=== PATIENT | male | born 1950 | race Caucasian/White ===

== ENCOUNTER → 2018-04-30 09:11 | Outpatient (CLI) | payer BC, SELFPAY ==
[2018-04-30 09:27] LABS: Bilirubin Negative (Negative); Blood Negative (Negative); Clarity Clear; Glucose Negative (Negative); Ketones Negative (Negative); Leukocyte Esterase Negative (Negative); Nitrite Negative (Negative); Specific Gravity 1.015 (1.005-1.025); Urobilinogen 0.2 EU/dL (Up TO 0.2)
== END ==
PROVIDERS: PCP Physician Assistant; Visit Provider Nurse Practitioner
DX: R31.0 Gross hematuria (principal)
CPT/HCPCS: 81003

== ENCOUNTER 2018-07-12 18:12 | Emergency (ER) | payer BC, SELFPAY ==
[2018-07-12 18:16] VITALS: BP 157/73; PULSE 90; RESP 16; TEMP 37.4; O2SAT 98
[2018-07-12 18:29] VITALS: RESP 16
--- NOTE | 2018-07-12 18:30 | ED.GENADUL_ITS ---
Discharge Plan Disposition Patient Disposition: HOME Condition: Good Discharge Details Chief Complaint: Vascular Clinical Impression: Leg wound, right, Bleeding from wound Reason For Visit: ALLEN Primary Care Provider: Bel Quintana ED Provider: Manolo No Home Meds and New Rx's Prescriptions: No Action atorvastatin 80 MG tablet 80 mg PO DAILY Qty: 90 RF: 4 atenolol 50 MG tablet 50 mg PO DAILY Qty: 90 RF: 4 aspirin [Aspir-81] 81 MG tablet,delayed release (DR/EC) 81 mg PO DAILY RF: 0 pramipexole [Mirapex] 0.125 MG tablet 0.125 mg PO PRN RF: 0 duloxetine [Cymbalta] 60 MG capsule,delayed release(DR/EC) 60 mg PO DAILY 90 Days Qty: 90 RF: 3 apixaban [Eliquis] 2.5 MG tablet 2.5 mg PO BID Qty: 180 RF: 4 amlodipine 10 MG tablet 10 mg PO DAILY Qty: 90 RF: 4 cholecalciferol (vitamin D3) 1,000 UNIT tablet 5,000 unit PO DAILY 90 Days Qty: 450 RF: 3 methadone 10 MG tablet 2 tab PO BID Qty: 120 RF: 0 Discharge Instructions Additional Instructions: hold your eliquis tonight have the sutures removed in 10 days, return to the emergency department for this if you have recurrent bleeding that dosen't stop with pressure return to the emergency department Medical Decision Making pt who is on eliquis for prior endarterectomy per pt, who 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 Denies other injuries. Had significant squiriting bleeidng and so came here by ems. On exam he initially had oozing but after trying to cauterize the bleeding he had a small area that was spraying so I placed a figure of 8 over this and another over an oozing area and this stopped the bleeding. He has no significant tachycardia, weakness/ lightheadedness, chest pain or sob so do not feel lab work indicated. I will advise him to hold his eliquis tonight to try and let the area clot and return precautions given Differential Diagnosis wound bleeding, arterial bleeding HPI General Mode of arrival: ambulatory . Date/Time Provider Initiated Documentation: 07/12/18 18:26 . Limitations to Documentation: no limitations . Information obtained by: patient . History of Present Illness 68 year old M presents to the emergency department with the chief complaint of right leg wound bleeding, and is localized to the right and lower extremity. Patient started experiencing this hour(s) (1) and it has been constant. No relieving factors improve symptom(s), No exacerbating factors reported . Patient did receive the following treatments prior to arrival, none Related Data Home Medications Medication Instructions Recorded Confirmed atorvastatin 80 mg PO DAILY #90 tab-cap 09/12/16 atenolol 50 mg PO DAILY #90 tab 02/19/17 aspirin [Aspir 81] 81 mg PO DAILY 07/04/17 duloxetine [Cymbalta] 60 mg PO DAILY 90 Days #90 tab-cap 09/16/17 pramipexole [Mirapex] 0.125 mg PO PRN 09/16/17 apixaban [Eliquis] 2.5 mg PO BID #180 tab-cap 10/27/17 amlodipine 10 mg PO DAILY #90 tab-cap 11/06/17 cholecalciferol (vitamin D3) 5,000 unit PO DAILY 90 Days #450 11/11/17 tab-cap methadone 2 tab PO BID #120 tab-cap 01/28/18 Previous Rx's Medication Instructions Recorded duloxetine [Cymbalta] 60 mg PO DAILY 90 Days #90 tab-cap 09/16/17 apixaban [Eliquis] 2.5 mg PO BID #180 tab-cap 10/27/17 amlodipine 10 mg PO DAILY #90 tab-cap 11/06/17 cholecalciferol (vitamin D3) 5,000 unit PO DAILY 90 Days #450 11/11/17 tab-cap methadone 2 tab PO BID #120 tab-cap 01/28/18 Allergies Allergy/AdvReac Type Severity Reaction Status Date / Time gabapentin AdvReac Mild cough Unverified 07/12/18 18:21 General Stated Complaint: Vascular KATIA: 3 Review of Systems Review of Systems All systems reviewed & are unremarkable except as noted in HPI and below Constitutional Denies chills, Denies fever(s) and Denies weakness Eyes Denies loss of vision ENT Denies change in voice Cardiovascular Denies chest pain and Denies dyspnea Respiratory Denies dyspnea Gastrointestinal Denies abdominal pain, Denies nausea and Denies vomiting Genitourinary Denies dysuria Musculoskeletal Denies joint swelling Neurologic Denies loss of vision and Denies weakness Psychiatric Denies depression Endocrine Denies cold intolerance and Denies heat intolerance Allergic/Immunologic Denies urticaria PFSH Family History Mother Diabetes Essential hypertension Depression Heart disease Neoplasm Father Neoplasm Sister No problems noted. Sister Neoplasm Cerebrovascular accident Sister Neoplasm Brother Neoplasm Grandfather Diabetes Essential hypertension Heart disease Hyperlipidemia Cerebrovascular accident Grandfather No problems noted. Grandmother No problems noted. Grandmother No problems noted. Medical History AAA (abdominal aortic aneurysm) BPH (benign prostatic hyperplasia) Chronic pain syndrome Esophagitis Femur fracture Gastritis, Helicobacter pylori Hypercholesterolemia Hypertension Male sexual dysfunction Peripheral vascular disease Pneumothorax on right (09/23/16) Rotator cuff tear arthropathy of both shoulders Sleep apnea Tibia fracture Varicose veins of bilateral lower extremities with pain Viral hepatitis C Social History Smoking/Tobacco Use Status: Former Tobacco Use Surgical History EGD - MAC ORIF femur Spinal Fusion femoral stent lumbar discectomy open reduction tib/fib right chest tube placement under local (09/23/16) Exam Const General: no acute distress Orientation: alert HENMT Head: normal to inspection Ears: external ears normal General nose exam: external nose normal Mouth: moist mucous membranes Eyes General: appearance normal, both eyes and all related structures Neck Neck: normal visual inspection Resp Effort & Inspection: normal respiratory effort and able to speak in complete sentences Cardio Rate: regular rate Neuro General: alert and oriented x3 Psych Mental Status: mental status grossly normal Course Vital Signs Temperature 37.4 C 07/12/18 18:16 Pulse 90 07/12/18 18:16 Respiratory Rate 16 07/12/18 18:16 Blood Pressure 157/73 H 07/12/18 18:16 Pulse Oximetry 98 07/12/18 18:16 Temperature 37.4 C 07/12/18 18:16 Temperature Source Temporal Artery Scan 07/12/18 18:16 Pulse 90 07/12/18 18:16 Respiratory Rate 16 07/12/18 18:16 Respiratory Effort Non-Labored 07/12/18 18:19 Blood Pressure 157/73 H 07/12/18 18:16 Blood Pressure Position Sitting 07/12/18 18:16 Pulse Oximetry 98 07/12/18 18:16 Oxygen Delivery Method Room Air 07/12/18 18:16 Oxygen Flow Rate 0 07/12/18 18:16 Pain Level 0 07/12/18 18:16
[2018-07-12 18:45] VITALS: BP 62/35; PULSE 70
--- NOTE | 2018-07-12 18:53 | NUR.NOTE ---
patient assisted up to w/c. became dizzy, diaphoretic, noticeable pallor. BP 62/35. Patient assisted back to bed, MD in for evaluation. Patient to be observed further for any signs of worsening status.
[2018-07-12 19:45] VITALS: BP 104/59; PULSE 63; RESP 16; O2SAT 98
== END 2018-07-12 19:48 | disposition home or self-care (01) ==
PROVIDERS: Emergency Provider Emergency Medicine; PCP Physician Assistant
DX: S81.811A Laceration without foreign body, right lower leg, initial encounter (principal); W22.8XXA Striking against or struck by other objects, initial encounter; R58 Hemorrhage, not elsewhere classified; Z79.01 Long term (current) use of anticoagulants; I10 Essential (primary) hypertension
CPT/HCPCS: 12001

== ENCOUNTER 2018-08-14 12:44 | Emergency (ER) | payer BC, SELFPAY ==
[2018-08-14] VITALS (102 sets, daily range): BP systolic 165–193; BP diastolic 77–89; PULSE 63–75; RESP 13–39; TEMP 37.1; O2SAT 96–100
--- NOTE | 2018-08-14 14:02 | ED.GENADUL_ITS ---
Discharge Plan Disposition Patient Disposition: HOME Condition: Improving Discharge Details Chief Complaint: DrugWithdr Clinical Impression: Methadone withdrawal Primary Care Provider: Bel Quintana ED Provider: Laura Hernandez Home Meds and New Rx's Prescriptions: Continued atorvastatin 80 MG tablet 80 mg PO DAILY Qty: 90 RF: 4 atenolol 50 MG tablet 50 mg PO DAILY Qty: 90 RF: 4 aspirin [Aspir-81] 81 MG tablet,delayed release (DR/EC) 81 mg PO DAILY RF: 0 pramipexole [Mirapex] 0.125 MG tablet 0.125 mg PO PRN RF: 0 duloxetine [Cymbalta] 60 MG capsule,delayed release(DR/EC) 60 mg PO DAILY 90 Days Qty: 90 RF: 3 Eliquis 2.5 MG tablet 2.5 mg PO BID Qty: 180 RF: 4 amlodipine 10 MG tablet 10 mg PO DAILY Qty: 90 RF: 4 cholecalciferol (vitamin D3) 1,000 UNIT tablet 5,000 unit PO DAILY 90 Days Qty: 450 RF: 3 methadone 10 MG tablet 1 tab PO BID RF: 0 Discharge Instructions Instructions: Opioid Withdrawal (ED) Additional Instructions: Take the Ativan to help with any with withdrawal symptoms or with sleep. Follow-up with your scheduled appointment with your primary care doctor and the pain clinic on Friday. Drink plenty of fluids and get plenty of rest. Return immediately to the emergency department any worsening or new concerning symptoms. Discharge Data Discharge Physician: Laura Hernandez Medical Decision Making 68-year-old male with a history of chronic back and shoulder pain who has been on a methadone taper for the past 5 months who presents for concern for methadone withdrawal. He complains of hot and cold sweats and chills, shaking, restless legs, decreased appetite and sleep for the past week. Denies cough, chest pain or shortness of breath. Blood pressure 165/78, remainder vitals within normal limits. No acute findings on exam. No focal deficits. Lungs clear to auscultation. Abdomen soft and nontender. No tremors or diaphoresis. Discussed with patient that his symptoms can certainly be due to withdrawal, but in the emergency department we will rule out any other acute electrolyte abnormality or another acute process. We will place an IV, bolus IV fluids, Ativan, labs and EKG. patient has normal respiratory rate, no fever, normal oxygen saturation with clear lungs, do not see indication for chest x-ray or other imaging at this time and pt is agreeable. 1430 -- d/w his pcp [employer] Bel Quintana -agrees with plan for Ativan short term term on discharge. No further opioids. Will follow up with patient on his appointment this friday 1500 -- delay in lab results, blood hemolyzed. Lab to redraw. 1630 --labs and ekg reviewed and unremarkable. Normal white blood cell count, electrolytes and urinalysis. EKG notes a rate of 65, sinus and no acute ST elevation or depression. Patient states he feels better and feels good to go home. Will send home with a few tabs of Ativan to help over the next couple days. Patient has an appointment with his primary care doctor and the pain clinic this August 19. Patient states he is also planning to find a new primary care doctor. He is instructed to make an appointment as soon as possible for evaluation. Patient instructed to return here immediately with any worsening or new concerning symptoms. Medical Records Medical records reviewed: Yes I reviewed the patient's medical records. Lab Data Lab results reviewed: Yes I reviewed the patient's lab results. Laboratory Tests Range/Units 08/14/18 08/14/18 08/14/18 14:08 14:20 14:20 WBC Cancelled RBC Cancelled Hgb Cancelled Hct Cancelled MCV Cancelled MCH Cancelled MCHC Cancelled RDW Cancelled Plt Count Cancelled MPV Cancelled Abs Immat Gran (auto) Cancelled Immature Gran % Cancelled Neutrophils % Cancelled Lymphocytes % Cancelled Monocytes % Cancelled Eosinophils % Cancelled Basophils % Cancelled Absolute Neutrophils Cancelled Band Neutrophils Cancelled Absolute Lymphocytes Cancelled Absolute Monocytes Cancelled Absolute Eosinophils Cancelled Absolute Basophils Cancelled Metamyelocytes Cancelled Myelocytes Cancelled Promyelocytes Cancelled Nucleated RBCs Cancelled Differential Comment Cancelled Atypical Lymphocytes Cancelled Other Cell Type Cancelled RBC Morphology Cancelled Polychromasia Cancelled Hypochromasia Cancelled Poikilocytosis Cancelled Basophilic Stippling Cancelled Anisocytosis Cancelled Microcytosis Cancelled Macrocytosis Cancelled Spherocytes Cancelled Target Cells Cancelled Tear Drop Cells Cancelled Ovalocytes Cancelled Stomatocytes Cancelled Shaikh-[place] Bodies Cancelled Merary Cells Cancelled Acanthocytes (Spur) Cancelled Schistocytes Cancelled Sodium Cancelled Potassium Cancelled Chloride Cancelled Carbon Dioxide Cancelled Anion Gap Cancelled BUN Cancelled Creatinine Cancelled Estimated GFR/1.73 m2 Cancelled Glucose Cancelled Calcium Cancelled Total Bilirubin Cancelled AST Cancelled ALT Cancelled Alkaline Phosphatase Cancelled Total Protein Cancelled Albumin Cancelled Urine Color (Yellow) Yellow Urine Clarity Clear Urine pH (5-8) 6.5 Ur Specific [place] (1.005-1.025) 1.010 Urine Protein (Negative) mg/dL Negative Urine Ketones (Negative) mg/dL Negative Urine Blood (Negative) Negative Urine Nitrite (Negative) Negative Urine Bilirubin (Negative) Negative Urine Urobilinogen (Up TO 0.2) EU/dL 0.2 Ur Leukocyte Esterase (Negative) Negative Urine Glucose (Negative) mg/dL Negative Range/Units 08/14/18 08/14/18 15:07 15:07 WBC 6.02 RBC 3.83 L Hgb 11.3 L Hct 34.7 L MCV 90.6 MCH 29.5 MCHC 32.6 RDW 14.3 H Plt Count 325 MPV 8.8 Abs Immat Gran (auto) Immature Gran % 0.3 Neutrophils % 64.8 Lymphocytes % 24.3 Monocytes % 6.3 Eosinophils % 3.8 Basophils % 0.5 Absolute Neutrophils 3.90 Band Neutrophils Absolute Lymphocytes 1.46 Absolute Monocytes 0.38 Absolute Eosinophils 0.23 Absolute Basophils 0.03 Metamyelocytes Myelocytes Promyelocytes Nucleated RBCs Differential Comment Atypical Lymphocytes Other Cell Type RBC Morphology Polychromasia Hypochromasia Poikilocytosis Basophilic Stippling Anisocytosis Microcytosis Macrocytosis Spherocytes Target Cells Tear Drop Cells Ovalocytes Stomatocytes Shaikh-Over[place] Bodies [place] Cells Acanthocytes (Spur) Schistocytes Sodium 144 Potassium 3.7 Chloride 107 Carbon Dioxide 28.1 Anion Gap 8.9 BUN 26 H Creatinine 1.14 Estimated GFR/1.73 m2 >= 60.00 Glucose 88 Calcium 8.9 Total Bilirubin 0.4 AST 28 ALT 27 Alkaline Phosphatase 134 H Total Protein 7.4 Albumin 3.6 Urine Color (Yellow) Urine Clarity Urine pH (5-8) Ur Specific [place] (1.005-1.025) Urine Protein (Negative) mg/dL Urine Ketones (Negative) mg/dL Urine Blood (Negative) Urine Nitrite (Negative) Urine Bilirubin (Negative) Urine Urobilinogen (Up TO 0.2) EU/dL Ur Leukocyte Esterase (Negative) Urine Glucose (Negative) mg/dL ECG Data Attestation: I personally reviewed and interpreted this ECG (s) as follows: Interpretation: 1618: 65, sinus, no acute ST elevation or depression, QTc 430, QRS 132 . HPI General Mode of arrival: ambulatory . Date/Time Provider Initiated Documentation: 08/14/18 12:54 . Limitations to Documentation: no limitations . Information obtained by: patient . HPI Narrative: Patient is a 68-year-old male who has been on methadone 40 mg daily for 10 years for chronic back and shoulder pain who presents for concern for possible withdrawal from methadone. Patient states he has been on a taper and plans to wean him off his methadone by his choice since April 2018. Patient states 1 month ago he weaned down to 5 mg twice daily and the plan was to switch him to 5 mg daily last week. Patient states his primary care doctor would not fill the prescription for the 5 mg daily as he was taking additional methadone in the past month due to his difficulty with weaning down on the methadone. Patient states he has hot and cold chills, feels shaky, restless legs, decreased appetite, and decreased energy for the past week. Patient states he saw his PCP Bel Quintana at [facility] who has been managing his methadone for years who saw patient this week for this and started clonidine patch which patient was unable to get the pharmacy and then started on clonidine p.o. Patient states he now is on the clonidine patch but it is not helping. Patient states his last dose of methadone was 9 days ago. Patient also states his blood pressure is normally 130s over 70s and was greater than 200s this morning. Patient states he also got some recommendations from the pain clinic during his methadone taper and they had been the ones to recommend the oral clonidine this week. Related Data Home Medications Medication Instructions Recorded Confirmed atorvastatin 80 mg PO DAILY #90 tab-cap 09/12/16 08/14/18 atenolol 50 mg PO DAILY #90 tab 02/19/17 08/14/18 aspirin [Aspir-81] 81 mg PO DAILY 07/04/17 08/14/18 duloxetine [Cymbalta] 60 mg PO DAILY 90 Days #90 tab-cap 09/16/17 08/14/18 pramipexole [Mirapex] 0.125 mg PO PRN 09/16/17 Eliquis 2.5 mg PO BID #180 tab-cap 10/27/17 08/14/18 amlodipine 10 mg PO DAILY #90 tab-cap 11/06/17 08/14/18 cholecalciferol (vitamin D3) 5,000 unit PO DAILY 90 Days #450 11/11/17 08/14/18 tab-cap methadone 1 tab PO BID 08/14/18 08/14/18 Previous Rx's Medication Instructions Recorded duloxetine [Cymbalta] 60 mg PO DAILY 90 Days #90 tab-cap 09/16/17 Eliquis 2.5 mg PO BID #180 tab-cap 10/27/17 amlodipine 10 mg PO DAILY #90 tab-cap 11/06/17 cholecalciferol (vitamin D3) 5,000 unit PO DAILY 90 Days #450 11/11/17 tab-cap Allergies Allergy/AdvReac Type Severity Reaction Status Date / Time gabapentin AdvReac Mild cough Unverified 08/14/18 12:58 General Stated Complaint: DrugWithdr KATIA: 3 Review of Systems Review of Systems All systems reviewed & are unremarkable except as noted in HPI and below Constitutional Reports as per HPI, Reports body ache(s), Reports chills, Denies fever(s), Reports malaise and Reports weakness Eyes Denies blurry vision ENT Denies dizziness, Denies sore throat and Denies throat swelling Cardiovascular Denies chest pain and Denies dyspnea Respiratory Denies dyspnea Gastrointestinal Denies abdominal pain, Denies diarrhea and Denies vomiting Genitourinary Denies hematuria and Denies dysuria Musculoskeletal Denies back pain and Denies numbness Integumentary/Breasts Denies lesions and Denies rash Neurologic Denies dizziness, Denies numbness and Reports weakness Allergic/Immunologic Denies throat swelling [facility] Medical History AAA (abdominal aortic aneurysm) BPH (benign prostatic hyperplasia) Chronic pain syndrome Esophagitis Femur fracture Gastritis, Helicobacter pylori Hypercholesterolemia Hypertension Male sexual dysfunction Peripheral vascular disease Pneumothorax on right (09/23/16) Rotator cuff tear arthropathy of both shoulders Sleep apnea Tibia fracture Varicose veins of bilateral lower extremities with pain Viral hepatitis C EGD - MAC ORIF femur Spinal Fusion femoral stent lumbar discectomy open reduction tib/fib right chest tube placement under local (09/23/16) Family History Mother Diabetes Essential hypertension Depression Heart disease Neoplasm Father Neoplasm Sister No problems noted. Sister Neoplasm Stroke Sister Neoplasm Brother Neoplasm Grandfather Diabetes Essential hypertension Heart disease Hyperlipidemia Stroke Grandfather No problems noted. Grandmother No problems noted. Grandmother No problems noted. Social History Smoking/Tobacco Use Status: Former Tobacco Use alcohol intake: current alcohol intake frequency: a few times a week substance use type: does not use Exam Const General: cooperative, healthy appearing and no acute distress HENMT Head: normal to inspection Face and sinus: normal facial exam Eyes General: appearance normal, both eyes and all related structures Pupils: PERRL EOM: EOM intact bilaterally Neck Neck: normal visual inspection and No submandibular swelling Lymphatic: no lymphadenopathy noted Chest Chest: normal inspection of the chest and no tenderness Resp Effort & Inspection: normal respiratory effort and able to speak in complete sentences Auscultation: clear to auscultation bilaterally Cardio Rate: regular rate Rhythm: regular rhythm GI Inspection: normal to inspection Palpation: soft, not firm, not rigid and nontender Auscultation: normal bowel sounds Male General Exam: Yes normal external exam Skin General skin exam: no rashes or lesions noted Neuro General: alert, awake and oriented x3 Cognition: normal cognition Speech: speech normal Motor: muscle tone normal throughout Sensory Exam: no sensory deficits noted Extrem General: edema Left lower extremity: lower leg Details: other (Chronic mid anterior 4 x 2 cm open wound with clean edges and pink granulation tissue, no erythema, induration, edema, drainage or bleeding per) Psych Appearance: grossly normal Mental Status: mental status grossly normal Speech and Movement: speech and movement normal Affect: normal affect Course Vital Signs Temperature 98.8 F 08/14/18 12:53 Pulse 74 08/14/18 12:53 Respiratory Rate 16 08/14/18 12:53 Blood Pressure 165/78 H 08/14/18 12:53 Pulse Oximetry 100 08/14/18 12:53 Temperature 98.8 F 08/14/18 12:53 Temperature Source Skin 08/14/18 12:53 Pulse 74 08/14/18 12:53 Respiratory Rate 16 08/14/18 12:53 Blood Pressure 165/78 H 08/14/18 12:53 Pulse Oximetry 100 08/14/18 12:53 Oxygen Delivery Method Room Air 08/14/18 12:53 Oxygen Flow Rate 0 08/14/18 12:53 Pain Level 10 08/14/18 12:53
[2018-08-14 14:17] LABS: Bilirubin Negative (Negative); Blood Negative (Negative); Clarity Clear; Glucose Negative (Negative); Ketones Negative (Negative); Leukocyte Esterase Negative (Negative); Nitrite Negative (Negative); Urobilinogen 0.2 EU/dL (Up TO 0.2); pH 6.5 (5-8)
[2018-08-14] MEDS: LORazepam 2 MG/ML VIAL 0.5 MG IVP (15:10)
[2018-08-14] MEDS: Normal Saline 1,000 ML 1000 ML IV (15:10)
[2018-08-14 15:22] LABS: Abs Immature Grans 0.02 k/cumm (0.0-0.09); Absolute Basophil Count 0.03 k/cumm (0.0-0.2); Absolute Eosinophil Count 0.23 k/cumm (0.0-0.7); Absolute Lymphocyte Count 1.46 k/cumm (1.2-3.4); Absolute Monocyte Count 0.38 k/cumm (0.11-0.7); Basophils % 0.5; Eosinophils % 3.8; HCT 34.7 % (40.0-50.0); HGB 11.3 g/dL (13.5-17.5); Immature Grans % 0.3; Lymphocytes % 24.3; Mean Corp. HGB Concentration 32.6 g/dL (32.0-36.0); Mean Corpuscular Hemoglobin 29.5 pg (27.0-33.0); Mean Corpuscular Volume 90.6 fL (80-95); Mean Platelet Volume 8.8 fL (8.0-11.0); Monocytes % 6.3; Neutrophils % 64.8; Platelet Count 325 x1000/uL (130-400); RBC 3.83 m/cumm (4.50-6.00); RBC Distribution Width 14.3 % (11.8-14.1); White Blood Cell Count 6.02 k/cumm (4.4-10.8)
[2018-08-14 15:47] LABS: ALT 27 U/L (12-78); AST 28 U/L (15-37); Albumin 3.6 g/dL (3.4-5.0); Alkaline Phosphatase 134 U/L (46-116); Anion Gap 8.9 mmol/L (3-11); BUN 26 mg/dL (7-18); Bilirubin, Total 0.4 mg/dL (0.2-1.0); CO2 28.1 mmol/L (21.0-32.0); CREATININE 1.14 mg/dL (0.70-1.30); Calcium 8.9 mg/dL (8.5-10.1); Chloride 107 mmol/L (98-107); Glucose 88 mg/dL (70-100); Potassium 3.7 mmol/L (3.5-5.1); Sodium 144 mmol/L (136-145); Total Protein 7.4 g/dL (6.4-8.2)
== END 2018-08-14 17:25 | disposition home or self-care (01) ==
PROVIDERS: Emergency Provider Physician Assistant; PCP Physician Assistant
DX: F11.23 Opioid dependence with withdrawal (principal)
CPT/HCPCS: 36415; 80053; 93005; 96374; 99285; 81003; 85025; 93010; J2060

== ENCOUNTER 2018-09-08 10:54 | Outpatient (CLI) | payer BC, SELFPAY ==
[2018-09-08 11:54] LABS: Bilirubin Negative (Negative); Blood Negative (Negative); Clarity Clear; Glucose Negative (Negative); Ketones Negative (Negative); Leukocyte Esterase Negative (Negative); Nitrite Negative (Negative); Urobilinogen 0.2 EU/dL (Up TO 0.2)
[2018-09-08 13:24] LABS: Anion Gap 9.8 mmol/L (3-11); BUN 29 mg/dL (7-18); CO2 28.2 mmol/L (21.0-32.0); CREATININE 1.15 mg/dL (0.70-1.30); Calcium 9.4 mg/dL (8.5-10.1); Chloride 103 mmol/L (98-107); Glucose 94 mg/dL (70-100); Potassium 4.6 mmol/L (3.5-5.1); Sodium 141 mmol/L (136-145)
== END 2018-09-08 11:14 ==
PROVIDERS: PCP Physician Assistant; Visit Provider Physician Assistant
DX: I10 Essential (primary) hypertension (principal)
CPT/HCPCS: 36415; 80048; 81003; 84443

== ENCOUNTER 2018-09-15 12:58 | Outpatient (CLI) | payer BC, SELFPAY ==
--- NOTE | 2018-09-18 10:01 | W.PREOPHP ---
Date of service: 09/15/18 Assessment and Plan (1) Tear of left rotator cuff: Current visit: Yes Status: Chronic Left arthroscopic rotator cuff repair Details of surgery were discussed with patient as well as risks and pertinent anatomy. All questions were answered. Anesthesia was consulted especially about the pain medication, and he was instructed to discontinue his naltrexone bupropion 2 days prior to surgery. Dr. Webb was consulted with his chronic pain medication issue, and we will make a plan in order to treat his postsurgical pain. Qualifiers: Rotator cuff tear extent: unspecified tear extent Qualified Code(s): M75.102 - Unspecified rotator cuff tear or rupture of left shoulder, not specified as traumatic History of Present Illness Chief Complaint: Left shoulder pain Narrative: Ernesto is a 68-year-old male who is been complaining of left shoulder pain really for a few years now. He describes difficulty lifting objects away from his body, and also has difficulty sleeping at night because of his shoulder pain. He has been treated with injections, which did give him quite a bit of pain relief for more than a month's time, but the pain did always return. He takes anti-inflammatories and they only provide minimal relief. An MRI revealed a full-thickness tear with retraction of the supraspinatus on the left shoulder. Because he has failed conservative treatment, continues to have symptoms, and demonstrates a rotator cuff tear on the MRI, Dr. Webb offers a left rotator cuff repair. Ernesto agrees with this plan and is anxious to proceed. Ernesto has been going through a program to come off of chronic narcotic use, and is a little bit nervous about pain control after surgery. He is no longer on methadone but does take naltrexone bupropion he says as a stepdown for chronic opioid treatment. Anesthesia does suggest stopping this medication prior to surgery so that more options for pain control are available. Pertinent Surgical Information Ernesto has significant peripheral vascular disease with multiple endarterectomy treatments throughout his body. He also has a AAA that has been followed and treated conservatively. Last measurement by CT was done in December 2017 which was 4.7 x 5 cm. Patient denies history of CVA, MO, angina, asthma, COPD, renal or liver disorders, hepatitis, bleeding disorders, diabetes, immune or thyroid disorders. No complications from anesthesia. Review of Systems Constitutional Denies fever(s) ENT Denies dizziness and Denies sore throat Cardiovascular Denies chest pain, Denies palpitations and Denies dyspnea Respiratory Denies dyspnea Gastrointestinal Denies abdominal pain, Denies melena, Denies hematochezia, Denies diarrhea, Denies nausea and Denies vomiting Genitourinary Denies hematuria and Denies dysuria Neurologic Denies dizziness Endocrine Denies palpitations [facility] Medical History AAA (abdominal aortic aneurysm) BPH (benign prostatic hyperplasia) Chronic pain syndrome Esophagitis Femur fracture Gastritis, Helicobacter pylori Hypercholesterolemia Hypertension Male sexual dysfunction Peripheral vascular disease Pneumothorax on right (09/23/16) Rotator cuff tear arthropathy of both shoulders Sleep apnea Tibia fracture Varicose veins of bilateral lower extremities with pain Viral hepatitis C Surgical History History of endarterectomy (Acute) EGD - MAC ORIF femur Spinal Fusion femoral stent lumbar discectomy open reduction tib/fib right chest tube placement under local (09/23/16) Social History Smoking/Tobacco Use Status: Former Tobacco Use how long ago did patient quit smoking: Quit in 1987 alcohol intake: current alcohol intake frequency: a few times a week substance use type: marijuana Meds Home Medications Medication Instructions Recorded Confirmed Type atorvastatin 80 mg PO DAILY #90 tab-cap 09/12/16 09/15/18 History atenolol 100 mg PO DAILY #90 tab 02/19/17 09/15/18 History aspirin [Aspir-81] 81 mg PO DAILY 07/04/17 09/15/18 History pramipexole [Mirapex] 0.125 mg PO PRN 09/16/17 09/15/18 History Eliquis 2.5 mg PO BID #180 tab-cap 10/27/17 09/15/18 Rx amlodipine 10 mg PO DAILY #90 tab-cap 11/06/17 09/15/18 Rx cholecalciferol (vitamin D3) 5,000 unit PO DAILY 90 Days #450 11/11/17 09/15/18 Rx tab-cap methadone 1 tab PO BID 08/14/18 08/21/18 History duloxetine [Cymbalta] 60 mg PO DAILY 90 Days #90 tab-cap 09/14/18 09/15/18 Rx enoxaparin 80 mg SC Q12H #6 syringe 09/15/18 Rx ibuprofen 800 mg PO TID PRN 09/15/18 09/15/18 History lisinopril 10 mg PO DAILY 09/15/18 09/15/18 History naltrexone-bupropion 4.5 mg PO QAM 09/15/18 09/15/18 History omega 0-ztn-czj-fish oil [Kathleen-3] 1 tab PO DAILY 09/15/18 09/15/18 History Allergies Allergy/AdvReac Type Severity Reaction Status Date / Time gabapentin AdvReac Mild cough Unverified 09/15/18 13:10 Exam [facility] Head: normocephalic and atraumatic General nose exam: no nasal discharge Throat: uvula midline and no uvular edema Other: soft palate rises symmetrically, no erythema Eyes Conjunctivae: conjunctivae normal Sclera: sclerae normal Pupils: PERRL Resp Effort & Inspection: normal respiratory effort Auscultation: clear to auscultation bilaterally and no wheezes Cardio Rate: regular rate Rhythm: regular rhythm Heart Sounds: S1 normal, S2 normal and no murmurs Other: BP: 160/80
== END 2018-09-15 13:18 ==
PROVIDERS: PCP Physician Assistant; Visit Provider Student in an Organized Health Care Education/Training Program
DX: M25.512 Pain in left shoulder (principal); S46.012A Strain of muscle(s) and tendon(s) of the rotator cuff of left shoulder, initial encounter; Z01.818 Encounter for other preprocedural examination
CPT/HCPCS: NC

== ENCOUNTER 2018-09-22 07:23 | Day surgery (SDC) | payer BC, SELFPAY ==
[2018-09-22] VITALS (7 sets, daily range): BP systolic 108–144; BP diastolic 54–85; PULSE 54–67; RESP 15–19; TEMP 35.5–36.7; O2SAT 96–100
[2018-09-22] MEDS: Lactated Ringers 1,000 ML 80 ML IV (07:37)
--- NOTE | 2018-09-22 08:31 | W.PM.DSUDISC ---
Discharge Plan Disposition Patient Disposition: HOME Condition: Good Discharge Details Reason For Visit: (L) RTC TEAR Attending Provider: Ariel Webb Primary Care Provider: Bel Quintana Home Meds and New Rx's Prescriptions: New acetaminophen 500 mg capsule 1,000 mg PO Q8H PRN (Reason: pain) Qty: 90 RF: 0 oxycodone 5 mg tablet 2.5 - 5 mg PO Q4H Qty: 18 RF: 0 Narcan 4 mg/actuation spray,non-aerosol 1 spray DONNIE ONCE PRN (Reason: opioid overdose) Qty: 2 RF: 0 Continued atorvastatin 80 MG tablet 80 mg PO DAILY Qty: 90 RF: 4 atenolol 50 MG tablet 100 mg PO DAILY Qty: 90 RF: 4 aspirin [Aspir-81] 81 MG tablet,delayed release (DR/EC) 81 mg PO DAILY RF: 0 pramipexole [Mirapex] 0.125 MG tablet 0.125 mg PO PRN RF: 0 Eliquis 2.5 MG tablet 2.5 mg PO BID Qty: 180 RF: 4 amlodipine 10 MG tablet 10 mg PO DAILY Qty: 90 RF: 4 cholecalciferol (vitamin D3) 1,000 UNIT tablet 5,000 unit PO DAILY 90 Days Qty: 450 RF: 3 duloxetine [Cymbalta] 60 mg capsule,delayed release(DR/EC) 60 mg PO DAILY 90 Days Qty: 90 RF: 3 lisinopril 10 mg Tablet 10 mg PO DAILY RF: 0 Marceline-3 350 mg-235 mg- 90 mg-597 mg Capsule,Delayed Release(Dr/Ec) 1 tab PO DAILY RF: 0 ibuprofen 800 mg Tablet 800 mg PO TID PRN (Reason: pain) Qty: 60 RF: 1 Discontinued methadone 10 MG tablet 1 tab PO BID RF: 0 naltrexone-bupropion 8-90 mg Tablet Extended Release 4.5 mg PO QAM RF: 0 enoxaparin 80 mg/0.8 mL syringe 80 mg SC Q12H Qty: 6 RF: 0 Discharge Instructions Additional Instructions: PAIN MEDICATIONS: - You should take Tylenol 1000mg every 8 hours for baseline pain. - You may take Ibuprofen but this will increase your bleeding risks and should be used sparingly and stopped immediately if any sign of bleeding and call Dr. Webb. - You have been prescribed oxycodone for breakthrough pain. While you are taking Oxycodone you will NOT BE TAKING Contrave (naltrexone-bupropion). This medication will be resumed once the Oxycodone is not being taken (approx 1-2 weeks) - You should use ice over the shoulder for pain relief. Stand Alone Forms: Jon Hamilton w/RCR Referrals: Ariel Webb MD [ [facility] STAFF PHYSICIAN] - Equipment/Supplies: Sling Activity:: Stay in Sling Remove Dressings/Wound Care:: 72 hours Shower/Bathe:: 72 hours Diet:: As Tolerated Discharge Orders Discharge Orders: Discharge Order (Routine); Ordered 09/22/18 Ordered By: Ariel Webb DS: Diagnosis Discharge Diagnosis (1) Tear of left rotator cuff: Status: Acute
[2018-09-22] MEDS: Bupivacaine LIPOSOME/PF 133 MG/10 ML VIAL IJ (08:33)
[2018-09-22] MEDS: Bupivacaine 0.5% Pres-Free 30 ML VIAL (08:33)
--- NOTE | 2018-09-23 06:55 | ROE_ITS ---
REPORT OF OPERATIVE PROCEDURE DATE OF SURGERY September 22, 2018 PREOPERATIVE DIAGNOSIS Left rotator cuff tear. POSTOPERATIVE DIAGNOSIS Left rotator cuff tear. SURGERY Left arthroscopic rotator cuff repair with extensive debridement. SURGEON Ariel Webb M.D. [employer] WHE[employer]LE [employer] Catherine Hargrove. ANESTHESIA General with interscalene nerve block. FINDINGS There was a tear of the upper portion of the subscapularis tendon. This tendon edge was easily identi fiable and was easily reduced onto the lesser tuberosity. A standard rotator cuff repair of the subsc apularis was performed. The infraspinatus and supraspinatus were torn and retracted medial to the gle noid. They were released fully from over on the top of the glenoid, as well as all the scapular spine . However, they were unable to be mobilized over to the footprint and the tissue quality was quite po or with significant fatty atrophy. This area of the rotator cuff was then debrided. No marginal conve rsion was possible. The teres minor and a probable portion of the posterior infraspinatus was still a ttached to the greater tuberosity. ESTIMATED BLOOD LOSS Minimal. COMPLICATIONS None. DISPOSITION The patient was awakened from anesthesia and taken to the PACU in stable condition. INDICATIONS FOR PROCEDURE Domo is a 58-year-old, who has had known bilateral shoulder dysfunction. He has known bilateral rot ator cuff tears. The left was the most recent one to be more problematic. He has rotator cuff tear ar thropathy on the right side, and he is only a candidate for a reverse total shoulder arthroplasty. Gi bhavna the dysfunction of both shoulders, he would like to have something done to help decrease his pain and increase his function. He is limited by pain, by strength and by motion of the left shoulder. MR I showed that the rotator cuff was probably reparable on the left-hand side. It has been chronically torn for some time. However, given his dysfunction, I did offer rotator cuff repair. I reviewed the r isks of the procedure to include bleeding, infection, pain, stiffness, re-tear, incomplete repair, ne ed for repeat procedures, blood clot. Despite these risks, he elects to proceed. PROCEDURE DESCRIPTION Domo was greeted in the preoperative holding area. His identity was confirmed and the correct side was identified and marked. The consent was reviewed with the patient and signed. The history and phy sical was updated. He was taken back to the PACU, where an interscalene nerve block was placed in the left shoulder. After successful administration of the regional anesthesia, he was taken to the Opera ting Room. A General anesthetic was given. He was placed in the beach-chair position with all bony pr ominences were well padded. The head was placed in a neutral position with a foam hogshead stripper. The left arm was then prepped with ChloraPrep and draped in a standard fashion. A timeout was performed for safe surgery. Prophylactic antibiotics in the form of Cefazolin were given. The left arm was placed into a pneumatic arm khan, Spider2. The surface anatomy of the shoulder was drawn on the skin. A standard posterior portal was made. The joint was first insufflated with 20 cc of normal saline. The arthroscope was then inserted atraumatically into the shoulder joint. Immediate ly upon entering into the shoulder, there was a notable lack of resistance due to the loss of some of the posterior rotator cuff. There was fraying seen of the labrum from 9 o'clock anteriorly to about 2 o'clock posteriorly. There was also tearing of the biceps tendon. The subscapularis tendon was also torn and it was easily identifiable in this area. Using a spinal needle an anterior, rotator interva l, portal was then established. A 6.5-mm cannula was inserted in this space. Using electrocautery, I then performed a biceps tenotomy given the biceps tearing. The probe was then used to complete diagno stic arthroscopy. There was some noted wear of the anterior aspect of the glenoid, grade 3/4 chondrom alacia. The central portion was grade 2 chondromalacia. The humeral head had no significant arthritic change seen. The undersurface of the acromion was visible from this position with retracted rotator cuff. There was a band of coracoacromial ligament anteriorly, but there was no rotator cuff attached to the tuberosity. A torn distal stump was seen over the tuberosity. There was a portion of the teres minor, maybe the inferior portion of the infraspinatus seen still attached. The labrum was debrided from anterior to posteriorly. The subscapularis tendon edge was also debrided showing the tendon and showing its displacement from the tuberosity. The lesser tuberosity was then debrided with the shaver . An anterior lateral portal was then made using spinal needle localization. A 7.5-mm cannula was ins erted in its place. A Mitek Healix anchor was then inserted into the lesser tuberosity. The subscapu ava tendon was then reapproximated onto the lesser tuberosity using two sutures from the suture anc hor, one in a horizontal mattress fashion, and the more superior one being in a simple fashion. The h orizontal mattress suture was tied first and nicely reapproximated the tendon onto the tuberosity. Th e simple suture was then tied second, which helped bring the tendon edge down onto the lesser tuberos ity surface. This was tested at 40 degrees of external rotation and in maximum internal rotation, the re was no gapping or lifting off of the lesser tuberosity. We then turned our attention to the remainder of the rotator cuff. The distal stump of the rotator cu ff was debrided. The lateral bursa was then also removed. A second posterolateral viewing portal was then created. From this position, we had an excellent view of the humeral head and the greater tubero sity. There was no cuff attached over the greater tuberosity, except for the very posterior elements. The posterior attachment was followed back well medial of the glenoid, at least 1.5 centimeters. The re was significant scarring seen around this area. Superior rotator cuff seemed to be scarred in on top of the labrum medial to the glenoid. Using electrocautery, as well as a Liberator, developing tis margarito planes. I also used a shaver to debride any scar tissue. The undersurface of the acromion was als o skeletonized all the way to the scapular spine. This continued as much as I felt comfortable down t owards the base of the scapular spine. The Liberator was advanced underneath the tissue planes. I was able to gain some mobilization. However, the tendon quality was quite poor. The tendon was identifie d again, about a centimeter medial to the glenoid. After releasing both inferiorly and superiorly, I still was only able to bring it just past, lateral, to the glenoid. I then performed an interval slid e between the supraspinatus and the infraspinatus. However, I still was unable to gain any more later al mobilization. At this point, I decided I was unable and not feasible to reattach the superior rota tor cuff. I performed an adequate debridement in this area, detaching any bursal attachments. An exte nsive debridement was performed in the area. Remainder of bursa was debrided. An acromioplasty was then performed using the leo from a posterior portal. The cutting block techniq ue was used to raise the anterolateral spur of the plane to the posterior slip of the acromion. The s houlder was then irrigated with the irrigant and excess fluid was evacuated. The skin portal sites we re then closed with a #3-0 Monocryl. The wounds were dressed with Steri-Strips, 4x4s, ABDs and Medipo re tape. He was placed into a sling. At the end of the case, all counts were correct.
== END 2018-09-22 13:25 | disposition home or self-care (01) ==
PROVIDERS: PCP Physician Assistant; Visit Provider Student in an Organized Health Care Education/Training Program
PROC: (CPT 29827; principal; 2018-09-22 10:15)
DX: M75.112 Incomplete rotator cuff tear or rupture of left shoulder, not specified as traumatic (principal); M75.22 Bicipital tendinitis, left shoulder; I10 Essential (primary) hypertension; G47.33 Obstructive sleep apnea (adult) (pediatric)
CPT/HCPCS: 29827; 29826; 29823; 76942; J0690; J1100; J1885; J2250; J2370; J2405; L3670

== ENCOUNTER 2018-11-21 23:14 | Observation (INO) | payer BC, MEDICARE, SELFPAY ==
[2018-11-21] VITALS (8 sets, daily range): BP systolic 102–142; BP diastolic 50–65; PULSE 63–69; RESP 12–19; TEMP 36.7; O2SAT 98–100
--- NOTE | 2018-11-21 23:17 | W.ED.GENAD ---
Discharge Plan Disposition Patient Disposition: [facility] INPATIENT Condition: Stable Discharge Details Chief Complaint: Laceration Clinical Impression: Syncope, Face lacerations, Fracture of nasal bones Reason For Visit: ALLEN Primary Care Provider: Mando Rodriguez ED Provider: Gopi Ahmadi [place] Meds and New Rx's Prescriptions: No Action ibuprofen 800 mg tablet 800 mg PO TID PRN (Reason: pain) Qty: 90 RF: 2 atorvastatin 80 MG tablet 80 mg PO DAILY Qty: 90 RF: 4 atenolol 50 MG tablet 100 mg PO DAILY Qty: 90 RF: 4 aspirin [Aspir-81] 81 MG tablet,delayed release (DR/EC) 81 mg PO DAILY RF: 0 pramipexole [Mirapex] 0.125 MG tablet 0.125 mg PO PRN RF: 0 Eliquis 2.5 MG tablet 2.5 mg PO BID Qty: 180 RF: 4 amlodipine 10 MG tablet 10 mg PO DAILY Qty: 90 RF: 4 duloxetine [Cymbalta] 60 mg capsule,delayed release(DR/EC) 60 mg PO DAILY 90 Days Qty: 90 RF: 3 cholecalciferol (vitamin D3) 1,000 unit tablet 5,000 unit PO DAILY 90 Days Qty: 450 RF: 3 lisinopril 10 mg Tablet 10 mg PO DAILY RF: 0 [place]-3 350 mg-235 mg- 90 mg-597 mg Capsule,Delayed Release(Dr/Ec) 1 tab PO DAILY RF: 0 acetaminophen 500 mg capsule 1,000 mg PO Q8H PRN (Reason: pain) Qty: 90 RF: 0 oxycodone 5 mg tablet 2.5 - 5 mg PO Q4H Qty: 18 RF: 0 Narcan 4 mg/actuation spray,non-aerosol 1 spray DONNIE ONCE PRN (Reason: opioid overdose) Qty: 2 RF: 0 Medical Decision Making Patient presenting with syncopal event at home resulting in facial trauma. He is on Eliquis. He denies having significant headache or neurologic changes. He denies having chest pain or shortness of breath. He denies any abdominal pain or back pain. He is neurologically intact. His EKG is unremarkable. IV is established. Laboratory studies including an alcohol level are sent. CT scan of the head/face and neck ordered although his spine is nontender. He will need sutures to the nasal laceration as well as the facial laceration. Facial laceration is going to be complicated simply because of its position. It is just under the left lower eyelid extending laterally. It does not involve the eyelid but involves the skin just below the lid. Skin tear on hand requires xeroform dressing only. CT of the head, face, C-spine is all negative except for nasal bony fracture. Laboratory studies are unremarkable. Hemoglobin is stable. Creatinine has bumped a little but is no higher than previous though he seems to jump between 0.9 and 1.4. Troponin is negative. Electrolytes are fine. He remains awake and alert and neurologically intact. He continues to have normal vital signs. Facial lacerations were anesthetized and irrigated extensively. 6-0 nylon sutures used to close both the nasal laceration and the facial laceration. Patient tolerated the procedure well. Because of the nasal lacerations and nasal bony fractures I will go ahead and cover with Keflex for 5 days. Started on 500 mg p.o. 3 times daily. States that his tetanus is up-to-date. He will need sutures out in 5-7 days. Because of the syncopal event with no prior history of syncope, though it may be related to orthostasis, given the extent of his facial injuries he clearly went down abruptly. Will discuss with hospitalist for observation admit overnight on telemetry. Repeat hemoglobin and troponin in the morning. Discussed with hospitalist. Patient accepted for observation admission to telemetry overnight. Medical Records Medical records reviewed: Yes I reviewed the patient's medical records. Lab Data Lab results reviewed: Yes I reviewed the patient's lab results. ECG Data Attestation: I personally reviewed and interpreted this ECG (s) as follows: Prior ECG tracings: available for review Interpretation: Normal sinus rhythm at 69 bpm. Normal axis and intervals. Normal ST segments. No change from previous. HPI General Mode of arrival: EMS. Date/Time Provider Initiated Documentation: 11/21/18 23:17. Limitations to Documentation: no limitations. Information obtained by: patient and old records reviewed. HPI Narrative: Patient presents to ED by ambulance status post fall at home. Initially reported as trip and fall. Patient now stating that he stood up felt lightheaded and nauseated took a step and passed out. Woke up on the floor. He has sustained lacerations to the nose and under the left eye. He denies having head or neck pain. He does have some facial pain. He denies having chest pain or shortness of breath. He is on Eliquis but has not noticed any black stool or bloody stool. He has had a couple of beers tonight. He reports never passing out previously. He has a known vasculopath with stents from peripheral vascular disease. He has a known AAA that has not been repaired but is being followed. He has no complaint of abdominal or back pain. Related Data Home Medications Medication Instructions Recorded Confirmed atorvastatin 80 mg PO DAILY #90 tab-cap 09/12/16 11/21/18 atenolol 100 mg PO DAILY #90 tab 02/19/17 11/21/18 aspirin [Aspir-81] 81 mg PO DAILY 07/04/17 11/21/18 pramipexole [Mirapex] 0.125 mg PO PRN 09/16/17 11/21/18 Eliquis 2.5 mg PO BID #180 tab-cap 10/27/17 11/21/18 amlodipine 10 mg PO DAILY #90 tab-cap 11/06/17 11/21/18 duloxetine [Cymbalta] 60 mg PO DAILY 90 Days #90 tab-cap 09/14/18 11/21/18 [place]-3 1 tab PO DAILY 09/15/18 11/21/18 lisinopril 10 mg PO DAILY 09/15/18 11/21/18 acetaminophen 1,000 mg PO Q8H PRN #90 cap 09/22/18 11/21/18 naloxone [Narcan] 1 spray DONNIE ONCE PRN #2 each 09/22/18 11/21/18 oxycodone 2.5 - 5 mg PO Q4H #18 tab 09/22/18 11/21/18 ibuprofen 800 mg tablet 800 mg PO TID PRN #90 tab 10/06/18 11/21/18 cholecalciferol (vitamin D3) 5,000 unit PO DAILY 90 Days #450 11/09/18 11/21/18 tab-cap Previous Rx's Medication Instructions Recorded Eliquis 2.5 mg PO BID #180 tab-cap 10/27/17 amlodipine 10 mg PO DAILY #90 tab-cap 11/06/17 duloxetine [Cymbalta] 60 mg PO DAILY 90 Days #90 tab-cap 09/14/18 acetaminophen 1,000 mg PO Q8H PRN #90 cap 09/22/18 naloxone [Narcan] 1 spray DONNIE ONCE PRN #2 each 09/22/18 oxycodone 2.5 - 5 mg PO Q4H #18 tab 09/22/18 ibuprofen 800 mg tablet 800 mg PO TID PRN #90 tab 10/06/18 cholecalciferol (vitamin D3) 5,000 unit PO DAILY 90 Days #450 11/09/18 tab-cap Allergies Allergy/AdvReac Type Severity Reaction Status Date / Time gabapentin AdvReac Mild cough Unverified 11/21/18 23:33 General KATIA: 3 Review of Systems Constitutional Denies chills, Denies fever(s), Denies headache(s) and Denies weakness Eyes Denies change in vision, Denies loss of vision and Denies eye pain ENT Denies otalgia, Reports facial pain, Denies headache(s), Reports epistaxis, Reports nasal trauma and Denies neck pain Cardiovascular Denies chest pain, Denies diaphoresis, Reports syncope, Reports lightheadedness and Denies dyspnea Respiratory Denies cough and Denies dyspnea Gastrointestinal Denies abdominal pain, Denies melena, Denies hematochezia, Denies diarrhea, Denies nausea and Denies vomiting Genitourinary Denies hematuria and Denies flank pain Musculoskeletal Denies back pain and Denies neck pain Integumentary/Breasts Reports wounds Neurologic Denies confusion, Reports syncope, Denies headache(s), Denies focal weakness, Denies loss of vision, Denies sensory deficit and Denies weakness Psychiatric Denies confusion [facility] Medical History AAA (abdominal aortic aneurysm) BPH (benign prostatic hyperplasia) Chronic pain syndrome Esophagitis Femur fracture Gastritis, Helicobacter pylori Hypercholesterolemia Hypertension Male sexual dysfunction Peripheral vascular disease Pneumothorax on right (09/23/16) Rotator cuff tear arthropathy of both shoulders Sleep apnea Tibia fracture Varicose veins of bilateral lower extremities with pain Viral hepatitis C Surgical History History of endarterectomy (Acute) EGD - MAC ORIF femur Spinal Fusion femoral stent lumbar discectomy open reduction tib/fib right chest tube placement under local (09/23/16) Social History Smoking/Tobacco Use Status: Never Alcohol Intake: current Alcohol Intake frequency: a few times a week Alcohol type: beer Drug use: Occasionally Substance use type: does not use Do you feel safe at home: Yes Do you feel safe in your relationship?: Yes Exam Const General: cooperative, comfortable and no acute distress Orientation: alert and oriented x3 HENMT Head: no palpable skull fracture, normocephalic and atraumatic Ears: external ears normal and unable to visualize TM (cerumen) bilaterally General nose exam: septum normal, epistaxis bilaterally no active bleeding and external nose abnormal nasal laceration Face and sinus: sinuses tender, laceration (under left eye extending laterally) and no tenderness Mouth: lip normal and oropharynx normal Eyes Eyelids: eyelids normal Pupils: PERRL EOM: EOM intact bilaterally Neck Neck: trachea midline and supple Chest Chest: no tenderness Resp Effort & Inspection: normal respiratory effort Auscultation: clear to auscultation bilaterally Cardio Rate: regular rate Rhythm: regular rhythm Heart Sounds: S1 normal and S2 normal Pulses: radial pulses present GI Inspection: non-distended Palpation: soft, not firm, no guarding and nontender Back/Spine/Pelvis Cervical Spine: cervical ROM normal and No cervical spinal tenderness Thoracic/Lumbar Spine: No thoracic spinal tenderness and No lumbar spinal tenderness Pelvis: no pain with anterior-posterior compression and no pain with lateral compression Skin Trauma: laceration (1 nasal lac; 1 face lac; left hand skin tear) Neuro General: alert, oriented x3, no focal motor deficits and CN's II-XI intact bilaterally Cognition: normal cognition Speech: speech normal Extrem General: normal to inspection, full ROM and other (No deformity or tenderness on extremity exam) Procedures Laceration Laceration 1: Site: face (nose) Size (cm): 1 Description: stellate Depth: simple, single layer Local Anesthetic: Lidocaine 1% Amount of anesthesia used (mL): 1.5 Pre-repair: irrigated extensively Skin layer closed with: nylon Size (cm): 6-0 Number of sutures: 5 Technique: simple, interrupted Laceration 2: Site: face (under left eyelid) Side (If applicable): left Size (cm): 2 Description: linear Depth: simple, single layer Local Anesthetic: Lidocaine 1% Amount of anesthesia used (mL): 1 Pre-repair: irrigated extensively Skin layer closed with: nylon Size (cm): 6-0 Technique: simple, interrupted
--- NOTE | 2018-11-21 23:30 | DI.CT_ITS ---
SYMPTOMS/DIAGNOSIS: TRAUMA S/P FALL NONCONTRAST HEAD CT: No intracranial hemorrhage, mass or infarct is seen. There is no evidence of skull fracture. There is mild atrophy. There is mild sinus mucosal thickening. The mastoid air cells appear clear. IMPRESSION: No acute abnormality. CT OF THE CERVICAL SPINE: There is no evidence of fracture or subluxation. There are degenerative disc changes and facet degenerative changes. No pneumothorax is seen at the lung apices. IMPRESSION: Degenerative changes. No acute abnormality. FACIAL CT: There is a left-sided nasal fracture. There is mild sinus mucosal thickening. No additional acute facial fractures are seen. There is a defect in the floor of the right orbit, which appears chronic. The globes appear intact. IMPRESSION: Left nasal fracture.
[2018-11-21 23:41] LABS: Abs Immature Grans 0.04 k/cumm (0.0-0.09); Absolute Basophil Count 0.04 k/cumm (0.0-0.2); Absolute Eosinophil Count 0.35 k/cumm (0.0-0.7); Absolute Lymphocyte Count 1.96 k/cumm (1.2-3.4); Absolute Monocyte Count 0.84 k/cumm (0.11-0.7); Absolute Neutrophil Count 6.72 k/cumm (1.2-6.7); Basophils % 0.4; Eosinophils % 3.5; HCT 33.9 % (40.0-50.0); HGB 11.7 g/dL (13.5-17.5); Immature Grans % 0.4; Lymphocytes % 19.7; Mean Corp. HGB Concentration 34.5 g/dL (32.0-36.0); Mean Corpuscular Hemoglobin 30.3 pg (27.0-33.0); Mean Corpuscular Volume 87.8 fL (80-95); Mean Platelet Volume 9.3 fL (8.0-11.0); Monocytes % 8.4; Neutrophils % 67.6; Platelet Count 249 x1000/uL (130-400); RBC 3.86 m/cumm (4.50-6.00); RBC Distribution Width 14.9 % (11.8-14.1); White Blood Cell Count 9.95 k/cumm (4.4-10.8)
[2018-11-21 23:50] LABS: ETHANOL BLOOD 7.3 mg/dL (<3); Magnesium 1.9 mg/dL (1.8-2.4)
[2018-11-21 23:58] LABS: ALT 74 U/L (12-78); AST 87 U/L (15-37); Albumin 3.6 g/dL (3.4-5.0); Alkaline Phosphatase 120 U/L (46-116); Anion Gap 10.1 mmol/L (3-11); BUN 27 mg/dL (7-18); Bilirubin, Total 0.3 mg/dL (0.2-1.0); CO2 25.9 mmol/L (21.0-32.0); CREATININE 1.44 mg/dL (0.70-1.30); Calcium 9.7 mg/dL (8.5-10.1); Chloride 101 mmol/L (98-107); Estimated GFR 48.79 (mL/min/1.73m2); Glucose 89 mg/dL (70-100); Potassium 3.9 mmol/L (3.5-5.1); Sodium 137 mmol/L (136-145); Total Protein 6.6 g/dL (6.4-8.2)
[2018-11-22] VITALS (31 sets, daily range): BP systolic 99–169; BP diastolic 48–76; PULSE 52–68; RESP 13–21; TEMP 36.2–37; O2SAT 87–100
[2018-11-22] LABS: Troponin I < 0.02 ng/mL (0.00-0.06)
[2018-11-22 00:01] LABS: PTT Activated 22.1 sec (21.0-31.4); Prothrombin Time 9.8 sec (9.3-11.0)
--- NOTE | 2018-11-22 00:15 | DI.VRAD_ITS ---
EXAM: CT Head Without Contrast EXAM DATE/TIME: 11/21/2018 11:34 PM CLINICAL HISTORY: 68 years old, male; Injury or trauma; Fall; Initial encounter; Blunt trauma (contusions or hematomas); Patient HX: Trauma/fall, per PT: Passed out and fell TECHNIQUE: Imaging protocol: Axial computed tomography images of the head/brain without contrast. COMPARISON: No relevant prior studies available. FINDINGS: Brain: Typical for age. No hemorrhage. No evidence of acute infarct. No mass. Ventricles: No ventriculomegaly. Bones/joints: Unremarkable. Sinuses: No sinus fluid. Mastoid air cells: Unremarkable. Soft tissues: Unremarkable. IMPRESSION: No acute intracranial abnormality. EXAM: CT Maxillofacial Without Contrast EXAM DATE/TIME: 11/21/2018 11:34 PM CLINICAL HISTORY: 68 years old, male; Injury or trauma; Fall; Initial encounter; Blunt trauma (contusions or hematomas); Patient HX: Trauma/fall, per PT: Passed out and fell TECHNIQUE: Imaging protocol: Axial computed tomography images of the face without intravenous contrast. COMPARISON: No relevant prior studies available. FINDINGS: Orbits: No acute intraorbital abnormality. Globes are unremarkable. Sinuses: Unremarkable. No air-fluid levels. Bones/joints: Left-sided nasal bone fracture is displaced about 3 mm and impacted 4 mm.. Soft tissues: Unremarkable. IMPRESSION: Nasal bone fracture. EXAM: CT Cervical Spine Without Contrast EXAM DATE/TIME: 11/21/2018 11:34 PM CLINICAL HISTORY: 68 years old, male; Injury or trauma; Fall; Initial encounter; Blunt trauma (contusions or hematomas); Patient HX: Trauma/fall, per PT: Passed out and fell TECHNIQUE: Imaging protocol: Axial computed tomography images of the cervical spine without intravenous contrast. COMPARISON: No relevant prior studies available. FINDINGS: Vertebrae: No acute fracture. Normal alignment. Vertebral body heights preserved. Discs/Spinal canal/Neural foramina: Typical for age. Soft tissues: Unremarkable. Lungs: Lung apices are unremarkable as visualized. IMPRESSION: No acute findings. Dictated and Authenticated by: Romaine Ya MD. Ordering:DENILSON Nguyễn MD
[2018-11-22] MEDS: Cephalexin 500 MG CAP PO ×4 (00:53→20:00)
[2018-11-22] MEDS: Normal Saline Flush 10 ML SYR IVP (00:53)
--- NOTE | 2018-11-22 01:39 | HPE_ITS ---
Date of service: 11/22/18 Time of Service: 01:28 Assessment and Plan (1) Syncope: Start date: 11/21/18 Current visit: Yes Status: Acute This is a 68-year-old gentleman with known atherosclerotic vessel disease who had a syncopal episode at home after watching TV and having alcohol intake which is not usual for him. He is not on narcotics by history though he has had chronic narcotic therapy in the past. We will observe him overnight on telemetry with gentle IV hydration and follow-up lab in the morning assuring that he does not have occult blood loss being on Eliquis and that he has no obvious arrhythmias or cardiac compromise with troponins negative initially and repeat to be done during the night. If he is stable to be discharged home with further cardiac workup and neurological workup as an outpatient. He was advised not to drink alcohol. (2) Nasal bone fracture: Start date: 11/21/18 Current visit: Yes Status: Acute Patient is nose is slightly deviated to the right but this may be an old injury according to the patient. Long-term he can follow-up with ENT for surgical repair if he does have septal deviation or occlusion after his left nasal bone fracture. His laceration is sutured and he will will be on Keflex for 5 days since the laceration is over a fracture. (3) Facial laceration: Start date: 11/21/18 Current visit: Yes Status: Acute This is under his left eye and not involving the eyelid though it is very close to the lateral canthus. This has no associated fractures and should heal well with sutures to be taken out of the nasal laceration and this laceration in 5-7 days. (4) Peripheral artery insufficiency: Current visit: No Status: Chronic This is a chronic problem and overall stable the patient on Eliquis status post stenting and endarterectomy. Watch for occult bleeding since he did have a syncopal episode with trauma. Initial x-ray showed no intracranial hemorrhaging. History of Present Illness Chief Complaint: Syncopal episode at home with laceration to face with nasal bone fracture Narrative: This is 68-year-old gentleman who has considerable peripheral vascular disease status post stenting in his lower extremities on Eliquis chronically who stood up to go to bed after having a couple beers and felt lightheaded with nausea and then took 1 step and fell forward with a syncopal episode. He woke up on the floor. He denies any previous syncopal episodes and he does not typically drink alcohol. He was on chronic narcotics in the past. There was one ED visit with methadone overdose which the patient does not remember during my interview. Patient was chronically on methadone for back pain in the past prior to that ED visit and eventually came off after repeated back surgeries. He recently was on oxycodone status post left shoulder surgery but this is not a present medication that he takes. Patient should have a urine drug screen if not performed in the ED. He has had no bleeding sequelae on Eliquis denying GI or bleeding he does have a AAA which is less than 5 cm being observed with no symptoms of ripping back pain or abdominal pain before his syncopal episode. His lacerations over his face were repaired in the ED and he was noted to have a nasal bone fracture over the left side which would make this an open fracture with his laceration. He was started on Keflex by the ED physician. All the other imaging was negative for fractures. He also had a skin tear on his hand which did not require sutures. Review of Systems Review of Systems 13 point review of systems otherwise unrevealing or stable. [facility] Medical History AAA (abdominal aortic aneurysm) BPH (benign prostatic hyperplasia) Chronic pain syndrome Esophagitis Femur fracture Gastritis, Helicobacter pylori Hypercholesterolemia Hypertension Male sexual dysfunction Peripheral vascular disease Pneumothorax on right (09/23/16) Rotator cuff tear arthropathy of both shoulders Sleep apnea Tibia fracture Varicose veins of bilateral lower extremities with pain Viral hepatitis C Surgical History History of endarterectomy (Acute) EGD - MAC ORIF femur Spinal Fusion femoral stent lumbar discectomy open reduction tib/fib right chest tube placement under local (09/23/16) Social History Smoking/Tobacco Use Status: Never Alcohol Intake: current Alcohol Intake frequency: a few times a week Alcohol type: beer Drug use: Occasionally Substance use type: does not use Do you feel safe at home: Yes Do you feel safe in your relationship?: Yes Meds Home Medications Medication Instructions Recorded Confirmed Type atorvastatin 80 mg PO DAILY #90 tab-cap 09/12/16 11/21/18 History atenolol 100 mg PO DAILY #90 tab 02/19/17 11/21/18 History aspirin [Aspir-81] 81 mg PO DAILY 07/04/17 11/21/18 History pramipexole [Mirapex] 0.125 mg PO PRN 09/16/17 11/21/18 History Eliquis 2.5 mg PO BID #180 tab-cap 10/27/17 11/21/18 Rx amlodipine 10 mg PO DAILY #90 tab-cap 11/06/17 11/21/18 Rx duloxetine [Cymbalta] 60 mg PO DAILY 90 Days #90 tab-cap 09/14/18 11/21/18 Rx [place]-3 1 tab PO DAILY 09/15/18 11/21/18 History lisinopril 10 mg PO DAILY 09/15/18 11/21/18 History acetaminophen 1,000 mg PO Q8H PRN #90 cap 09/22/18 11/21/18 Rx naloxone [Narcan] 1 spray DONNIE ONCE PRN #2 each 09/22/18 11/21/18 Rx oxycodone 2.5 - 5 mg PO Q4H #18 tab 09/22/18 11/21/18 Rx ibuprofen 800 mg tablet 800 mg PO TID PRN #90 tab 10/06/18 11/21/18 Rx cholecalciferol (vitamin D3) 5,000 unit PO DAILY 90 Days #450 11/09/18 11/21/18 Rx tab-cap Allergies Allergy/AdvReac Type Severity Reaction Status Date / Time gabapentin AdvReac Mild cough Unverified 11/21/18 23:33 Exam Narrative Exam Narrative: Const General: cooperative, comfortable and no acute distress Orientation: alert and oriented x3 [facility] Head: no palpable skull fracture, normocephalic and atraumatic Ears: external ears normal and unable to visualize TM (cerumen) bilaterally General nose exam: septum normal but tip of nose appears to deviate toward the right, epistaxis bilaterally no active bleeding and external nose abnormal with nasal laceration Face and sinus: sinuses tender, laceration (under left eye extending laterally) and no tenderness Mouth: lip normal and oropharynx normal, full plate dentures top and partial bottom with missing teeth and discolored teeth Eyes Eyelids: eyelids normal Pupils: PERRL EOM: EOM intact bilaterally Neck Neck: trachea midline and supple Chest Chest: no tenderness Resp Effort & Inspection: normal respiratory effort Auscultation: clear to auscultation bilaterally Cardio Rate: regular rate Rhythm: regular rhythm Heart Sounds: S1 normal and S2 normal Pulses: radial pulses present GI Inspection: non-distended Palpation: soft, not firm, no guarding and nontender Back/Spine/Pelvis Cervical Spine: cervical ROM normal and No cervical spinal tenderness Thoracic/Lumbar Spine: No thoracic spinal tenderness and No lumbar spinal tenderness Pelvis: no pain with anterior-posterior compression and no pain with lateral compression Skin Color/moisture/turgor: pale with multiple tattoos, dry with normal turgor Trauma: laceration (1 nasal lac; 1 face lac; left hand skin tear) Neuro General: alert, oriented x3, no focal motor deficits and CN's II-XI intact bilaterally Cognition: normal cognition Speech: speech normal Extrem General: normal to inspection, full ROM and other (No deformity or tenderness on extremity exam) , fair range of motion of cervical and thoracic spine with decreased range of motion lumbar spine, no clubbing cyanosis or edema Results Imaging Imaging Studies: EXAM: CT Head Without Contrast EXAM DATE/TIME: 11/21/2018 11:34 PM CLINICAL HISTORY: 68 years old, male; Injury or trauma; Fall; Initial encounter; Blunt trauma (contusions or hematomas); Patient HX: Trauma/fall, per PT: Passed out and fell TECHNIQUE: Imaging protocol: Axial computed tomography images of the head/brain without contrast. COMPARISON: No relevant prior studies available. FINDINGS: Brain: Typical for age. No hemorrhage. No evidence of acute infarct. No mass. Ventricles: No ventriculomegaly. Bones/joints: Unremarkable. Sinuses: No sinus fluid. Mastoid air cells: Unremarkable. Soft tissues: Unremarkable. IMPRESSION: No acute intracranial abnormality. EXAM: CT Maxillofacial Without Contrast EXAM DATE/TIME: 11/21/2018 11:34 PM CLINICAL HISTORY: 68 years old, male; Injury or trauma; Fall; Initial encounter; Blunt trauma (contusions or hematomas); Patient HX: Trauma/fall, per PT: Passed out and fell TECHNIQUE: Imaging protocol: Axial computed tomography images of the face without intravenous contrast. COMPARISON: No relevant prior studies available. FINDINGS: Orbits: No acute intraorbital abnormality. Globes are unremarkable. Sinuses: Unremarkable. No air-fluid levels. Bones/joints: Left-sided nasal bone fracture is displaced about 3 mm and impacted 4 mm.. Soft tissues: Unremarkable. IMPRESSION: Nasal bone fracture. EXAM: CT Cervical Spine Without Contrast EXAM DATE/TIME: 11/21/2018 11:34 PM CLINICAL HISTORY: 68 years old, male; Injury or trauma; Fall; Initial encounter; Blunt trauma (contusions or hematomas); Patient HX: Trauma/fall, per PT: Passed out and fell TECHNIQUE: Imaging protocol: Axial computed tomography images of the cervical spine without intravenous contrast. COMPARISON: No relevant prior studies available. FINDINGS: Vertebrae: No acute fracture. Normal alignment. Vertebral body heights preserved. Discs/Spinal canal/Neural foramina: Typical for age. Soft tissues: Unremarkable. Lungs: Lung apices are unremarkable as visualized. IMPRESSION: No acute findings. Dictated and Authenticated by: Romaine Ya MD. Labs : 11/21/18 23:22 11/22/18 06:30 Laboratory Results - last 24 hr 11/21/18 11/21/18 11/21/18 23:22 23:22 23:22 WBC RBC Hgb Hct MCV MCH MCHC RDW Plt Count MPV Immature Gran % Neutrophils % Lymphocytes % Monocytes % Eosinophils % Basophils % Absolute Neutrophils Absolute Lymphocytes Absolute Monocytes Absolute Eosinophils Absolute Basophils PT 9.8 INR 1.0 APTT 22.1 Sodium 137 Potassium 3.9 Chloride 101 Carbon Dioxide 25.9 Anion Gap 10.1 BUN 27 H Creatinine 1.44 H Estimated GFR/1.73 m2 48.79 Glucose 89 Calcium 9.7 Magnesium 1.9 Total Bilirubin 0.3 AST 87 H ALT 74 Alkaline Phosphatase 120 H Troponin I < 0.02 Total Protein 6.6 Albumin 3.6 Ethyl Alcohol 7.3 11/21/18 23:22 WBC 9.95 RBC 3.86 L Hgb 11.7 L Hct 33.9 L MCV 87.8 MCH 30.3 MCHC 34.5 RDW 14.9 H Plt Count 249 MPV 9.3 Immature Gran % 0.4 Neutrophils % 67.6 Lymphocytes % 19.7 Monocytes % 8.4 Eosinophils % 3.5 Basophils % 0.4 Absolute Neutrophils 6.72 H Absolute Lymphocytes 1.96 Absolute Monocytes 0.84 H Absolute Eosinophils 0.35 Absolute Basophils 0.04 PT INR APTT Sodium Potassium Chloride Carbon Dioxide Anion Gap BUN Creatinine Estimated GFR/1.73 m2 Glucose Calcium Magnesium Total Bilirubin AST ALT Alkaline Phosphatase Troponin I Total Protein Albumin Ethyl Alcohol Last Vital Signs Temp 36.7 C 11/21/18 23:14 Pulse 69 11/21/18 23:14 Resp 14 11/21/18 23:14 BP 123/50 L 11/21/18 23:14 Pulse Ox 99 11/21/18 23:14
--- NOTE | 2018-11-22 02:46 | NUR.NOTE ---
Ernesto came to the Med/Surg floor from the emergency department. He was accompanied to the floor by BRIE Lala on a stretcher. Pt gave history of while at home preparing for bed he got up from his chair, started feeling nauseous after, but then started walking off after the nauseated episode then he what he recalls after is finding himself on the floor with his over him. On assessment patient is conscious, alert, oriented x 3. Verbalized pain to the face but otherwise feeling fine. Weeping laceration noted to the nose bridge, and under the left eye. Lung sounds clear throughout, no abnormalities detected to the abdomen. Chronic leg ulcer to the right leg where he has good pulse, states he is getting treatment in [facility]. Standing Blood pressure 156/63. Sitting Blood Pressure: 153/76, laying Blood Pressure: 167/72.
[2018-11-22] MEDS: Normal Saline 1,000 ML 125 ML IV ×3 (02:58→18:32)
[2018-11-22] MEDS: Acetaminophen 500 MG TAB 1000 MG PO (03:07)
[2018-11-22 03:35] LABS: *AMPHETAMINES SCREEN URINE Negative (Negative); *BARBITURATES SCREEN URINE Negative (Negative); *BENZODIAZEPINES SCREEN URINE Negative (Negative); Cannabinoids THC POSITIVE (Negative); Cocaine Screen,Urine Negative (Negative); METHADONE URINE SCREEN Negative (Negative); OPIATES URINE SCREEN Negative (Negative)
[2018-11-22 03:38] LABS: Tricyclic Antidepressants Negative (Negative)
[2018-11-22 04:19] LABS: Troponin I < 0.02 ng/mL (0.00-0.06)
[2018-11-22 07:13] LABS: ALT 63 U/L (12-78); AST 70 U/L (15-37); Albumin 3.1 g/dL (3.4-5.0); Alkaline Phosphatase 112 U/L (46-116); Anion Gap 10.1 mmol/L (3-11); BUN 27 mg/dL (7-18); Bilirubin, Total 0.3 mg/dL (0.2-1.0); CO2 24.9 mmol/L (21.0-32.0); CREATININE 1.08 mg/dL (0.70-1.30); Calcium 9.2 mg/dL (8.5-10.1); Chloride 102 mmol/L (98-107); Glucose 110 mg/dL (70-100); Potassium 3.9 mmol/L (3.5-5.1); Sodium 137 mmol/L (136-145); Total Protein 6.4 g/dL (6.4-8.2)
[2018-11-22 07:21] LABS: TSH (W/Ref FT4) 1.88 uIU/mL (0.358-3.74)
--- NOTE | 2018-11-22 08:10 | INITIAL_ITS ---
- If Service Date Differs Date of service: 11/22/18 Time of Service: 08:10 Care Management Initial Assess REASON FOR HOSPITALIZATION:: Syncope, facial laceration PAST MEDICAL HISTORY/PAST SURGICAL HISTORY:: Medical: HTN, hyperlipidemia, varicose veins, KULDIP, history of spontaneous pneumothorax, history of h.pylori infection, gastritis, depression, chronic low back pain, rotator cuff tears, BPH, hepatitis. Surgical: low back surgery, left femoral stent placement PREVIOUS FUNCTIONAL STATUS/SOCIAL/FAMILY SUPPORTS:: Patient is a 68 yo male who lives with his , Mela in a 2 story home in [place]. 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 Independent with all ADLs and does not have any services in place. CURRENT FUNCTIONAL STATUS:: Ernesto is sitting up on the side of the bed his spouse is present in the room at the time of assessment. He states when he first got out of the chair he felt dizzy and hung onto the chair. However as he took a few steps his reports he fell to the floor, role and does not remember the event. He does state that his blood pressure medications have been adjusted recently, also that he drank 2 beers during the race which is not his usual. ADVANCE DIRECTIVES:: [facility] on file--, Mela is identified as agent. Has patient been provided with information about the portal?: Yes Did the patient sign up for the portal?: No (already enrolled) CODE STATUS:: Full Code INSURANCE COVERAGE / FINANCIAL ISSUES:: Medicare. BC/BS CURRENT HOME/COMMUNITY SERVICES/EQUIPMENT:: Patient is independent with ADLs, does not use any assistive equipment for ambulation and does not have any services in place. Does use a CPAP device from [employer]. PRIMARY CARE PHYSICIAN:: POTENTIAL DISCHARGE NEEDS:: Follow up appointment with PCP scheduled prior to discharge. PATIENT/FAMILY EDUCATION NEEDS:: Review discharge instructions regarding medications, activity restrictions and follow up appointments. Discuss ask me 3 questions to assure patient understanding of reason for hospitalization and knowledge of self care needs upon discharge. ANTICIPATED BARRIERS TO DISCHARGE:: None identified at this time. TRANSPORTATION:: Discharge home via private car with spouse at time of discharge. PLAN:: Ernesto is receiving IV fluids, he will have a cardiac workup including being discharge home with ZIO patch when medically ready for discharge. He will remain observation today and have an echo and carotid ultrasound on Friday. CM to continue to provide support to patient, family care team ongoing discharge planning. Patient would like to go home as soon as possible.
[2018-11-22] MEDS: Lisinopril 10 MG TAB PO (08:32)
[2018-11-22] MEDS: amLODIPine 10 MG TAB PO (08:32)
[2018-11-22] MEDS: Apixaban 2.5 MG TAB PO ×2 (08:33→20:00)
[2018-11-22] MEDS: DULoxetine 30 MG CAP 60 MG PO (08:33)
[2018-11-22] MEDS: Aspirin E.C. 81 MG TABEC PO (08:33)
[2018-11-22] MEDS: Atenolol 50 MG TAB 100 MG PO (08:33)
--- NOTE | 2018-11-22 14:22 | PT.INIE ---
Date of service: 11/22/18 Time of Service: 14:00 PT Notes Inpatient Physical Therapy Evaluation Date: 11/22/18 Referring Doctor: Dr. Clifford PT Orders: PT CONSULT: eval/treat Precautions: fall, standard Patient Profile/Admitting Diagnosis: Patient admitted from ER after suffering a witnessed fall at home. He had a brief LOC and struck his face, suffering facial laceration and nasal bone fracture. He was admitted on Observation status for work up regarding syncopal episode. PMHX: AAA (abdominal aortic aneurysm) BPH (benign prostatic hyperplasia) Chronic pain syndrome Esophagitis Femur fracture Gastritis, Helicobacter pylori Hypercholesterolemia Hypertension Male sexual dysfunction Peripheral vascular disease Pneumothorax on right (09/23/16) Rotator cuff tear arthropathy of both shoulders; s/p RCR left shoulder 8 weeks ago Sleep apnea Tibia fracture Varicose veins of bilateral lower extremities with pain Viral hepatitis C Social History/Home Situation: Patient lives in [place] with his , Mela. They have a multi-level home, which he gets around independently. 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 He states that he had just returned to that job last week after a six-week hiatus due to his shoulder sugery. Equipment Owned/DME: none Subjective: Ernesto states that he is feeling good this afternoon. He denies any pain or episodes of dizziness or light headedness. He states that his fall occurred out of nowhere as he was heading to bed last night. He has not experienced any further symptoms since admission. Objective: General Observation: Resting in bed with IV in RUE. His is present at time of consultation and supportive throughout. Mental Status: A&Ox3 Pain: denies Vital Signs: Per nursing, orthostatics were evaluated 11/21/18 and were found to be within normal ranges. These were subsequently deferred today. ROM: Right Upper Extremity: Shoulder flexion 160 degrees. Elbow and wrist motion WFL. Left Upper Extremity: Shoulder flexion 170 degrees actively. Elbow and wrist motion WFL. Right Lower Extremity: WFL Left Lower Extremity: WFL Strength: Right Upper Extremity: Grossly WFL Left Upper Extremity: Grossly WFL Right Lower Extremity: Hip flexion 5/5. Quads 5/5. HS 5/5. Ankle DF 5/5. Left Lower Extremity: Hip flexion 5/5. Quads 5/5. HS 5/5. Ankle DF 5/5. Bed Mobility/Transfers: supine->sit: independent sit->supine: independent sit->stand: independent bed->chair: independent without AD Gait: Patient ambulates 120' without assistive device. He's fully independent, with assistance only for management of IV pole. During ambulation, he maintains animated conversation, and stops frequently to make hand gestures. He is able to demonstrate good dynamic balance, with trunk rotation and head turns performed with small KELY. Balance: Static Sitting: Normal Dynamic Sitting: Normal Static Standing: Normal Dynamic Standing: Normal Special Tests: Coordination is intact with rapid alternating movements of upper and lower extremities. Fine motor is intact. Mobility Limitations Standardized Measure [facility] 6 clicks Basic Mobility Inpatient Short Form: Raw Score: 24 CMS Score: 0% deficit Informed Consent/Education: Patient instructed in purpose of PT consult and plan of care. Assessment: Patient is a 68 year old male referred to physical therapy services with the diagnosis of syncopal episode with facial lacerations and nasal fracture.. Patient presents with well maintained mobility after acute medical episode, without any signs of imbalance, incoordination or weakness. Patient is fully independent and quite active at baseline, and does not demonstrate any mobility deficits today that would impact discharge planning. Once medically stable, he is appropriate for discharge home without anticipated equipment needs. He currently demonstrates the following impairment level findings: N/A Impairments are contributing to the following functional limitations: N/A Patient is assessed as a Low 05754 complexity based on the following: History: Active and independent 68 year old male with extensive medical history, admitted on observation status after syncopal episode at home. Examination: Patient is at baseline level of function Presentation: evolving, due to ongoing medical workup Decision Making: low complexity Plan of Care/Treatment Plan: No further PT intervention is required in acute care setting, as patient is at baseline level of function. DISCHARGE RECOMMENDATIONS: Home without anticipated equipment needs TREATMENT CODE/TIME: 2:00 - 2:20 ([id number]) Cherise Mckeon, PT, DPT [facility]
--- NOTE | 2018-11-22 14:40 | IN_ITS ---
Date of service: 11/22/18 Time of Service: 14:00 PT Notes Inpatient Physical Therapy Evaluation Date: 11/22/18 Referring Doctor: Dr. Clifford PT Orders: PT CONSULT: eval/treat Precautions: fall, standard Patient Profile/Admitting Diagnosis: Patient admitted from ER after suffering a witnessed fall at home. He had a brief LOC and struck his face, suffering facial laceration and nasal bone fracture. He was admitted on Observation status for work up regarding syncopal episode. PMHX: AAA (abdominal aortic aneurysm) BPH (benign prostatic hyperplasia) Chronic pain syndrome Esophagitis Femur fracture Gastritis, Helicobacter pylori Hypercholesterolemia Hypertension Male sexual dysfunction Peripheral vascular disease Pneumothorax on right (09/23/16) Rotator cuff tear arthropathy of both shoulders; s/p RCR left shoulder 8 weeks ago Sleep apnea Tibia fracture Varicose veins of bilateral lower extremities with pain Viral hepatitis C Social History/Home Situation: Patient lives in [place] with his , Mela. They have a multi-level home, which he gets around independently. 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 He states that he had just returned to that job last week after a six- week hiatus due to his shoulder sugery. Equipment Owned/DME: none Subjective: Ernesto states that he is feeling good this afternoon. He denies any pain or episodes of dizziness or light headedness. He states that his fall occurred out of nowhere as he was heading to bed last night. He has not experienced any further symptoms since admission. Objective: General Observation: Resting in bed with IV in RUE. His is present at time of consultation and supportive throughout. Mental Status: A&Ox3 Pain: denies Vital Signs: Per nursing, orthostatics were evaluated 11/21/18 and were found to be within normal ranges. These were subsequently deferred today. ROM: Right Upper Extremity: Shoulder flexion 160 degrees. Elbow and wrist motion WFL. Left Upper Extremity: Shoulder flexion 170 degrees actively. Elbow and wrist motion WFL. Right Lower Extremity: WFL Left Lower Extremity: WFL Strength: Right Upper Extremity: Grossly WFL Left Upper Extremity: Grossly WFL Right Lower Extremity: Hip flexion 5/5. Quads 5/5. HS 5/5. Ankle DF 5/5. Left Lower Extremity: Hip flexion 5/5. Quads 5/5. HS 5/5. Ankle DF 5/5. Bed Mobility/Transfers: supine->sit: independent sit->supine: independent sit->stand: independent bed->chair: independent without AD Gait: Patient ambulates 120' without assistive device. He's fully independent, with assistance only for management of IV pole. During ambulation, he maintains animated conversation, and stops frequently to make hand gestures. He is able to demonstrate good dynamic balance, with trunk rotation and head turns performed with small KELY. Balance: Static Sitting: Normal Dynamic Sitting: Normal Static Standing: Normal Dynamic Standing: Normal Special Tests: Coordination is intact with rapid alternating movements of upper and lower extremities. Fine motor is intact. Mobility Limitations Standardized Measure [facility] 6 clicks Basic Mobility Inpatient Short Form: Raw Score: 24 CMS Score: 0% deficit Informed Consent/Education: Patient instructed in purpose of PT consult and plan of care. Assessment: Patient is a 68 year old male referred to physical therapy services with the diagnosis of syncopal episode with facial lacerations and nasal fracture.. Patient presents with well maintained mobility after acute medical episode, without any signs of imbalance, incoordination or weakness. Patient is fully independent and quite active at baseline, and does not demonstrate any mobility deficits today that would impact discharge planning. Once medically stable, he is appropriate for discharge home without anticipated equipment needs. He currently demonstrates the following impairment level findings: N/A Impairments are contributing to the following functional limitations: N/A Patient is assessed as a Low [id number] complexity based on the following: History: Active and independent 68 year old male with extensive medical history, admitted on observation status after syncopal episode at home. Examination: Patient is at baseline level of function Presentation: evolving, due to ongoing medical workup Decision Making: low complexity Plan of Care/Treatment Plan: No further PT intervention is required in acute care setting, as patient is at baseline level of function. DISCHARGE RECOMMENDATIONS: Home without anticipated equipment needs TREATMENT CODE/TIME: 2:00 - 2:20 ([id number]) Cherise Mckeon, PT, DPT [facility]
--- NOTE | 2018-11-22 14:42 | W.PM.PROGNOT ---
Date of Service Date of service: 11/22/18 Time of Service: 14:43 Subjective Interval history since last seen: Mr Katz states he feels a lot better today than he did yesterday. He specifically states that he is not dizzy today and has not had any nausea. He does endorse feeling nauseated last night when he got up from the chair, followed by feeling dizzy, followed by the syncopal episode. While he didn't have any chest pain or palpitations yesterday, he describes having LUQ/L subcostal/epigastric pain for 2 days this week, somewhat accompanied by nausea. He admits to taking high dose ibuprofen at home, though not in several days. He denies any nausea or abdominal/chest pain now. He states he would wake up with the pain and have it overnight as well and that, sometimes, it would gets worse after eating. Activity didn't seem to worsen it. While he initially really wanted to go home today, he agrees to stay through tomorrow to complete a stress test, echo, and carotid ultrasound prior to discharge home. Objective Objective Clinical Data: Abnormal lab results 11/21/18 11/21/18 11/22/18 Range/Units 23:22 23:22 06:30 RBC 3.86 L (4.50-6.00) m/cumm Hgb 11.7 L (13.5-17.5) g/dL Hct 33.9 L (40.0-50.0) % RDW 14.9 H (11.8-14.1) % Absolute Neutrophils 6.72 H (1.2-6.7) k/cumm Absolute Monocytes 0.84 H (0.11-0.7) k/cumm BUN 27 H 27 H (7-18) mg/dL Creatinine 1.44 H (0.70-1.30) mg/dL Glucose 110 H (70-100) mg/dL AST 87 H 70 H (15-37) U/L Alkaline Phosphatase 120 H (46-116) U/L Albumin 3.1 L (3.4-5.0) g/dL Vital Signs Temperature 36.2 C L 11/22/18 11:17 Temperature Source Tympanic 11/22/18 11:17 Pulse 52 L 11/22/18 11:17 Pulse Rhythm Regular 03/24/19 08:55 Pulse 62 11/22/18 01:50 Respiratory Rate 18 11/22/18 11:17 Respiratory Effort Non-Labored 11/22/18 08:55 Respiratory Depth Normal 11/22/18 08:55 Respiratory Pattern Normal 11/22/18 08:55 Blood Pressure 129/68 11/22/18 11:17 Blood Pressure Mean 78 11/22/18 01:46 Blood Pressure Position Supine 11/21/18 23:14 Pulse Oximetry 97 11/22/18 11:17 Oxygen Delivery Method Room Air 11/22/18 11:17 Oxygen Flow Rate 0 11/22/18 11:17 Pain Level 0 11/22/18 11:17 Intake & Output 11/21/18 11/22/18 11/22/18 23:59 11:59 23:59 Intake Total 1485.417 / 1725.417 240 / 1725.417 Output Total 2100 / 2100 Balance -614.583 / -374.583 240 / -374.583 Weight 83.915 kg 83 kg Intake: IV 985.417 / 985.417 Oral 500 / 740 240 / 740 Output: Urine 2100 / 2100 Other: Urine Color Yellow Urine Appearance Clear Urine Odor None Voiding Methods Urinal Laboratory Results WBC 9.95 k/cumm (4.4-10.8) 11/21/18 23:22 RBC 3.86 m/cumm (4.50-6.00) L 11/21/18 23:22 Hgb 11.7 g/dL (13.5-17.5) L 11/21/18 23:22 Hct 33.9 % (40.0-50.0) L 11/21/18 23:22 MCV 87.8 fL (80-95) 11/21/18 23:22 MCH 30.3 pg (27.0-33.0) 11/21/18 23:22 MCHC 34.5 g/dL (32.0-36.0) 11/21/18 23:22 RDW 14.9 % (11.8-14.1) H 11/21/18 23:22 Plt Count 249 x1000/uL (130-400) 11/21/18 23:22 MPV 9.3 fL (8.0-11.0) 11/21/18 23:22 Immature Gran % 0.4 11/21/18 23:22 Neutrophils % 67.6 11/21/18 23:22 Lymphocytes % 19.7 11/21/18 23:22 Monocytes % 8.4 11/21/18 23:22 Eosinophils % 3.5 11/21/18 23:22 Basophils % 0.4 11/21/18 23:22 Absolute Neutrophils 6.72 k/cumm (1.2-6.7) H 11/21/18 23:22 Absolute Lymphocytes 1.96 k/cumm (1.2-3.4) 11/21/18 23:22 Absolute Monocytes 0.84 k/cumm (0.11-0.7) H 11/21/18 23:22 Absolute Eosinophils 0.35 k/cumm (0.0-0.7) 11/21/18 23: Absolute Basophils 0.04 k/cumm (0.0-0.2) 11/21/18 23:22 PT 9.8 sec (9.3-11.0) 11/21/18 23:22 INR 1.0 (0.9-1.1) 11/21/18 23:22 APTT 22.1 sec (21.0-31.4) 11/21/18 23:22 Sodium 137 mmol/L (136-145) 11/22/18 06:30 Potassium 3.9 mmol/L (3.5-5.1) 11/22/18 06:30 Chloride 102 mmol/L (98-107) 11/22/18 06:30 Carbon Dioxide 24.9 mmol/L (21.0-32.0) 11/22/18 06:30 Anion Gap 10.1 mmol/L (3-11) 11/22/18 06:30 BUN 27 mg/dL (7-18) H 11/22/18 06:30 Creatinine 1.08 mg/dL (0.70-1.30) 11/22/18 06:30 Estimated GFR/1.73 m2 >= 60.00 (mL/min/1.73m2) 11/22/18 06:30 Glucose 110 mg/dL (70-100) H 11/22/18 06:30 Calcium 9.2 mg/dL (8.5-10.1) 11/22/18 06:30 Magnesium 1.9 mg/dL (1.8-2.4) 11/21/18 23:22 Total Bilirubin 0.3 mg/dL (0.2-1.0) 11/22/18 06:30 AST 70 U/L (15-37) H 11/22/18 06:30 ALT 63 U/L (12-78) 11/22/18 06:30 Alkaline Phosphatase 112 U/L (46-116) 11/22/18 06:30 Troponin I < 0.02 ng/mL (0.00-0.06) 11/22/18 03:50 Total Protein 6.4 g/dL (6.4-8.2) 11/22/18 06:30 Albumin 3.1 g/dL (3.4-5.0) L 11/22/18 06:30 TSH 1.88 uIU/mL (0.358-3.74) 11/22/18 06:30 Urine Opiates Screen Negative (Negative) 11/22/18 02:35 Urine Methadone Screen Negative (Negative) 11/22/18 02:35 Ur Barbiturates Screen Negative (Negative) 11/22/18 02:35 Ur Tricyclics Screen Negative (Negative) 11/22/18 02:35 Ur Amphetamines Screen Negative (Negative) 11/22/18 02:35 U Benzodiazepines Scrn Negative (Negative) 11/22/18 02:35 Urine Cocaine Screen Negative (Negative) 11/22/18 02:35 Ur THC Screen Positive (Negative) 11/22/18 02:35 Ethyl Alcohol 7.3 mg/dL (<3) 11/21/18 23:22
[2018-11-22] MEDS: Pantoprazole 40 MG TABCR PO (15:28)
[2018-11-22] MEDS: Atorvastatin 40 MG TAB 80 MG PO (20:00)
[2018-11-22] MEDS: Pramipexole 0.25 MG TAB 0.75 MG PO (21:13)
[2018-11-23] VITALS (10 sets, daily range): BP systolic 111–167; BP diastolic 62–84; PULSE 58–68; RESP 16–18; TEMP 35.7–36.4; O2SAT 95–100
[2018-11-23] MEDS: Normal Saline 1,000 ML 125 ML IV ×2 (02:10→15:32)
--- NOTE | 2018-11-23 03:42 | NUR.NOTE ---
Nursing Note: Patient is resting quietly on bed. Instructed for NPO and well observed. Voiding good and bladder scanned performed and recorded. Denied of pain.
[2018-11-23 07:14] LABS: HCT 36.1 % (40.0-50.0); HGB 12.3 g/dL (13.5-17.5); Mean Corp. HGB Concentration 34.1 g/dL (32.0-36.0); Mean Corpuscular Hemoglobin 30.5 pg (27.0-33.0); Mean Corpuscular Volume 89.6 fL (80-95); Mean Platelet Volume 9.4 fL (8.0-11.0); Platelet Count 237 x1000/uL (130-400); RBC 4.03 m/cumm (4.50-6.00); RBC Distribution Width 15.5 % (11.8-14.1); White Blood Cell Count 7.02 k/cumm (4.4-10.8)
[2018-11-23 07:41] LABS: Anion Gap 9.3 mmol/L (3-11); BUN 15 mg/dL (7-18); CO2 25.7 mmol/L (21.0-32.0); CREATININE 1.01 mg/dL (0.70-1.30); Calcium 8.6 mg/dL (8.5-10.1); Chloride 106 mmol/L (98-107); Cholesterol 130 mg/dL (50-200); Glucose 132 mg/dL (70-100); HDL Cholesterol 54 mg/dL (40-60); LDL CHOLESTEROL 64 mg/dL (<100); Magnesium 1.8 mg/dL (1.8-2.4); Sodium 141 mmol/L (136-145); Triglyceride 81 mg/dL (30-150)
--- NOTE | 2018-11-23 08:00 | DI.US_ITS ---
SYMPTOMS/DIAGNOSIS: SYNCOPE, H/O CAROTID STENOSIS CAROTID ULTRASOUND: No prior comparison exams are available. There is calcific plaque in the right common carotid bulb and proximal internal carotid artery. There are mild velocity elevations, consistent with a 50-60% stenosis. There is a visible area of narrowing in the mid left internal carotid artery with velocity elevations consistent with a greater than 70% stenosis. The vertebral arteries show antegrade flow. IMPRESSION: Calcific plaque causing 50-60% stenosis in the right internal carotid artery. A focal area of narrowing in the proximal left internal carotid artery status post carotid endarterectomy with velocity elevations consistent with a greater than 70% stenosis.
--- NOTE | 2018-11-23 08:00 | MERGEMPI_ITS ---
*[facility]* *[facility]* [address] [place] [address] Myocardial Perfusion Imaging - SPECT Rodney protocol Date of study: 11/23/2018 *PATIENT PRESENTATION* Height: 171.5cm (67.5in) Blood Pressure: Weight: 84.1kg (185lb) BSA: 2.02m^2 Referring physician: Manolo Randall MD Ordering physician: Shanae Clifford Impressions: Normal perfusion by Tc99m Sestamibi Imaging. Summary: 1. Myocardial perfusion imaging: No myocardial perfusion defects noted. 2. The calculated left ventricular ejection fraction after stress: 62%. Indication: R07.9. History: REASON FOR VISIT: THIS IS AN INPATIENT HERE DUE TO A SYNCOPAL EPISODE AT HOME. PATIENT REPORTS LATERAL CHEST WALL PAIN, BELIEVES IT TO BE RIB PAIN FROM FALL. PAST MEDICAL HISTORY: ABDOMINAL AORTIC ANEURYSM, BENIGN PROSTATIC HYPERPLASIA, CHRONIC PAIN SYNDROME, ESOPHAGITIS, GASTRITIS, HYPERCHOLESTEROLEMIA, HYPERTENSION, MALE SEXUAL DYSFUNCTION, PERIPHERAL VASCULAR DISEASE, SLEEP APNEA, LEFT LEG ULCER. PMH: COPD. Risk factors: FORMER SMOKER. QUIET 30 YEARS AGO. Hypertension. Dyslipidemia. Cholesterol: 130mg/dl. HDL: 54mg/dl. LDL: 64mg/dl. Triglycerides: 81mg/dl. Peripheral vascular disease. ALLERGIES: NO KNOWN DRUG ALLERGIES. MEDICATIONS: AMLODIPINE 10 MG DAILY. ASPIRIN 81 MG DAILY. ATENOLOL 50 MG TWICE A DAY. ATORVASTATIN 80 MG DAILY. CHOLECALCIFEROL 5,000 UNITS DAILY. DULOXETINE 60 MG DAILY. ELIQUIS 2.5 MG TWICE A DAY. FLUTICASONE PROPIONATE 2 SPRAYS DAILY. HYDROCHLOROTHIAZIDE 12.5 MG DAILY. LISINOPRIL 10 MG DAILY. OMEGA-3 1 TAB DAILY. MIRAPEX 0.75 MG AT BEDTIME. Imaging Technique: Protocol: Rodney protocol. Acquisition: Gated SPECT; 1 day - rest/stress. The patient was imaged in the supine position. Attenuation correction used. Isotope administration: - Rest. Tc[99m]-sestamibi. Dose: 10.1mCi. Injection time: 11:00 AM. Injection to stress time: 00:45. - Stress. Tc[99m]-sestamibi. Dose: 30mCi. Injection time: 01:05 PM. 1-2 min before end of exercise Baseline ECG: SINUS BRADYCARDIA, HEART RATE 59 BPM. Stress protocol: + +---+ + !Stage !HR !BP (mmHg) ! + +---+ + !Baseline supine !59 !190/80 (117)! + +---+ + !Baseline standing !63 !210/86 (127)! + +---+ + !Stage I; 1.7mph, 10degrees; 3 min !99 !200/80 (120)! + +---+ + !Stage II; 2.5mph, 12degrees; 3 min!132!240/90 (140)! + +---+ + !Recovery; 1 min !119!260/90 (147)! + +---+ + !Recovery; 3 min !82 !194/74 (114)! + +---+ + * Stress results: The rate-pressure product for the peak heart rate and blood pressure was 00163em Hg/min. Stress ECG: TREADMILL PORTION OF EXERCISE STRESS TEST ENDED IN 6MIN 6 SEC DUE TO PATIENT FATIGUE. HYPERTENSIVE AT BASELINE. APPROPRIATE HEART RATE AND BLOOD PRESSURE RESPONSE TO EXERCISE, THOUGH SYSTOLIC BLOOD PRESSURE REACHED 260 MMHG DURING RECOVERY. MAXIMAL HEART RATE ACHIEVED 136 BPM, 89% OF TARGET. APPROXIMATE METS ACHIEVED 7.19. NO AGINA REPORTED. PVCS NOTED WITH EXERCISE. NO SIGNIFICANT ST SEGMENT CHANGES. MILDLY DIMINISHED FUNCTIONAL CAPACITY. Myocardial perfusion: Imaging information: gated. No myocardial perfusion defects noted. Ventricular Function (Wall Motion): The calculated left ventricular ejection fraction after stress: 62%. Study data: Manolo Randall MD supervised and was readily available during the procedure. This study was interpreted by [facility]. Study status: Routine. Consent: The risks, benefits, and alternatives to the procedure were explained to the patient and informed consent was obtained. Procedure: Initial setup. A baseline ECG was recorded. Surface ECG leads and manual cuff blood pressure measurements were monitored. Heart sounds: Normal. Lung sounds: Normal. Treadmill exercise testing was performed using the Rodney protocol. Study completion: All catheters inserted during the procedure were removed. The patient tolerated the procedure well and was discharged from the lab. Discharge: The patient left the laboratory in stable condition. Birthdate: Patient birthdate: 1950. Sex: Gender: male. Study date: Study date: 11/23/2018. Study time: 00:01 AM. Electronically signed by Manolo Randall MD 11/23/2018 16:48
--- NOTE | 2018-11-23 09:00 | MERGE_ITS ---
*[facility]* *[facility]* [address] [place] [address] Date of study: 11/23/2018 Transthoracic Echocardiography M-mode, complete 2D, complete spectral Doppler, and color Doppler *STUDY CONCLUSIONS* Summary: 1. Left ventricle: The cavity size was normal. Systolic function was normal. The estimated ejection fraction was 60-65%. Some parameters suggest diastolic dysfunction. There was no evidence of elevated ventricular filling pressure by Doppler parameters. 2. Mitral valve: There was mild regurgitation. 3. Left atrium: The atrium was mildly dilated. 4. Right ventricle: The cavity size was normal. Wall thickness was normal. Systolic function was normal. 5. Atrial septum: No defect or patent foramen ovale was identified. 6. Pulmonary arteries: Pulmonary systolic pressure was in the range of 25mm Hg to 35mm Hg. 7. Inferior vena cava: The vessel was patent and normal in size. The respirophasic diameter changes were in the normal range (greater than or equal to 50%), consistent with normal central venous pressure. *PATIENT PRESENTATION* Height: 170.2cm ((67in) ) S/D Pressure: 163 / 163 Weight: 82.6kg ((181.6lb) ) BSA: 2m^2 Test start time: 07:50 AM. Test stop time: 08:40 AM. PERFORMING Unknown PERFORMING [facility] LAN MANAGER RT Melodie (Richard)(CT), RDCS CONSULTING Mando Rodriguez Yelena A REFERRING Kogan, Yelena A *PROCEDURE DATA* Procedure information: The patient was identified by two identifiers. This study was interpreted by [facility]. Pertinent images and digital data are archived for permanent storage and are available for subsequent review. Comparison was made to the study of 11/01/2014. Study status: Routine. Transthoracic echocardiography. M-mode, complete 2D, complete spectral Doppler, and color Doppler. A Transthoracic Echocardiogram was performed. Scanning was performed from the parasternal, apical, subcostal, and suprasternal notch acoustic windows. Images were obtained using an [id number] cardiac ultrasound machine. Image quality was adequate. Study completion: The patient tolerated the procedure well. History: PMH: Syncope. *CARDIAC ANATOMY* Left ventricle: The cavity size was normal. Systolic function was normal. The estimated ejection fraction was 60-65%. The tissue Doppler parameters were abnormal. Some parameters suggest diastolic dysfunction. There was no evidence of elevated ventricular filling pressure by Doppler parameters. Aortic valve: Focal sclerosis non coronary leaflet. Trileaflet; mildly thickened, mildly calcified leaflets. Doppler: There was no stenosis. There was no regurgitation. Premature closure of the mitral valve. VTI ratio of LVOT to aortic valve: 0.72. Valve area (VTI): 2.7cm^2. Indexed valve area (VTI): 1.3cm^2/m^2. Peak velocity ratio of LVOT to aortic valve: 0.66. Valve area (Vmax): 2.4cm^2. Indexed valve area (Vmax): 1.2cm^2/m^2. Mean velocity ratio of LVOT to aortic valve: 0.52. Valve area (Vmean): 1.9cm^2. Indexed valve area (Vmean): 1cm^2/m^2. Mean gradient (S): 4.9mm Hg. Peak gradient (S): 8mm Hg. Aorta: Aortic root: The aortic root was normal in size. Ascending aorta: The ascending aorta was mildly dilated. Mitral valve: Doppler: There was no evidence for stenosis. There was mild regurgitation. Valve area by pressure half-time: 3.6cm^2. Indexed valve area by pressure half-time: 1.8cm^2/m^2. Left atrium: The atrium was mildly dilated. Atrial septum: No defect or patent foramen ovale was identified. Right ventricle: The cavity size was normal. Wall thickness was normal. Systolic function was normal. Pulmonic valve: Doppler: There was no evidence for stenosis. There was no significant regurgitation. Peak gradient (S): 3.5mm Hg. Tricuspid valve: Doppler: There was mild regurgitation. Pulmonary artery: Poorly visualized. Pulmonary systolic pressure was in the range of 25mm Hg to 35mm Hg. Right atrium: The atrium was normal in size. Pericardium: There was no pericardial effusion. Systemic veins: Inferior vena cava: Well visualized. The vessel was patent and normal in size. The respirophasic diameter changes were in the normal range (greater than or equal to 50%), consistent with normal central venous pressure. Baseline ECG: Bradycardia. Measurements Left ventricle Value Reference LV ID, ED, PLAX 5.2 cm 3.5 - 6.0 LV ID, ES, PLAX 3.2 cm 2.1 - 4.0 LV PW thickness, ED, PLAX 1.0 cm LV end-diastolic volume, 1-p A2C 128 ml LV ejection fraction, 1-p A2C 63 % LV end-diastolic volume, 1-p A4C 107 ml LV ejection fraction, 1-p A4C 59 % LV e', lateral 0.075 m/sec LV E/e', lateral 8 LV e', medial 0.056 m/sec LV E/e', medial 11 LV e', average 0.066 m/sec LV E/e', average 9 Ventricular septum Value Reference IVS thickness, ED, PLAX 1.1 cm LVOT Value Reference LVOT ID, A-P 2.2 cm LVOT area 3.7 cm^2 LVOT peak velocity, S 0.94 m/sec LVOT mean velocity, S 0.55 m/sec LVOT VTI, S 26.0 cm LVOT peak gradient, S 3.5 mm Hg LVOT mean gradient, S 1.5 mm Hg Stroke volume (SV), LVOT DP 96 ml Stroke index (SV/bsa), LVOT DP 48 ml/m^2 Aortic valve Value Reference Aortic valve peak velocity, S 1.4 m/sec Aortic valve mean velocity, S 1.06 m/sec Aortic valve VTI, S 36.0 cm Aortic mean gradient, S 4.9 mm Hg Aortic peak gradient, S 8 mm Hg VTI ratio, LVOT/AV 0.72 Aortic valve area, VTI 2.7 cm^2 Velocity ratio, peak, LVOT/AV 0.66 Aortic valve area, peak velocity 2.4 cm^2 Velocity ratio, mean, LVOT/AV 0.52 Aortic valve area, mean velocity 1.9 cm^2 Aortic valve area/bsa, mean velocity 1 cm^2/m^2 Aorta Value Reference Aortic root ID, ED 3.3 cm Ascending aorta ID, A-P, S 3.5 cm Left atrium Value Reference LA ID, A-P, ES 4.8 cm LA ID/bsa, A-P (H) 2.4 cm/m^2 <=2.2 LA area, ES, A4C (H) 24.9 cm^2 8.8 - 23.4 LA area, ES, A2C 22 cm^2 LA volume/bsa, ES, 1-p A4C 46 ml/m^2 LA volume, ES, 2-p 74 ml LA volume/bsa, ES, 2-p 37 ml/m^2 LA/aortic root ratio 1.46 Mitral valve Value Reference Mitral E-wave peak velocity 0.6 m/sec Mitral A-wave peak velocity 0.69 m/sec Mitral deceleration time 209 ms 150 - 230 Mitral pressure half-time 61 ms Mitral E/A ratio, peak 0.87 Mitral valve area, PHT, DP 3.6 cm^2 Pulmonary veins Value Reference Pulmonary vein peak velocity, S 0.59 m/sec Pulmonary vein peak velocity, D 0.45 m/sec Pulmonary vein velocity ratio, peak, 1.3 S/D Pulmonary vein A-wave reversal peak 0.44 m/sec velocity Tricuspid valve Value Reference Tricuspid regurg peak velocity 2.3 m/sec Tricuspid peak RV-RA gradient 21.9 mm Hg Right atrium Value Reference RA area, ES, A4C 13.1 cm^2 8.3 - 19.5 Pulmonic valve Value Reference Pulmonic peak gradient, S 3.5 mm Hg Legend: (L) and (H) arron values outside specified reference range. I have personally reviewed the images and have reviewed and edited the reported findings. Electronically signed by Manolo Randall MD 11/23/2018 10:31
[2018-11-23] MEDS: Pantoprazole 40 MG TABCR PO (09:38)
[2018-11-23] MEDS: DULoxetine 30 MG CAP 60 MG PO (09:38)
[2018-11-23] MEDS: Normal Saline Flush 10 ML SYR IVP (09:38)
[2018-11-23] MEDS: Cephalexin 500 MG CAP PO ×2 (09:38→14:06)
[2018-11-23] MEDS: Apixaban 2.5 MG TAB PO (09:38)
[2018-11-23] MEDS: Lisinopril 10 MG TAB PO (09:38)
[2018-11-23] MEDS: Aspirin E.C. 81 MG TABEC PO (09:38)
[2018-11-23] MEDS: amLODIPine 10 MG TAB PO (09:38)
[2018-11-23] MEDS: Fluticasone NASAL SPRAY 16 GM BTL NS (09:45)
--- NOTE | 2018-11-23 10:54 | PDOC.CMDIS ---
LACE Index Scoring Tool - Questions: Length of Stay (in days): 3 Acuity (Admit via E.D.?): Yes Comorbidities: PVD E.D. Visits: 3 - Answers: Total Score: 10 Risk of Readmission: High Risk Care Management Discharge Reason for Hospitalization: Syncope, facial laceration Discharge Plan: Ernesto will return home once completing work up of his symptoms including stress test, echo, and carotid ultrasound. He will have ZIO patch placed when medically ready for discharge, follow up with his PCP and his plan of care as prescribed. He will transport via private vehicle with his , Mela. Patient/Family Education Needs: Review discharge instructions, discuss Ask Me Three.
--- NOTE | 2018-11-23 12:47 | OTIE_ITS ---
Occupational Therapy Notes Inpatient Occupational Therapy Evaluation Date: 11/23/18 Referring Doctor:Shanae Clifford MD OT Orders: Eval and Treat Precautions: Standard PATIENT PROFILE/ADMITTING DIAGNOSIS: Pt was admitted through the ER s/p a fall at home which he had LOC with laceration to (L) eye and arch of nose. Past Medical History: AAA (abdominal aortic aneurysm) BPH (benign prostatic hyperplasia) Chronic pain syndrome Esophagitis Femur fracture Gastritis, Helicobacter pylori Hypercholesterolemia Hypertension Male sexual dysfunction Peripheral vascular disease Pneumothorax on right (09/23/16) Rotator cuff tear arthropathy of both shoulders; s/p RCR left shoulder 8 weeks ago Sleep apnea Tibia fracture Varicose veins of bilateral lower extremities with pain Viral hepatitis C Social History/Home Situation: Pt lives in a private home with his . He is (I) with all ADLs/IADLs at baseline and reports that he recently moved all of his stuff down to the first floor of his home. Equipment owned/DME: Grab bars, shower chair, removable shower head SUBJECTIVE: Pt was standing at sink when OT arrived. He reports that when he fell it was randomly. He states that they were going to run tests but he was feeling great and looking forward to going home. OBJECTIVE: General Observation: Facial lacerations with sutures in place, bruising under (B) eyes from falls. Mental Status: A&Ox3 Pain: no c/o pain ROM: RUE WFL - pt is 8 weeks s/p rotator cuff surgery L UE WFL STRENGTH: RUE Grossly 5/5 throughout LUE Grossly 5/5 throughout SENSATION: Intact to (B) UE throughout. FUNCTIONAL MOBILITY/ADLS: Transfers Sit-Stand (I) Stand-sit (I) Bed-Chair (I) Chair-bed (I) BATHING Performed prior to OT session (I) DRESSING Performed prior to OT session (I) GROOMING Performed prior to OT session (I) TOILETING On toilet (I) EATING (I) BALANCE: Static sitting Normal Dynamic Sitting Normal Static Standing Normal Dynamic Standing Normal SPECIAL TESTS: Daily Activity Limitations Standardized Measure [facility] AM -PAC ?6 clicks? Daily Activity Inpatient Short Form: Raw score: 24 Standardized score: 57.54 CMS score: 0.00% INFORMED CONSENT/EDUCATION: Pt instructed in purpose of OT Consult and plan of care. ASSESSMENT: Patient is a 68-year-old male referred to occupational therapy services with diagnosis of syncopal episode with facial lacerations and nasal fracture. Patient presents with clinical signs and symptoms consistent with dx. Now that pt has been seen he is able to perform his ADLs/IADLs at baseline. He is functionally able to perform routines without (A) and is able to perform this without any increased dizziness or symptoms. OT recommends that pt return home when medically cleared per MD. No DME needed. AMPAC score 24, CMS score 0.00% Patient is assessed as a Low 16949 complexity based on the following: History: See Above Examination: See Above Presentation: Evolving Decision Making: AMPAC 24, CMS score 0.00% GOALS N/A PLAN OF CARE/TREATMENT PLAN: OT consult only DISCHARGE RECOMMENDATIONS Home when medically cleared per MD. TREATMENT TIME/MINUTES/CODES 48877, 10 minutes (09:55) Keena Ho OTR/L [facility]
[2018-11-23] MEDS: Atenolol 50 MG TAB PO (14:05)
--- NOTE | 2018-11-23 14:52 | CHAPLAIN ---
Ernesto said he will likely go home today. He was sitting up in his bed and was very pleasant and easily began a conversation. 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 Cuong Gordon well. Cuong is aware that Ernesto is here.
--- NOTE | 2018-11-23 15:40 | W.PM.DS.N ---
Date of service: 11/23/18 Time of Service: 15:41 DS: Diagnosis Discharge Diagnosis (1) Syncope: Status: Acute (2) Nasal bone fracture: Status: Acute (3) Facial laceration: Status: Acute (4) Peripheral artery insufficiency: Status: Chronic (5) GERD (gastroesophageal reflux disease): Status: Chronic (6) Carotid stenosis: Status: Chronic Discharge Plan Disposition Patient Disposition: HOME Condition: Stable Discharge Details Reason For Visit: SYNCOPE W/ FACIAL LACERATIONS, OPEN NASAL FRACTURE Admit Date/Time: 11/22/18 01:16 Admit Provider: Trev Heart Attending Provider: Trev Heart [facility]: Mr Katz is a 68 year old male who was observed at [facility] 11/22-11/23 for a syncopal episode resulting in a fall with facial injury and L-sided nasal fracture. He is on anticoagulation with eliquis for his PAD as well as has a history of being a vasculopath, which made him a high risk for discharge for outpatient workup, so he completed it here while under observation status. His workup consisted of a CT of the head (revealing L nasal bone fractures), telemetry monitoring (with HR going down to 48 while asleep, asypmtomatic, mostly in the 50s-60's in NSR), nonischemic EKG's and negative troponins, an echocardiogram (revealing a preserved LVEF, but diastolic dysfunction, mild mitral regurgitation), and a negative nuclear stress test. His carotid ultrasound, however, revealed R carotid artery stenosis (50-60% on the R; a focal area on the L where he had had endarterectomy with stenosis of >70%). These results are being forwarded to [facility] vascular surgery, with whom he already follows as outpatient. We are arranging his follow up with them as well. Additionally, he would be discharged with a Zio patch. He was mildly orthostatic on this admission, having received IV hydration. He is asked to permit himself time when changing position and to stay hydrated. Finally, Mr Katz does describe feeling nauseated and having reflux at home, which can sometimes trigger his dizziness. His NSAID therapy was discontinued (he is on anticoagulation and it could be contributing to his GERD/possible gastritis), and he was treated with PPI's, on which he should return home. It is possible that this nausea triggered a vaso-vagal type of syncope. With that, we feel the patient is currently medically stable for discharge home with follow up with his PCP and vascular surgery. He is to complete 5 days of keflex for his nasal fracture and follow up with ENT as outpatient as well. He needs to have sutures out in 4-6 days. Home Meds and New Rx's Prescriptions: New cephalexin 500 mg Capsule 500 mg PO TID Qty: 10 RF: 0 pantoprazole 40 mg Tablet,Delayed Release (Dr/Ec) 40 mg PO DAILY@0730 Qty: 30 RF: 0 Continued atorvastatin 80 MG tablet 80 mg PO DAILY Qty: 90 RF: 4 atenolol 50 MG tablet 50 mg PO BID Qty: 90 RF: 4 aspirin [Aspir-81] 81 MG tablet,delayed release (DR/EC) 81 mg PO DAILY RF: 0 Eliquis 2.5 MG tablet 2.5 mg PO BID Qty: 180 RF: 4 amlodipine 10 MG tablet 10 mg PO DAILY Qty: 90 RF: 4 duloxetine [Cymbalta] 60 mg capsule,delayed release(DR/EC) 60 mg PO DAILY 90 Days Qty: 90 RF: 3 lisinopril 10 mg Tablet 10 mg PO DAILY RF: 0 [place]-3 350 mg-235 mg- 90 mg-597 mg Capsule,Delayed Release(Dr/Ec) 1 tab PO DAILY RF: 0 acetaminophen 500 mg capsule 1,000 mg PO Q8H PRN (Reason: pain) Qty: 90 RF: 0 fluticasone propionate [Flonase Allergy Relief] 50 mcg/actuation [place],Suspension 2 spray Intranasal DAILY RF: 0 pramipexole [Mirapex] 0.75 mg Tablet 0.75 mg PO HS RF: 0 cholecalciferol (vitamin D3) [Vitamin D3] 5,000 unit Tablet 5,000 unit PO DAILY RF: 0 Discontinued ibuprofen 800 mg tablet 800 mg PO TID PRN (Reason: pain) Qty: 90 RF: 2 hydrochlorothiazide 12.5 mg Tablet 12.5 mg PO DAILY RF: 0 Discharge Instructions Instructions: Cephalexin (By mouth), Pantoprazole (By mouth), Nasal Fracture (DC), Syncope (DC), Carotid Artery Disease (DC), Gastroesophageal Reflux Disease (GEN) Additional Instructions: Finish your antibiotics as prescribed. Return to the hospital with any fever, falls/loss of consciousness, bleeding, chest pain, or shortness of breath. Do not take NSAIDs for pain and avoid highly acidic foods (citrus, coffee, chocolate), as they can make your reflux worse. Take your time when changing positions from laying to sitting and sitting to standing (giving yourself 2-3 minutes to adjust). Make sure you follow up with your PCP in 3-5 days, as well as with your vascular surgeon (we are making that appointment for you) and with ENT (ear/nose/throat) for your nasal fracture. Review your medication changes carefully. Suture removal on 11/27/18. Stand Alone Forms: Nursing Discharge Form Referrals: Jaime Lobo MD [ [facility] STAFF PHYSICIAN] - 11/26/18 8:00 am Mando Rodriguez [Primary Care Provider] - 12/07/18 9:30 am Activity:: Activity as Tolerated Equipment/Supplies:: No Equipment Needed Diet:: Low Sodium Discharge Orders Discharge Orders: Discharge Order (Routine); Ordered 11/23/18 Ordered By: Shanae Clifford Exam Narrative Exam Narrative: General: A&Ox3, NAD HEENT: EOMI, MMM, nasal sutures, brusing L eye Heart: RRR, no m/r/g Lungs: CTAB GI: abdomen is soft, nontender, nondistended Extremities: no e/c/c, very trace pedal pulses DS: Data Vitals/I&O Vitals and I&O: Vital Signs Temperature 36 C L 11/23/18 14:04 Temperature Source Tympanic 11/23/18 14:04 Pulse 59 L 11/23/18 15:17 Pulse Rhythm Regular 11/23/18 08:00 Pulse 62 11/22/18 01:50 Respiratory Rate 18 11/23/18 14:04 Respiratory Effort Non-Labored 11/23/18 08:00 Respiratory Depth Normal 11/23/18 08:00 Respiratory Pattern Normal 11/23/18 08:00 Blood Pressure 135/62 11/23/18 15:17 Blood Pressure Mean 78 11/22/18 01:46 Blood Pressure Position Supine 11/21/18 23:14 Pulse Oximetry 96 11/23/18 14:04 Oxygen Delivery Method Room Air 11/23/18 14:04 Oxygen Flow Rate 0 11/23/18 14:04 Pain Level 0 11/23/18 14:04 Intake & Output 11/22/18 11/23/18 11/23/18 23:59 11:59 23:59 Intake Total 1440.417 / 2925.834 1953.167 / 1953. Output Total 1600 / 3700 1000 / 1000 Balance -159.583 / -774.166 954.167 / 95.167 Weight 85 kg Intake: IV 960.417 / 6857.090 6425. / 1953. Oral 480 / 980 Output: Urine 1600 / 3700 1000 / 1000 Other: Urine Color Yellow Yellow Urine Appearance Clear Clear Comment patient voied directly into the tiolet. Amount unknown. Voiding Methods Urinal Toilet Completed studies during hospitalization [Text1]: CT head without contrast: No acute abnormality. CT of c-spine: Degenerative changes. No acute abnormality. Facial CT: L nasal fracture MPI: preliminary read - negative US carotid: Calcific plaque causing 50-60% stenosis in the right internal carotid artery. A focal area of narrowing in the proximal left internal carotid artery status post carotid endarterectomy with velocity elevations consistent with a greater than 70% stenosis. Echo: 1. Left ventricle: The cavity size was normal. Systolic function was normal. The estimated ejection fraction was 60-65%. Some parameters suggest diastolic dysfunction. There was no evidence of elevated ventricular filling pressure by Doppler parameters. 2. Mitral valve: There was mild regurgitation. 3. Left atrium: The atrium was mildly dilated. 4. Right ventricle: The cavity size was normal. Wall thickness was normal. Systolic function was normal. 5. Atrial septum: No defect or patent foramen ovale was identified. 6. Pulmonary arteries: Pulmonary systolic pressure was in the range of 25mm Hg to 35mm Hg. 7. Inferior vena cava: The vessel was patent and normal in size. The respirophasic diameter changes were in the normal range (greater than or equal to 50%), consistent with normal central venous pressure. Labs on day of discharge: Labs from last 24 hours 11/23/18 11/23/18 06:55 06:55 WBC 7.02 RBC 4.03 L Hgb 12.3 L Hct 36.1 L MCV 89.6 MCH 30.5 MCHC 34.1 RDW 15.5 H Plt Count 237 MPV 9.4 Sodium 141 Potassium 4.0 Chloride 106 Carbon Dioxide 25.7 Anion Gap 9.3 BUN 15 D Creatinine 1.01 Estimated GFR/1.73 m2 >= 60.00 Glucose 132 H Calcium 8.6 Magnesium 1.8 Triglycerides 81 Total Cholesterol 130 LDL Cholesterol Direct 64 HDL Cholesterol 54 PFSH Medical History AAA (abdominal aortic aneurysm) BPH (benign prostatic hyperplasia) Chronic pain syndrome Esophagitis Femur fracture Gastritis, Helicobacter pylori Hypercholesterolemia Hypertension Male sexual dysfunction Peripheral vascular disease Pneumothorax on right (09/23/16) Rotator cuff tear arthropathy of both shoulders Sleep apnea Tibia fracture Varicose veins of bilateral lower extremities with pain Viral hepatitis C Surgical History History of endarterectomy (Acute) EGD - MAC ORIF femur Spinal Fusion femoral stent lumbar discectomy open reduction tib/fib right chest tube placement under local (09/23/16) Social History Smoking/Tobacco Use Status: Never Alcohol Intake: current Alcohol Intake frequency: a few times a week Alcohol type: beer Drug use: Occasionally Substance use type: does not use Do you feel safe at home: Yes Do you feel safe in your relationship?: Yes
--- NOTE | 2018-11-23 15:55 | DSE_ITS ---
Date of service: 11/23/18 Time of Service: 15:41 DS: Diagnosis Discharge Diagnosis (1) Syncope: Status: Acute (2) Nasal bone fracture: Status: Acute (3) Facial laceration: Status: Acute (4) Peripheral artery insufficiency: Status: Chronic (5) GERD (gastroesophageal reflux disease): Status: Chronic (6) Carotid stenosis: Status: Chronic Discharge Plan Disposition Patient Disposition: HOME Condition: Stable Discharge Details Reason For Visit: SYNCOPE W/ FACIAL LACERATIONS, OPEN NASAL FRACTURE Admit Date/Time: 11/22/18 01:16 Admit Provider: Trev Heart Attending Provider: Trev Heart [facility]: Mr Katz is a 68 year old male who was observed at [facility] 11/22-11/23 for a syncopal episode resulting in a fall with facial injury and L-sided nasal fracture. He is on anticoagulation with eliquis for his PAD as well as has a history of being a vasculopath, which made him a high risk for discharge for outpatient workup, so he completed it here while under observation status. His workup consisted of a CT of the head (revealing L nasal bone fractures), tele metry monitoring (with HR going down to 48 while asleep, asypmtomatic, mostly in the 50s-60's in NSR), nonischemic EKG's and negative troponins, an echocardiogram (revealing a preserved LVEF, but diastolic dysfunction, mild mitral regurgitation), and a negative nuclear stress test. His carotid ultrasound, however, revealed R carotid artery stenosis (50-60% on the R; a focal area on the L where he had had endarterectomy with stenosis of >70%). These results are being forwarded to [facility] vascular surgery, with whom he already follows as outpatient. We are arranging his follow up with them as well. Additionally, he would be discharged with a Zio patch. He was mildly orthostatic on this admission, having received IV hydration. He is asked to permit himself time when changing position and to stay hydrated. Finally, Mr Katz does describe feeling nauseated and having reflux at home, which can sometimes trigger his dizziness. His NSAID therapy was discontinued (he is on anticoagulation and it could be contributing to his GERD/possible gastritis), and he was treated with PPI's, on which he should return home. It is possible that this nausea triggered a vaso-vagal type of syncope. With that, we feel the patient is currently medically stable for discharge home with follow up with his PCP and vascular surgery. He is to complete 5 days of keflex for his nasal fracture and follow up with ENT as outpatient as well. He needs to have sutures out in 4-6 days. Home Meds and New Rx's Prescriptions: New cephalexin 500 mg Capsule 500 mg PO TID Qty: 10 RF: 0 pantoprazole 40 mg Tablet,Delayed Release (Dr/Ec) 40 mg PO DAILY@0730 Qty: 30 RF: 0 Continued atorvastatin 80 MG tablet 80 mg PO DAILY Qty: 90 RF: 4 atenolol 50 MG tablet 50 mg PO BID Qty: 90 RF: 4 aspirin [Aspir-81] 81 MG tablet,delayed release (DR/EC) 81 mg PO DAILY RF: 0 Eliquis 2.5 MG tablet 2.5 mg PO BID Qty: 180 RF: 4 amlodipine 10 MG tablet 10 mg PO DAILY Qty: 90 RF: 4 duloxetine [Cymbalta] 60 mg capsule,delayed release(DR/EC) 60 mg PO DAILY 90 Days Qty: 90 RF: 3 lisinopril 10 mg Tablet 10 mg PO DAILY RF: 0 [place]-3 350 mg-235 mg- 90 mg-597 mg Capsule,Delayed Release(Dr/Ec) 1 tab PO DAILY RF: 0 acetaminophen 500 mg capsule 1,000 mg PO Q8H PRN (Reason: pain) Qty: 90 RF: 0 fluticasone propionate [Flonase Allergy Relief] 50 mcg/actuation [place],Suspension 2 spray Intranasal DAILY RF: 0 pramipexole [Mirapex] 0.75 mg Tablet 0.75 mg PO HS RF: 0 cholecalciferol (vitamin D3) [Vitamin D3] 5,000 unit Tablet 5,000 unit PO DAILY RF: 0 Discontinued ibuprofen 800 mg tablet 800 mg PO TID PRN (Reason: pain) Qty: 90 RF: 2 hydrochlorothiazide 12.5 mg Tablet 12.5 mg PO DAILY RF: 0 Discharge Instructions Instructions: Cephalexin (By mouth), Pantoprazole (By mouth), Nasal Fracture (DC), Syncope (DC), Carotid Artery Disease (DC), Gastroesophageal Reflux Disease (GEN) Additional Instructions: Finish your antibiotics as prescribed. Return to the hospital with any fever, falls/loss of consciousness, bleeding, chest pain, or shortness of breath. Do not take NSAIDs for pain and avoid highly acidic foods (citrus, coffee, chocolate), as they can make your reflux worse. Take your time when changing positions from laying to sitting and sitting to standing (giving yourself 2-3 minutes to adjust). Make sure you follow up with your PCP in 3-5 days, as well as with your vascular surgeon (we are making that appointment for you) and with ENT (ear/nose/throat) for your nasal fracture. Review your medication changes carefully. Suture removal on 11/27/18. Stand Alone Forms: Nursing Discharge Form Referrals: Jaime Lobo MD [ [facility] STAFF PHYSICIAN] - 11/26/18 8:00 am Mando Rodriguez [Primary Care Provider] - 12/07/18 9:30 am Activity:: Activity as Tolerated Equipment/Supplies:: No Equipment Needed Diet:: Low Sodium Discharge Orders Discharge Orders: Discharge Order (Routine); Ordered 11/23/18 Ordered By: Shanae Clifford Exam Narrative Exam Narrative: General: A&Ox3, NAD HEENT: EOMI, MMM, nasal sutures, brusing L eye Heart: RRR, no m/r/g Lungs: CTAB GI: abdomen is soft, nontender, nondistended Extremities: no e/c/c, very trace pedal pulses DS: Data Vitals/I&O Vitals and I&O: Vital Signs Temperature 36 C L 11/23/18 14:04 Temperature Source Tympanic 11/23/18 14:04 Pulse 59 L 11/23/18 15:17 Pulse Rhythm Regular 11/23/18 08:00 Pulse 62 11/22/18 01:50 Respiratory Rate 18 11/23/18 14:04 Respiratory Effort Non-Labored 11/23/18 08:00 Respiratory Depth Normal 11/23/18 08:00 Respiratory Pattern Normal 11/23/18 08:00 Blood Pressure 135/62 11/23/18 15:17 Blood Pressure Mean 78 11/22/18 01:46 Blood Pressure Position Supine 11/21/18 23:14 Pulse Oximetry 96 11/23/18 14:04 Oxygen Delivery Method Room Air 11/23/18 14:04 Oxygen Flow Rate 0 11/23/18 14:04 Pain Level 0 11/23/18 14:04 Intake & Output 11/22/18 11/23/18 11/23/18 23:59 11:59 23:59 Intake Total 1440.417 / 2925.834 1953.167 / 1953.167 Output Total 1600 / 3700 1000 / 1000 Balance -159.583 / -774.166 954.167 / 954.167 Weight 85 kg Intake: IV 960.417 / 2402.547 5009.167 / 1953.167 Oral 480 / 980 Output: Urine 1600 / 3700 1000 / 1000 Other: Urine Color Yellow Yellow Urine Appearance Clear Clear Comment patient voied directly into the tiolet. Amount unknown. Voiding Methods Urinal Toilet Completed studies during hospitalization [Text1]: CT head without contrast: No acute abnormality. CT of c-spine: Degenerative changes. No acute abnormality. Facial CT: L nasal fracture MPI: preliminary read - negative US carotid: Calcific plaque causing 50-60% stenosis in the right internal carotid artery. A focal area of narrowing in the proximal left internal carotid artery status post carotid endarterectomy with velocity elevations consistent with a greater than 70% stenosis. Echo: 1. Left ventricle: The cavity size was normal. Systolic function was normal. The estimated ejection fraction was 60-65%. Some parameters suggest diastolic dysfunction. There was no evidence of elevated ventricular filling pressure by Doppler parameters. 2. Mitral valve: There was mild regurgitation. 3. Left atrium: The atrium was mildly dilated. 4. Right ventricle: The cavity size was normal. Wall thickness was normal. Systolic function was normal. 5. Atrial septum: No defect or patent foramen ovale was identified. 6. Pulmonary arteries: Pulmonary systolic pressure was in the range of 25mm Hg to 35mm Hg. 7. Inferior vena cava: The vessel was patent and normal in size. The respirophasic diameter changes were in the normal range (greater than or equal to 50%), consistent with normal central venous pressure. Labs on day of discharge: Labs from last 24 hours 11/23/18 11/23/18 06:55 06:55 WBC 7.02 RBC 4.03 L Hgb 12.3 L Hct 36.1 L MCV 89.6 MCH 30.5 MCHC 34.1 RDW 15.5 H Plt Count 237 MPV 9.4 Sodium 141 Potassium 4.0 Chloride 106 Carbon Dioxide 25.7 Anion Gap 9.3 BUN 15 D Creatinine 1.01 Estimated GFR/1.73 m2 >= 60.00 Glucose 132 H Calcium 8.6 Magnesium 1.8 Triglycerides 81 Total Cholesterol 130 LDL Cholesterol Direct 64 HDL Cholesterol 54 PFSH Medical History AAA (abdominal aortic aneurysm) BPH (benign prostatic hyperplasia) Chronic pain syndrome Esophagitis Femur fracture Gastritis, Helicobacter pylori Hypercholesterolemia Hypertension Male sexual dysfunction Peripheral vascular disease Pneumothorax on right (09/23/16) Rotator cuff tear arthropathy of both shoulders Sleep apnea Tibia fracture Varicose veins of bilateral lower extremities with pain Viral hepatitis C Surgical History History of endarterectomy (Acute) EGD - MAC ORIF femur Spinal Fusion femoral stent lumbar discectomy open reduction tib/fib right chest tube placement under local (09/23/16) Social History Smoking/Tobacco Use Status: Never Alcohol Intake: current Alcohol Intake frequency: a few times a week Alcohol type: beer Drug use: Occasionally Substance use type: does not use Do you feel safe at home: Yes Do you feel safe in your relationship?: Yes
--- NOTE | 2018-12-07 11:58 | ZIOP_ITS ---
DATE OF DICTATION: December 07, [address]: 5 days, 10 hours, November 23-2018 Baseline rhythm sinus. Rare single PAC. Four bursts of SVT, longest 6-beat duration, fastest 143 bpm. No atrial fibrillati on. Rare single PVC. No VT. No bradycardia or block. No triggered events. No symptoms. Average heart rate sinus 66 bpm, range 48-105 bpm.
== END 2018-11-23 16:50 | disposition home or self-care (01) ==
LOC: ER 11-22 01:37 → MS 11-22 02:14
PROVIDERS: Internal Medicine; Admitting Provider Family Medicine; Emergency Provider Emergency Medicine; PCP Family Medicine; Visit Provider Family Medicine
DX: R55 Syncope and collapse (principal); S02.2XXB Fracture of nasal bones, initial encounter for open fracture; S01.112A Laceration without foreign body of left eyelid and periocular area, initial encounter; S01.21XA Laceration without foreign body of nose, initial encounter; W18.39XA Other fall on same level, initial encounter; R11.0 Nausea; K21.9 Gastro-esophageal reflux disease without esophagitis; I65.23 Occlusion and stenosis of bilateral carotid arteries; I73.9 Peripheral vascular disease, unspecified; I05.1 Rheumatic mitral insufficiency; I51.7 Cardiomegaly; I10 Essential (primary) hypertension; Z79.01 Long term (current) use of anticoagulants
CPT/HCPCS: 0296T; 12013; 36415; 78452; 80048; 80053; 80061; 80307; 83721; 85027; 93005; 97161; 99220; 99239; 99285; NC; 70450; 70486; 72125; 80320; 83735; 84443; 84484; 85025; 85610; 85730; 93010; 93017; 93306; 93880; 99217; G0378; J3490

== ENCOUNTER 2020-02-01 18:54 | Outpatient (REF) | payer BC, MEDICARE, SELFPAY ==
[2020-02-01 20:24] LABS: HCT 40.5 % (40.0-50.0); HGB 13.4 g/dL (13.5-17.5); Mean Corp. HGB Concentration 33.1 g/dL (32.0-36.0); Mean Corpuscular Hemoglobin 29.3 pg (27.0-33.0); Mean Corpuscular Volume 88.6 fL (80-95); Mean Platelet Volume 10.4 fL (8.0-11.0); Platelet Count 238 x1000/uL (130-400); RBC 4.57 m/cumm (4.50-6.00); RBC Distribution Width 15.2 % (11.8-14.1); White Blood Cell Count 7.59 k/cumm (4.4-10.8)
[2020-02-01 21:02] LABS: ALT 57 U/L (16-63); AST 59 U/L (15-37); Alkaline Phosphatase 180 U/L (46-116); Anion Gap 9.8 mmol/L (3-11); BUN 30 mg/dL (7-18); Bilirubin, Total 0.4 mg/dL (0.2-1.0); CO2 22.2 mmol/L (21.0-32.0); CREATININE 1.22 mg/dL (0.70-1.30); Calcium 8.5 mg/dL (8.5-10.1); Chloride 103 mmol/L (98-107); Glucose 120 mg/dL (74-106); Iron 72 ug/dL (65-175); Magnesium 2.2 mg/dL (1.8-2.4); Sodium 135 mmol/L (136-145); Total Protein 7.8 g/dL (6.4-8.2); Vitamin B12 501 pg/mL (193-986)
[2020-02-01 21:03] LABS: Total Iron Binding Capacity 383 ug/dL (250-450); Transferrin Sat 19 % (20-55)
== END 2020-02-01 19:14 ==
LOC: NCHCN 18:54
PROVIDERS: PCP Family Medicine; Visit Provider Family Medicine
DX: D64.9 Anemia, unspecified (principal); I10 Essential (primary) hypertension
CPT/HCPCS: 80053; 85027; 82607; 83540; 83550; 83735

== ENCOUNTER 2020-02-15 00:16 | Outpatient (CLI) | payer BC, SELFPAY ==
--- NOTE | 2020-02-15 08:43 | DI.RAD_ITS ---
EXAM: XR KNEE RT 3V AP,LAT,REAL CLINICAL HISTORY: RT KNEE PAIN,[id number]. TECHNIQUE: 2D digital imaging was performed. COMPARISON: No exams were available for comparison FINDINGS: There is severe narrowing of the medial femoral tibial joint and prominent periarticular spurring kalen us sclerosis. Spurring is also seen from the lateral patellofemoral joint and patellofemoral joint. There is spurring at the quadriceps insertion on the patella. No joint effusion is visible. Degene rative changes are also noted proximal tibial fibular joint. Vascular stents and surgical clips are seen. IMPRESSION: Severe degenerative changes of the medial femoral tibial joint. DATA REPOSITORY: RADIATION DOSE DELIVERED:
== END 2020-02-15 00:36 ==
PROVIDERS: PCP Family Medicine; Visit Provider Family Medicine
DX: M25.561 Pain in right knee (principal); M17.11 Unilateral primary osteoarthritis, right knee
CPT/HCPCS: 73562

== ENCOUNTER 2020-03-23 10:59 | Outpatient (CLI) | payer BC, SELFPAY ==
--- NOTE | 2020-03-23 10:45 | DI.RAD_ITS ---
EXAM: XR SHOULDER LT COMPLETE 2+V CLINICAL HISTORY: f/u L shoulder. TECHNIQUE: 2D digital imaging was performed. COMPARISON: CR LEFT SHOULDER COMPLETE from 07/12/2015 FINDINGS: Degenerative changes are seen in the left shoulder. There are hypertrophic changes seen at the acrom ioclavicular joint. Degenerative changes are also seen at the glenohumeral joint with spurring seen at the inferior humeral head. There is superior subluxation of the humeral head relative to the peter oid which may reflect chronic rotator cuff tear. No acute fracture or dislocation is present. IMPRESSION: Degenerative changes of the left shoulder. DATA REPOSITORY: RADIATION DOSE DELIVERED:
--- NOTE | 2020-03-23 10:45 | DI.RAD_ITS ---
EXAM: XR SHOULDER RT COMPLETE 2+V CLINICAL HISTORY: eval R shoulder pain. TECHNIQUE: 2D digital imaging was performed. COMPARISON: CR RIGHT SHOULDER COMPLETE from 07/12/2015 FINDINGS: Moderately severe degenerative changes are seen in the right shoulder with hypertrophic changes at th e acromioclavicular joint and spurring of the humeral head. There is superior subluxation of the hum eral head suspicious for chronic rotator cuff tear. Degenerative changes are seen at the acromion. No acute fracture or dislocation is present. The soft tissues are unremarkable. IMPRESSION: Moderately severe degenerative changes of the right shoulder. DATA REPOSITORY: RADIATION DOSE DELIVERED:
== END 2020-03-23 11:19 ==
PROVIDERS: PCP Family Medicine; Referring Provider Family Medicine; Visit Provider Student in an Organized Health Care Education/Training Program
DX: M25.511 Pain in right shoulder; M19.012 Primary osteoarthritis, left shoulder; M19.011 Primary osteoarthritis, right shoulder
CPT/HCPCS: 73030

== ENCOUNTER 2020-06-27 10:05 | Outpatient (CLI) | payer BC, SELFPAY ==
--- NOTE | 2020-06-27 10:20 | DI.RAD_ITS ---
EXAM: XR CHEST 2V PA LATERAL CLINICAL HISTORY: SOB, R06.02, H/O RT PNEUMONIA TECHNIQUE: COMPARISON: CR RIGHT RIBS TO INCLUDE CXR from 11/27/2017 FINDINGS: Heart is not enlarged. There is large right pneumothorax. There is slight mediastinal shift to the left. There is a large retrocardiac hiatus hernia. Question patchy or nodular opacities in left upper lobe, possible pneumonia, mass not excluded.. Fol low-up chest radiograph requested and if findings do not resolve additional evaluation with CT would be recommended. IMPRESSION: Large right pneumothorax, question slight associated mediastinal shift to the left raising the possib ility of a mild tension pneumothorax. Left upper lung field opacities, nonspecific, follow-up chest radiograph requested following treatmen t for suspected pneumonia. RADIATION DOSE DELIVERED: Total DLP
== END 2020-06-27 10:25 ==
PROVIDERS: PCP Family Medicine; Visit Provider Family Medicine
DX: J93.9 Pneumothorax, unspecified (principal); R91.8 Other nonspecific abnormal finding of lung field
CPT/HCPCS: 71046

== ENCOUNTER 2020-06-27 11:06 | Inpatient (IN) | payer BC, SELFPAY ==
[2020-06-27] VITALS (24 sets, daily range): BP systolic 128–192; BP diastolic 60–83; PULSE 51–70; RESP 12–27; TEMP 36.4–36.6; O2SAT 91–100
--- NOTE | 2020-06-27 | DI.CT_ITS ---
EXAM: CT CHEST W CLINICAL HISTORY: r/o lt upper lung pneumonia vs mass, ? bleb RT,PNEUMOTHORAX COMPARISON: CT CHEST WITH CONTRAST from 10/16/2016 CR,XR XR PORTABLE CHEST AP from 06/27/2020 CR XR PORTABLE CHEST AP from 06/27/2020 FINDINGS: CT examination of the chest was performed with intravenous infusion of 70 cc of Omnipaque 350. Image s obtained through the upper abdomen show an approximately 5 cm in diameter, incompletely visualized infrarenal abdominal aortic aneurysm. There are small splenic calcified granulomas. Otherwise liver and spleen grossly unremarkable with an incidental apparent left hepatic lobe cyst. Visualized port ions of kidneys are unremarkable except for an apparent left renal cyst. Adrenals are unremarkable. Pancreas appears intact. Gallbladder poorly visualized. No biliary dilatation. Hiatal hernia noted. There is a large right pneumothorax with significant interval worsening in comparison with chest radi ograph obtained earlier today with right thoracotomy tube in position. Left lung remains well expand ed. No significant pleural effusion or hemothorax. There is a multicentric spiculated masslike radiodensity of the left upper lobe which is pleural base d, the largest component measuring about 13 millimeters in diameter. Findings are suspicious for mal ignancy although they could be on the basis of an infectious process. Appropriate follow-up studies requested. No gross mediastinal or hilar adenopathy. No gross central pulmonary embolus although motion artifac t limits evaluation of the pulmonary arterial circulation. No thoracic aortic aneurysm or dissection . IMPRESSION: Large right pneumothorax with right thoracotomy tube in place. Multicentric spiculated left pleural based apical pulmonary masslike radiodensity, suspect neoplasm. Incompletely visualized infrarenal abdominal aortic aneurysm, probably roughly 5 cm in diameter as se en. Additional evaluation of this aneurysm recommended for full visualization and accurate measureme nt. RADIATION DOSE DELIVERED: 545.94mGy.cm Total DLP
--- NOTE | 2020-06-27 11:37 | DI.RAD_ITS ---
EXAM: XR PORTABLE CHEST AP POST LINE CLINICAL HISTORY: SOB, chest tube placement TECHNIQUE: COMPARISON: CR XR CHEST 2V PA LATERAL from 06/27/2020 FINDINGS: Portable AP chest at 1155 hours. Previously described right pneumothorax is markedly decreased in si ze with the right thoracotomy tube in place. Mild elevation of the diaphragm noted on the right. Le ft lung remains clear except for the previously noted questionable consolidative or masslike opacity of the left upper lung field. IMPRESSION: Right thoracotomy tube in position with partial re-expansion of right lung. RADIATION DOSE DELIVERED: Total DLP
--- NOTE | 2020-06-27 11:43 | RESPIRATORY ---
RT called to ER for pneumo in patient, initial vitals: HR 67 SpO2 100% on NRB RR 24 and Bp 184/73. Patient tolerated procedure very well as has previous pneumo before and maintains vitals of : HR 72-76 bpm, SpO2 96%-100% on NRB, RR 20-25. Post procedure, patient was very comfortable and sitting comfortable. Vitals were: HR 64, SpO2 99% NBR and RR 19 when RT was told no longer needed.
--- NOTE | 2020-06-27 11:51 | HPE_ITS ---
Date of service: 06/27/20 Time of Service: 11:30 Assessment and Plan Assessment and plan (1) Spontaneous pneumothorax: Status: Acute Assessment and plan: Mr. Katz is a pleasant 70 year old male with a history of spontaneous pneumothorax on the right side in 2017. He comes in today with another spontaneous pneumothorax after coughing yesterday. Pigtail catheter placed in the ER without difficulty. Chest tube was placed to suction. There is a significant air leak. CXR with ? of mass vs consolidation in the left apex. Patient has no cough, no fevers. Will order CT scan of the chest to look for blebs and to rule out a mass on the left Diet as tolerated Saline lock IV Covid testing done in the ER- patient is an AOC Out of bed into chair. Walking in the room. If stable tomorrow then will allow nursing to clamp his chest tube for 15 to 20 minutes so he can ambulate (2) Chronic anticoagulation: Status: Acute Assessment and plan: Patient has a AAA, peripheral vascular disease and history of carotic stenosis. Patient is usuially on apixiban and aspirin. Will hold apixiban for today as there is some blood in his chest tube. Continue aspirin. Will restart apixiban as soon as possible (3) GERD (gastroesophageal reflux disease): Status: Acute Assessment and plan: Hx of GERD. Not currently on any antacid. Will start on Protonic po daily while in the hospital Qualifiers: Esophagitis presence: without esophagitis Qualified Code(s): K21.9 - G jassi-esophageal reflux disease without esophagitis (4) Essential hypertension: Status: Acute Assessment and plan: Continue his home medications History of Present Illness History of Present Illness Chief Complaint: Right Pneumothorax Consults Consult date: 06/27/20 Requesting physician: Shaina Thrasher Narrative: Mr. Katz is a pleasant 70 year old male who went to see his PCP today for SOB. he tells me that he had a coughing fit yesterday at home and had some pain and sob. He has a history of spontaneous pneumothorax on the right side. The last time he had one was in 2017. CXR ordered as an outpatient showed a right pneumothorax. He was sent to the ER for chest tube placement. I was called to the ER to assist Dr. Thrasher in placing a small chest tube and for admission. Mr. Katz was in no distress. He is breathing easily. He has no chest pain. No N/V. He has had no fevers. besides the one coughing fit yesterday he has had no cough. He has not travelled outside of [place]. He has not been in contact with anyone that has COVID-19 EXAM: XR CHEST 2V PA LATERAL (initial CXR) CLINICAL HISTORY: SOB, R06.02, H/O RT PNEUMONIA TECHNIQUE: COMPARISON: CR RIGHT RIBS TO INCLUDE CXR from 11/27/2017 FINDINGS: Heart is not enlarged. There is large right pneumothorax. There is slight mediastinal shift to the left. There is a large retrocardiac hiatus hernia. Question patchy or nodular opacities in left upper lobe, possible pneumonia, mass not excluded.. Follow-up chest radiograph requested and if findings do not resolve additional evaluation with CT would be recommended. IMPRESSION: Large right pneumothorax, question slight associated mediastinal shift to the left raising the possibility of a mild tension pneumothorax. Left upper lung field opacities, nonspecific, follow-up chest radiograph requested following treatment for suspected pneumonia. Review of Systems Constitutional Constitutional: Denies fatigue, Denies fever(s), Denies headache(s), Denies malaise, Denies poor appetite and Denies weight loss Eyes Eyes: Denies change in vision ENT Ears, Nose, Mouth, and Throat: Denies headache(s) and Denies hoarseness Cardiovascular Cardiovascular: Denies chest pain, Denies chest pain at rest, Denies chest pain with activity, Denies irregular heart rhythm, Denies palpitations and Reports dyspnea Respiratory Respiratory: Reports as per HPI and Reports dyspnea Gastrointestinal Gastrointestinal: Denies constipation, Denies dyspepsia, Denies heartburn, Denies diarrhea, Denies nausea and Denies vomiting Genitourinary Genitourinary: Denies oliguria and Denies difficulty urinating Musculoskeletal Musculoskeletal: Reports system reviewed and no additional complaints, except as documented Integumentary/Breasts Skin/Breast: Reports system reviewed and no additional complaints, except as documented Neurologic Neurologic: Reports system reviewed and no additional complaints, except as documented and Denies headache(s) Psychiatric Psychiatric: Reports system reviewed and no additional complaints, except as documented Endocrine Endocrine: Reports system reviewed and no additional complaints, except as documented, Denies fatigue and Denies palpitations Hematologic/Lymphatic Hematologic/Lymphatic: Reports easy bleeding (on apixiban and aspirin) [facility] Medical History (Updated 06/27/20 @ 15:46 by Brittani Mayer MD) AAA (abdominal aortic aneurysm) [place]dominal aortic [place] [facility] 4.3 x 4.2 cm infra-renal AAA AAA max. diam: 4.0cm [place] 10[place]: infra-renal AAA max.4.3cm: stable [place] mri : 3.5 cm BPH without urinary obstruction Carotid stenosis Chronic pain disorder (04/15/12) CONTRACT / (urine:03/17) Chronic pain syndrome Depressive disorder Esophagitis Essential hypertension (06/01/13) echocardiogram normal Facial laceration Femur fracture GERD (gastroesophageal reflux disease) Helicobacter pylori gastritis (chronic gastritis) (11/23/14) positive gastroscopy : treated Hypercholesterolemia Left rotator cuff tear arthropathy Male sexual dysfunction 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 etiology:consider Neuro.referral Osteoarthritis of right knee Peripheral artery insufficiency [facility]:left superficial femoral artery stent [facility] : left SFA in stent stenosis: angioplasty Fup q 6 months on going [facility] progression of disease;right popliteal stent graft occluded; pain right calf post 50ft walk Pneumothorax on right (09/23/16) 1999 first time Right rotator cuff tear arthropathy Right shoulder pain Rotator cuff tear arthropathy of both shoulders Sleep apnea uses c-pap Tear of left rotator cuff (09/06/15) DOS: 09/22/18 Injection: 03/01/2019 Tear of right rotator cuff (09/06/15) Injection: 03/01/2019 Tibia fracture Varicose veins of bilateral lower extremities with pain Varicose veins of lower extremity Venous stasis ulcers recurrent/ 2008 - 2011 Viral hepatitis C chronic/ Treatment Interferon:successful/ [facility] Surgical History (Updated 06/27/20 @ 15:29 by Brittani Mayer MD) EGD - MAC femoral stent X2 most recent 2015 History of endarterectomy Apr 2018 History of left-sided carotid endarterectomy (04/02/18) [facility] in surgery bleeding from parotid gland: electrocautery/ open reduction tib/fib ORIF femur right chest tube placement under local (09/23/16) 1999 Spinal Fusion 11/13/17 ANA LILIA Status post arthroscopy of left shoulder DOS: 09/22/18 Injection: 03/01/2019 Repair of subscapularis with extensive debridement of superior cuff Biceps tenotomy; acromioplasty Dr. Webb Status post lumbar discectomy 2000 : right discectomy L5-S1 + L4-L5 decompression (right) 2013 : right L4-L5 decompression -2017 L5-S1 facetectomy; Family History Mother Diabetes Essential hypertension Depression Heart disease Neoplasm BREAST Father Neoplasm HODGKINS DISEASE Sister No problems noted. Sister Neoplasm BREAST Stroke Sister Neoplasm LUNG Brother Neoplasm LUNG Grandfather Diabetes Essential hypertension Heart disease Hyperlipidemia Stroke Grandfather No problems noted. Grandmother No problems noted. Grandmother No problems noted. Social History Smoking/Tobacco Use Status: Never Smoking risk assessment performed?: Yes Alcohol Intake: current Alcohol Intake frequency: a few times a week Alcohol type: beer Drug use: Occasionally Substance use type: does not use Do you feel safe at home: Yes Do you feel safe in your relationship?: Yes Meds Home Medications and Allergies Home Medications Medication Instructions Recorded Confirmed Type atorvastatin 80 mg PO DAILY #90 tab-cap 09/12/16 06/27/20 History atenolol 50 mg PO BID #90 tab 02/19/17 06/27/20 History aspirin [Aspir-81] 81 mg PO DAILY 07/04/17 06/27/20 History amlodipine 10 mg PO DAILY #90 tab-cap 11/06/17 06/27/20 Rx duloxetine [Cymbalta] 60 mg PO DAILY 90 Days #90 tab-cap 09/14/18 06/27/20 Rx Starford-3 1 tab PO DAILY 09/15/18 06/27/20 History acetaminophen 1,000 mg PO Q8H PRN #90 cap 09/22/18 06/27/20 Rx cholecalciferol (vitamin D3) 5,000 unit PO DAILY 11/22/18 06/27/20 History [Vitamin D3] fluticasone propionate [Flonase 2 spray INTRANASAL DAILY 11/22/18 06/27/20 History Allergy Relief] pramipexole [Mirapex] 0.75 mg PO HS 11/22/18 06/27/20 History apixaban [Eliquis] 5 mg PO BID 06/27/20 06/27/20 History capsaicin 1 applic TOPICAL BID PRN 06/27/20 06/27/20 History diclofenac sodium 2 g TOPICAL BID 06/27/20 06/27/20 History hydrocortisone [Proctozone-HC] 1 applic TOPICAL BID PRN PRN 06/27/20 06/27/20 History ipratropium bromide 2 spray INTRANASAL Q6H PRN PRN 06/27/20 06/27/20 History tamsulosin 0.4 mg PO QHS 06/27/20 06/27/20 History Allergies Allergy/AdvReac Type Severity Reaction Status Date / Time gabapentin AdvReac Mild cough Unverified 06/27/20 11:42 Exam Const General: cooperative, comfortable and no acute distress Orientation: alert and oriented x3 HENMT Head: normocephalic and atraumatic Eyes Pupils: PERRL Resp Effort & Inspection: normal respiratory effort Auscultation: breath sounds absent on the right Cardio Rate: regular rate Rhythm: regular rhythm Heart Sounds: no gallops, no murmurs and no rubs GI Inspection: normal to inspection Palpation: soft and nontender Auscultation: normal bowel sounds Results Last Vital Signs Temp 97.7 F 06/27/20 11:11 Pulse 70 06/27/20 11:11 Resp 19 06/27/20 11:11 BP 192/78 H 06/27/20 11:11 Pulse Ox 91 L 06/27/20 11:16 COVID-19 Screening Have you,or household,traveled outside [place] in last 14 days?: No Had IN PERSON contact w/suspected or confirmed C-19 person: No
--- NOTE | 2020-06-27 12:15 | DI.RAD_ITS ---
EXAM: XR PORTABLE CHEST AP CLINICAL HISTORY: post chest tube TECHNIQUE: COMPARISON: CR XR PORTABLE CHEST AP POST LINE from 06/27/2020 FINDINGS: Portable upright chest film 1315 hours. 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 There is a small residual pneumothorax on the right. No change in appearance of the left lung. IMPRESSION: RADIATION DOSE DELIVERED: Total DLP
--- NOTE | 2020-06-27 12:46 | NUR.NOTE ---
intermitent bubbling noted, MD Walt Thrasher made aware and MD Mayer made aware, patient is resting comfortably denies SOB. all chest tube connections are tight, chest tube drainage system is secured to the floor. POC: repeat porrtable chest. Nursing Note:
--- NOTE | 2020-06-27 12:47 | NUR.NOTE ---
pt remains awake and alert. denies respiratory distress with chest tube in place to rt chest. pt sat 100% on NRB.
[2020-06-27] MEDS: traMADol 50 MG TAB PO (14:33)
[2020-06-27] MEDS: Docusate Sodium 100 MG CAP PO ×2 (14:33→19:46)
[2020-06-27] MEDS: Normal Saline Flush 10 ML SYR IVP ×2 (14:33→19:47)
--- NOTE | 2020-06-27 16:41 | RESPIRATORY ---
RT spoke with patient concerning the KULDIP with CPAP use in his medical history. Patient stated he has not used a CPAP or any device in a long time. RT was told, he doesn't use anything for this KULDIP and feels he's doing just fine without anything.
[2020-06-27] MEDS: Tamsulosin 0.4 MG CAPCR PO (17:09)
[2020-06-27 17:17] LABS: CREATININE 0.92 mg/dL (0.70-1.30)
[2020-06-27] MEDS: Omnipaque 350 MG/ML 100 ML BTL 70 ML IJ (17:46)
--- NOTE | 2020-06-27 18:12 | DI.VRAD_ITS ---
Addendum created by Malena Morales MD on 06/27/2020 6:52:28 PM EDT: I discussed case findings with YUE Mayer 06/27/2020 6:51 PM EDT. Initial report created on 06/27/2020 6:12:04 PM EDT: PROCEDURE INFORMATION: Exam: CT Chest With Contrast Exam date and time: 06/27/2020 5:51 PM Age: 70 years old Clinical indication: Other: Sonptaneous ptx, mass vs pneumonia TECHNIQUE: Imaging protocol: Computed tomography of the chest with intravenous contrast. Contrast material: OMNIPAQUE 350; Contrast volume: 70 ml; Contrast route: IV; COMPARISON: CT CHEST WITH CONTRAST 10/16/2016 2:35 PM FINDINGS: Tubes, catheters and devices: There is a right-sided chest tube in place antral laterally. There is subcutaneous emphysema seen in the right chest wall. Lungs: See Pleural space finding. Pleural space: There is a large right-sided pneumothorax, approximately 80%. There is underlying COPD. There is a slightly spiculated left upper lobe mass partially pleural based measuring nearly 12 mm in diameter series 2, images 18-19. This is new since previous exam. Calcified granulomata are again seen. Trace right pleural effusion with atelectasis. Heart: Unremarkable. No cardiomegaly. No pericardial effusion. Mediastinal space: Large hiatal hernia, not significantly changed from previous study. Mediastinal and hilar calcifications are consistent with old granulomatous change. Aorta: There is an infrarenal abdominal aortic aneurysm, 4.6 cm. Lymph nodes: Unremarkable. No enlarged lymph nodes. Kidneys and ureters: Respiratory motion slightly limits evaluation. There is the appearance of left perinephric fluid collection, probable motion artifact. Bones/joints: Significant thoracic spondylosis with anterior syndesmophyte formation at the retrocrural level. Soft tissues: See Pleural space finding. Other findings: Incidental note is made of atrophy of the right subscapularis and levator scapulae muscles. IMPRESSION: 1. Large right pneumothorax persists after chest tube placement. There is associated right-sided subcutaneous emphysema. 2. New spiculated left upper lobe mass of concern for primary lung carcinoma. 3. 4.6 cm abdominal aortic aneurysm, incompletely imaged. Dictated and Authenticated by: Malena Morales MD. Ordering:NICK Peter MD
--- NOTE | 2020-06-27 19:30 | DI.RAD_ITS ---
EXAM: XR PORTABLE CHEST AP CLINICAL HISTORY: chest tube placement TECHNIQUE: COMPARISON: CR XR PORTABLE CHEST AP from 06/27/2020 FINDINGS: Portable upright chest, 1955 hours. Three views were obtained. There is a right thoracotomy tube in position. The position of the tube was adjusted between the three views. There is a persistent lar ge right pneumothorax. Spiculated left apical lung lesion again noted. IMPRESSION: Persistent large right pneumothorax. RADIATION DOSE DELIVERED: Total DLP
[2020-06-27] MEDS: Atenolol 50 MG TAB PO (19:46)
--- NOTE | 2020-06-27 20:32 | DI.VRAD_ITS ---
Addendum created by Malena Morales MD on 06/27/2020 9:14:01 PM EDT: I discussed case findings with YUE Mayer 06/27/2020 9:13 PM EDT. Initial report created on 06/27/2020 8:31:54 PM EDT: PROCEDURE INFORMATION: Exam: XR Chest, 1 View Exam date and time: 06/27/2020 8:02 PM Age: 70 years old Clinical indication: Other: Chest tube placement TECHNIQUE: Imaging protocol: XR of the chest Views: 1 view. Other technique: Portable exam. COMPARISON: CT CHEST W 06/27/2020 5:53 PM FINDINGS: Tubes, catheters and devices: A previously seen right-sided chest tube appears to have been repositioned. Lungs: Soft tissue mass left upper lobe noted. See separate chest CT report. Pleural space: There is a persistent large underlying right pneumothorax. Heart/Mediastinum: Unremarkable. No cardiomegaly. Bones/joints: Unremarkable. Soft tissues: There is increased right subcutaneous emphysema. IMPRESSION: 1. Persistent large right pneumothorax. Increased right subcutaneous emphysema. 2. Follow-up left upper lobe soft tissue mass. Dictated and Authenticated by: Malena Morales MD. Ordering:NICK Peter MD
[2020-06-27] MEDS: Pramipexole 0.5 MG TAB PO (21:46)
[2020-06-27 21:58] LABS: COVID-19 RT-PCR UVMMC Result Negative (Negative)
[2020-06-28] VITALS (7 sets, daily range): BP systolic 128–150; BP diastolic 64–79; PULSE 60–62; RESP 18; TEMP 36.6; O2SAT 96–100
[2020-06-28] MEDS: Pantoprazole 40 MG TABCR PO (06:40)
[2020-06-28 07:10] LABS: Abs Immature Grans 0.01 10^3/uL (0.0-0.06); Absolute Basophil Count 0.01 10^3/uL (0.0-0.2); Absolute Eosinophil Count 0.13 10^3/uL (0.0-0.7); Absolute Lymphocyte Count 0.75 10^3/uL (1.2-3.4); Absolute Monocyte Count 0.44 10^3/uL (0.1-0.8); Absolute Neutrophil Count 4.54 10^3/uL (1.2-6.7); Basophils % 0.2; Eosinophils % 2.2; HCT 29.7 % (40.0-50.0); HGB 9.4 g/dL (13.5-17.5); Immature Grans % 0.2; Lymphocytes % 12.8; MCH 26.8 pg (27.0-33.0); MCHC 31.6 % (32.0-36.0); MCV 84.6 fL (80-95); MPV 8.9 fL (8.0-11.0); Monocytes % 7.5; Neutrophils % 77.1; Nucleated RBC 0 %; Platelet Count 263 10^3/uL (130-400); RBC 3.51 10^6/uL (4.36-5.78); RDW 15.1 % (11.8-14.1); RDW-SD 46.1 fL; WBC 5.88 10^3/uL (4.4-10.8)
--- NOTE | 2020-06-28 07:32 | W.PM.PROGNOT ---
Date of Service Date of service: 06/27/20 Time of Service: 19:30 Assessment and Plan Assessment and plan (1) GERD (gastroesophageal reflux disease): Status: Acute Qualifiers: Esophagitis presence: without esophagitis Qualified Code(s): K21.9 - Gastro-esophageal reflux disease without esophagitis (2) Essential hypertension: Status: Acute (3) Spontaneous pneumothorax: Status: Acute Assessment and plan: Chest tube was re-positioned and Chest XRAY showed good position of the chest tube but lung was still collapsed. The chest tube was flushed with some sterile saline. Again the lung did not expand. The tubing was inspected and a clot was noted. The tubing was exchanged and then there was air noted and the lung re-inflated. Repeat CXR in am (4) Factor 5 Leiden mutation, heterozygous: Status: Acute Subjective Subjective Interval history since last seen: I received a call from [employer] stating that the patients chest tube is pulled out and his lung is collapsed. There is also new subcutaneous air. Other findings are a spiculated 19 mm mass in the left apex. This is suspicious for lung cancer. I came in to see the patient and check the chest tube. Patient is having increased shortness of breath compared to a few hours ago after the chest tube was placed. Exam Const General: cooperative, comfortable and no acute distress Orientation: alert and oriented x3 [facility] Head: normocephalic and atraumatic Chest Chest: abnormal inspection of the chest and crepitus (right upper chest) Resp Effort & Inspection: normal respiratory effort Auscultation: breath sounds absent on the right Other: Chest tube was re-positioned and Chest XRAY showed good position of the chest tube but lung was still collapsed. The chest tube was flushed with some sterile saline. Again the lung did not expand. The tubing was inspected and a clot was noted. The tubing was exchanged and then there was air noted and the lung re-inflated. Cardio Rate: regular rate Rhythm: regular rhythm GI Palpation: soft and no hepatosplenomegaly Objective Last Vital Signs Temp 97.9 F 06/27/20 23:30 Pulse 60 06/27/20 23:30 Resp 17 06/27/20 23:30 BP 128/71 06/27/20 23:30 Pulse Ox 98 06/27/20 23:30 Laboratory Results - last 24 hr 10/06/27/20 06/28/20 12:17 16:50 06:41 WBC 5.88 RBC 3.51 L Hgb 9.4 L Hct 29.7 L MCV 84.6 MCH 26.8 L MCHC 31.6 L RDW 15.1 H Plt Count 263 MPV 8.9 Immature Gran % 0.2 Neutrophils % 77.1 Lymphocytes % 12.8 Monocytes % 7.5 Eosinophils % 2.2 Basophils % 0.2 Nucleated RBC % 0 Absolute Neutrophils 4.54 Absolute Lymphocytes 0.75 L Absolute Monocytes 0.44 Absolute Eosinophils 0.13 Absolute Basophils 0.01 Creatinine 0.92 Estimated GFR/1.73 m2 >= 60.00 COVID-19 PCR Negative Nasopharyn COVID-19 PCR Not Applicable Ref Test Perform Site [facility] lab
[2020-06-28 07:36] LABS: Anion Gap 8.6 mmol/L (3-11); BUN 20 mg/dL (7-18); CO2 24.4 mmol/L (21.0-32.0); CREATININE 0.95 mg/dL (0.70-1.30); Calcium 8.5 mg/dL (8.5-10.1); Chloride 104 mmol/L (98-107); Glucose 102 mg/dL (74-106); Magnesium 2.2 mg/dL (1.8-2.4); Sodium 137 mmol/L (136-145)
[2020-06-28] MEDS: Aspirin E.C. 81 MG TABEC PO (07:45)
[2020-06-28] MEDS: Atorvastatin 40 MG TAB 80 MG PO (07:45)
[2020-06-28] MEDS: DULoxetine 30 MG CAP 60 MG PO (07:45)
[2020-06-28] MEDS: Docusate Sodium 100 MG CAP PO ×3 (07:45→19:54)
[2020-06-28] MEDS: amLODIPine 10 MG TAB PO (07:46)
[2020-06-28] MEDS: Fluticasone NASAL SPRAY 16 GM BTL NS (07:46)
[2020-06-28] MEDS: Atenolol 50 MG TAB PO ×2 (07:46→19:53)
--- NOTE | 2020-06-28 08:30 | DI.RAD_ITS ---
EXAM: XR PORTABLE CHEST AP CLINICAL HISTORY: chest tube placement TECHNIQUE: COMPARISON: CR,XR XR PORTABLE CHEST AP from 06/27/2020 FINDINGS: Portable AP chest upright at 08:10 hours. Right thoracotomy tube again noted and has been reposition. There is predominant re-expansion previo usly noted right pneumothorax, only minimal pneumothorax persists. Left lung remains clear except fo r the aforementioned left upper lobe masslike radiodensity. IMPRESSION: Re-expansion right lung following repositioning of thoracotomy tube. RADIATION DOSE DELIVERED: Total DLP
--- NOTE | 2020-06-28 10:03 | W.PM.PROGNOT ---
Date of Service Date of service: 06/28/20 Time of Service: 10:03 Assessment and Plan Assessment and plan (1) Spontaneous pneumothorax: Status: Acute Assessment and plan: Chest tube in place on suction. Regular diet ordered. Encouraged getting OOB and sitting in the chair as tolerated. Subjective Subjective Interval history since last seen: Feeling well this morning. Denies having any pain, discomfort or difficulty breathing. Exam Const General: cooperative, healthy appearing and comfortable Orientation: alert and oriented x3 Resp Effort & Inspection: normal respiratory effort, no audible wheezes and no cough Objective Last Vital Signs Temp 36.6 C 06/28/20 07:44 Pulse 62 06/28/20 07:44 Resp 18 06/28/20 07:44 BP 130/65 06/28/20 07:44 Pulse Ox 100 06/28/20 07:44 Laboratory Results - last 24 hr 06/27/20 06/27/20 06/28/20 12:17 16:50 06:41 WBC RBC Hgb Hct MCV MCH MCHC RDW Plt Count MPV Immature Gran % Neutrophils % Lymphocytes % Monocytes % Eosinophils % Basophils % Nucleated RBC % Absolute Neutrophils Absolute Lymphocytes Absolute Monocytes Absolute Eosinophils Absolute Basophils Sodium 137 Potassium 4.0 Chloride 104 Carbon Dioxide 24.4 Anion Gap 8.6 BUN 20 H Creatinine 0.92 0.95 Estimated GFR/1.73 m2 >= 60.00 >= 60.00 Glucose 102 Calcium 8.5 Magnesium 2.2 COVID-19 PCR Negative Nasopharyn COVID-19 PCR Not Applicable Ref Test Perform Site [place] [facility] 06/28/20 06:41 WBC 5.88 RBC 3.51 L Hgb 9.4 L Hct 29.7 L MCV 84.6 MCH 26.8 L MCHC 31.6 L RDW 15.1 H Plt Count 263 MPV 8.9 Immature Gran % 0.2 Neutrophils % 77.1 Lymphocytes % 12.8 Monocytes % 7.5 Eosinophils % 2.2 Basophils % 0.2 Nucleated RBC % 0 Absolute Neutrophils 4.54 Absolute Lymphocytes 0.75 L Absolute Monocytes 0.44 Absolute Eosinophils 0.13 Absolute Basophils 0.01 Sodium Potassium Chloride Carbon Dioxide Anion Gap BUN Creatinine Estimated GFR/1.73 m2 Glucose Calcium Magnesium COVID-19 PCR Nasopharyn COVID-19 PCR Ref Test Perform Site
--- NOTE | 2020-06-28 15:16 | CHAPLAIN ---
Ernesto was very pleasant and easily engaged in a conversation. He told me about his lung collapsing and chest tube he has in now. This has happened a few other times to times to him. His has been in to visit, and will be returning. 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 He seems to be comfortable being here.
--- NOTE | 2020-06-28 15:40 | INITIAL_ITS ---
- If Service Date Differs Date of service: 06/28/20 Time of Service: 15:40 Care Management Initial Assess REASON FOR HOSPITALIZATION:: Right pneumothorax PAST MEDICAL HISTORY/PAST SURGICAL HISTORY:: Medical: HTN, hyperlipidemia, varicose veins, KULDIP, history of spontaneous pneumothorax, history of h.pylori infection, gastritis, depression, chronic low back pain, rotator cuff tears, BPH, hepatitis. Surgical: low back surgery, left femoral stent placement PREVIOUS FUNCTIONAL STATUS/SOCIAL/FAMILY SUPPORTS:: Patient is a 70 yo male who lives with his , Mela in a 2 story home in [place]. 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 Independent with all ADLs and does not have any services in place. CURRENT FUNCTIONAL STATUS:: Ernesto is resting when CM into visit. Will follow up and continue to review clinicals to determined discharge needs. ADVANCE DIRECTIVES:: [facility] on file--, Mela is identified as agent. Has patient been provided with info about the portal/API?: Yes Did the patient sign up for the portal?: No (enrolled) CODE STATUS:: Full Code INSURANCE COVERAGE / FINANCIAL ISSUES:: Medicare, BCBS CURRENT HOME/COMMUNITY SERVICES/EQUIPMENT:: Patient is independent with ADLs, does not use any assistive equipment for ambulation and does not have any services in place. Does use a CPAP device from [employer]. PRIMARY CARE PHYSICIAN:: POTENTIAL DISCHARGE NEEDS:: Follow up with primary care, and outpatient services as determined at time of discharge. PATIENT/FAMILY EDUCATION NEEDS:: Review discharge instructions regarding medi cations, activity restrictions and follow up appointments. Discuss ask me 3 questions to assure patient understanding of reason for hospitalization and knowledge of self care needs upon discharge. ANTICIPATED BARRIERS TO DISCHARGE:: None identified at this time TRANSPORTATION:: Discharge home via private car with spouse at time of discharge. PLAN:: Ernesto will be discharged home when medically ready per provider. He does have a mass reported by provider he will beed a biopsy and follow up as outpatient. CM to continue to assess for discharge needs and disposition.
[2020-06-28] MEDS: Heparin 5,000 UNITS/ML VIAL 5000 UNITS SC (16:09)
[2020-06-28] MEDS: Albuterol HFA 18 GM 200 PUFF INH IH (17:03)
[2020-06-28] MEDS: Inhaler, Assist Device 1 EACH MC (17:03)
[2020-06-28] MEDS: Tamsulosin 0.4 MG CAPCR PO (17:53)
[2020-06-28] MEDS: traMADol 50 MG TAB PO (17:59)
[2020-06-28] MEDS: Apixaban 5 MG TAB PO (19:53)
[2020-06-28] MEDS: Pramipexole 0.5 MG TAB PO (22:21)
--- NOTE | 2020-06-29 | DI.RAD_ITS ---
EXAM: XR PORTABLE CHEST AP CLINICAL HISTORY: PTX TECHNIQUE: COMPARISON: CR XR PORTABLE CHEST AP from 06/28/2020 FINDINGS: Portable upright chest at 0922 hours. Right thoracotomy tube again noted in position. There appears to be virtually complete re-expansion right pneumothorax. Question small right pleural fluid collec tion. Left lung remains predominantly clear and well expanded with left apical spiculated nodule aga in seen. IMPRESSION: RADIATION DOSE DELIVERED: Total DLP
[2020-06-29 00:12] VITALS: RESP 18; O2SAT 96
[2020-06-29 04:28] VITALS: RESP 18; O2SAT 96
[2020-06-29 08:15] VITALS: BP 147/76; PULSE 65; RESP 19; TEMP 36.7; O2SAT 97
--- NOTE | 2020-06-29 08:24 | PGE_ITS ---
Date of Service Date of service: 06/29/20 Time of Service: 08:25 Assessment and Plan Assessment and plan (1) Factor 5 Leiden mutation, heterozygous: Status: Acute (2) GERD (gastroesophageal reflux disease): Status: Acute Qualifiers: Esophagitis presence: without esophagitis Qualified Code(s): K21.9 - Gastro-esophageal reflux disease without esophagitis (3) Spontaneous pneumothorax: Status: Acute Assessment and plan: He still has a air leak. quickly he is asymptomatic. At this time we will continue with supportive care. Last time he was in the hospital for for 5 days for closed over it. If he does have to get transferred he wants to go to [facility] in [place] Continue pulmonary toilet and supportive care. (4) Mass of upper lobe of left lung: Status: Acute Assessment and plan: He is aware with this and this will need to be resected. PFTs were done at the bedside yesterday Subjective Subjective Interval history since last seen: cxr show that lung is up . Patient still has significant air leak. Is chest x-ray shows the pigtail is in good position. I did retaped line today. He has not had any pain. He is not short of breath. He has had no difficulty urinating. He is tolerating regular diet. He is not on antibiotics. No signs of DVT. Exam Narrative Exam Narrative: SKIN: No hyperpigmentation, vitiligo, or suspicious lesions No rashes. HYDRATION: Well hydrated HEAD, EYES, EARS, NECK, AND THROAT: Head is normocephalic, pupils equal, round, reactive to light and accommodation, ocular movement intact, sclera clear and no jaundice. Dentition intact. NECK: Supple, no lymphadenopathy. Trachea midline. LUNGS: normal respiration, clear to auscultation. Mild increase in chest wall crepitus. Tube site is clean dry and intact in the same position from yesterday. HEART: Regular rate and rhythm, EXTREMITY: No edema or cyanosis ABDOMEN: non tender to palpation, no masses or distention, no hernias. Normal bowel sounds NEURO: no focal neuro deficits. Objective Last Vital Signs Temp 36.6 C 06/28/20 23:35 Pulse 61 06/28/20 23:35 Resp 18 06/29/20 04:28 BP 150/79 H 06/28/20 23:35 Pulse Ox 96 06/29/20 04:28
[2020-06-29] MEDS: Normal Saline Flush 10 ML SYR IVP (08:36)
[2020-06-29] MEDS: Atorvastatin 40 MG TAB 80 MG PO (08:37)
[2020-06-29] MEDS: Aspirin E.C. 81 MG TABEC PO (08:37)
[2020-06-29] MEDS: Atenolol 50 MG TAB PO ×2 (08:37→20:52)
[2020-06-29] MEDS: DULoxetine 30 MG CAP 60 MG PO (08:37)
[2020-06-29] MEDS: Apixaban 5 MG TAB PO ×2 (08:38→20:52)
[2020-06-29] MEDS: Docusate Sodium 100 MG CAP PO ×3 (08:38→20:52)
[2020-06-29] MEDS: Pantoprazole 40 MG TABCR PO (08:38)
[2020-06-29] MEDS: amLODIPine 10 MG TAB PO (08:38)
--- NOTE | 2020-06-29 13:00 | W.PM.PROGNOT ---
Date of Service Date of service: 06/29/20 Time of Service: 13:00 Assessment and Plan Assessment and plan (1) Spontaneous pneumothorax: Status: Acute Assessment and plan: Chest X ray shows inflation of right lung, good position of catheter There is still a significant air leak so catheter will need to stay until that resolves. Will check X ray in am. Subjective Subjective Interval history since last seen: No complaints Does not feel SOB Chest tube insertion site sore, is well controlled with Tramadol Exam Narrative Exam Narrative: Appears well Lungs with bilateral breath sounds Chest tube has significant air leak. All connections and chest tube insertion site inspected with no issues noted. Objective Last Vital Signs Temp 97.9 F 06/28/20 23:35 Pulse 61 06/28/20 23:35 Resp 18 06/29/20 04:28 BP 150/79 H 06/28/20 23:35 Pulse Ox 96 06/29/20 04:28
--- NOTE | 2020-06-29 13:18 | PDOC.CMPRO ---
- If Service Date Differs Date of service: 06/29/20 Time of Service: 13:18 Care Management Progress Note S/O: Ernesto was sitting up in his chair when CM met with him. He was pleasant and engaged in conversation. He reported that he was feeling much better today, and per MD his lung is improving, but he will remain at [facility] overnight for continued progress before being medically cleared to return home. He stated that he is independent at home and does not anticipate needing any services upon discharge. CM will continue to follow. A: Ernesto is a 70 year old male admitted to [facility] on 06/27/20 with R pneumothorax. P: Anticipate Ernesto will return home when medically cleared. His will drive him home via private vehicle. He will follow up with his PCP and discharge plan of care. CM will continue to follow.
[2020-06-29] MEDS: Fluticasone NASAL SPRAY 16 GM BTL NS (13:40)
--- NOTE | 2020-06-29 15:46 | W.PFT ---
Date of service: 06/28/20 Time of Service: 15:10 Pulmonary Function Test Result Interpretation Spirometry: no evidence of obstructive airways disease, no bronchodilator response Impression no evidence of obstructive airways disease, no bronchodilator response. The constellation of findings may signal underlying restriction, however restriction on from underlying obesity is also a possibility. If restrictive lung disease is suspected, proceeding with plethysmography and diffusion capacity maneuver is recommended Clinical Correlation therefore is recommended.
[2020-06-29] MEDS: Tamsulosin 0.4 MG CAPCR PO (16:37)
--- NOTE | 2020-06-29 18:15 | NUR.NOTE ---
Nursing Note: Notified Zaki De La Cruz RN around 14:30 about crepitus expanding on patient's chest and that it is more present/prominent now than it was this morning. Notified Zaki Ga RN at 17:30 about the crepitus has expanded more since this early afternoon. Now present on posterior right side and expands up to the collerbone area on the anterior side. Reinforced dressing w/ BRIE Ga. Continuing to monitor.
[2020-06-29 19:14] VITALS: BP 131/74; PULSE 63; RESP 16; TEMP 36.4; O2SAT 100
[2020-06-29] MEDS: Pramipexole 0.5 MG TAB PO (21:14)
[2020-06-29] MEDS: traMADol 50 MG TAB PO (21:15)
[2020-06-30] VITALS (8 sets, daily range): BP systolic 131–190; BP diastolic 64–80; PULSE 56–67; RESP 14–18; TEMP 36.1–36.6; O2SAT 95–100
--- NOTE | 2020-06-30 06:04 | DI.RAD_ITS ---
EXAM: XR PORTABLE CHEST AP CLINICAL HISTORY: PTX TECHNIQUE: COMPARISON: CR XR PORTABLE CHEST AP from 06/29/2020 FINDINGS: Portable semi upright chest at 0600 hours. Right thoracotomy tube again noted in position. No change in appearance since yesterday's examinatio n with nearly complete re-expansion of previously described pneumothorax on right. Small right apica l pneumothorax does persist. No change in appearance of left lung. IMPRESSION: RADIATION DOSE DELIVERED: Total DLP
--- NOTE | 2020-06-30 06:37 | DI.VRAD_ITS ---
PROCEDURE INFORMATION: Exam: XR Chest, 1 View Exam date and time: 06/30/2020 6:05 AM Age: 70 years old Clinical indication: Device placement; Chest tube; Prior surgery TECHNIQUE: Imaging protocol: XR of the chest Views: 1 view. COMPARISON: CR XR PORTABLE CHEST AP 06/29/2020 9:10 AM FINDINGS: Lungs: Emphysematous change, interstitial prominence, and mild left basilar airspace disease. Poorly defined spiculated density again demonstrated in the left upper lung field. Pleural space: Stable positioning of right pleural catheter with a trace residual pneumothorax. Heart/Mediastinum: Hiatal hernia. Bones/joints: Degenerative change and old rib fractures. Soft tissues: Prominent residual right-sided subcutaneous emphysema. When correlating with the previous study, no significant interval changes are present. IMPRESSION: Stable appearance of the chest, not significantly changed from 06/29/2020 . Dictated and Authenticated by: Rodney Celis MD. Ordering:LIZETTE Araiza MD
[2020-06-30] MEDS: Fluticasone NASAL SPRAY 16 GM BTL NS (08:48)
[2020-06-30] MEDS: Normal Saline Flush 10 ML SYR IVP ×2 (08:48→11:12)
[2020-06-30] MEDS: Docusate Sodium 100 MG CAP PO ×3 (08:49→20:29)
[2020-06-30] MEDS: Atorvastatin 40 MG TAB 80 MG PO (08:49)
[2020-06-30] MEDS: Aspirin E.C. 81 MG TABEC PO (08:49)
[2020-06-30] MEDS: DULoxetine 30 MG CAP 60 MG PO (08:49)
[2020-06-30] MEDS: Pantoprazole 40 MG TABCR PO (08:49)
[2020-06-30] MEDS: Atenolol 50 MG TAB PO ×2 (08:49→20:29)
[2020-06-30] MEDS: amLODIPine 10 MG TAB PO (08:50)
[2020-06-30] MEDS: Apixaban 5 MG TAB PO ×2 (08:50→20:29)
--- NOTE | 2020-06-30 10:41 | W.PM.PROGNOT ---
Documented by User: ELAINE Livingston 06/30/20 10:43 Date of Service Date of service: 06/30/20 Time of Service: 10:41 Assessment and Plan Assessment and plan (1) Spontaneous pneumothorax: Status: Acute Assessment and plan: Patient is doing well today. Denies having any pain or SOB. There is still a significant air leak so catheter will need to stay until this resolves. Encouraged activity as tolerated. Subjective Subjective Interval history since last seen: Feeling pretty good. Denies any pain or SOB. Exam Const General: cooperative, healthy appearing and comfortable Orientation: alert and oriented x3 Resp Effort & Inspection: normal respiratory effort, no audible wheezes and no cough Objective Last Vital Signs Temp 36.1 C L 06/30/20 07:54 Pulse 56 L 06/30/20 07:54 Resp 14 06/30/20 07:54 BP 131/73 06/30/20 07:54 Pulse Ox 100 06/30/20 07:54 Documented by User: Teodora Dacosta DO 06/30/20 22:03 Assessment and Plan Assessment and plan (1) Persistent air leak: Status: Acute Assessment and plan: Continue most supportive care at this time. We will see how he progresses over the weekend. If there is no improvement by Friday then he will need to be transferred for surgical intervention. Continue pulmonary toilet
--- NOTE | 2020-06-30 12:38 | W.NUTRFU ---
Date of service: 06/30/20 Time of Service: 12:38 Nutritional Follow up NOTE: 70 year old male admitted with pneumothorax. BMI wnl for age. Follow regular diet with adequate intake. Not at nutritional risk at this time. Will continue to follow. Time Spent in Nutritional Counseling and Treatment: 0
--- NOTE | 2020-06-30 15:33 | PDOC.CMPRO ---
- If Service Date Differs Date of service: 06/30/20 Time of Service: 15:33 Care Management Progress Note S/O: Ernesto was sitting up in his chair when CM met with him. His was in the room visiting. They were pleasant and engaged in conversation. Ernesto stated that he had not heard yet if he is being medically cleared. Per report, there is still significant air leak, therefore he will not be ready to discharge today. Ernesto stated that he is happy to stay until his medical problem has been resolved. CM will continue to follow. A: Ernesto is a 70 year old male admitted to [facility] on 06/27/20 with R pneumothorax. P: Anticipate Ernesto will return home when medically cleared. His will drive him home via private vehicle. He will follow up with his PCP and discharge plan of care. CM will continue to follow.
--- NOTE | 2020-06-30 16:55 | PHA.REVIEW ---
Pharmacy Admission Review - Admission Clinical Review (Last Updated 06/29/20 @ 15:59 by Teodora Dacosta, DO) Mass of upper lobe of left lung (Acute) Factor 5 Leiden mutation, heterozygous (Acute) GERD (gastroesophageal reflux disease) (Acute) Essential hypertension (Acute 06/01/13) Chronic anticoagulation (Acute) Spontaneous pneumothorax (Acute) gabapentin Adverse Reaction (Mild, Unverified 06/27/20 11:42) cough Height 5 ft 10.5 in Weight 87.09 kg - Renal Dosing Renal Dosing: BUN 20 mg/dL (7-18) H 06/28/20 06:41 Creatinine 0.95 mg/dL (0.70-1.30) 06/28/20 06:41 Medications needing adjustments: Reviewed - Anticoagulation Anticoagulation: Hgb 9.4 g/dL (13.5-17.5) L 06/28/20 06:41 Hct 29.7 % (40.0-50.0) L 06/28/20 06:41 Plt Count 263 10^3/uL (130-400) 06/28/20 06:41 Creatinine 0.95 mg/dL (0.70-1.30) 06/28/20 06:41 Therapeutic Anticoagulation: Reviewed Medications: Apixaban - Opiate Usage Evaluate Pain Scale/Pains Meds: N/A - Relevant Labs Sodium 137 mmol/L (136-145) 06/28/20 06:41 Potassium 4.0 mmol/L (3.5-5.1) 06/28/20 06:41 Chloride 104 mmol/L (98-107) 06/28/20 06:41 Magnesium 2.2 mg/dL (1.8-2.4) 06/28/20 06:41 Electrolytes, C-Reactive P, ESR: Reviewed - DM Control DM Control: Glucose 102 mg/dL (74-106) 06/28/20 06:41 - Heart Failure/MN EF%, JENELLE's, B-Blockers, Diuretics: Reviewed - BP Control BP Control: Blood Pressure 131/73 Blood Pressure 135/74 If elevated: Reviewed - Qtc Review If Elevated: Reviewed - IV to PO Switch IV Medications: Reviewed - Home Meds Home Med List reviewed: Reviewed Relevent Home Meds Not ordered & why?: all ordered - Current meds Current Medication Order Review: Reviewed
[2020-06-30] MEDS: Tamsulosin 0.4 MG CAPCR PO (18:06)
[2020-06-30] MEDS: Pramipexole 0.5 MG TAB PO (21:33)
[2020-06-30] MEDS: traMADol 50 MG TAB PO (22:34)
--- NOTE | 2020-07-01 | DI.RAD_ITS ---
EXAM: XR PORTABLE CHEST AP POST LINE CLINICAL HISTORY: spntonaeous PTX/ruptured bleb/continuous air leak TECHNIQUE: 2D digital imaging was performed. COMPARISON: CR,XR XR PORTABLE CHEST AP from 06/30/2020 FINDINGS: MEDIASTINUM: Normal. HEART: Normal. PULMONARY VASCULATURE: Normal. LUNGS: No new pulmonary infiltrates. PLEURAL SPACE: There does appear to be a small effusion along the right lateral chest wall. No pneum othorax is identified. BONE:Within normal limits for the patient's age. OTHER FINDINGS:There is a pigtail catheter again seen in the right chest along the lateral wall. Sub cutaneous edema is seen in the right chest and neck. IMPRESSION: 1. No significant pneumothorax. 2. Stable pigtail catheter in the lateral aspect of the right hemithorax. 3. Probable small right pleural effusion. DATA REPOSITORY: RADIATION DOSE DELIVERED:
[2020-07-01] MEDS: Acetaminophen 325 MG TAB 650 MG PO (02:22)
[2020-07-01] MEDS: MORPHine 2 MG/ML SYR IVP ×4 (02:49→21:58)
[2020-07-01] MEDS: Zolpidem 5 MG TAB PO ×2 (02:49→21:58)
[2020-07-01 03:45] VITALS: BP 139/70; PULSE 62; RESP 17; TEMP 36.7; O2SAT 97
[2020-07-01] MEDS: Fluticasone NASAL SPRAY 16 GM BTL NS (07:49)
[2020-07-01] MEDS: Atorvastatin 40 MG TAB 80 MG PO (07:49)
[2020-07-01] MEDS: DULoxetine 30 MG CAP 60 MG PO (07:49)
[2020-07-01] MEDS: Aspirin E.C. 81 MG TABEC PO (07:50)
[2020-07-01] MEDS: Atenolol 50 MG TAB PO ×2 (07:50→19:51)
[2020-07-01] MEDS: Pantoprazole 40 MG TABCR PO (07:50)
[2020-07-01] MEDS: amLODIPine 10 MG TAB PO (07:50)
[2020-07-01] MEDS: Docusate Sodium 100 MG CAP PO ×3 (07:50→19:51)
[2020-07-01] MEDS: Apixaban 5 MG TAB PO ×2 (07:50→19:51)
[2020-07-01 07:52] VITALS: BP 116/60; PULSE 69; RESP 17; TEMP 36.7; O2SAT 99
--- NOTE | 2020-07-01 09:41 | DI.VRAD_ITS ---
PROCEDURE INFORMATION: Exam: XR Chest, 1 View Exam date and time: 07/01/2020 9:33 AM Age: 70 years old Clinical indication: Other: Continuous air leak, spontaneous ptx; Prior surgery TECHNIQUE: Imaging protocol: XR of the chest Views: 1 view. COMPARISON: CR XR PORTABLE CHEST AP 06/30/2020 5:54 AM FINDINGS: Lungs: Pigtail catheter in the lateral aspect of the right hemithorax. . There may be small right pleural effusion along the lateral aspect of the right base. Stable opacities in the left lung may represent atelectasis or pneumonia. Pleural space: No significant pneumothorax.. Heart/Mediastinum: Unremarkable. No cardiomegaly. Bones/joints: Unremarkable. Soft tissues: Subcutaneous emphysema in the soft tissues of the right chest. IMPRESSION: 1. Pigtail catheter in the lateral aspect of the right hemithorax. . 2. No significant pneumothorax.. 3. There may be small right pleural effusion along the lateral aspect of the right base. 4. Stable opacities in the left lung may represent atelectasis or pneumonia. Dictated and Authenticated by: Sushil Tam MD. Ordering:LIZETTE Araiza MD
--- NOTE | 2020-07-01 12:25 | W.PM.PROGNOT ---
Date of Service Date of service: 07/01/20 Time of Service: 12:25 Assessment and Plan Assessment and plan (1) Persistent air leak: Status: Acute (2) Mass of upper lobe of left lung: Status: Acute (3) Spontaneous pneumothorax: Status: Acute (4) Syncope: Status: Acute (5) Lung blebs: Status: Acute Assessment and plan: continued air leak. most likely will require bleb excision and pleuraldecious. will work on transfer in am cont supportive care (6) COPD (chronic obstructive pulmonary disease): Status: Chronic Subjective Subjective Interval history since last seen: d/ pain over the pm. Unclear etiology of this.Tube is in good position. Lung is fully inflated on CXR. No significant increase in. Tube site is clean dry and intact. Lungs. Air leak still present. no fever/chills. no headaches. No CP or SOB. no productive cough. no dysuria. no leg pain or swelling. Exam Resp Effort & Inspection: normal respiratory effort and able to speak in complete sentences Auscultation: clear to auscultation bilaterally Other: tube site c/d/i. + air leak Objective Last Vital Signs Temp 36.7 C 07/01/20 07:52 Pulse 69 07/01/20 07:52 Resp 17 07/01/20 07:52 BP 116/60 07/01/20 07:52 Pulse Ox 99 07/01/20 07:52
[2020-07-01 13:02] VITALS: RESP 18
[2020-07-01] MEDS: Normal Saline Flush 10 ML SYR IVP (13:04)
--- NOTE | 2020-07-01 15:15 | CMPROGNOTE_ITS ---
- If Service Date Differs Date of service: 07/01/20 Time of Service: 15:15 Care Management Progress Note S/O: No change in plan. Per MD note, tube is in proper place and lungs are fully inflated, but air leak is still present. Ernesto remains afebrile and denies shortness of breath, productive cough, leg pain or swelling. He is able to speak in complete sentences without difficulty. CM will continue to follow. A: Ernesto is a 70 year old male admitted to [facility] on 06/27/20 with R pneumoth orax. P: Plan remains for Ernesto to return home when medically cleared by provider. His will drive him home via private vehicle. He will follow up with his PCP and discharge plan of care. CM will continue to follow.
[2020-07-01 16:23] VITALS: BP 130/78; PULSE 69; RESP 18; TEMP 36.8; O2SAT 93
[2020-07-01] MEDS: Tamsulosin 0.4 MG CAPCR PO (17:06)
[2020-07-01] MEDS: Pramipexole 0.5 MG TAB PO (21:58)
--- NOTE | 2020-07-02 | DI.RAD_ITS ---
EXAM: XR PORTABLE CHEST AP POST LINE CLINICAL HISTORY: line change /PTX TECHNIQUE: 2D digital imaging was performed. COMPARISON: No exams were available for comparison FINDINGS: MEDIASTINUM: Normal. HEART: Normal. PULMONARY VASCULATURE: Normal. LUNGS: Opacities are present in the right lung suggesting atelectasis or pneumonia. PLEURAL SPACE: There has been significant decrease in size of the right pneumothorax. A delete small right pneumothorax persists. BONE:Within normal limits for the patient's age. OTHER FINDINGS:There is a right sided chest tube. The tip is directed superior medially. Subcutaneo us emphysema is seen in the right chest wall and right neck. IMPRESSION: Significant decrease in size of the right pneumothorax since the prior examination from earlier in . The tip of the right chest tube is directed superior medially. DATA REPOSITORY: RADIATION DOSE DELIVERED:
[2020-07-02 00:12] VITALS: BP 145/63; PULSE 72; RESP 18; TEMP 37; O2SAT 93
[2020-07-02] MEDS: Apixaban 5 MG TAB PO ×2 (07:56→19:59)
[2020-07-02] MEDS: Atorvastatin 40 MG TAB 80 MG PO (07:56)
[2020-07-02] MEDS: Aspirin E.C. 81 MG TABEC PO (07:56)
[2020-07-02] MEDS: DULoxetine 30 MG CAP 60 MG PO (07:56)
[2020-07-02] MEDS: Pantoprazole 40 MG TABCR PO (07:56)
[2020-07-02] MEDS: amLODIPine 10 MG TAB PO (07:56)
[2020-07-02] MEDS: Atenolol 50 MG TAB PO ×2 (07:57→20:00)
[2020-07-02] MEDS: Docusate Sodium 100 MG CAP PO ×3 (07:57→20:00)
[2020-07-02] MEDS: Fluticasone NASAL SPRAY 16 GM BTL NS (07:58)
[2020-07-02 08:15] VITALS: RESP 18
--- NOTE | 2020-07-02 08:27 | DI.VRAD_ITS ---
Addendum created by Sushil Tam MD on 07/02/2020 8:47:02 AM EST: THIS REPORT CONTAINS FINDINGS THAT MAY BE CRITICAL TO PATIENT CARE. The findings were verbally communicated via telephone conference with Hunter Carter RN at 8:46 AM EST on 07/02/2020. The findings were acknowledged and understood. Initial report created on 07/02/2020 8:27:27 AM EST: PROCEDURE INFORMATION: Exam: XR Chest, 1 View Exam date and time: 07/02/2020 7:54 AM Age: 70 years old Clinical indication: Other: Ptx TECHNIQUE: Imaging protocol: XR of the chest Views: 1 view. COMPARISON: CR XR PORTABLE CHEST AP POST LINE 07/01/2020 9:22 AM FINDINGS: Lungs: Pigtail catheter in the right mid lung.. Opacities in the right base may represent atelectasis or pneumonia. . Pleural space: Right pneumothorax has recurred. It measures over 3 cm in width. Heart/Mediastinum: Stable cardiac silhouette Bones/joints: Stable Soft tissues: Subcutaneous emphysema on the right IMPRESSION: 1. Pigtail catheter in the right mid lung.. 2. Right pneumothorax has recurred. It measures over 3 cm in width. 3. Opacities in the right base may represent atelectasis or pneumonia. . Dictated and Authenticated by: Sushil Tam MD. Ordering:LIZETTE Araiza MD
--- NOTE | 2020-07-02 08:30 | DI.RAD_ITS ---
EXAM: XR PORTABLE CHEST AP CLINICAL HISTORY: ptx TECHNIQUE: 2D digital imaging was performed. COMPARISON: CR,XR XR PORTABLE CHEST AP POST LINE from 07/01/2020 FINDINGS: MEDIASTINUM: Normal. HEART: Normal. PULMONARY VASCULATURE: Normal. LUNGS: Opacities have developed in the right middle and lower lobes likely reflecting atelectasis. P neumonia cannot be excluded. PLEURAL SPACE: There is now a moderate-sized right pneumothorax present. BONE:Within normal limits for the patient's age. OTHER FINDINGS:The right pigtail catheter is in place. Subcutaneous emphysema is seen in the soft ti ssues of the right lateral chest wall and right neck. IMPRESSION: 1. Interval development of a moderate right pneumothorax. 2. Pigtail catheter in the right mid lung. 3. Opacities have developed in the right middle and lower lobes which may reflect atelectasis or pneu monia. DATA REPOSITORY: RADIATION DOSE DELIVERED:
[2020-07-02 08:48] VITALS: BP 123/70; PULSE 93; RESP 18; TEMP 36.6; O2SAT 98
--- NOTE | 2020-07-02 12:03 | DI.VRAD_ITS ---
PROCEDURE INFORMATION: Exam: XR Chest, 1 View Exam date and time: 07/02/2020 11:35 AM Age: 70 years old Clinical indication: Other: Chest tube placement TECHNIQUE: Imaging protocol: XR of the chest Views: 1 view. COMPARISON: CR XR PORTABLE CHEST AP 07/02/2020 7:39 AM FINDINGS: Tubes, catheters and devices: Small caliber catheter terminates in the left upper lobe. . Lungs: Opacities in the right mid lung and right base may represent atelectasis or pneumonia. . Pleural space: The pneumothorax has decreased significantly in size since the prior study. . Heart/Mediastinum: Unremarkable. No cardiomegaly. Bones/joints: Unremarkable. Soft tissues: Subcutaneous emphysema in the soft tissues of the right chest IMPRESSION: 1. Small caliber catheter terminates in the left upper lobe. . 2. The pneumothorax has decreased significantly in size since the prior study. . 3. Opacities in the right mid lung and right base may represent atelectasis or pneumonia. . Dictated and Authenticated by: Sushil Tam MD. Ordering:LIZETTE Araiza MD
[2020-07-02] MEDS: MORPHine 2 MG/ML SYR IVP ×2 (12:43→21:35)
[2020-07-02] MEDS: Normal Saline Flush 10 ML SYR IVP (12:43)
--- NOTE | 2020-07-02 12:57 | W.PM.OP ---
Date of service: 07/02/20 Time of Service: 10:00 Operative Note Operative Note DATE OF PROCEDURE: 07/02/20 PRE-OP DIAGNOSIS: peristant PTX PROCEDURE: r ptx catheter SURGEON: Teodora Dacosta ANESTHESIA: local PATHOLOGY: none sent COMPLICATIONS: None Patient was transported to: no change Patient's condition: stable Procedure Description: Patient continues to have persistent air leak. The existing catheter has become somewhat dislodged as he has a recurrent pneumothorax today. I am going to put a different catheter in and see if perhaps this will resolve in helping with his persistent air leak. Informed consent was obtained spleen was not benefits of seizure. The only real risk is bleeding because he is on blood thinners in a development of a tension pneumo during the removal and insertion of the new tube. The old tube site is prepped and draped in the usual sterile fashion using a ChloraPrep scrub solution. Infiltrated with 10 cc of 1% lidocaine with epinephrine. The sutures are cut and the tube is removed and the site in the chest wall is closed with a 2-0 Prolene. Sterile compression dressing is applied. Attention is then placed to the new to the right mid axillary line was prepped and draped in usual sterile fashion using ChloraPrep scrub solution. Simply treated with 20 cc in the second third intercostal space going over top of the rib. A pneumothorax catheter is inserted in the standard fashion and hooked to suction. It is sutured in place with a 2-0 silk. And sterile compression dressing. Chest x-ray shows that the pneumothorax has resolved. Pressure was held and there was no significant bleeding. Patient tolerated procedure well without any complications. Other than some mild increase in subcutaneous air. This document was created using [employer] activated software and may contain errors.
[2020-07-02 13:00] VITALS: BP 115/62; PULSE 72; RESP 18; TEMP 36.8; O2SAT 96
--- NOTE | 2020-07-02 13:01 | W.PM.PROGNOT ---
Date of Service Date of service: 07/02/20 Time of Service: 10:00 Assessment and Plan Assessment and plan (1) COPD (chronic obstructive pulmonary disease): Status: Chronic (2) Lung blebs: Status: Acute (3) Persistent air leak: Status: Acute Assessment and plan: Tube is exchanged today. We will see if this helps at all. If not then patient is going to need to be transferred for laparoscopic bleb resection. He is consenting to go to [facility] for this. He wants to have his cancer surgery done at [facility]. If there is no resolution (which I doubt will happen) we will transfer him tomorrow. (4) Mass of upper lobe of left lung: Status: Acute (5) Factor 5 Leiden mutation, heterozygous: Status: Acute (6) Chronic anticoagulation: Status: Acute (7) Spontaneous pneumothorax: Status: Acute Subjective Subjective Interval history since last seen: There has been interval increase in subcutaneous air and he does have pneumothorax today. I did replace/exchange his chest tube hoping that this will maybe resolve the airleak somewhat. Please see operative report. He has not had any fevers or chills. He has some slight serous drainage from the tube itself. There is slight increase in subcutaneous air today as well. The tube site is clean dry and intact and his lungs are clear to auscultation no headaches. No CP or SOB. no productive cough. no dysuria. no leg pain or swelling. He reports no signs of DVT or pneumonia. He has not had any bleeding from the tube site. Exam Narrative Exam Narrative: No thrush. Tube was changed without problems. However did result in an increase in subC air. . The old tube site is clean dry and intact. There is no signs of pneumonia or bleed. Objective Last Vital Signs Temp 36.6 C 07/02/20 08:48 Pulse 93 H 07/02/20 08:48 Resp 18 07/02/20 08:48 BP 123/70 07/02/20 08:48 Pulse Ox 98 07/02/20 08:48
[2020-07-02 15:54] VITALS: BP 137/76; PULSE 72; RESP 18; TEMP 36.6; O2SAT 93
--- NOTE | 2020-07-02 17:22 | PDOC.CMPRO ---
- If Service Date Differs Date of service: 07/02/20 Time of Service: 17:22 Care Management Progress Note S/O: Per chart review, Ernesto's chest tube was replaced today in the hopes it will resolve the air leak. If the air leak is not resolved, Ernesto will be [place] [facility] [place]. Ernesto remains afebrile and continues to deny shortness of breath or productive cough. CM will continue to follow. A: Ernesto is a 70 year old male admitted to [facility] on 06/27/20 with R pneumothorax. P: If the air leak is resolved, plan remains for Ernesto to return home when medically cleared by provider. His will drive him home via private vehicle. He will follow up with his PCP and discharge plan of care. If the air leak remains present, he will be transferred [place] [facility] [place]. CM will continue to follow.
[2020-07-02] MEDS: Tamsulosin 0.4 MG CAPCR PO (17:39)
[2020-07-02 19:10] VITALS: RESP 17; O2SAT 94
[2020-07-02] MEDS: Zolpidem 5 MG TAB PO (21:33)
[2020-07-02] MEDS: Pramipexole 0.5 MG TAB PO (21:34)
[2020-07-03] VITALS (12 sets, daily range): BP systolic 101–159; BP diastolic 62–84; PULSE 65–91; RESP 16–20; TEMP 35.6–36.8; O2SAT 93–97
[2020-07-03] MEDS: Albuterol 2.5 MG/3 ML INH SOLN VIAL UPD (03:00)
--- NOTE | 2020-07-03 04:30 | DI.RAD_ITS ---
EXAM: XR PORTABLE CHEST AP CLINICAL HISTORY: SOB, PT HAS PNEUMOTHORAX W/CHEST TUBE TECHNIQUE: 2D digital imaging was performed. COMPARISON: CR,XR XR PORTABLE CHEST AP POST LINE from 07/02/2020 FINDINGS: MEDIASTINUM: Normal. HEART: Normal. PULMONARY VASCULATURE: Normal. LUNGS: Atelectasis of the right upper, middle and lower lobes is noted. PLEURAL SPACE: There is a new large right pneumothorax occupying 2/3 of the right hemithorax. No lef t pneumothorax or pleural effusion is present. BONE:Within normal limits for the patient's age. OTHER FINDINGS:Cutaneous emphysema is again seen over the right chest. There is a pigtail catheter s een in the right hemithorax directed at the apex. IMPRESSION: 1. New large right pneumothorax occupying 2/3 of the right hemithorax. 2. Right pigtail catheter directed at the apex. DATA REPOSITORY: RADIATION DOSE DELIVERED:
[2020-07-03] MEDS: Normal Saline Flush 10 ML SYR IVP ×2 (05:26→13:02)
[2020-07-03] MEDS: MORPHine 2 MG/ML SYR IVP ×2 (05:26→13:02)
--- NOTE | 2020-07-03 05:27 | DI.VRAD_ITS ---
Addendum created by Raffaele Radford MD on 07/03/2020 5:59:55 AM EST: THIS REPORT CONTAINS FINDINGS THAT MAY BE CRITICAL TO PATIENT CARE. The findings were verbally communicated via telephone conference with Margaret Jane RN at 5:59 AM EST on 07/03/2020. The findings were acknowledged and understood. Initial report created on 07/03/2020 5:27:14 AM EST: PROCEDURE INFORMATION: Exam: XR Chest, 1 View Exam date and time: 07/03/2020 4:37 AM Age: 70 years old Clinical indication: Shortness of breath; Prior surgery; Surgery date: 3-7 days post-operative; Surgery type: Chest tube placed 06/27; Patient HX: SOB, R pneumothorax TECHNIQUE: Imaging protocol: XR of the chest Views: 1 view. COMPARISON: CR XR PORTABLE CHEST AP POST LINE 07/02/2020 11:33 AM FINDINGS: Moderate to large right pneumothorax predominantly in the mid to lower right lung zones. Right pigtail catheter in the mid right lung zone. Subcutaneous emphysema on the right. The heart, mediastinal and osseous structures are grossly stable. Chronic interstitial prominence is grossly stable No significant pleural effusion IMPRESSION: New moderate to large right pneumothorax in this patient with right-sided pigtail catheter directed at the apex Dictated and Authenticated by: Raffaele Radford MD. Ordering:LIZETTE Araiza MD
--- NOTE | 2020-07-03 08:41 | ED.GENADUL_ITS ---
Discharge Plan Disposition Condition: Stable Discharge Details Chief Complaint: SOB Admit Date/Time: 06/27/20 11:47 Admit Provider: Brittani Mayer Attending Provider: Brittani Mayer Primary Care Provider: Mando Rodriguez ED Provider: Shaina Thrasher Discharge Instructions Activity:: Activity as Tolerated Diet:: As Tolerated Discharge Orders Discharge Orders: Discharge Order (Routine); Ordered 07/03/20 Ordered By: Brittani Mayer Discharge Data Discharge Date/Time-TO BE ENTERED AT DEPARTURE: 06/27/20 13:50 Medical Decision Making Maxwell Katz is a 7-year-old man with history of COPD, hypertension, GERD, AAA, spontaneous pneumothoraces in the past who presented to the emergency department with shortness of breath consistent with past pneumothoraces, no pain, and outpatient chest x-ray this morning showing large pneumothorax. On exam patient is well and nontoxic-appearing. He is speaking in full sentences. Decreased breath sounds on the right. Outpatient chest x-ray from this morning shows large right-sided pneumothorax. Plan for thoracostomy tube. Exam/hx at this time not consistent with acute coronary syndrome, acute aortic pathology, pulmonary embolism, sepsis, acute infectious pathology. Douglas thoracostomy tube placed to a flutter valve. Patient reported immediate improvement in shortness of breath after placement. Chest x-ray shows persistent pneumothorax. Will place tube to waterseal/vacuum. Repeat chest x-ray shows persistent pneumothorax. Air leak present. Patient continues to report that his pain feels very well. Patient admitted to Dr. Guzman of surgery. Clinical impression: Pneumothorax, air leak Disposition: [facility] inpatient Medical Records Medical records reviewed: Yes I reviewed the patient's medical records. Imaging Data Radiologic Study: Attestation: I personally reviewed and interpreted this imaging study as follows: Radiologist's impression: EXAM: XR PORTABLE CHEST AP POST LINE CLINICAL HISTORY: SOB, chest tube placement TECHNIQUE: COMPARISON: CR XR CHEST 2V PA LATERAL from 06/27/2020 FINDINGS: Portable AP chest at 1155 hours. Previously described right pneumothorax is markedly decreased in size with the right thoracotomy tube in place. Mild elevation of the diaphragm noted on the right. Left lung remains clear except for the previously noted questionable consolidative or masslike opacity of the left upper lung field. IMPRESSION: Right thoracotomy tube in position with partial re-expansion of right lung. EXAM: XR PORTABLE CHEST AP CLINICAL HISTORY: post chest tube TECHNIQUE: COMPARISON: CR XR PORTABLE CHEST AP POST LINE from 06/27/2020 FINDINGS: Portable upright chest film 1315 hours. Patient's right thoracotomy tube has reportedly been attached to wall suction. There is a small residual pneumothorax on the right. No change in appearance of the left lung. HPI General Mode of arrival: ambulatory . Date/Time Provider Initiated Documentation: 06/27/20 11:07 . Limitations to Documentation: no limitations . Information obtained by: patient, RN notes reviewed and old records reviewed . HPI Narrative: Ernesto Katz is a 70 y/o man with h/o AAA, COPD, HTN, GERD, HLD factor V leiden presenting to the emergency department with PTX found on outpt CXR. Pt reports that he has had a spontaneous collapsed lung twice in the past. He reports that yesterday he began to feel SOB c/w his prior collapsed lungs after clearing his throat. Pt denies any trauma. He denies fever, cough, vomiting, diarrhea, rash numbness, weakness. No recent illness. Has been eating and drinking as usual. He denies any pain. Feels otherwise well and in his usual state of health, aside from shortness of breath. Related Data Home Medications Medication Instructions Recorded Confirmed atorvastatin 80 mg PO DAILY #90 tab-cap 09/12/16 06/27/20 atenolol 50 mg PO BID #90 tab 02/19/17 06/27/20 aspirin [Aspir-81] 81 mg PO DAILY 07/04/17 06/27/20 amlodipine 10 mg PO DAILY #90 tab-cap 11/06/17 06/27/20 duloxetine [Cymbalta] 60 mg PO DAILY 90 Days #90 tab-cap 09/14/18 06/27/20 [place]-3 1 tab PO DAILY 09/15/18 06/27/20 acetaminophen 1,000 mg PO Q8H PRN #90 cap 09/22/18 06/27/20 cholecalciferol (vitamin D3) 5,000 unit PO DAILY 11/22/18 06/27/20 [Vitamin D3] fluticasone propionate [Flonase 2 spray INTRANASAL DAILY 11/22/18 06/27/20 Allergy Relief] Eliquis 5 mg PO BID 06/27/20 06/27/20 capsaicin 1 applic TOPICAL BID PRN 06/27/20 06/27/20 diclofenac sodium 2 g TOPICAL BID 06/27/20 06/27/20 hydrocortisone [Proctozone-HC] 1 applic TOPICAL BID PRN PRN 06/27/20 06/27/20 ipratropium bromide 2 spray INTRANASAL Q6H PRN PRN 06/27/20 06/27/20 pramipexole 0.5 mg PO HS 06/27/20 06/27/20 tamsulosin 0.4 mg PO QHS 06/27/20 06/27/20 Previous Rx's Medication Instructions Recorded amlodipine 10 mg PO DAILY #90 tab-cap 11/06/17 duloxetine [Cymbalta] 60 mg PO DAILY 90 Days #90 tab-cap 09/14/18 acetaminophen 1,000 mg PO Q8H PRN #90 cap 09/22/18 Allergies Allergy/AdvReac Type Severity Reaction Status Date / Time gabapentin AdvReac Mild cough Unverified 06/27/20 11:42 General Stated Complaint: SOB KATIA: 2 Review of Systems Narrative: Constitutional: denies fevers Eyes: denies eye pain ENT: denies ear pain, dental pain, sore throat Cardiovascular: denies chest pain Respiratory: denies cough, reports shortness of breath GI: denies abdominal pain, vomiting, diarrhea : denies flank pain MSK: denies back pain, neck pain, arthralgias, myalgias Skin: denies rash Neuro: denies headaches, numbness, weakness PFSH Medical History AAA (abdominal aortic aneurysm) Abdominal aortic aneurysm [facility]: 4.3 x 4.2 cm infra-renal AAA AAA max. diam: 4.0cm ([facility]) 10/2015: infra-renal AAA max.4.3cm: stable ([facility]) mri : 3.5 cm BPH without urinary obstruction Carotid stenosis Chronic pain disorder (04/15/12) CONTRACT /-2016 (urine:03/17) Chronic pain syndrome COPD (chronic obstructive pulmonary disease) Depressive disorder Esophagitis Essential hypertension (06/01/13) echocardiogram normal Facial laceration Femur fracture GERD (gastroesophageal reflux disease) Helicobacter pylori gastritis (chronic gastritis) (03/25/15) positive gastroscopy : treated Hypercholesterolemia Left rotator cuff tear arthropathy Lung blebs Male sexual dysfunction 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 etiology:consider Neuro.referral Osteoarthritis of right knee Peripheral artery insufficiency [facility]; 2011:left superficial femoral artery stent [facility] : left SFA in stent stenosis: angioplasty Fup q [address] [facility] progression of disease;right popliteal stent graft occluded; pain right calf post 50ft walk Pneumothorax on right (09/23/16) 1999 first time Right rotator cuff tear arthropathy Right shoulder pain Rotator cuff tear arthropathy of both shoulders Sleep apnea uses c-pap Tear of left rotator cuff (09/06/15) DOS: 09/22/18 Injection: 03/01/2019 Tear of right rotator cuff (09/06/15) Injection: 03/01/2019 Tibia fracture Varicose veins of bilateral lower extremities with pain Varicose veins of lower extremity Venous stasis ulcers recurrent/ 2008 - 2011 Viral hepatitis C chronic/ Treatment Interferon:successfull/ [facility] Surgical History EGD - MAC femoral stent X2 most recent 2015 History of endarterectomy Apr 2018 History of left-sided carotid endarterectomy (04/02/18) [facility] / in surgery bleeding from parotid gland: electrocautery/ open reduction tib/fib ORIF femur right chest tube placement under local (09/23/16) 1999 Spinal Fusion 11/13/17 HIGHTOWER Status post arthroscopy of left shoulder DOS: 09/22/18 Injection: 03/01/2019 Repair of subscapularis with extensive debridement of superior cuff Biceps tenotomy; acromioplasty Dr. Webb Status post lumbar discectomy 2000 : right discectomy L5-S1 + L4-L5 decompression (right) 2013 : right L4-L5 decompression L5-S1 facetectomy; Family History Mother Diabetes Essential hypertension Depression Heart disease Neoplasm BREAST Father Neoplasm HODGKINS DISEASE Sister No problems noted. Sister Neoplasm BREAST Stroke Sister Neoplasm LUNG Brother Neoplasm LUNG Grandfather Diabetes Essential hypertension Heart disease Hyperlipidemia Stroke Grandfather No problems noted. Grandmother No problems noted. Grandmother No problems noted. Social History Smoking/Tobacco Use Status: Never Smoking risk assessment performed?: Yes Alcohol Intake: current Alcohol Intake frequency: a few times a week Alcohol type: beer Drug use: Occasionally Substance use type: does not use Do you feel safe at home: Yes Do you feel safe in your relationship?: Yes Exam Narrative Exam Narrative: Constitutional: well and [id number], pleasant, conversing normally HENT: head atraumatic/normocephalic/normal inspection, mucous membranes moist Eyes: conjunctiva normal, sclera normal, pupils 3mm b/l Neck: no stridor, normal ROM, trachea midline Chest: normal inspection Resp: normal work of breathing, speaking in full sentences, decreased lung sounds on the right Cardio: normal rate, normal rhythm, Back: normal inspection, no rash Skin: warm, dry, normal color, no rash Neuro: alert, not altered, grossly non-focal, normal tone Ext: no edema Psych: normal mood, normal affect, normal behavior Course Vital Signs Vital signs: Vital Signs Temperature 36.5 C 06/27/20 11:11 Pulse 70 06/27/20 11:11 Respiratory Rate 19 06/27/20 11:11 Blood Pressure 192/78 H 06/27/20 11:11 Pulse Oximetry 91 L 06/27/20 11:11 Temperature 36.8 C 07/03/20 07:55 Temperature Source Skin 07/03/20 07:55 Pulse 69 07/03/20 07:55 Pulse Rhythm Regular 07/03/20 03:21 Pulse 54 L 06/27/20 12:47 Respiratory Rate 20 07/03/20 07:55 Respiratory Effort 07/03/20 03:21 Respiratory Depth Normal 07/03/20 03:21 Respiratory Pattern Normal 07/03/20 03:21 Blood Pressure 101/66 07/03/20 07:55 Blood Pressure Mean 89 06/27/20 12:47 Blood Pressure Position Supine 06/27/20 11:11 Pulse Oximetry 97 07/03/20 08:04 Oxygen Delivery Method Nasal Cannula 07/03/20 08:04 Oxygen Flow Rate 2 07/03/20 08:04 Pain Level 0 07/03/20 07:55 Comment 06/30/20 17:00 Procedures Chest Tube Chest Tube 1: Chest Tube Location: anterior axillary line and forth interspace Chest Tube Prep: betadine prep and sterile drapes applied Local Anesthetic: Lidocaine 1% Amount of anesthesia used (mL): 10 Post Procedure: sutured to skin and sterile dressing applied Post Procedure CXR?: Yes Patient Tolerated Procedure: Yes Complications: other (no reinflation) Progress: cxr shows lung not reinflated after tube placement with flutter valve, tube placed to water seal vacuum with repeat CXR, air leak present, lung not reinflated on repeat cxr
[2020-07-03] MEDS: Lactated Ringers 1,000 ML 30 ML IV (10:19)
[2020-07-03] MEDS: ceFAZolin 2 GM/50 ML BAG IVPB (10:19)
--- NOTE | 2020-07-03 11:07 | ROE_ITS ---
Date of service: 07/03/20 Time of Service: 11:07 Operative Note Operative Note DATE OF PROCEDURE: 07/02/20 PROCEDURE: r ptx catheter SURGEON: Teodora Dacosta ANESTHESIA: local PATHOLOGY: none sent Patient was transported to: no change Patient's condition: stable Implants: r ptx catheter Procedure Description: Patient has he continuous air leak from rupture bled. He has re-current pneumothorax today and will be taken for a formal chest tube. Informed consent is obtained explaining risks and benefits of procedure including but not limited to: Complications of anesthesia, bleeding(he is fully anticoagulated because of his history of factor V Leiden deficiency) infection, pneumonia, blood clots, bleeding, bronchopleural fistula, continued air leak, and was along the anterior chest wall, and other unforetold abnormalities. Patient's chest is marked. He is brought to the operative room suite and placed in the left lateral decubitus position. Anesthesia is administered per the department of anesthesia. Timeout is performed. 1% lidocaine with epinephrine is used for local anesthetization. An aliquot of 30 cc. Incision is made with a #12 blade and the mid axillary line fourth fifth intercostal space. Electrocautery is used to provide hemostasis. The muscle is incised with cautery. A fingers placed to the chest and spine. There are no adhesions. A 20 Sur[place]e chest tube was inserted to be chest and sewn in with 2-0 Prolene sterile occlusive dressings are applied. The previously existing pneumothorax catheter is removed. It is clotted off blood is why his pneumothorax recurred today. Patient tolerated seizure well without complication transported to PACU in stable condition. Chest x-ray shows his lung fully inflated. He did not have any appreciable blood loss with procedure.
--- NOTE | 2020-07-03 11:18 | DI.RAD_ITS ---
EXAM: XR PORTABLE CHEST AP CLINICAL HISTORY: CHEST TUBE PLACEMENT TECHNIQUE: 2D digital imaging was performed. COMPARISON: CR,XR XR PORTABLE CHEST AP from 07/03/2020 FINDINGS: MEDIASTINUM: Normal. HEART: Normal. PULMONARY VASCULATURE: Normal. LUNGS: Infiltrates are seen in the right lung which may reflect atelectasis or pneumonia. The left l maria de jesus is clear. PLEURAL SPACE: No demonstrable pneumothorax is identified. There does appear to be a small right ple ural effusion. BONE:Within normal limits for the patient's age. OTHER FINDINGS:The pigtail catheter has been removed. There is a right chest tube now in place. The tip of the catheter is directed anterior medially. Subcutaneous emphysema is seen in the right ches t wall. IMPRESSION: 1. Interval removal of the right pigtail catheter and placement of a right chest tube. No demonstrab le pneumothorax is identified. 2. Right basilar infiltrate and small right pleural effusion. 3. Right subcutaneous emphysema. DATA REPOSITORY: RADIATION DOSE DELIVERED:
--- NOTE | 2020-07-03 13:08 | DSE_ITS ---
Date of service: 07/03/20 Time of Service: 13:08 DS: Diagnosis Discharge Diagnosis (1) COPD (chronic obstructive pulmonary disease): Status: Chronic (2) Lung blebs: Status: Acute (3) Persistent air leak: Status: Acute (4) Mass of upper lobe of left lung: Status: Acute (5) Factor 5 Leiden mutation, heterozygous: Status: Acute (6) Chronic anticoagulation: Status: Acute (7) Spontaneous pneumothorax: Status: Acute Discharge Plan Disposition Patient Disposition: [facility] Condition: Stable Discharge Details Reason For Visit: RIGHT PNEUMOTHORAX Admit Date/Time: 06/27/20 11:47 Admit Provider: Brittani Mayer Attending Provider: Brittani Mayer [facility] Hospital Course: Mr. Katz is a pleasant 70 year old male whom I admitted on 06/27/2020 with a right sided spontaneous pneumothorax. He had a spontaneous pneumothorax last year on the same side which took 4 days to heal. A small pneumovac catheter was placed in the ER with good air return. CXR showed the chest tube in good condition. The patient was on eliquis for a history of factor v leiden deficiency. The evening of his admission he complained of increased SOB. CT scan was done which showed the CT ghad been pulled out and there was air now in the subcutaneous tissue. The chest tube was repositioned and a clot was removed. Post of CXR showed resolution of the PTX. On Friday morning, the patient complained of again feeling more SOB. CXR was done which showed collapse of his lung. The chest tube was replaced with another pneumovac this time placed anterionrly at the 2nd intercostal space. Again CXR showed resolution of PTX. On Friday morning his lung was again collapsed and therefore a 20 croatian chest tube was placed. Throughout his stay he has continued to have a large air leak. Incidental finding on his CT scan was a 1.9 cm spiculated mass in the apex of the left lung. This is suspicious for lung cancer. He has a family history of lung cancer in multiple siblings. He has a history of smoking. He quit >20 years ago. Patients vitals have been stable. He has been afebrile. He did have his Eliquis this morning. Discussed case with Dr. Samuels who has accepted the patient. I appreciate Dr. Samuels accepting this patient for higher level of care. If you need any other information please do not hesitate to call me (Dr. Brittani Mayer) on my cell phone [phone] or pager [phone] Home Meds and New Rx's Prescriptions: Continued atorvastatin 80 MG tablet 80 mg PO DAILY Qty: 90 RF: 4 atenolol 50 MG tablet 50 mg PO BID Qty: 90 RF: 4 aspirin [Aspir-81] 81 MG tablet,delayed release (DR/EC) 81 mg PO DAILY RF: 0 amlodipine 10 MG tablet 10 mg PO DAILY Qty: 90 RF: 4 duloxetine [Cymbalta] 60 mg capsule,delayed release(DR/EC) 60 mg PO DAILY 90 Days Qty: 90 RF: 3 [place]-3 350 mg-235 mg- 90 mg-597 mg Capsule,Delayed Release(Dr/Ec) 1 tab PO DAILY RF: 0 acetaminophen 500 mg capsule 1,000 mg PO Q8H PRN (Reason: pain) Qty: 90 RF: 0 hydrocortisone [Proctozone-HC] 2.5 % cream with perineal applicator 1 applic topical BID PRN PRNRF: 0 tamsulosin 0.4 mg Capsule 0.4 mg PO QHS RF: 0 capsaicin 0.025 % Cream 1 applic TOPICAL BID PRNRF: 0 ipratropium bromide 0.03 % [employer],Non-Aerosol 2 spray INTRANASAL Q6H PRN PRNRF: 0 diclofenac sodium 1 % Gel 2 g TOPICAL BID RF: 0 Eliquis 5 mg tablet 5 mg PO BID RF: 0 pramipexole 0.5 mg tablet 0.5 mg PO HS RF: 0 fluticasone propionate [Flonase Allergy Relief] 50 mcg/actuation [employer],Suspension 2 spray Intranasal DAILY RF: 0 cholecalciferol (vitamin D3) [Vitamin D3] 5,000 unit Tablet 5,000 unit PO DAILY RF: 0 Discharge Instructions Activity:: Activity as Tolerated Diet:: As Tolerated Discharge Orders Discharge Orders: Discharge Order (Routine); Ordered 07/03/20 Ordered By: Brittani Mayer DS: Summary Status at Discharge Functional status at discharge: independent ambulation Overall status at discharge: patient is not back to baseline Mental Status: mental status grossly normal Speech and Movement: speech and movement normal Mood: congruent mood Affect: normal affect Time Spent with Patient providing and/or coordinating discharge services: Greater than 30 minutes Exam Const General: cooperative, comfortable and no acute distress Orientation: alert and oriented x3 HENMT Head: normocephalic and atraumatic Resp Effort & Inspection: normal respiratory effort Auscultation: clear to auscultation bilaterally Psych Mental Status: mental status grossly normal Speech and Movement: speech and movement normal Mood: congruent mood Affect: normal affect DS: Data Vitals/I&O Vitals and I&O: Vital Signs Temperature 98.2 F 07/03/20 12:00 Temperature Source Tympanic 07/03/20 12:00 Pulse 71 07/03/20 12:00 Pulse Rhythm Regular 07/03/20 03:21 Pulse 54 L 06/27/20 12:47 Respiratory Rate 16 07/03/20 12:00 Respiratory Effort 07/03/20 03:21 Respiratory Depth Normal 07/03/20 03:21 Respiratory Pattern Normal 07/03/20 03:21 Blood Pressure 154/70 H 07/03/20 12:00 Blood Pressure Mean 89 06/27/20 12:47 Blood Pressure Position Supine 06/27/20 11:11 Pulse Oximetry 95 07/03/20 12:00 Oxygen Delivery Method Room Air 07/03/20 12:00 Oxygen Flow Rate 0 07/03/20 12:00 Pain Level 8 07/03/20 13:02 Comment 06/30/20 17:00 Intake & Output 07/02/20 07/03/20 07/03/20 23:59 11:59 23:59 Intake Total 320 / 530 550 / 550 Output Total 275 / 1575 336 / 336 Balance 45 / -1045 214 / 214 Intake: IV 550 / 550 Oral 320 / 520 Output: Chest Tube Drainage 36 / 36 Urine 260 / 1560 300 / 300 Other: Urine Color Straw Yellow Urine Appearance Clear Clear Urine Odor Normal Normal Emesis Description None Voiding Methods Urinal Urinal [facility] Medical History AAA (abdominal aortic aneurysm) Abdominal aortic aneurysm [facility] [facility]: 4.3 x 4.2 cm infra-renal AAA AAA max. diam: 4.0cm ([facility]) 10/2015: infra-renal AAA max.4.3cm: stable ([facility] [place] [place]) mri : 3.5 cm BPH without urinary obstruction Carotid stenosis Chronic pain disorder (04/15/12) CONTRACT -2015/ (urine:03/17) Chronic pain syndrome COPD (chronic obstructive pulmonary disease) Depressive disorder Esophagitis Essential hypertension (06/01/13) echocardiogram normal Facial laceration Femur fracture GERD (gastroesophageal reflux disease) Helicobacter pylori gastritis (chronic gastritis) (11/23/14) positive gastroscopy : treated Hypercholesterolemia Left rotator cuff tear arthropathy Lung blebs Male sexual dysfunction 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 Sleep apnea uses c-pap Tear of left rotator cuff (09/06/15) DOS: 09/22/18 Injection: 03/01/2019 Tear of right rotator cuff (09/06/15) Injection: 03/01/2019 Tibia fracture Varicose veins of bilateral lower extremities with pain Varicose veins of lower extremity Venous stasis ulcers recurrent/ 2008 - 2011 Viral hepatitis C chronic/ Treatment Interferon:successfull/ [facility] [facility] Surgical History EGD - MAC femoral stent X2 most recent 2015 History of endarterectomy Apr 2018 History of left-sided carotid endarterectomy (04/02/18) [facility] / in surgery bleeding from parotid gland: electrocautery/ open reduction tib/fib ORIF femur right chest tube placement under local (09/23/16) 1999 Spinal Fusion 11/13/17 ANA LILIA DAVILA Status post arthroscopy of left shoulder DOS: 09/22/18 Injection: 03/01/2019 Repair of subscapularis with extensive debridement of superior cuff Biceps tenotomy; acromioplasty Dr. Webb Status post lumbar discectomy 2000 : right discectomy L5-S1 + L4-L5 decompression (right) 2013 : right L4-L5 decompression L5-S1 facetectomy; Family History Mother Diabetes Essential hypertension Depression Heart disease Neoplasm BREAST Father Neoplasm HODGKINS DISEASE Sister No problems noted. Sister Neoplasm BREAST Stroke Sister Neoplasm LUNG Brother Neoplasm LUNG Grandfather Diabetes Essential hypertension Heart disease Hyperlipidemia Stroke Grandfather No problems noted. Grandmother No problems noted. Grandmother No problems noted. Social History Smoking/Tobacco Use Status: Never Smoking risk assessment performed?: Yes Alcohol Intake: current Alcohol Intake frequency: a few times a week Alcohol type: beer Drug use: Occasionally Substance use type: does not use Do you feel safe at home: Yes Do you feel safe in your relationship?: Yes
[2020-07-03] MEDS: oxyCODONE 5 MG TAB PO (14:29)
--- NOTE | 2020-07-03 16:16 | PDOC.CMPRO ---
- If Service Date Differs Date of service: 07/03/20 Time of Service: 16:16 Care Management Progress Note S/O: Ernesto continues to be monitored for his pneumothorax, which is not responding to treatment as well as the MD would expect. MD requested transfer to [facility] for continued care at a tertiary facility with a thoracic surgeon. Ernesto was resting in bed when CM met with him. He reported that he had a new chest tube placed today, and he was anticipating transfer. He was very agreeable to this plan. CM will continue to follow. A: Ernesto is a 70 year old male admitted to [facility] on 06/27/20 with R pneumothorax. P: Per MD, the air leak remains present, therefore he will be transferred to [facility] today. He will transfer via [facility]. CM will continue to follow.
== END 2020-07-03 14:46 | disposition short-term general hospital (02) | DRG 200 ==
LOC: ER 11:18 → MS 06-28 09:26
PROVIDERS: Surgery; Admitting Provider Surgery; Emergency Provider Student in an Organized Health Care Education/Training Program; PCP Family Medicine; Visit Provider Surgery
PROC: 0W9900Z Drainage of Right Pleural Cavity with Drainage Device, Open Approach (ICD-10-PCS; CPT 32551; principal; 2020-07-03 09:15)
DX: J93.11 Primary spontaneous pneumothorax (principal); F11.20 Opioid dependence, uncomplicated; D68.51 Activated protein C resistance; C34.12 Malignant neoplasm of upper lobe, left bronchus or lung; N40.0 Benign prostatic hyperplasia without lower urinary tract symptoms; I65.29 Occlusion and stenosis of unspecified carotid artery; Z79.01 Long term (current) use of anticoagulants; G89.29 Other chronic pain; I10 Essential (primary) hypertension; F32.9 Major depressive disorder, single episode, unspecified; E78.00 Pure hypercholesterolemia, unspecified; G47.33 Obstructive sleep apnea (adult) (pediatric); I73.9 Peripheral vascular disease, unspecified; I83.813 Varicose veins of bilateral lower extremities with pain; J43.9 Emphysema, unspecified; Z87.891 Personal history of nicotine dependence; Z80.1 Family history of malignant neoplasm of trachea, bronchus and lung
CPT/HCPCS: 32551; 32556; 36415; 71045; 80048; 94060; 94640; 99223; 99231; 99232; 99239; 99285; U0003; 71260; 82565; 83735; 85025; J0690; J1644; J2250; J2270; J2405; J3490; J7613

== ENCOUNTER 2020-07-28 20:05 | Emergency (ER) | payer BC, SELFPAY ==
[2020-07-28 20:22] VITALS: BP 169/76; PULSE 68; RESP 16; TEMP 36.8; O2SAT 99
--- NOTE | 2020-07-28 20:27 | ED.GENADUL_ITS ---
Discharge Plan Disposition Patient Disposition: HOME Condition: Good Discharge Details Clinical Impression: Dislocation, shoulder, anterior Primary Care Provider: Mando Rodriguez ED Provider: Gopi Ahmadi Chester Meds and New Rx's Prescriptions: Continued atorvastatin 80 MG tablet 80 mg PO DAILY Qty: 90 RF: 4 atenolol 50 MG tablet 50 mg PO BID Qty: 90 RF: 4 aspirin [Aspir-81] 81 MG tablet,delayed release (DR/EC) 81 mg PO DAILY RF: 0 amlodipine 10 MG tablet 10 mg PO DAILY Qty: 90 RF: 4 duloxetine [Cymbalta] 60 mg capsule,delayed release(DR/EC) 60 mg PO DAILY 90 Days Qty: 90 RF: 3 [place]-3 350 mg-235 mg- 90 mg-597 mg Capsule,Delayed Release(Dr/Ec) 1 tab PO DAILY RF: 0 acetaminophen 500 mg capsule 1,000 mg PO Q8H PRN (Reason: pain) Qty: 90 RF: 0 hydrocortisone [Proctozone-HC] 2.5 % cream with perineal applicator 1 applic topical BID PRN PRNRF: 0 tamsulosin 0.4 mg Capsule 0.4 mg PO QHS RF: 0 capsaicin 0.025 % Cream 1 applic TOPICAL BID PRNRF: 0 ipratropium bromide 0.03 % [place],Non-Aerosol 2 spray INTRANASAL Q6H PRN PRNRF: 0 diclofenac sodium 1 % Gel 2 g TOPICAL BID RF: 0 Eliquis 5 mg tablet 5 mg PO BID RF: 0 pramipexole 0.5 mg tablet 0.5 mg PO HS RF: 0 fluticasone propionate [Flonase Allergy Relief] 50 mcg/actuation [place],Suspension 2 spray Intranasal DAILY RF: 0 cholecalciferol (vitamin D3) [Vitamin D3] 5,000 unit Tablet 5,000 unit PO DAILY RF: 0 Discharge Instructions Instructions: Shoulder Dislocation (ED) Additional Instructions: You have an unstable shoulder joint at this point. It will be important to leave a shoulder immobilizer on at all times. If you inadvertently move your arm improperly and the shoulder dislocates again, you may attempt reduction as I showed you with your elbow pinned against your chest and slowly turning the arm outward. If you are dislocated and uncomfortable with this procedure return to ED. You will need prompt follow-up with orthopedics. Referrals: [facility] [Provider Group] Medical Decision Making Patient status post fall off. He is on Eliquis. He denies striking his head or loss of consciousness. He has no neurologic symptoms. He has no spine pain or tenderness. No chest wall tenderness. No breathing difficulty. Isolates his pain to the right shoulder. Appears to have deformity right mid upper extremity but has decent range of motion. Will obtain x-ray of the right shoulder and chest. X-ray of the right shoulder suggest anterior dislocation. Questionable age- indeterminate right sixth rib fracture. On chest x-ray ribs all appear to be chronic in nature. There is no pneumothorax or effusion. Patient right shoulder reduced by pinning elbow against his chest and doing external rotation away from the body. Unfortunately, as soon as I moved his arm up he immediately dislocated again. He again was easily reduced with previous maneuver. He remains neurovascularly intact. Shoulder immobilizer was placed. Postreduction films obtained. Shoulder is reduced. No obvious fracture though appears to be osseous fragment anteriorly which may be related to fracture. In any event atul edwards has unstable right shoulder. He shall remain in shoulder immobilizer and referred to orthopedics next week. I did discuss with him the likelihood of dislocating his shoulder again. We went over how it is easily reduced, but that if he had any issues she should just return here. Discharged home in good condition. Medical Records Medical records reviewed: Yes I reviewed the patient's medical records. HPI General Mode of arrival: wheelchair . Date/Time Provider Initiated Documentation: 07/28/20 20:27 . Limitations to Documentation: no limitations . Information obtained by: patient, RN notes reviewed and old records reviewed . HPI Narrative: Patient presents to ED status post fall off his deck. He had taken 2 steps too many back and lost his footing landing on his right shoulder. He denies striking his head or any loss of consciousness. He is on Eliquis. He recently had a spontaneous pneumothorax with chest tube placement. He only complains of shoulder pain. He denies chest pain or shortness of breath. He denies back or neck pain. Denies injury to the left upper extremity or to the lower extremities. Injury occurred about 90 minutes prior to arrival. He denies any numbness or weakness in the right upper extremity. Related Data Home Medications Medication Instructions Recorded Confirmed atorvastatin 80 mg PO DAILY #90 tab-cap 09/12/16 06/27/20 atenolol 50 mg PO BID #90 tab 02/19/17 06/27/20 aspirin [Aspir-81] 81 mg PO DAILY 07/04/17 06/27/20 amlodipine 10 mg PO DAILY #90 tab-cap 11/06/17 06/27/20 duloxetine [Cymbalta] 60 mg PO DAILY 90 Days #90 tab-cap 09/14/18 06/27/20 [place]-3 1 tab PO DAILY 09/15/18 06/27/20 acetaminophen 1,000 mg PO Q8H PRN #90 cap 09/22/18 06/27/20 cholecalciferol (vitamin D3) 5,000 unit PO DAILY 11/22/18 06/27/20 [Vitamin D3] fluticasone propionate [Flonase 2 spray INTRANASAL DAILY 11/22/18 06/27/20 Allergy Relief] Eliquis 5 mg PO BID 06/27/20 06/27/20 capsaicin 1 applic TOPICAL BID PRN 06/27/20 06/27/20 diclofenac sodium 2 g TOPICAL BID 06/27/20 06/27/20 hydrocortisone [Proctozone-HC] 1 applic TOPICAL BID PRN PRN 06/27/20 06/27/20 ipratropium bromide 2 spray INTRANASAL Q6H PRN PRN 06/27/20 06/27/20 pramipexole 0.5 mg PO HS 06/27/20 06/27/20 tamsulosin 0.4 mg PO QHS 06/27/20 06/27/20 Previous Rx's Medication Instructions Recorded amlodipine 10 mg PO DAILY #90 tab-cap 11/06/17 duloxetine [Cymbalta] 60 mg PO DAILY 90 Days #90 tab-cap 09/14/18 acetaminophen 1,000 mg PO Q8H PRN #90 cap 09/22/18 Allergies Allergy/AdvReac Type Severity Reaction Status Date / Time gabapentin AdvReac Mild cough Unverified 07/28/20 20:29 General Stated Complaint: Orthopedic KATIA: 3 Review of Systems Narrative: As documented in HPI otherwise negative as below. Const: no fever, chills, weakness Resp: no cough, SOB, pleuritic pain CV: no CP, diaphoresis, edema, syncope GI: no abdominal pain, nausea, vomiting, diarrhea Neuro: no headache, numbness, focal weakness, confusion [facility] Medical History Abdominal aortic aneurysm [facility] 4.3 x 4.2 cm infra-renal AAA AAA max. diam: 4.0cm ([facility] 10/2015: infra-renal AAA max.4.3cm: stable ([facility] mri : 3.5 cm BPH without urinary obstruction Carotid stenosis Chronic pain disorder (04/15/12) CONTRACT / (urine:03/17) COPD (chronic obstructive pulmonary disease) Depressive disorder Essential hypertension (06/01/13) echocardiogram normal Femur fracture GERD (gastroesophageal reflux disease) Helicobacter pylori gastritis (chronic gastritis) (11/23/14) positive gastroscopy : treated Hypercholesterolemia Left rotator cuff tear arthropathy Lung blebs Male sexual dysfunction 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 etiology:consider Neuro.referral Osteoarthritis of right knee Peripheral artery insufficiency [facility] 2011:left superficial femoral artery stent [facility] : left SFA in stent stenosis: angioplasty Fup q 6 months on going [facility] progression of disease;right popliteal stent graft occluded; pain right calf post 50ft walk Pneumothorax on right (09/23/16) 2000 first time Right rotator cuff tear arthropathy Right shoulder pain Rotator cuff tear arthropathy of both shoulders Tear of left rotator cuff (09/06/15) DOS: 09/22/18 Injection: 03/01/2019 Tear of right rotator cuff (09/06/15) Injection: 03/01/2019 Tibia fracture Varicose veins of bilateral lower extremities with pain Venous stasis ulcers recurrent/ 2008 - 2011 Viral hepatitis C chronic/ Treatment Interferon:successfull/ [facility] Surgical History EGD - MAC femoral stent X2 most recent 2016 History of left-sided carotid endarterectomy (04/02/18) [facility] [place] in surgery bleeding from parotid gland: electrocautery/ open reduction tib/fib ORIF femur right chest tube placement under local (09/23/16) 1999 Spinal Fusion 11/13/17 Status post arthroscopy of left shoulder DOS: 09/22/18 Injection: 03/01/2019 Repair of subscapularis with extensive debridement of superior cuff Biceps tenotomy; acromioplasty Dr. Webb Status post lumbar discectomy 2000 : right discectomy L5-S1 + L4-L5 decompression (right) 2013 : right L4-L5 decompression -2017 L5-S1 facetectomy; Family History Mother Diabetes Essential hypertension Depression Heart disease Neoplasm BREAST Father Neoplasm HODGKINS DISEASE Sister No problems noted. Sister Neoplasm BREAST Stroke Sister Neoplasm LUNG Brother Neoplasm LUNG Grandfather Diabetes Essential hypertension Heart disease Hyperlipidemia Stroke Grandfather No problems noted. Grandmother No problems noted. Grandmother No problems noted. Social History Smoking/Tobacco Use Status: Never Smoking risk assessment performed?: Yes Alcohol Intake: current Alcohol Intake frequency: a few times a week Alcohol type: beer Drug use: Occasionally Substance use type: does not use Do you feel safe at home: Yes Do you feel safe in your relationship?: Yes Exam Narrative Exam Narrative: Const: WDWN elderly male in NAD. HEENT: NC/AT. Normal facial exam. Eyes: PERRL and EOMI Neck: Supple. Trachea midline. No c-spine tenderness. Lungs: Normal respiratory effort. Lungs are clear. No chest wall tenderness. Bandage over the prevous chest tube wound right chest. Cor: RRR without murmur/gallop. Good radial pulses. Back: No midline tenderness. Neuro: A+O x 3. Normal speech, mentation. Cranial nerves II - XII grossly intact. No gross motor or sensory deficit. Ext: Appears to have deformity right upper arm and limited ROM at shoulder. No clavicle tenderness. Normal from elbow down and NVI. Skin: Warm and dry without rash. Course Vital Signs Vital signs: Vital Signs Temperature 98.2 F 07/28/20 20:22 Pulse 68 11/27/20 20:22 Respiratory Rate 16 07/28/20 20:22 Blood Pressure 169/76 H 07/28/20 20:22 Pulse Oximetry 99 07/28/20 20:22 Temperature 98.2 F 07/28/20 20:22 Temperature Source Skin 07/28/20 20:22 Pulse 68 07/28/20 20:22 Respiratory Rate 16 07/28/20 20:22 Blood Pressure 169/76 H 07/28/20 20:22 Blood Pressure Position Supine 07/28/20 20:22 Pulse Oximetry 99 07/28/20 20:22 Oxygen Delivery Method Room Air 07/28/20 20:22 Oxygen Flow Rate 0 07/28/20 20:22 Pain Level 2 07/28/20 20:22 Procedures Orthopedic Joint Reduction Joint #1: Time Out Performed: Yes Side: right Joint Reduction Location: shoulder Analgesia: none Shoulder Technique Used (if applicable): external rotation Post-reduction neuro exam: intact Post Reduction X-Ray Obtained: Yes Post Reduction X-Ray Results: reduced Splint Applied: Yes Patient Tolerated Procedure: well
--- NOTE | 2020-07-28 20:58 | DI.RAD_ITS ---
EXAM: XR SHOULDER RT COMPLETE 2+V CLINICAL HISTORY: fall TECHNIQUE: COMPARISON: CR XR SHOULDER RT COMPLETE 2+V from 03/23/2020 FINDINGS: Five views were obtained. Previously noted presumed chronic right rib fractures again seen. There a re marked degenerative changes of the glenohumeral and acromioclavicular joints. There is suggestion of anterior subluxation or dislocation of the humeral head from the glenoid fossa on the axillary vi ew. Additionally there is an osseous fragment projected anteriorly, I am uncertain of the origin of this finding but it could arise from the glenoid. These findings do not appear to have been present on prior radiographs of March 23. IMPRESSION: Appearance is worrisome for acute subluxation or dislocation anteriorly of the right humeral head, ad ditionally a bony fragment is seen anteriorly of uncertain origin and acute fracture is not excluded. Additional evaluation with CT may be considered if clinically indicated. RADIATION DOSE DELIVERED: Total DLP Total DLP
--- NOTE | 2020-07-28 20:59 | DI.RAD_ITS ---
EXAM: XR CHEST 2V PA LATERAL CLINICAL HISTORY: fall TECHNIQUE: COMPARISON: CR XR PORTABLE CHEST AP from 07/03/2020 FINDINGS: The heart is mildly enlarged. There is a large retrocardiac hiatus hernia. Previously described rig ht rib fractures again noted, there is increased expansion of the right lung since prior examination of July 03. Right thoracotomy tube has been removed. Some pleural radiodensities are seen to p maureen at the lateral aspect of the right hemithorax. No recurrent pneumothorax or hemothorax. IMPRESSION: Marked interval improvement since prior examination of July 03. RADIATION DOSE DELIVERED: Total DLP Total DLP
--- NOTE | 2020-07-28 21:17 | DI.VRAD_ITS ---
PROCEDURE INFORMATION: Exam: XR Right Shoulder Exam date and time: 07/28/2020 8:37 PM Age: 70 years old Clinical indication: Injury or trauma; Fall; Blunt trauma (contusions or hematomas); Injury date: 07/28/20; Injury details: Slipped and fell while hunting, landed on right shoulder. Tmb TECHNIQUE: Imaging protocol: XR Right shoulder. Views: 2 or more views. COMPARISON: CR XR SHOULDER RT COMPLETE 2+V 03/23/2020 11:10 AM FINDINGS/IMPRESSION: There are moderate degenerative changes at the glenohumeral joint with associated superior displacement of the humerus in relation to the glenoid. There is near complete loss of the acromial humeral distance. Findings are most in favor with chronic rotator cuff injury. The humeral head appears anteriorly displaced in relation to the glenoid on both the scapular Y-views and axillary views, highly concerning for subluxation/dislocation. Additionally, there is an osseous fragment which is anterior to the coracoid/glenoid, best seen on the axillary view. This is concerning for a displaced fractured osseous fragment. There is irregularity to the lateral segment of the right 6 rib, which could represent a fracture of indeterminate time frame. No other acutely displaced fractures are grossly noted. No aggressive osseous lesions. Mild soft tissue swelling noted about the shoulder. Consider correlation with dedicated noncontrast right shoulder CT and dedicated rib films if clinically warranted. Dictated and Authenticated by: Selwyn Moss MD. Ordering:DENILSON Nguyễn MD
--- NOTE | 2020-07-28 21:21 | DI.VRAD_ITS ---
PROCEDURE INFORMATION: Exam: XR Chest, 2 Views Exam date and time: 07/28/2020 9:00 PM Age: 70 years old Clinical indication: Injury or trauma; Fall; Blunt trauma (contusions or hematomas); Injury date: 07/28/20; Injury details: Slipped and fell while hunting, landed on right shoulder. Unable to raise RT arm out of fov TECHNIQUE: Imaging protocol: XR of the chest Views: 2 views. COMPARISON: CR XR PORTABLE CHEST AP 07/03/2020 11:[address] dated 06/27/2020. FINDINGS/IMPRESSION: There is some haziness noted in the periphery of the right mid lung, just adjacent to the left 6th rib. This is favored to represent an area of chronic scarring. The lungs are otherwise clear. Please note that the patient has multilevel old/healed right rib fractures, not confidently evaluated in this examination. The lungs appear otherwise clear. No pleural effusions. No pneumothorax. Mild cardiomegaly is noted. No acutely displaced fractures are grossly seen in this examination. Please note that on the shoulder films performed on the same date, there was a suggestion for a right 6th rib fracture, now felt to be chronic when reviewing the prior examinations. Consider correlation with point tenderness at this level or correlation with dedicated rib films if clinically warranted. Dictated and Authenticated by: Selwyn Moss MD. Ordering:DENILSON Nguyễn MD
--- NOTE | 2020-07-28 22:01 | DI.RAD_ITS ---
EXAM: XR SHOULDER RT COMP POST REDUC CLINICAL HISTORY: post reduction TECHNIQUE: COMPARISON: CR,XR XR SHOULDER RT COMPLETE 2+V from 07/28/2020 FINDINGS: Five views were obtained. Note is again made of an osseous fragment projected anteriorly, this may o riginate from coracoid or glenoid. Relationship of the humeral head to the glenoid appears unremarka ble on AP views, indeterminate on axillary view. Additional evaluation with CT suggested to evaluate apparent fracture anatomy. IMPRESSION: RADIATION DOSE DELIVERED: Total DLP Total DLP
--- NOTE | 2020-07-28 22:25 | DI.VRAD_ITS ---
PROCEDURE INFORMATION: Exam: XR Right Shoulder Exam date and time: 07/28/2020 10:01 PM Age: 70 years old Clinical indication: Injury or trauma; Fall; Blunt trauma (contusions or hematomas); Shoulder; Right; Injury date: 07/28/20; Injury details: S/P reduction TECHNIQUE: Imaging protocol: XR Right shoulder. Views: 2 or more views. COMPARISON: CR XR SHOULDER RT COMPLETE 2+V 07/28/2020 8:49 PM FINDINGS/IMPRESSION: When compared with the reference examination, the humeral head appears anteriorly displaced on the axillary view, favoring persistent anterior dislocation. Otherwise, no other significant interval changes are observed. Note that there is redemonstration of a displaced osseous fragment anterior to the glenoid, felt to be related a fractured fragment perhaps related to the coracoid. Consider correlation with CT if warranted. Dictated and Authenticated by: Selwyn Moss MD. Ordering:DENILSON Nguyễn MD
== END 2020-07-28 22:30 | disposition home or self-care (01) ==
PROVIDERS: Emergency Provider Emergency Medicine; PCP Family Medicine
DX: S43.011A Anterior subluxation of right humerus, initial encounter (principal); W13.0XXA Fall from, out of or through balcony, initial encounter; Z79.01 Long term (current) use of anticoagulants
CPT/HCPCS: 23650; 73030; 71046

== ENCOUNTER 2020-08-03 00:41 | Outpatient (CLI) | payer BC, SELFPAY ==
--- NOTE | 2020-08-03 06:45 | DI.CT_ITS ---
Is a involving the EXAM: CT UPPER EXTREMITY RT WO CLINICAL HISTORY: Fracture dislocation; surgical planning,S43.016A,M12.811,S42.141A TECHNIQUE: Imaging Protocol: Axial computed tomography images with coronal and sagittal reformatted images were created and reviewed. CONTRAST MATERIAL: Intravenous: None COMPARISON: CR,XR XR SHOULDER RT COMP POST REDUC from 07/28/2020 FINDINGS: Incidentally noted are ipsilateral recent appearing right rib fractures involving the 6th and 8th rib s. Please note that only part of the rib cage is included in the field of view here. There is a fracture of the coracoid process of the scapula with significant displacement. The main f racture fragment piece is located anteroinferior to the parent bone by a distance of 3.5 centimetres. There are no fractures of the ipsilateral clavicle. There is no fracture of the right humeral hea d and neck. There is significant osteoarthritic degenerative change of the glenohumeral joint includ ing a robles-type osteophyte on the inferior articular surface of the humeral head. There is diminuti on of the subacromial space which is most probably consistent with significant rotator cuff pathology . There is an undersurface hook on the inferior aspect of the acromion which is also causing imping ement on the rotator cuff mechanism. No downgoing osteophyte on the clavicular side of the AC joint. Calcific intra-articular density is seen in the superior aspect of the acromioclavicular joint spac e. IMPRESSION: 1. Displaced fracture of the coracoid process. 2. No fracture of the humeral head and neck but there are significant degenerative changes in the gle nohumeral joint. 3. Multiple acute appearing right-sided rib fractures, partially included in the field of view here. 4. Other findings as above. RADIATION DOSE DELIVERED: 771.8mGy.cm Total DLP DATA REPOSITORY: All CT scans at this facility are submitted to the National Radiology Data Registry (NRDR) Dose Index Registry (DIR) with the [employer] (ACR). RADIATION OPTIMIZATION: All CT scans at this facility use at least one of these dose optimization te chniques: automated exposure control; mA and/or kV adjustment per patient size (includes targeted exa ms where dose is matched to clinical indication); or iterative reconstruction. Six and 8th ribs.
== END 2020-08-03 01:01 ==
PROVIDERS: PCP Family Medicine; Visit Provider Student in an Organized Health Care Education/Training Program
DX: S42.131A Displaced fracture of coracoid process, right shoulder, initial encounter for closed fracture (principal); S22.41XA Multiple fractures of ribs, right side, initial encounter for closed fracture; M19.011 Primary osteoarthritis, right shoulder
CPT/HCPCS: 73200

== ENCOUNTER 2020-08-08 08:47 | Outpatient (CLI) | payer BC, SELFPAY ==
--- NOTE | 2020-08-08 08:30 | DI.RAD_ITS ---
EXAM: XR SHOULDER RT COMPLETE 2+V CLINICAL HISTORY: F/u TECHNIQUE: COMPARISON: CR,XR XR SHOULDER RT COMP POST REDUC from 07/28/2020 FINDINGS: Two views were obtained. The humeral head appears appropriately located with respect to the glenoid. Note is again made of severe degenerative hypertrophic changes at the glenohumeral joint. Previous ly described coracoid fracture not well visualized on this limited series. Rib fractures again noted on the right. Severe degenerative hypertrophic changes of the acromioclavicular joint noted. IMPRESSION: RADIATION DOSE DELIVERED: Total DLP Total DLP
--- NOTE | 2020-08-08 08:30 | DI.RAD_ITS ---
EXAM: XR CHEST 1 View CLINICAL HISTORY: F/u TECHNIQUE: COMPARISON: CR,XR XR CHEST 2V PA LATERAL from 07/28/2020 FINDINGS: The heart is at the upper limits of normal in size. There is a large retrocardiac hiatus hernia. Th ere are changes of pulmonary scarring. No new intrapulmonary infiltrate identified. Right rib fract ures again noted. No evidence of recurrent pneumothorax. IMPRESSION: No evidence of acute process. RADIATION DOSE DELIVERED: Total DLP Total DLP
== END 2020-08-08 09:07 ==
PROVIDERS: PCP Family Medicine; Referring Provider Family Medicine; Visit Provider Student in an Organized Health Care Education/Training Program
DX: K44.9 Diaphragmatic hernia without obstruction or gangrene (principal); M19.011 Primary osteoarthritis, right shoulder; S22.41XA Multiple fractures of ribs, right side, initial encounter for closed fracture; S42.131A Displaced fracture of coracoid process, right shoulder, initial encounter for closed fracture
CPT/HCPCS: 71045; 71046; 73030

== ENCOUNTER 2020-08-08 09:41 | Outpatient (CLI) | payer BC, SELFPAY ==
--- NOTE | 2020-08-08 10:00 | IN_ITS ---
Date of service: 08/08/20 Time of Service: 10:00 PT Notes Visit Reasons: COVID.Pre procedure/operative Physical Therapy Outpatient Lymphedema Initial Evaluation Date: 08/08/2020 Referring Doctor: Douglas Baugh MD PT Orders: PT CONSULT: Evaluate and treat. Right UE lymphedema compressive wrap Precautions: Fall. Standard. Patient Profile/Admitting Diagnosis: Domo is a 70-year-old male with anterior dislocation of right shoulder rotator cuff tear with arthropathy on the left side and the right, fracture of the coracoid process of the right scapula sustained from a mechanical fall on 07/28/2020 , and lymphedema of the right upper extremity referred for outpatient lymphedema initial evaluation and management to assess for compressive wrap appropriate for patient in anticipation of reverse total shoulder arthroplasty surgery on 08/18/2020. PMHX: [ Medical History [place] [facility] [place].3 [place] 4.2 cm infra-renal AAA AAA max. [place]: 4.[place] [place] infra-renal AAA max.4.3cm: [place] [place] : 3.5 cm BPH without urinary obstruction Carotid stenosis Chronic pain disorder (04/15/12) CONTRACT / (urine:03/17) COPD (chronic obstructive pulmonary disease) Depressive disorder Essential hypertension (06/01/13) echocardiogram normal Femur fracture GERD (gastroesophageal reflux disease) Helicobacter pylori gastritis (chronic gastritis) (11/23/14) positive gastroscopy : treated Hypercholesterolemia Left rotator cuff tear arthropathy Lung blebs Male sexual dysfunction 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 etiology:consider Neuro.referral Osteoarthritis of right knee Peripheral artery [place] [facility] [place]left superficial femoral artery [place] [facility] [place] SFA in stent stenosis: angioplasty Fup q 6 months on [place] [facility] [place] of disease;right popliteal stent graft occluded; pain right calf post 50ft walk Pneumothorax on right (09/23/16) 1999 first time Right rotator cuff tear arthropathy Right shoulder pain Rotator cuff tear arthropathy of both shoulders Tear of left rotator cuff (09/06/15) DOS: 09/22/18 Injection: 03/01/2019 Tear of right rotator cuff (09/06/15) Injection: 03/01/2019 Tibia fracture Varicose veins of bilateral lower extremities with pain Venous stasis ulcers recurrent/ 2008 - 2011 Viral hepatitis C chronic/ Treatment [place] [facility] [place] History EGD - MAC femoral stent X2 most recent 2016 History of left-sided carotid endarterectomy (04/02/18[place] [facility] [place] bleeding from parotid gland: electrocautery/ open reduction tib/fib ORIF femur right chest tube placement under local (09/23/16) 1999 Spinal Fusion 11/13/17 Status post arthroscopy of left shoulder DOS: 09/22/18 Injection: 03/01/2019 Repair of subscapularis with extensive debridement of superior cuff Biceps tenotomy; acromioplasty Dr. Webb Status post lumbar discectomy 2000 : right discectomy L5-S1 + L4-L5 decompression (right) 2013 : right L4-L5 decompression L5-S1 facetectomy; Social History/Home Situation: Lives with in a private home. Equipment Owned/DME: None Subjective: I was just going for a consult with the orthopedic surgeon and everything happened so fast I am having surgery on Friday. Reports no numbness and no pain in swollen area in the hand forearm and distal humerus. Reports increased pressure from his. Objective: General Observation: Ambulatory without AD. Appears to be minimally anxious about upcoming surgery. UE limb girth asymmetry noted with R UE>>L UE. Ecchymoses seen in proximal arm and R pectoral area. erythema in distal arm ventrally. Mental Status: Alert and oriented x4 Pain: 4/10 with movement ROM: Right Upper Extremity: NT. Patient was able to passively tolerate resting R UE so that it is about 80 degrees resting on the plint while procpped on pillow and about 10 degrees abducted to allow for lymphedema wrapping. Elbow flexion WFL. Wrist flexion WFL. Opening and closing of hand WFL. Left Upper Extremity: Shoulder NT. Elbow flexion WFL. Wrist flexion WFL. Opening and closing of hand WFL. Right Lower Extremity: Hip flexion WFL. Hip abduction WFL. Knee flexion WFL. Ankle dorsiflexion WFL. Ankle plantarflexion WFL. Left Lower Extremity: Hip flexion WFL. Hip abduction WFL. Knee flexion WFL. An kle dorsiflexion WFL. Ankle plantarflexion WFL. Strength: Right Upper Extremity: Grossly 3-/5 in B shoudlers Left Upper Extremity: Grossly 3-/5 in B shoulders Right Lower Extremity: Hip flexors 5/5. Hip abductors 5/5. Knee flexors 5/5. Knee extensors 5/5. Ankle dorsiflexors 5/5. Ankle plantarflexors 5/5. Left Lower Extremity:Hip flexors 5/5. Hip abductors 5/5. Knee flexors 5/5. Knee extensors 5/5. Ankle dorsiflexors 5/5. Ankle plantarflexors 5/5. Sensation: Intact as to pain and pressure on bilateral lower extremities. Edema: Measurements taken in cm using the following landmarks. R UE Around MCP 24.2 Around wrist 20.3 10 cm above wrist 24.0 20 cm above wrist 34.2 Antecubital fossa 35.2 10 cm above wrist 34.3 15 cm above wrist 35.7 Bed Mobility/Transfers: Sit to stand independent Stand to sit independent Bed to chair independent Chair to bed independent Gait: Independent with out an assistive device Balance: Static Sitting: Normal Dynamic Sitting: Normal Static Standing: Good Dynamic Standing: Good Special Tests: Mobility Limitations Standardized Measure [facility] AM-PAC 6 clicks Basic Mobility Inpatient Short Form: Raw Score: 24 CMS Score: 0% deficit Disabilities of the Arm, Shoulder and Hand: 63% deficit Informed Consent/Education: Patient instructed in purpose of PT consult and plan of care. Assessment: Patient with R UE swelling requiring urgent resolution in anticipation of surgery on 08/18/2020. Patient will require compression wrapping in order to facilitate reduction of fluid and maximize right TSA surgical outcomes. L UE girth measurements will be done in the next session due to time constraints. Patient presents with clinical signs and symptoms consistent with current/admitting diagnoses that have resulted to mobility limitations, gait instability, generalized weakness, and impairment of motor control as demonstrated by the following impairment level findings: 1. Decreased strength to the shoulder major muscle groups 2. Limitation of joint range of motion in B shoulder Impairments are contributing to the following functional limitations: 1. Inability to effectively use R UE for ADL performnance 2. Inability to effectively use R UE for ADL performnance Patient is assessed as a 84158 moderate complexity based on the following: History: 70-year-old female with impairment level findings, functional limitations, and past medical history as indicated above Examination: Demonstrable impairment in strength, balance, and mobility level with underlying impairments and functional limitations as documented above Presentation:Evolving Decision Makin moderate complexity LYMPHEDEMA INTERVENTION PROVIDED TODAY: Patient was provided with multilayer bandaging for the fingers the hand and the wrist and provided with radiographic compression garments to facilitate ease of removal without aggravating the right shoulder girdle orthopedic problems. Patient was instructed to do some ball squeezing exercises every hour in order to facilitate mobilization of fluid off of the hands and the wrist along with gentle pronation and supination of the forearm with the shoulder in neutral position times stand at least 3-5 times a day he was specifically specifically instructed to monitor. Circulation by inspecting fingernails and calling the office for any symptoms of acute numbness, pain, and any skin issues. Goals: N/A. PT evaluation and 1 treatment session for lymphedema wrapping only. Plan of Care/Treatment Plan: N/A. PT evaluation and 1 treatment session for lymphedema wrapping only. DISCHARGE RECOMMENDATIONS: Will coordinate with referring orthopedic surgeon for appropriate follow-up as recommended. TREATMENT CODE/TIME: 17818 x 30 minutes (4 units), 39759 x 30 (2 units) minutes beginning at 10:00 AM. Thank you for the opportunity to participate in the care of this patient. Daphne Salcedo PT, DPT, CLT [facility] [place], [place]
[2020-08-11 18:52] LABS: COVID-19 RT-PCR Result NEGATIVE (Negative)
== END 2020-08-08 10:01 ==
PROVIDERS: PCP Family Medicine; Visit Provider Student in an Organized Health Care Education/Training Program
DX: Z11.59 Encounter for screening for other viral diseases (principal); Z01.818 Encounter for other preprocedural examination
CPT/HCPCS: U0003

== ENCOUNTER 2020-09-05 03:40 | Outpatient (CLI) | payer BC, SELFPAY ==
[2020-09-05 12:19] LABS: HCT 28.9 % (40.0-50.0); HGB 8.9 g/dL (13.5-17.5); MCH 24.4 pg (27.0-33.0); MCHC 30.8 % (32.0-36.0); MCV 79.2 fL (80-95); Platelet Count 389 10^3/uL (130-400); RBC 3.65 10^6/uL (4.36-5.78); RDW 19.8 % (11.8-14.1); RDW-SD 56.1 fL
[2020-09-05 12:56] LABS: ALT 26 U/L (16-63); AST 30 U/L (15-37); Albumin 4.1 g/dL (3.4-5.0); Alkaline Phosphatase 179 U/L (46-116); Anion Gap 9.2 mmol/L (3-11); BUN 30 mg/dL (7-18); Bilirubin, Total 0.5 mg/dL (0.2-1.0); CO2 25.8 mmol/L (21.0-32.0); CREATININE 1.03 mg/dL (0.70-1.30); Calcium 9.3 mg/dL (8.5-10.1); Chloride 103 mmol/L (98-107); Glucose 104 mg/dL (74-106); Potassium 4.4 mmol/L (3.5-5.1); Sodium 138 mmol/L (136-145); Total Protein 7.6 g/dL (6.4-8.2)
[2020-09-06 15:18] LABS: HCV RNA Qualitative Undetected (Undetected)
== END 2020-09-05 04:00 ==
PROVIDERS: PCP Family Medicine; Visit Provider Family Medicine
DX: Z87.19 Personal history of other diseases of the digestive system (principal); D64.9 Anemia, unspecified; F10.99 Alcohol use, unspecified with unspecified alcohol-induced disorder
CPT/HCPCS: 36415; 80053; 85027; 87522

== ENCOUNTER 2020-10-16 17:40 | Outpatient (REF) | payer BC, SELFPAY ==
[2020-10-16 18:14] LABS: HCT 32.3 % (40.0-50.0); HGB 10.3 g/dL (13.5-17.5); MCHC 31.9 % (32.0-36.0); MCV 81.6 fL (80-95); MPV 9.1 fL (8.0-11.0); Platelet Count 511 10^3/uL (130-400); RBC 3.96 10^6/uL (4.36-5.78); RDW 20.8 % (11.8-14.1); RDW-SD 62.2 fL; WBC 13.35 10^3/uL (4.4-10.8)
== END 2020-10-16 17:41 | disposition home or self-care (01) ==
LOC: LBN 17:40
PROVIDERS: PCP Family Medicine; Visit Provider Family Medicine
DX: J93.11 Primary spontaneous pneumothorax (principal)
CPT/HCPCS: 85027

== ENCOUNTER 2020-11-10 03:23 | Outpatient (CLI) | payer BC, SELFPAY ==
[2020-11-10 11:12] LABS: Abs Immature Grans 0.05 10^3/uL (0.0-0.06); Absolute Basophil Count 0.04 10^3/uL (0.0-0.2); Absolute Eosinophil Count 0.23 10^3/uL (0.0-0.7); Absolute Lymphocyte Count 1.17 10^3/uL (1.2-3.4); Absolute Monocyte Count 0.79 10^3/uL (0.1-0.8); Absolute Neutrophil Count 7.73 10^3/uL (1.2-6.7); Basophils % 0.4; Eosinophils % 2.3; HCT 35.5 % (40.0-50.0); HGB 10.8 g/dL (13.5-17.5); Immature Grans % 0.5; Lymphocytes % 11.7; MCH 24.1 pg (27.0-33.0); MCHC 30.4 % (32.0-36.0); MCV 79.1 fL (80-95); MPV 8.7 fL (8.0-11.0); Monocytes % 7.9; Neutrophils % 77.2; Nucleated RBC 0 %; Platelet Count 472 10^3/uL (130-400); RBC 4.49 10^6/uL (4.36-5.78); RDW 19.8 % (11.8-14.1); WBC 10.01 10^3/uL (4.4-10.8)
[2020-11-10 11:51] LABS: Iron 32 ug/dL (65-175); Total Iron Binding Capacity 269 ug/dL (250-450); Transferrin Sat 12 % (20-55)
[2020-11-10 11:53] LABS: ALT 27 U/L (16-63); AST 23 U/L (15-37); Albumin 2.8 g/dL (3.4-5.0); Alkaline Phosphatase 123 U/L (46-116); Anion Gap 11.7 mmol/L (3-11); BUN 20 mg/dL (7-18); Bilirubin, Total 0.3 mg/dL (0.2-1.0); CO2 25.3 mmol/L (21.0-32.0); CREATININE 1.1 mg/dL (0.70-1.30); Calcium 9.8 mg/dL (8.5-10.1); Chloride 104 mmol/L (98-107); Glucose 116 mg/dL (74-106); Magnesium 2.1 mg/dL (1.8-2.4); Potassium 4.8 mmol/L (3.5-5.1); Sodium 141 mmol/L (136-145)
== END 2020-11-10 03:24 | disposition home or self-care (01) ==
LOC: LBO 03:23
PROVIDERS: PCP Family Medicine; Visit Provider Family Medicine
DX: R53.83 Other fatigue (principal); D50.0 Iron deficiency anemia secondary to blood loss (chronic)
CPT/HCPCS: 36415; 80053; 83540; 83550; 83735; 85025

== ENCOUNTER 2020-11-29 20:24 | Emergency (ER) | payer BC, SELFPAY ==
[2020-11-29 20:29] VITALS: BP 90/70; PULSE 76; RESP 16; TEMP 36.3; O2SAT 94
--- NOTE | 2020-11-29 20:35 | ED.GENADUL_ITS ---
Discharge Plan Disposition Patient Disposition: HOME Condition: Stable Discharge Details Clinical Impression: Laceration of left ring finger Primary Care Provider: Mando Rodriguez ED Provider: Manolo No Home Meds and New Rx's Prescriptions: Continued atorvastatin 80 MG tablet 80 mg PO DAILY Qty: 90 RF: 4 atenolol 50 MG tablet 50 mg PO BID Qty: 90 RF: 4 aspirin [Aspir-81] 81 MG tablet,delayed release (DR/EC) 81 mg PO DAILY RF: 0 duloxetine [Cymbalta] 60 mg capsule,delayed release(DR/EC) 60 mg PO DAILY 90 Days Qty: 90 RF: 3 [place] Switch-3 350 mg-235 mg- 90 mg-597 mg Capsule,Delayed Release(Dr/Ec) 1 tab PO DAILY RF: 0 hydrocortisone [Proctozone-HC] 2.5 % cream with perineal applicator 1 applic topical BID PRN PRNRF: 0 tamsulosin 0.4 mg Capsule 0.4 mg PO QHS RF: 0 ipratropium bromide 0.03 % [place],Non-Aerosol 2 spray INTRANASAL Q6H PRN PRNRF: 0 Eliquis 5 mg tablet 5 mg PO BID RF: 0 pramipexole 0.5 mg tablet 0.5 mg PO HS RF: 0 fluticasone propionate [Flonase Allergy Relief] 50 mcg/actuation [place],Suspension 2 spray Intranasal DAILY RF: 0 cholecalciferol (vitamin D3) [Vitamin D3] 5,000 unit Tablet 5,000 unit PO DAILY RF: 0 acetaminophen 500 mg capsule 1,000 mg PO TID RF: 0 Discontinued amlodipine 10 MG tablet 10 mg PO DAILY Qty: 90 RF: 4 Discharge Instructions Instructions: Finger Laceration (ED) Additional Instructions: You had a dislocated finger that was put back in place keep the wound clean and return in 7 days for evaluation for suture removal if spreading redness or severe pain return to the emergency department stop your amlodipine and discuss with your priary care provider within 1-2 weeks if you should restart it. Medical Decision Making 70 yo male with hx of copd, gerd, who comes in with left ring finger injury. He states for several weeks he has had issues if he sits for a long time and stands he gets weak in the legs and they buckle. denies dizziness, lightheadedness, head pain, chest pain or dyspnea or abdominal pain. Today the same thing happened when he was holding onto a railing with his left hand and his knees buckled and he fell. Denies hitting his head, loc or other symptoms. His left ring finger got caught on the railing and came in because of pain and defomity. At the dip joint of the left pip joint the part distal to this is radially angulated. Has no other pain elsewhere in the hand with normal sensation and normal range of motion of the wrist. I suspect orthostasis and likely contributed by over medicated for his bp. Given lack of chest pain or lightheadedness do not feel labs or other workup indicated. Will obtain xray of the finger. I did pull on the distal finer after performing digital block with successful relocation of the finger based on exam. xray negative on my read and he remains asymptomatic now. Can full range the finger at the mcp pipi and dip joints fully with good strength so doubt tendon injury. Closed the wound with 3 sutures if xray negative from vrad will likely d/c and have him return for suture removal Differential Diagnosis Differential Diagnosis: dislocation, laceration, fracture Medical Records Medical records reviewed: Yes I reviewed the patient's medical records. Imaging Data Radiologic Study: Attestation: I personally reviewed and interpreted this imaging study as follows: Imaging: X-Ray Radiologist's impression: no acute findings HPI General Mode of arrival: wheelchair . Date/Time Provider Initiated Documentation: 11/29/20 20:25 . Limitations to Documentation: no limitations . Information obtained by: patient . History of Present Illness 70 year old M presents to the emergency department with the chief complaint of left ring finger injury, described as moderate, and it has been constant. No relieving factors improve symptom(s), No exacerbating factors reported . Patient notes no other symptoms.. Patient did receive the following treatments prior to arrival, none Related Data Home Medications Medication Instructions Recorded Confirmed atorvastatin 80 mg PO DAILY #90 tab-cap 09/12/16 11/29/20 atenolol 50 mg PO BID #90 tab 02/19/17 11/29/20 aspirin [Aspir-81] 81 mg PO DAILY 07/04/17 11/29/20 duloxetine [Cymbalta] 60 mg PO DAILY 90 Days #90 tab-cap 09/14/18 11/29/20 [place] Switch-3 1 tab PO DAILY 09/15/18 11/29/20 cholecalciferol (vitamin D3) 5,000 unit PO DAILY 11/22/18 11/29/20 [Vitamin D3] fluticasone propionate [Flonase 2 spray INTRANASAL DAILY 11/22/18 11/29/20 Allergy Relief] Eliquis 5 mg PO BID 06/27/20 11/29/20 hydrocortisone [Proctozone-HC] 1 applic TOPICAL BID PRN PRN 06/27/20 11/29/20 ipratropium bromide 2 spray INTRANASAL Q6H PRN PRN 06/27/20 08/08/20 pramipexole 0.5 mg PO HS 06/27/20 11/29/20 tamsulosin 0.4 mg PO QHS 06/27/20 11/29/20 acetaminophen 1,000 mg PO TID 11/29/20 11/29/20 Previous Rx's Medication Instructions Recorded duloxetine [Cymbalta] 60 mg PO DAILY 90 Days #90 tab-cap 09/14/18 Allergies Allergy/AdvReac Type Severity Reaction Status Date / Time No Known Allergies Allergy Unverified 11/29/20 20:52 General Stated Complaint: Orthopedic KATIA: 3 Review of Systems All systems reviewed & are unremarkable except as noted in HPI and below Constitutional Constitutional: Denies chills, Denies fever(s) and Denies weakness ENT Ears, Nose, Mouth, and Throat: Denies change in voice Cardiovascular Cardiovascular: Denies chest pain and Denies dyspnea Respiratory Respiratory: Denies cough and Denies dyspnea Gastrointestinal Gastrointestinal: Denies abdominal pain, Denies nausea and Denies vomiting Musculoskeletal Musculoskeletal: Denies joint swelling Neurologic Neurologic: Denies weakness [facility] Medical History Abdominal aortic aneurysm [facility]: 4.3 x 4.2 cm infra-renal AAA AAA max. diam: 4.0cm ([facility]) 10/2015: infra-renal AAA max.4.3cm: stable ([facility]) mri : 3.5 cm BPH without urinary obstruction Carotid stenosis Chronic pain disorder (04/15/12) CONTRACT -2015/ (urine:03/17) COPD (chronic obstructive pulmonary disease) Depressive disorder Essential hypertension (06/01/13) echocardiogram normal Femur fracture GERD (gastroesophageal reflux disease) Helicobacter pylori gastritis (chronic gastritis) (11/23/14) positive gastroscopy : treated Hypercholesterolemia Left rotator cuff tear arthropathy Lung blebs Male sexual dysfunction 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 etiology:consider Neuro.referral Osteoarthritis of right knee Peripheral artery insufficiency [facility]; 2011:left superficial femoral artery stent [facility] : left SFA in stent stenosis: angioplasty Fup q 6 months on going [facility] progression of disease;right popliteal stent graft occluded; pain right calf post 50ft walk Pneumothorax on right (09/23/16) 1999 first time Right rotator cuff tear arthropathy Right shoulder pain Rotator cuff tear arthropathy of both shoulders Tear of left rotator cuff (09/06/15) DOS: 09/22/18 Injection: 03/01/2019 Tear of right rotator cuff (09/06/15) Injection: 03/01/2019 Tibia fracture Varicose veins of bilateral lower extremities with pain Venous stasis ulcers recurrent/ 2008 - 2011 Viral hepatitis C chronic/ Treatment Interferon:successfull/ [facility] Surgical History EGD - MAC femoral stent X2 most recent 2016 History of left-sided carotid endarterectomy (04/02/18) [facility] / in surgery bleeding from parotid gland: electrocautery/ open reduction tib/fib ORIF femur right chest tube placement under local (09/23/16) 1999 Spinal Fusion 11/13/17 [facility] Status post arthroscopy of left shoulder DOS: 09/22/18 Injection: 03/01/2019 Repair of subscapularis with extensive debridement of superior cuff Biceps tenotomy; acromioplasty Dr. Webb Status post lumbar discectomy 2000 : right discectomy L5-S1 + L4-L5 decompression (right) 2013 : right L4-L5 decompression L5-S1 facetectomy; Family History Mother Diabetes Essential hypertension Depression Heart disease Neoplasm BREAST Father Neoplasm HODGKINS DISEASE Sister No problems noted. Sister Neoplasm BREAST Stroke Sister Neoplasm LUNG Brother Neoplasm LUNG Grandfather Diabetes Essential hypertension Heart disease Hyperlipidemia Stroke Grandfather No problems noted. Grandmother No problems noted. Grandmother No problems noted. Social History Smoking/Tobacco Use Status: Never Smoking risk assessment performed?: Yes Alcohol Intake: current Alcohol Intake frequency: a few times a week Alcohol type: beer Drug use: Occasionally Substance use type: does not use Do you feel safe at home: Yes Do you feel safe in your relationship?: Yes Exam Const General: no acute distress Orientation: alert HENMT Head: normal to inspection Ears: external ears normal General nose exam: external nose normal Mouth: moist mucous membranes Eyes General: appearance normal, both eyes and all related structures Neck Neck: normal visual inspection Resp Effort & Inspection: normal respiratory effort and able to speak in complete sentences Cardio Rate: regular rate Skin General skin exam: no rashes or lesions noted Neuro General: patient alert and patient oriented x3 Extrem General: capillary refill normal Psych Mental Status: mental status grossly normal Course Vital Signs Vital signs: Vital Signs Temperature 36.3 C L 11/29/20 20:29 Pulse 76 11/29/20 20:29 Respiratory Rate 16 11/29/20 20:29 Blood Pressure 90/70 L 11/29/20 20:29 Pulse Oximetry 94 11/29/20 20:29 Temperature 36.3 C L 11/29/20 20:29 Temperature Source Skin 11/29/20 20:29 Pulse 76 11/29/20 20:29 Respiratory Rate 16 11/29/20 20:29 Respiratory Effort Non-Labored 11/29/20 20:34 Blood Pressure 90/70 L 11/29/20 20:29 Blood Pressure Position Supine 11/29/20 20:29 Pulse Oximetry 94 11/29/20 20:29 Oxygen Delivery Method Room Air 11/29/20 20:29 Oxygen Flow Rate 0 11/29/20 20:29 Pain Level 1 11/29/20 20:29 Procedures Laceration Laceration 1: Site: upper extremity Side (If applicable): left Size (cm): 3 Description: linear (runs horizontally just distal to the dip joint) Depth: simple, single layer Pre-repair: wound explored and irrigated extensively Skin layer closed with: nylon Size (cm): 4-0 Number of sutures: 3 Technique: simple, interrupted Orthopedic Joint Reduction Joint #1: Time Out Performed: Yes Side: left Joint Reduction Location: finger (ring finger dip joint) Analgesia: digital block Local Anesthesia: Lidocaine 2% Amount of anesthesic used (mL): 6 Technique used: traction/counter-traction Post-reduction neuro exam: intact Post-reduction vascular: intact Post Reduction X-Ray Obtained: Yes Post Reduction X-Ray Results: reduced Splint Applied: Yes Patient Tolerated Procedure: well
[2020-11-29] MEDS: Lidocaine 2% Multi-Dose 50 ML VIAL (20:43)
--- NOTE | 2020-11-29 21:01 | DI.RAD_ITS ---
EXAM: XR FINGER LT RING CLINICAL HISTORY: pain s/p fall. TECHNIQUE: 2D digital imaging was performed. COMPARISON: No exams were available for comparison FINDINGS: There is no evidence of fracture or dislocation. There is a small sub millimeter density in the soft tissues adjacent to the head of the middle phalanx, possibly representing a foreign body. This is l ocated volar-medial. IMPRESSION: DATA REPOSITORY: RADIATION DOSE DELIVERED:
--- NOTE | 2020-11-29 21:30 | DI.VRAD_ITS ---
PROCEDURE INFORMATION: Exam: XR Left Finger(s) Exam date and time: 11/29/2020 8:33 PM Age: 70 years old Clinical indication: Other: Pain S/P fall TECHNIQUE: Imaging protocol: XR Left fingers. Views: Minimum 2 views. COMPARISON: No relevant prior studies available. FINDINGS: Bones/joints: Normal anatomic alignment. There is no evidence of acutely displaced fractures. There is no evidence of dislocation. No aggressive osseous lesions. Soft tissues: There is no significant soft tissue swelling. IMPRESSION: Negative for acute skeletal pathology. Dictated and Authenticated by: Selwyn Moss MD. Ordering:CHRISTIANO French MD
[2020-11-29 21:36] VITALS: BP 102/55; PULSE 63; RESP 16; O2SAT 95
== END 2020-11-29 21:48 | disposition home or self-care (01) ==
PROVIDERS: Emergency Provider Emergency Medicine; PCP Family Medicine
DX: S61.215A Laceration without foreign body of left ring finger without damage to nail, initial encounter (principal); S63.295A Dislocation of distal interphalangeal joint of left ring finger, initial encounter; W26.8XXA Contact with other sharp object(s), not elsewhere classified, initial encounter; X50.9XXA Other and unspecified overexertion or strenuous movements or postures, initial encounter
CPT/HCPCS: 12002; 26770; 90471; 73140

== ENCOUNTER 2020-12-05 10:32 | Outpatient (CLI) | payer BC, SELFPAY ==
--- NOTE | 2020-12-05 10:15 | DI.RAD_ITS ---
EXAM: XR SHOULDER RT COMPLETE 2+V CLINICAL HISTORY: f/u TECHNIQUE: COMPARISON: CR XR SHOULDER RT COMPLETE 2+V from 08/08/2020 FINDINGS: Three views were obtained. There are severe hypertrophic degenerative changes of the glenohumeral an d acromioclavicular joints. Most recent radiographs for comparison were August 08. On today's ex amination, there is a new anterior dislocation the humeral head from the glenoid fossa. No gross fra cture identified, although fracture could be difficult to appreciate due to the severity of the hyper trophic degenerative changes. IMPRESSION: RADIATION DOSE DELIVERED: Total DLP
--- NOTE | 2020-12-05 15:38 | PDOC.ANES ---
Date of service: 12/05/20 Time of Service: 15:38 Anesthesia Note Report Anesthesia Note: Chart review requested today by Joseph Baugh's RN due to patient having a number of comorbidities, considered high risk. The patient has been seen her over multiple stays for pulmonary emergencies; he has received two wedge resections and had a full chart review post the first wedge resection in August of this past year. The recommendation at the time [place] [facility] [place] hold off on his elective shoulder surgery due to an infectious pulmonary mass. The patient had a second wedge resection in october and per the thoracic surgeons note in the [facility] [place] he would be cleared to proceed with his elective shoulder surgery in 2-3 weeks. More than that time has elapsed and after a discussion with Kaelyn Robledo [employer]ING [employer] OPERATOR HELPER we feel that he is okay to proceed with caution.
== END 2020-12-05 10:33 | disposition home or self-care (01) ==
LOC: DIORS 10:32
PROVIDERS: PCP Family Medicine; Referring Provider Family Medicine; Visit Provider Student in an Organized Health Care Education/Training Program
DX: S43.014A Anterior dislocation of right humerus, initial encounter (principal); X58.XXXA Exposure to other specified factors, initial encounter
CPT/HCPCS: 73030

== ENCOUNTER 2020-12-09 16:03 | Emergency (ER) | payer BC, SELFPAY ==
[2020-12-09] VITALS (45 sets, daily range): BP systolic 104–174; BP diastolic 64–88; PULSE 58–72; RESP 13–26; TEMP 36.7–37.1; O2SAT 94–99
--- NOTE | 2020-12-09 16:00 | DI.CT_ITS ---
EXAM: CT CHEST W CLINICAL HISTORY: left chest swelling at chest tube site TECHNIQUE: Imaging Protocol: Axial computed tomography images with coronal and sagittal reformatted images were created and reviewed CONTRAST MATERIAL: Intravenous: Omnipaque 350 Contrast volume:70 mL. COMPARISON: CT CT CHEST W from 06/27/2020 FINDINGS: Tracheobronchial tree: Patent where visualized. Mediastinum and Charlene: No dominant adenopathy or fluid collection. There is a large hiatal hernia. Pulmonary parenchyma: Pleural and parenchymal scarring is seen in the lungs. There is bronchiectasis in the left upper lobe. There is a calcified granuloma in the right upper lobe. Pleura: There is a small left pleural effusion. No pneumothorax. There is a 6.9 x 2.7 cm empyema al светлана the left lateral chest wall. Heart: The heart is not dilated. Moderate coronary artery calcification. No pericardial effusion. Aorta: Thoracic aorta non-dilated. Atherosclerosis. Upper abdomen: Unremarkable. Lymph nodes: Calcified lymph nodes in the mediastinum and hilum consistent with prior granulomatous d isease. Bones: Marked degenerative changes in the thoracic spine. There is an anterior dislocation of the ri ght shoulder with associated humeral fracture and large joint effusion. Tubes, Catheters, and Lines: Soft tissues: There is soft tissue thickening and subcutaneous air overlying the left lower chest upp er abdominal wall. This may indicate scarring or residual disease. IMPRESSION: 1. 6.8 x 2.7 cm left lateral empyema. 2. Left chest surgery with increased soft tissue along the left lower chest wall which may represent scarring or disease recurrence. Please correlate with surgical history. PET-CT may be considered fo r further evaluation. 3. No significant soft tissue along the right chest wall. 4. Right anterior shoulder dislocation with associated humeral fracture and large joint effusion. RADIATION DOSE DELIVERED: 448.7mGy.cm Total DLP DATA REPOSITORY: All CT scans at this facility are submitted to the National Radiology Data Registry (NRDR) Dose Index Registry (DIR) with the [employer] (A[employer]). RADIATION OPTIMIZATION: All CT scans at this facility use at least one of these dose optimization te chniques: automated exposure control; mA and/or kV adjustment per patient size (includes targeted exa ms where dose is matched to clinical indication); or iterative reconstruction.
--- NOTE | 2020-12-09 16:14 | W.ED.GENAD ---
Discharge Plan Disposition Patient Disposition: [facility] Condition: Stable Discharge Details Clinical Impression: Empyema, thoracic Primary Care Provider: Mando Rodriguez ED Provider: Gopi Ahmadi [place] Meds and New Rx's Prescriptions: No Action atorvastatin 80 MG tablet 80 mg PO DAILY Qty: 90 RF: 4 atenolol 50 MG tablet 50 mg PO BID Qty: 90 RF: 4 aspirin [Aspir-81] 81 MG tablet,delayed release (DR/EC) 81 mg PO DAILY RF: 0 duloxetine [Cymbalta] 60 mg capsule,delayed release(DR/EC) 60 mg PO DAILY 90 Days Qty: 90 RF: 3 [place]-3 350 mg-235 mg- 90 mg-597 mg Capsule,Delayed Release(Dr/Ec) 1 tab PO DAILY RF: 0 ipratropium bromide 0.03 % [place],Non-Aerosol 2 spray INTRANASAL Q6H PRN PRNRF: 0 Eliquis 5 mg tablet 5 mg PO BID RF: 0 pramipexole 0.5 mg tablet 0.2 mg PO HS RF: 0 fluticasone propionate [Flonase Allergy Relief] 50 mcg/actuation [place],Suspension 2 spray Intranasal DAILY RF: 0 cholecalciferol (vitamin D3) [Vitamin D3] 5,000 unit Tablet 5,000 unit PO DAILY RF: 0 acetaminophen 500 mg capsule 1,000 mg PO TID RF: 0 Medical Decision Making <Zain Bowman DO - Last Filed: 12/09/20 19:39> This is a very pleasant 70-year-old male with a past medical history of Chronic right shoulder fracture and dislocation since July currently awaiting definitive management, COPD, AAA, multiple previous lung blebs, previous pneumothorax in the left chest with subsequent chest tube this past October, factor V Leiden mutation, chronically on Eliquis, who presents today for evaluation of drainage from his left chest. The patient states that he had the tube removed back in October. He has had no complications since then until 3 to 4 days ago when he noticed some swelling along his left ribs at the previous postoperative site for the chest tube. He scratched the area this morning and after that noticed a significant amount of drainage coming out of his left chest wall. He went to the urgent care to be evaluated which then after evaluation sent him to the ER for further assessment. Aside for the drainage she denies any pain, fever, chills, chest pain, shortness of breath, numbness, tingling, or weakness. No other complaints at this time. No other modifying factors. Physical exam demonstrates a nondistressed male, normal lung sounds. Left chest wall demonstrates a large swollen area around rib 6 7 and 8 with a central ulcer which is oozing purulent drainage. Nontender. Nonerythematous. Concern for suspected osteomyelitis and subsequent abscess from the postop chest tube site. We will get a CT scan, labs, culture the area, monitor closely and reassess. Patient does not want anything for pain at this point. He states that his pain is a 0 out of 10 7:27 PM Laboratory work-up has returned, no white count, bandemia or left shift. Hemoglobin is 9.4, which appears at the patient's baseline, no bandemia or elevated white count. Lactate is normal, electrolytes normal, good renal function. Troponin normal. EKG stable. CT scan has returned, large empyema measuring roughly 7 x 3 cm noted on the left chest. There is the noted chronic right anterior glenohumeral dislocation and humeral head fracture. We will reach out to [facility]/thoracic surgery for potential operative management. Waiting on [facility] callback at this time. Case will be signed out to my colleague Dr. Ahmadi for follow-up and discussion of options with [facility]. EKG 16: 24 Rate 60 intervals normal, sinus rhythm, tall T waves in the anterior lateral leads. No significant elevation. No STEMI. No reciprocal depressions. EKG from 2019 does show similar peaked waves but not as notable. FINDINGS: Lungs: Unremarkable. No consolidation. No masses. Pleural spaces: Unremarkable. No pneumothorax. No pleural effusion. Heart: Unremarkable. No cardiomegaly. No pericardial effusion. Mediastinal space: Large hiatal hernia. Aorta: Aortic and coronary atherosclerosis. Lymph nodes: Old granulomatous disease of the right lung with calcified mediastinal and right hilar lymph nodes. Liver: 1.5 cm left hepatic lobe cyst. Spleen: Splenic granuloma. Stomach and bowel: Status post right pulmonary surgery. No significant soft tissue prominence along the suture line. Bones/joints: Degenerative changes in the spine. Bilateral old rib fractures. Some demonstrate nonunion. Right anterior glenohumeral dislocation and humeral head fracture. Moderate to large right shoulder joint effusion. Soft tissues: Status post left pulmonary surgery per with increased soft tissue prominence along the suture line which could indicate scarring, disease recurrence or residual. Correlate with PET-CT. Other findings: left lateral empyema measuring 6.8 x 2.9 cm. IMPRESSION: 1. Large hiatal hernia. 2. Status post right pulmonary surgery. No significant soft tissue prominence along the suture line. 3. Status post left pulmonary surgery per with increased soft tissue prominence along the suture line which could indicate scarring, disease recurrence or residual. Correlate with PET-CT. 4. Left lateral empyema measuring 6.8 x 2.9 cm. 5. Right anterior glenohumeral dislocation and humeral head fracture. 6. Moderate to large right shoulder joint effusion. Thank you for allowing us to participate in the care of your patient. Dictated and Authenticated by: Court Parks MD 12/09/2020 7:17 PM Eastern Time ([place] & [place]) <Gopi Ahmadi MD - Last Filed: 12/09/20 20:44> Patient signed out to me pending discussion with [facility] regarding transfer. Discussed with Dr. Samuels from thoracic surgery and Dr. Waters from emergency department. Patient will be ED to ED transfer for evaluation by surgery. Patient receiving a dose of Zosyn here prior to leaving. Wound cultures pending. Remains hemodynamically stable. Lab Data Lab results reviewed: Yes I reviewed the patient's lab results. HPI <Zain Bowman DO - Last Filed: 12/09/20 19:39> General Date/Time Provider Initiated Documentation: 12/09/20 16:07. HPI Narrative: This is a very pleasant 70-year-old male with a past medical history of Chronic right shoulder fracture and dislocation since July currently awaiting definitive management, COPD, AAA, multiple previous lung blebs, previous pneumothorax in the left chest with subsequent chest tube this past October, factor V Leiden mutation, chronically on Eliquis, who presents today for evaluation of drainage from his left chest. The patient states that he had the tube removed back in October. He has had no complications since then until 3 to 4 days ago when he noticed some swelling along his left ribs at the previous postoperative site for the chest tube. He scratched the area this morning and after that noticed a significant amount of drainage coming out of his left chest wall. He went to the urgent care to be evaluated which then after evaluation sent him to the ER for further assessment. Aside for the drainage she denies any pain, fever, chills, chest pain, shortness of breath, numbness, tingling, or weakness. No other complaints at this time. No other modifying factors. Related Data Home Medications Medication Instructions Recorded Confirmed atorvastatin 80 mg PO DAILY #90 tab-cap 09/12/16 12/09/20 atenolol 50 mg PO BID #90 tab 02/19/17 12/09/20 aspirin [Aspir-81] 81 mg PO DAILY 07/04/17 12/09/20 duloxetine [Cymbalta] 60 mg PO DAILY 90 Days #90 tab-cap 09/14/18 12/09/20 [place]-3 1 tab PO DAILY 09/15/18 12/09/20 cholecalciferol (vitamin D3) 5,000 unit PO DAILY 11/22/18 12/09/20 [Vitamin D3] fluticasone propionate [Flonase 2 spray INTRANASAL DAILY 11/22/18 12/09/20 Allergy Relief] Eliquis 5 mg PO BID 06/27/20 12/09/20 ipratropium bromide 2 spray INTRANASAL Q6H PRN PRN 06/27/20 12/09/20 pramipexole 0.2 mg PO HS 06/27/20 12/09/20 acetaminophen 1,000 mg PO TID 11/29/20 12/09/20 Previous Rx's Medication Instructions Recorded duloxetine [Cymbalta] 60 mg PO DAILY 90 Days #90 tab-cap 09/14/18 Allergies Allergy/AdvReac Type Severity Reaction Status Date / Time No Known Allergies Allergy Unverified 12/09/20 16:10 General Stated Complaint: [facility] KATIA: 3 Review of Systems <Zain Bowman DO - Last Filed: 12/09/20 19:39> All systems reviewed & are unremarkable except as noted in HPI and below PFSH <Zain Bowman DO - Last Filed: 12/09/20 19:39> Medical History Abdominal aortic aneurysm [facility] [place]: 4.3 x 4.2 cm infra-renal AAA AAA max. diam: 4.0cm ([facility]) 10/2015: infra-renal AAA max.4.3cm: stable ([facility]) mri : 3.5 cm BPH without urinary obstruction Carotid stenosis Chronic pain disorder (04/15/12) CONTRACT -2015/ (urine:03/17) COPD (chronic obstructive pulmonary disease) Depressive disorder Essential hypertension (06/01/13) echocardiogram normal Femur fracture GERD (gastroesophageal reflux disease) Helicobacter pylori gastritis (chronic gastritis) (11/23/14) positive gastroscopy : treated Hypercholesterolemia Left rotator cuff tear arthropathy Lung blebs Male sexual dysfunction 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 etiology:consider Neuro.referral Osteoarthritis of right knee Peripheral artery insufficiency [facility] [place]; 2011:left superficial femoral artery stent [facility] : left SFA in stent stenosis: angioplasty Fup q 6 months on going [facility] progression of disease;right popliteal stent graft occluded; pain right calf post 50ft walk Pneumothorax on right (09/23/16) 1999 first time Right rotator cuff tear arthropathy Right shoulder pain Rotator cuff tear arthropathy of both shoulders Tear of left rotator cuff (09/06/15) DOS: 09/22/18 Injection: 03/01/2019 Tear of right rotator cuff (09/06/15) Injection: 03/01/2019 Tibia fracture Varicose veins of bilateral lower extremities with pain Venous stasis ulcers recurrent/ 2008 - 2011 Viral hepatitis C chronic/ Treatment Interferon:successfull/ [facility] [place] Surgical History EGD - MAC femoral stent X2 most recent 2015 History of left-sided carotid endarterectomy (04/02/18) [facility] [place] / in surgery bleeding from parotid gland: electrocautery/ open reduction tib/fib ORIF femur right chest tube placement under local (09/23/16) 1999 Spinal Fusion 11/13/17 ANA LILIA HIGHTOWER DAY Status post arthroscopy of left shoulder DOS: 09/22/18 Injection: 03/01/2019 Repair of subscapularis with extensive debridement of superior cuff Biceps tenotomy; acromioplasty Dr. Webb Status post lumbar discectomy 2000 : right discectomy L5-S1 + L4-L5 decompression (right) 2013 : right L4-L5 decompression L5-S1 facetectomy; Family History Mother Diabetes Essential hypertension Depression Heart disease Neoplasm BREAST Father Neoplasm HODGKINS DISEASE Sister No problems noted. Sister Neoplasm BREAST Stroke Sister Neoplasm LUNG Brother Neoplasm LUNG Grandfather Diabetes Essential hypertension Heart disease Hyperlipidemia Stroke Grandfather No problems noted. Grandmother No problems noted. Grandmother No problems noted. Social History Smoking/Tobacco Use Status: Never Smoking risk assessment performed?: Yes Alcohol Intake: current Alcohol Intake frequency: a few times a week Alcohol type: beer Drug use: Occasionally Substance use type: does not use Current gender identity: male Do you feel safe at home: Yes Do you feel safe in your relationship?: Yes Exam <Zain Bowman DO - Last Filed: 12/09/20 19:39> Narrative Exam Narrative: 1.Const: Well-nourished, Well-developed, appearing stated age 2.Eyes: PERRL, no conjunctival injection, and symmetrical lids. 3.ENT: Atraumatic external nose and ears. Moist MM. Neck: Symmetric, trachea midline, No thyromegaly. 4.CVS: +S1/S2, No murmurs or gallops. Peripheral pulses 2+ and equal in all extremities. Brisk capillary refill in all extremities. 5.RESP: Lungs are clear to auscultation, unlabored respiratory effort, left chest wall demonstrates notable swelling without redness or warmth though. There is a central ulcerated area that is notably using a significant amount of purulent drainage. No tenderness there. 6.GI: Soft, Nontender/Nondistended, No hepatosplenomegaly. No guarding or rebound. 7.MSK: Normocephalic/Atraumatic, Extremities w/o deformity or ttp No cyanosis or clubbing, Normal movement of all extremities 8.Skin: Warm, Dry. No rashes or lesions. 9.Neuro: repairer and checker II-XII grossly intact. Sensation grossly intact, no focal neurologic deficits. 10.Psych: (AAO) x3. Appropriate mood and affect Course <Zain Bowman DO - Last Filed: 12/09/20 19:39> Vital Signs Vital signs: Vital Signs Temperature 37.1 C 12/09/20 16:05 Pulse 66 12/09/20 16:05 Respiratory Rate 18 12/09/20 16:05 Blood Pressure 160/77 H 12/09/20 16:05 Pulse Oximetry 98 12/09/20 16:05 Temperature 37.1 C 12/09/20 16:05 Temperature Source Temporal Artery Scan 12/09/20 16:05 Pulse 66 12/09/20 16:05 Respiratory Rate 18 12/09/20 16:05 Blood Pressure 160/77 H 12/09/20 16:05 Blood Pressure Position Sitting 12/09/20 16:05 Pulse Oximetry 98 12/09/20 16:05 Oxygen Delivery Method Room Air 12/09/20 16:05 Oxygen Flow Rate 0 12/09/20 16:05 Pain Level 0 12/09/20 16:05 Sign Out <Zain Bowman DO - Last Filed: 12/09/20 19:39> Sign Out Data: Sign Out Comment: Left chest empyema. Pending [facility] callback. Last updated by Zain Bowman DO at 12/09/20 19:42
--- NOTE | 2020-12-09 16:15 | RT.EKG_ITS ---
APPROVED REPORT Exam: Resting ECG Patient Location: E HR:60 bpm ECG Measurements Heart Rate 60 AXIS MI 171 P 3 QRSd 100 QRS 47 QT 412 T 43 QTc 413 Conclusion Sinus rhythm...normal P axis, V-rate 60- 99 Probable left ventricular hypertrophy...multiple LVH criteria Tall T, consider metabolic/ischemic abnrm...T >1.2mV Physician: Rate 60 intervals normal, sinus rhythm, tall T waves in the anterior lateral leads. No si gnificant elevation. No STEMI. No reciprocal depressions. EKG from 2019 does show similar peaked w aves but not as notable.
[2020-12-09 16:51] LABS: Abs Immature Grans 0.04 10^3/uL (0.0-0.06); Absolute Basophil Count 0.02 10^3/uL (0.0-0.2); Absolute Eosinophil Count 0.15 10^3/uL (0.0-0.7); Absolute Lymphocyte Count 0.84 10^3/uL (1.2-3.4); Absolute Monocyte Count 1.01 10^3/uL (0.1-0.8); Basophils % 0.2; Eosinophils % 1.5; HCT 30.1 % (40.0-50.0); HGB 9.4 g/dL (13.5-17.5); Immature Grans % 0.4; Lymphocytes % 8.5; MCH 24.3 pg (27.0-33.0); MCHC 31.2 % (32.0-36.0); MCV 77.8 fL (80-95); MPV 8.6 fL (8.0-11.0); Monocytes % 10.2; Neutrophils % 79.2; Nucleated RBC 0 %; Platelet Count 426 10^3/uL (130-400); RBC 3.87 10^6/uL (4.36-5.78); RDW-SD 56.9 fL; WBC 9.86 10^3/uL (4.4-10.8)
[2020-12-09 17:12] LABS: Troponin I < 0.05 ng/mL (<0.06)
[2020-12-09 17:24] LABS: ALT 18 U/L (16-63); AST 16 U/L (15-37); Albumin 2.6 g/dL (3.4-5.0); Alkaline Phosphatase 98 U/L (46-116); Anion Gap 11.2 mmol/L (3-11); BUN 25 mg/dL (7-18); Bilirubin, Total 0.5 mg/dL (0.2-1.0); CO2 23.8 mmol/L (21.0-32.0); Calcium 8.9 mg/dL (8.5-10.1); Chloride 104 mmol/L (98-107); Glucose 104 mg/dL (74-106); Potassium 4.2 mmol/L (3.5-5.1); Sodium 139 mmol/L (136-145); Total Protein 7.8 g/dL (6.4-8.2)
[2020-12-09] MEDS: Omnipaque 350 MG/ML 100 ML BTL IJ (18:10)
[2020-12-09] MEDS: Normal Saline Flush 10 ML SYR IVP (18:11)
[2020-12-09] MEDS: Normal Saline - Diluent 50 ML VIAL IV (18:18)
--- NOTE | 2020-12-09 19:17 | DI.VRAD_ITS ---
PROCEDURE INFORMATION: Exam: CT Chest With Contrast; Diagnostic Exam date and time: 12/09/2020 4:13 PM Age: 70 years old Clinical indication: Other: Lt chest swelling at chest tube site; Prior surgery; Surgery date: 1-6 months TECHNIQUE: Imaging protocol: Diagnostic computed tomography of the chest with contrast. 3D rendering (Not supervised by radiologist): MIP and/or 3D reconstructed images were created by the technologist. Radiation optimization: All CT scans at this facility use at least one of these dose optimization techniques: automated exposure control; mA and/or kV adjustment per patient size (includes targeted exams where dose is matched to clinical indication); or iterative reconstruction. Contrast material: OMNIPAQUE 350; Contrast volume: 70 ml; Contrast route: INTRAVENOUS (IV); COMPARISON: CT CHEST W 06/27/2020 5:53 PM FINDINGS: Lungs: Unremarkable. No consolidation. No masses. Pleural spaces: Unremarkable. No pneumothorax. No pleural effusion. Heart: Unremarkable. No cardiomegaly. No pericardial effusion. Mediastinal space: Large hiatal hernia. Aorta: Aortic and coronary atherosclerosis. Lymph nodes: Old granulomatous disease of the right lung with calcified mediastinal and right hilar lymph nodes. Liver: 1.5 cm left hepatic lobe cyst. Spleen: Splenic granuloma. Stomach and bowel: Status post right pulmonary surgery. No significant soft tissue prominence along the suture line. Bones/joints: Degenerative changes in the spine. Bilateral old rib fractures. Some demonstrate nonunion. Right anterior glenohumeral dislocation and humeral head fracture. Moderate to large right shoulder joint effusion. Soft tissues: Status post left pulmonary surgery per with increased soft tissue prominence along the suture line which could indicate scarring, disease recurrence or residual. Correlate with PET-CT. Other findings: left lateral empyema measuring 6.8 x 2.9 cm. IMPRESSION: 1. Large hiatal hernia. 2. Status post right pulmonary surgery. No significant soft tissue prominence along the suture line. 3. Status post left pulmonary surgery per with increased soft tissue prominence along the suture line which could indicate scarring, disease recurrence or residual. Correlate with PET-CT. 4. Left lateral empyema measuring 6.8 x 2.9 cm. 5. Right anterior glenohumeral dislocation and humeral head fracture. 6. Moderate to large right shoulder joint effusion. Dictated and Authenticated by: Court Parks MD. Ordering:SHARON Pittman MD
[2020-12-09] MEDS: PIPERACILLIN/TAZO 3.375 GM in Normal Saline 50 ML IVPB (20:56)
== END 2020-12-09 21:20 | disposition short-term general hospital (02) ==
PROVIDERS: Student in an Organized Health Care Education/Training Program; Emergency Provider Emergency Medicine; PCP Family Medicine
DX: J86.9 Pyothorax without fistula (principal); T81.49XA Infection following a procedure, other surgical site, initial encounter; Y83.1 Surgical operation with implant of artificial internal device as the cause of abnormal reaction of the patient, or of later complication, without mention of misadventure at the time of the procedure
CPT/HCPCS: 36410; 36415; 80053; 87040; 87077; 93005; 96365; 99285; 71260; 83605; 84484; 85025; 87070; 87186; 87205; 93010; J2543; J3490

== ENCOUNTER 2020-12-17 20:35 | Observation (INO) | payer BC, SELFPAY ==
[2020-12-17] VITALS (29 sets, daily range): BP systolic 115–188; BP diastolic 44–120; PULSE 70–129; RESP 14–24; TEMP 36.2; O2SAT 83–97
--- NOTE | 2020-12-17 20:30 | RT.EKG_ITS ---
APPROVED REPORT Exam: Resting ECG Patient Location: E HR:68 bpm ECG Measurements Heart Rate 68 AXIS PA 180 P 18 QRSd 106 QRS 13 QT 418 T 17 QTc 446 Conclusion Sinus rhythm...normal P axis, V-rate 60- 99 Probable left ventricular hypertrophy...multiple LVH criteria Physician: No stemi. no significant abnormality
--- NOTE | 2020-12-17 20:45 | DI.CT_ITS ---
EXAM: CT HEAD WO CLINICAL HISTORY: syncope. TECHNIQUE: Imaging Protocol: Axial computed tomography images with coronal and sagittal reformatted images were created and reviewed COMPARISON: CT CT HEAD CERV SPINE FACIAL WO from 11/21/2018 FINDINGS: There are no skull fractures nor fluid in the visualized paranasal sinuses.. There is heavy calcification of the left vertebral artery at the skull base again noted. No asymmetr ic density in the middle cerebral arteries. There is no evidence of intracranial hemorrhage, mass effect, or shift of midline structures. There are no extra-axial fluid collections. The ventricles are not enlarged or shifted and there is no blo od within the ventricular system nor within the basal cisterns. Small lacunar infarct in left caudate noted measuring 3 millimeters. Also 4 millimeter nonhemorrhagi c lacunar infarct in the right supra ventricular white matter, more evident than previous. No obviou s acute infarct. No hemorrhage. IMPRESSION: Findings as above which have progressed from 2019 but there does not appear to be evidence of acute i nfarct nor intracranial hemorrhage. If clinically indicated follow-up MRI can be performed for added sensitivity and specificity. RADIATION DOSE DELIVERED: 699.3mGy.cm Total DLP DATA REPOSITORY: All CT scans at this facility are submitted to the National Radiology Data Registry (NRDR) Dose Index Registry (DIR) with the [employer] ([employer]). RADIATION OPTIMIZATION: All CT scans at this facility use at least one of these dose optimization te chniques: automated exposure control; mA and/or kV adjustment per patient size (includes targeted exa ms where dose is matched to clinical indication); or iterative reconstruction.
--- NOTE | 2020-12-17 20:55 | DI.RAD_ITS ---
EXAM: XR CHEST 1V IN DI DEPT CLINICAL HISTORY: syncope. TECHNIQUE: 2D digital imaging was performed. COMPARISON: CR XR CHEST 1V IN DI DEPT from 08/08/[address] CHEST W from 12/09/[address] CHEST W from 12/09/2020 FINDINGS: Heart size is normal. Large hiatal hernia again noted. There is a pigtail drainage catheter in the lateral left pleural space. Still some pleural fluid. F ractured healing right ribs are noted. No other right hemithoracic findings. There is no pleural ef fusion on the right side. Probable dislocation right shoulder, as seen on the CT scan of 12/09/2020. IMPRESSION: No acute pulmonary findings on this single AP portable view of the chest. DATA REPOSITORY: RADIATION DOSE DELIVERED: All CT scans at this facility use at least one of these dose optimization techniques: automated exposure control; mA and/or kV adjustment per patient size (includes targeted e xams where dose is matched to clinical indication); or iterative reconstruction.
[2020-12-17 21:19] LABS: Abs Immature Grans 0.07 10^3/uL (0.0-0.06); Absolute Basophil Count 0.04 10^3/uL (0.0-0.2); Absolute Eosinophil Count 0.14 10^3/uL (0.0-0.7); Absolute Lymphocyte Count 0.95 10^3/uL (1.2-3.4); Absolute Monocyte Count 0.72 10^3/uL (0.1-0.8); Absolute Neutrophil Count 6.86 10^3/uL (1.2-6.7); Basophils % 0.5; Eosinophils % 1.6; HCT 32.2 % (40.0-50.0); HGB 9.8 g/dL (13.5-17.5); Immature Grans % 0.8; Lymphocytes % 10.8; MCH 24.4 pg (27.0-33.0); MCHC 30.4 % (32.0-36.0); MCV 80.1 fL (80-95); MPV 8.3 fL (8.0-11.0); Monocytes % 8.2; Neutrophils % 78.1; Nucleated RBC 0 %; Platelet Count 405 10^3/uL (130-400); RBC 4.02 10^6/uL (4.36-5.78); RDW 20.9 % (11.8-14.1); RDW-SD 60.5 fL; WBC 8.78 10^3/uL (4.4-10.8)
[2020-12-17 21:32] LABS: INR 1.1 (0.9-1.1); PTT Activated 28.1 sec (21.0-27.5); Prothrombin Time 11.1 sec (9.3-11.0)
[2020-12-17 21:37] LABS: ALT 39 U/L (16-63); AST 38 U/L (15-37); Albumin 3.5 g/dL (3.4-5.0); Alkaline Phosphatase 123 U/L (46-116); Anion Gap 11.5 mmol/L (3-11); BUN 21 mg/dL (7-18); Bilirubin, Total 0.3 mg/dL (0.2-1.0); CO2 24.5 mmol/L (21.0-32.0); CREATININE 1.6 mg/dL (0.70-1.30); Calcium 9.8 mg/dL (8.5-10.1); Chloride 103 mmol/L (98-107); Estimated GFR 42.95 (mL/min/1.73m2); Glucose 101 mg/dL (74-106); Potassium 4.2 mmol/L (3.5-5.1); Sodium 139 mmol/L (136-145); Total Protein 8.5 g/dL (6.4-8.2); Troponin I < 0.05 ng/mL (<0.06)
[2020-12-17] MEDS: Normal Saline 500 ML IV (21:46)
--- NOTE | 2020-12-17 21:47 | DI.VRAD_ITS ---
PROCEDURE INFORMATION: Exam: XR Chest Exam date and time: 12/17/2020 9:31 PM Age: 70 years old Clinical indication: Other: Syncope; Prior surgery; Surgery date: 3-7 days post-operative; Surgery type: Lung surgery in oct, drain placed in lung 12/11 for infection TECHNIQUE: Imaging protocol: XR of the chest. Views: 1 view. COMPARISON: CT CHEST W 12/09/2020 6:11 PM FINDINGS: Tubes, catheters and devices: Pleural catheter in the left lateral lower pleural space. Lungs: Unremarkable. No consolidation. Pleural spaces: Mild persistent left pleural fluid collection. No pneumothorax or right pleural effusion. Heart/Mediastinum: Large hiatal hernia. Bones/joints: Anterior dislocation of the right shoulder, unchanged from 12/09/2020. Healed lateral right rib fractures. Moderate right acromioclavicular joint degenerative disease. IMPRESSION: 1. Left pleural catheter with small residual pleural fluid collection. 2. Unchanged anterior dislocation of the right shoulder. 3. Large hiatal hernia. Dictated and Authenticated by: Trev Oneal MD. Ordering:SHARON Pittman MD
--- NOTE | 2020-12-17 21:56 | W.ED.GENAD ---
Discharge Plan Disposition Patient Disposition: [facility] INPATIENT Condition: Stable Discharge Details Chief Complaint: GenMedical Clinical Impression: Syncope Primary Care Provider: Mando Rodriguez ED Provider: Zain Bowman Home Meds and New Rx's Prescriptions: No Action atorvastatin 80 MG tablet 80 mg PO DAILY Qty: 90 RF: 4 atenolol 50 MG tablet 50 mg PO BID Qty: 90 RF: 4 aspirin [Aspir-81] 81 MG tablet,delayed release (DR/EC) 81 mg PO DAILY RF: 0 duloxetine [Cymbalta] 60 mg capsule,delayed release(DR/EC) 60 mg PO DAILY 90 Days Qty: 90 RF: 3 [place]-3 350 mg-235 mg- 90 mg-597 mg Capsule,Delayed Release(Dr/Ec) 1 tab PO DAILY RF: 0 ipratropium bromide 0.03 % [place],Non-Aerosol 2 spray INTRANASAL Q6H PRN PRNRF: 0 Eliquis 5 mg tablet 5 mg PO BID RF: 0 pramipexole 0.5 mg tablet 0.2 mg PO HS RF: 0 fluticasone propionate [Flonase Allergy Relief] 50 mcg/actuation [place],Suspension 2 spray Intranasal DAILY RF: 0 cholecalciferol (vitamin D3) [Vitamin D3] 5,000 unit Tablet 5,000 unit PO DAILY RF: 0 acetaminophen 500 mg capsule 1,000 mg PO TID RF: 0 Medical Decision Making This is a very pleasant 70-year-old male with a past medical history of Chronic right shoulder fracture and dislocation since July currently awaiting definitive management, COPD, AAA, multiple previous lung blebs, previous pneumothorax in the left chest with subsequent chest tube this past October, factor V Leiden mutation, chronically on Eliquis, and recent empyema in the left chest secondary to chest tubeat [facility], he was recently just discharged from [facility] on 12/13 with a drain. Cultures at that time were positive for staph aureus after 33 cc of purulent fluid were removed. He presents today for atypical syncope. This evening the patient was sitting at dinner with his and some friends when per he became unresponsive and slumped over for a minute or so. He had some vigorous shaking at that time which she describes as more intense than shivering but less intense than tonic-clonic seizure movements. After few minutes he came to slowly and returned to his normal baseline. EMS was called and their exam was unremarkable at that time. Patient refused transport and came in by POV. Currently the patient states that he feels well, has no complaints of chest pain headache neck pain no other complaints. He denies passing out before. He does admit to his knees giving out on him occasionally over the last few days but otherwise denies anything new. He denies any abdominal pain. He denies any new numbness or tingling. He is currently on Augmentin for the infection in his chest. Also of note the patient amlodipine was recently stopped when he was at [facility] because his blood pressure was too low. His atenolol was stopped yesterday by his PCP he was transitioned instead to lisinopril. Exam is relatively unremarkable. No nystagmus, no neurologic deficit. Chest tubes/drains in place, small amount of purulent fluid. No redness otherwise. Patient feels well. Vital signs stable. The patient does get up he becomes somewhat tachycardic, but when he is sitting he is very comfortable and his vitals are stable. He does not get hypotensive. Symptoms are concerning for potential dysrhythmia causing his episode. TIA is on the differential but less likely. Seizure seems unlikely. We will get a CT scan of the head, evaluate for electrolyte abnormalities, gently rehydrate monitor closely and reassess. Pulses are notably present in his lower extremities, no clinical suggestion of ruptured AAA, no abdominal pain whatsoever. Symptoms are inconsistent with ruptured AAA. 10:34 PM Laboratory work-up has returned, hemoglobin appears stable, electrolytes normal. Renal function stable. proBNP is 425 not overly elevated. No signs of heart failure. Initial troponin normal. Thyroid function is slightly up with an elevated TSH but a normal free T4. Pending urinalysis. EKG normal. At this time patient remained stable however with his symptoms and concern they feel that he would benefit from prolonged observation serial troponins and telemetry. Discussed this with the patient and . They agree. Discussed this with the hospitalist Dr. Fox, he agrees. I have extensively reviewed the treatment plan with the patient. I have addressed all patient concerns at this time. I have also discussed the plan with the admitting physician and they agree with the current assessment and plan and have agreed to assume responsibility for the patient. All parties demonstrate verbal understanding and agreement with our assessment and plan at this time. The documentation in this chart was dictated using [employer] dictation software. Please excuse any dictation errors. FINDINGS: Tubes, catheters and devices: Pleural catheter in the left lateral lower pleural space. Lungs: Unremarkable. No consolidation. Pleural spaces: Mild persistent left pleural fluid collection. No pneumothorax or right pleural effusion. Heart/Mediastinum: Large hiatal hernia. Bones/joints: Anterior dislocation of the right shoulder, unchanged from 12/09/2020. Healed lateral right rib fractures. Moderate right acromioclavicular joint degenerative disease. IMPRESSION: 1. Left pleural catheter with small residual pleural fluid collection. 2. Unchanged anterior dislocation of the right shoulder. 3. Large hiatal hernia. Thank you for allowing us to participate in the care of your patient. Dictated and Authenticated by: Trev Oneal MD FINDINGS: Brain: There is mild diffuse cerebral atrophy present, consistent with this patient's age. Small right frontal white matter lacunar infarct. No intracranial hemorrhage, midline shift, or mass effect. No acute loss of morse-white differentiation. Cerebral ventricles: No ventriculomegaly. Bones/joints: Unremarkable. No acute fracture. Paranasal sinuses: Visualized sinuses are unremarkable. No fluid levels. Mastoid air cells: Visualized mastoid air cells are well aerated. Soft tissues: Unremarkable. IMPRESSION: No acute abnormality. Thank you for allowing us to participate in the care of your patient. Dictated and Authenticated by: Trev Oneal MD 12/17/2020 10:08 PM Eastern Time ([place] & [place]) HPI General Date/Time Provider Initiated Documentation: 12/17/20 20:39. HPI Narrative: This is a very pleasant 70-year-old male with a past medical history of Chronic right shoulder fracture and dislocation since July currently awaiting definitive management, COPD, AAA, multiple previous lung blebs, previous pneumothorax in the left chest with subsequent chest tube this past October, factor V Leiden mutation, chronically on Eliquis, and recent empyema in the left chest secondary to chest tubeat [facility], he was recently just discharged from [facility] on 12/13 with a drain. Cultures at that time were positive for staph aureus after 33 cc of purulent fluid were removed. He presents today for atypical syncope. This evening the patient was sitting at dinner with his and some friends when per he became unresponsive and slumped over for a minute or so. He had some vigorous shaking at that time which she describes as more intense than shivering but less intense than tonic-clonic seizure movements. After few minutes he came to slowly and returned to his normal baseline. EMS was called and their exam was unremarkable at that time. Patient refused transport and came in by POV. Currently the patient states that he feels well, has no complaints of chest pain headache neck pain no other complaints. He denies passing out before. He does admit to his knees giving out on him occasionally over the last few days but otherwise denies anything new. He denies any abdominal pain. He denies any new numbness or tingling. He is currently on Augmentin for the infection in his chest. Related Data Home Medications Medication Instructions Recorded Confirmed atorvastatin 80 mg PO DAILY #90 tab-cap 09/12/16 12/09/20 atenolol 50 mg PO BID #90 tab 02/19/17 12/09/20 aspirin [Aspir-81] 81 mg PO DAILY 07/04/17 12/09/20 duloxetine [Cymbalta] 60 mg PO DAILY 90 Days #90 tab-cap 09/14/18 12/09/20 [place]-3 1 tab PO DAILY 09/15/18 12/09/20 cholecalciferol (vitamin D3) 5,000 unit PO DAILY 11/22/18 12/09/20 [Vitamin D3] fluticasone propionate [Flonase 2 spray INTRANASAL DAILY 11/22/18 12/09/20 Allergy Relief] Eliquis 5 mg PO BID 06/27/20 12/09/20 ipratropium bromide 2 spray INTRANASAL Q6H PRN PRN 06/27/20 12/09/20 pramipexole 0.2 mg PO HS 06/27/20 12/09/20 acetaminophen 1,000 mg PO TID 11/29/20 12/09/20 Previous Rx's Medication Instructions Recorded duloxetine [Cymbalta] 60 mg PO DAILY 90 Days #90 tab-cap 09/14/18 Allergies Allergy/AdvReac Type Severity Reaction Status Date / Time No Known Allergies Allergy Unverified 12/09/20 16:10 General Stated Complaint: GenMedical KATIA: 2 Review of Systems All systems reviewed & are unremarkable except as noted in HPI and below PFSH Medical History Abdominal aortic aneurysm [facility]: 4.3 x 4.2 cm infra-renal AAA AAA max. diam: 4.0cm ([facility]) 10/2015: infra-renal AAA max.4.3cm: stable ([facility]) mri : 3.5 cm BPH without urinary obstruction Carotid stenosis Chronic pain disorder (04/15/12) CONTRACT / (urine:03/17) COPD (chronic obstructive pulmonary disease) Depressive disorder Essential hypertension (06/01/13) echocardiogram normal Femur fracture GERD (gastroesophageal reflux disease) Helicobacter pylori gastritis (chronic gastritis) (11/23/14) positive gastroscopy : treated Hypercholesterolemia Left rotator cuff tear arthropathy Lung blebs Male sexual dysfunction 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 etiology:consider Neuro.referral Osteoarthritis of right knee Peripheral artery insufficiency [facility]; 2011:left superficial femoral artery stent [facility] : left SFA in stent stenosis: angioplasty Fup q 6 months on going [facility] progression of disease;right popliteal stent graft occluded; pain right calf post 50ft walk Pneumothorax on right (09/23/16) 1999 first time Right rotator cuff tear arthropathy Right shoulder pain Rotator cuff tear arthropathy of both shoulders Tear of left rotator cuff (09/06/15) DOS: 09/22/18 Injection: 03/01/2019 Tear of right rotator cuff (09/06/15) Injection: 03/01/2019 Tibia fracture Varicose veins of bilateral lower extremities with pain Venous stasis ulcers recurrent/ 2008 - 2011 Viral hepatitis C chronic/ Treatment Interferon:successfull/ [facility] Surgical History EGD - MAC femoral stent X2 most recent 2016 History of left-sided carotid endarterectomy (04/02/18) [facility] / in surgery bleeding from parotid gland: electrocautery/ open reduction tib/fib ORIF femur right chest tube placement under local (09/23/16) 1999 Spinal Fusion 11/13/17 Status post arthroscopy of left shoulder DOS: 09/22/18 Injection: 03/01/2019 Repair of subscapularis with extensive debridement of superior cuff Biceps tenotomy; acromioplasty Dr. Webb Status post lumbar discectomy 2000 : right discectomy L5-S1 + L4-L5 decompression (right) 2013 : right L4-L5 decompression L5-S1 facetectomy; Family History Mother Diabetes Essential hypertension Depression Heart disease Neoplasm BREAST Father Neoplasm HODGKINS DISEASE Sister No problems noted. Sister Neoplasm BREAST Stroke Sister Neoplasm LUNG Brother Neoplasm LUNG Grandfather Diabetes Essential hypertension Heart disease Hyperlipidemia Stroke Grandfather No problems noted. Grandmother No problems noted. Grandmother No problems noted. Social History Smoking/Tobacco Use Status: Never Smoking risk assessment performed?: Yes Alcohol Intake: current Alcohol Intake frequency: a few times a week Alcohol type: beer Drug use: Occasionally Substance use type: does not use Current gender identity: male Do you feel safe at home: Yes Do you feel safe in your relationship?: Yes Exam Narrative Exam Narrative: 1.Const: Well-nourished, Well-developed, appearing stated age 2.Eyes: PERRL, no conjunctival injection, and symmetrical lids. No horizontal or vertical nystagmus. 3.ENT: Atraumatic external nose and ears. Moist MM. Neck: Symmetric, trachea midline, No thyromegaly. 4.CVS: +S1/S2, No murmurs or gallops. Peripheral pulses 2+ and equal in all extremities. Brisk capillary refill in all extremities. 5.RESP: Unlabored respiratory effort. Clear to auscultation bilaterally. No wheezes rales or rhonchi. Left chest demonstrate a chest tube drainage tube with a few cc of fluid in it. Not erythematous. No focal tenderness. 6.GI: Soft, Nontender/Nondistended, No hepatosplenomegaly. No guarding or rebound. 7.MSK: Normocephalic, chronic fracture dislocation of right shoulder. No acute pain, Extremities w/o deformity or ttp No cyanosis or clubbing, Normal movement of all extremities 8.Skin: Warm, Dry. No rashes or lesions. 9.Neuro: film editor II-XII grossly intact. Sensation grossly intact, no focal neurologic deficits. All 6 cardinal planes of vision are fully intact. No evidence of rotatory or vertical nystagmus. The patient demonstrated a normal [id number], good dexterity. There was no evidence of dysdiadochokinesia. Patient was able to ambulate without difficulty. There was no wide-based gait. Romberg testing was normal. [id number] testing was normal. Sensation was intact bilaterally as well as muscle strength bilaterally for all extremities. Patient was able to verbalize butter cup with no slurring, or miss pronunciation. He does have slight difficulty with his right shoulder bringing his hand up for [id number] secondary to his chronic shoulder dislocation and fracture 10.Psych: (AAO) x3. Appropriate mood and affect Course Vital Signs Vital signs: Vital Signs Temperature 36.2 C L 12/17/20 20:40 Pulse 83 12/17/20 20:40 Respiratory Rate 16 12/17/20 20:40 Blood Pressure 143/82 H 12/17/20 20:40 Pulse Oximetry 97 12/17/20 20:40 Temperature 36.2 C L 12/17/20 20:40 Temperature Source Skin 12/17/20 20:40 Pulse 83 12/17/20 20:40 Respiratory Rate 16 12/17/20 20:40 Blood Pressure 143/82 H 12/17/20 20:40 Blood Pressure Position Sitting 12/17/20 20:40 Pulse Oximetry 97 12/17/20 20:40 Oxygen Delivery Method Room Air 12/17/20 20:40 Oxygen Flow Rate 0 12/17/20 20:40 Pain Level 0 12/17/20 20:40 Lab/Test Results Lab/Test Results: Laboratory Tests Range/Units 12/17/20 12/17/20 12/17/20 21:10 21:10 21:10 WBC (4.4-10.8) 10^3/uL 8.78 RBC (4.36-5.78) 10^6/uL 4.02 L Hgb (13.5-17.5) g/dL 9.8 L Hct (40.0-50.0) % 32.2 L MCV (80-95) fL 80.1 MCH (27.0-33.0) pg 24.4 L MCHC (32.0-36.0) % 30.4 L RDW (11.8-14.1) % 20.9 H Plt Count (130-400) 10^3/uL 405 H MPV (8.0-11.0) fL 8.3 Immature Gran % 0.8 Neutrophils % 78.1 Lymphocytes % 10.8 Monocytes % 8.2 Eosinophils % 1.6 Basophils % 0.5 Nucleated RBC % % 0 Absolute Neutrophils (1.2-6.7) 10^3/uL 6.86 H Absolute Lymphocytes (1.2-3.4) 10^3/uL 0.95 L Absolute Monocytes (0.1-0.8) 10^3/uL 0.72 Absolute Eosinophils (0.0-0.7) 10^3/uL 0.14 Absolute Basophils (0.0-0.2) 10^3/uL 0.04 PT (9.3-11.0) sec 11.1 H INR (0.9-1.1) 1.1 APTT (21.0-27.5) sec 28.1 H Sodium (136-145) mmol/L 139 Potassium (3.5-5.1) mmol/L 4.2 Chloride (98-107) mmol/L 103 Carbon Dioxide (21.0-32.0) mmol/L 24.5 Anion Gap (3-11) mmol/L 11.5 H BUN (7-18) mg/dL 21 H Creatinine (0.70-1.30) mg/dL 1.6 H Estimated GFR/1.73 m2 (mL/min/1.73m2) 42.95 Glucose (74-106) mg/dL 101 Calcium (8.5-10.1) mg/dL 9.8 Total Bilirubin (0.2-1.0) mg/dL 0.3 AST (15-37) U/L 38 H ALT (16-63) U/L 39 Alkaline Phosphatase (46-116) U/L 123 H Troponin I (<0.06) ng/mL < 0.05 Total Protein (6.4-8.2) g/dL 8.5 H Albumin (3.4-5.0) g/dL 3.5
[2020-12-17 21:58] LABS: NT-proBNP 425 pg/mL (<300); TSH (W/Ref FT4) 4.27 uIU/mL (0.36-3.74)
--- NOTE | 2020-12-17 22:09 | DI.VRAD_ITS ---
PROCEDURE INFORMATION: Exam: CT Head Without Contrast Exam date and time: 12/17/2020 9:25 PM Age: 70 years old Clinical indication: Syncope and collapse TECHNIQUE: Imaging protocol: Computed tomography of the head without contrast. COMPARISON: CT HEAD CERV SPINE FACIAL WO 11/21/2018 11:44 PM FINDINGS: Brain: There is mild diffuse cerebral atrophy present, consistent with this patient's age. Small right frontal white matter lacunar infarct. No intracranial hemorrhage, midline shift, or mass effect. No acute loss of morse-white differentiation. Cerebral ventricles: No ventriculomegaly. Bones/joints: Unremarkable. No acute fracture. Paranasal sinuses: Visualized sinuses are unremarkable. No fluid levels. Mastoid air cells: Visualized mastoid air cells are well aerated. Soft tissues: Unremarkable. IMPRESSION: No acute abnormality. Dictated and Authenticated by: Trev Oneal MD. Ordering:SHARON Pittman MD
[2020-12-17 22:15] LABS: FREE T4 0.85 ng/dL (0.76-1.46)
[2020-12-17 22:27] LABS: Bilirubin Negative (Negative); Blood Negative (Negative); Clarity Sl Cloudy (Clear); Glucose Negative (Negative); Ketones 15 mg/dL (Negative); Leukocyte Esterase Negative (Negative); Nitrite Negative (Negative); Specific Gravity >= 1.030 (1.005-1.025); Urobilinogen 0.2 EU/dL (Up TO 0.2)
[2020-12-17 22:39] LABS: Bacteria Few HPF (Negative); Other Cells Rare Transitional (Negative); WBC 0-2 HPF (0-5)
[2020-12-17 22:40] LABS: Crystals Rare Calcium Oxalate HPF (Negative); Mucus Negative (Negative)
--- NOTE | 2020-12-17 22:40 | W.PM.HP.N ---
Date of service: 12/17/20 Time of Service: 22:41 Assessment and Plan Assessment and plan (1) Syncope: Status: Chronic Assessment and plan: Sounds probably like a syncopal episode, and doubt seizure. Will monitor and trend out troponins. Usual meds as is otherwise. History of Present Illness History of Present Illness Chief Complaint: spell Narrative: 70 male recently [place] [facility] [place] of chest tube for PTX, complicated by empyema for which he is on abx and has drain in place. This evening at supper he acutely slmped over followed by some modest shaking movements, entire spell lasting a few minutes after which he was alert and lucid. No tongue biting and no incontinence. In ER w/u has been unremarkable, with normal trop, normal EKG, no arrythmia on monitor, negative head CT. Admitted for further monitoring and evaluation. Please note that patient insists he did not lose consciousness but this is directly contradicted by testimony (to ER) by . Also note recent change in BP meds -- beta grace and CCB held, and started on Lisinopril 5 qd yesterday. It was felt that those meds might be playing some role in some weakness patient has been experiencing in his legs he states. Review of Systems All systems reviewed & are unremarkable except as noted in HPI and below PFSH Medical History Abdominal aortic aneurysm [facility] 4.3 x 4.2 cm infra-renal AAA AAA max. diam: 4.0cm [place] 10/2015: infra-renal AAA max.4.3cm: stable 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 etiology:consider Neuro.referral Osteoarthritis of right knee Peripheral artery insufficiency [facility] 2011:left superficial femoral artery stent [facility] [place] left SFA in stent stenosis: angioplasty Fup q [address] [facility] progression of disease;right popliteal stent graft occluded; pain right calf post 50ft walk Pneumothorax on right (09/23/16) 1999 first time Right rotator cuff tear arthropathy Right shoulder pain Rotator cuff tear arthropathy of both shoulders Tear of left rotator cuff (09/06/15) DOS: 09/22/18 Injection: 03/01/2019 Tear of right rotator cuff (09/06/15) Injection: 03/01/2019 Tibia fracture Varicose veins of bilateral lower extremities with pain Venous stasis ulcers recurrent/ 2008 - 2011 Viral hepatitis C chronic/ Treatment Interferon:successfull/ [facility] Surgical History EGD - MAC femoral stent X2 most recent 2016 History of left-sided carotid endarterectomy (04/02/18) [facility] [place] in surgery bleeding from parotid gland: electrocautery/ open reduction tib/fib ORIF femur right chest tube placement under local (09/23/16) 1999 Spinal Fusion 11/13/17 Status post arthroscopy of left shoulder DOS: 09/22/18 Injection: 03/01/2019 Repair of subscapularis with extensive debridement of superior cuff Biceps tenotomy; acromioplasty Dr. Webb Status post lumbar discectomy 2000 : right discectomy L5-S1 + L4-L5 decompression (right) 2013 : right L4-L5 decompression L5-S1 facetectomy; Family History Mother Diabetes Essential hypertension Depression Heart disease Neoplasm BREAST Father Neoplasm HODGKINS DISEASE Sister No problems noted. Sister Neoplasm BREAST Stroke Sister Neoplasm LUNG Brother Neoplasm LUNG Grandfather Diabetes Essential hypertension Heart disease Hyperlipidemia Stroke Grandfather No problems noted. Grandmother No problems noted. Grandmother No problems noted. Social History Smoking/Tobacco Use Status: Never Smoking risk assessment performed?: Yes Alcohol Intake: current Alcohol Intake frequency: a few times a week Alcohol type: beer Drug use: Never Substance use type: does not use Current gender identity: male Do you feel safe at home: Yes Do you feel safe in your relationship?: Yes Meds Allergies and Home Medications Allergies Allergy/AdvReac Type Severity Reaction Status Date / Time No Known Allergies Allergy Unverified 12/17/20 22:48 Home Medications Medication Instructions Recorded Confirmed Type atorvastatin 80 mg PO DAILY #90 tab-cap 09/12/16 12/09/20 History aspirin [Aspir-81] 81 mg PO DAILY 07/04/17 12/09/20 History duloxetine [Cymbalta] 60 mg PO DAILY 90 Days #90 tab-cap 09/14/18 12/09/20 Rx Monarch-3 1 tab PO DAILY 09/15/18 12/09/20 History cholecalciferol (vitamin D3) 5,000 unit PO DAILY 11/22/18 12/09/20 History [Vitamin D3] fluticasone propionate [Flonase 2 spray INTRANASAL DAILY 11/22/18 12/09/20 History Allergy Relief] Eliquis 5 mg PO BID 06/27/20 12/09/20 History ipratropium bromide 2 spray INTRANASAL Q6H PRN PRN 06/27/20 12/09/20 History pramipexole 0.2 mg PO HS 06/27/20 12/09/20 History acetaminophen 1,000 mg PO TID 11/29/20 12/09/20 History lisinopril 5 mg PO DAILY 12/17/20 12/17/20 History Exam Narrative Exam Narrative: 143/82, 83, 36.2, 16, 97% RA. HEENT atraumatic, no tongue bleeding; neck supple; lungs clear; heart RRR w/o MRG; abdomen soft and NT; extremities w/o edema; neuro Ox3, nonfocal Results Labs Result diagrams: 12/17/20 21:10 12/17/20 21:10 Labs: Laboratory Results - last 24 hr 12/17/20 12/17/20 12/17/20 21:10 21:10 21:10 WBC 8.78 RBC 4.02 L Hgb 9.8 L Hct 32.2 L MCV 80.1 MCH 24.4 L MCHC 30.4 L RDW 20.9 H Plt Count 405 H MPV 8.3 Immature Gran % 0.8 Neutrophils % 78.1 Lymphocytes % 10.8 Monocytes % 8.2 Eosinophils % 1.6 Basophils % 0.5 Nucleated RBC % 0 Absolute Neutrophils 6.86 H Absolute Lymphocytes 0.95 L Absolute Monocytes 0.72 Absolute Eosinophils 0.14 Absolute Basophils 0.04 PT INR APTT Sodium 139 Potassium 4.2 Chloride 103 Carbon Dioxide 24.5 Anion Gap 11.5 H BUN 21 H Creatinine 1.6 H Estimated GFR/1.73 m2 42.95 Glucose 101 Calcium 9.8 Total Bilirubin 0.3 AST 38 H ALT 39 Alkaline Phosphatase 123 H Troponin I < 0.05 NT-Pro-B Natriuret Pep 425 H Total Protein 8.5 H Albumin 3.5 TSH 4.27 H Free T4 0.85 Urine Color Urine Clarity Urine pH Ur Specific [place] Urine Protein Urine Ketones Urine Blood Urine Nitrite Urine Bilirubin Urine Urobilinogen Ur Leukocyte Esterase Urine Glucose 12/17/20 12/17/20 21:10 21:10 WBC RBC Hgb Hct MCV MCH MCHC RDW Plt Count MPV Immature Gran % Neutrophils % Lymphocytes % Monocytes % Eosinophils % Basophils % Nucleated RBC % Absolute Neutrophils Absolute Lymphocytes Absolute Monocytes Absolute Eosinophils Absolute Basophils PT 11.1 H INR 1.1 APTT 28.1 H Sodium Potassium Chloride Carbon Dioxide Anion Gap BUN Creatinine Estimated GFR/1.73 m2 Glucose Calcium Total Bilirubin AST ALT Alkaline Phosphatase Troponin I NT-Pro-B Natriuret Pep Total Protein Albumin TSH Free T4 Urine Color Yellow Urine Clarity Sl cloudy Urine pH 6.0 Ur Specific [place] >= 1.030 H Urine Protein 30 H Urine Ketones 15 H Urine Blood Negative Urine Nitrite Negative Urine Bilirubin Negative Urine Urobilinogen 0.2 Ur Leukocyte Esterase Negative Urine Glucose Negative Last Vital Signs Temp 36.2 C L 12/17/20 20:40 Pulse 83 12/17/20 20:40 Resp 16 12/17/20 20:40 BP 143/82 H 12/17/20 20:40 Pulse Ox 97 12/17/20 20:40 COVID-19 Screening Have you, or household traveled for leisure in last 14 days?: No Had IN PERSON contact w/suspected or confirmed C-19 person: No
[2020-12-17 22:43] LABS: C & S Indicated? No; Casts 10-20 Hyaline LPF (Negative)
[2020-12-17 22:45] LABS: Epithelial Cells Negative HPF (Negative)
[2020-12-17 23:31] LABS: Source Nasal/Nares
[2020-12-18] VITALS (10 sets, daily range): BP systolic 118–189; BP diastolic 64–78; PULSE 57–97; RESP 12–17; TEMP 36.4–37; O2SAT 87–97
--- NOTE | 2020-12-18 | DI.MRI_ITS ---
EXAM: MR BRAIN WO CLINICAL HISTORY: syncope; r/o CVA TECHNIQUE: Multiplanar multisequence MRI of the brain was performed. COMPARISON: CT CT HEAD WO from 12/17/2020 FINDINGS: CEREBRAL PARENCHYMA: There is no evidence of intracranial hemorrhage, mass effect, or shift of midline structures. There are no extra-axial fluid collections. Ventricles are not enlarged or shifted. There is no significant focal signal abnormality in the cerebellar hemispheres nor within the ruchi, m idbrain, and thalami. There are multiple foci of periventricular and supraventricular signal abnormality consistent with ch ronic ischemic changes. However, none of these are associated with hemorrhage or surrounding edema n or abnormal signal on diffusion imaging. PITUITARY GLAND: No mass nor parasellar abnormality. No obvious abnormality in the cavernous sinuses. FLOW VOIDS: There is lack of normal signal void evident in both internal carotid arteries in the cave rnous sinuses. This may be related to there heavy calcification is seen on CT scan but cannot exclud e possibly that these arteries are occluded. PARANASAL SINUSES: The visualized paranasal sinuses appear unremarkable. No obvious finding ORBITS: No obvious findings. IMPRESSION: Multiple foci of periventricular signal abnormality consistent with chronic small vessel ischemic seq uelae. No evidence of intracranial hemorrhage nor acute territorial infarction. Possible occlusion of both internal carotid arteries. Recommend follow-up CT angiography of the head and neck. If this patient is not able to undergo contrast injection then alternatively brain MRA (w hich does not require IV contrast), neck MRA (which can be performed without IV contrast) and neck ca rotid ultrasound can be performed. DATA REPOSITORY:
[2020-12-18] MEDS: Acetaminophen 500 MG TAB 1000 MG PO (01:15)
[2020-12-18] MEDS: Melatonin 3 MG TAB PO (01:15)
[2020-12-18 01:56] LABS: Troponin I < 0.05 ng/mL (<0.06)
[2020-12-18 07:38] LABS: Troponin I < 0.05 ng/mL (<0.06)
[2020-12-18] MEDS: Lisinopril 5 MG TAB PO (08:37)
[2020-12-18] MEDS: Atorvastatin 40 MG TAB 80 MG PO (08:37)
[2020-12-18] MEDS: Amoxicillin 875/Clav. 125 TAB PO (08:37)
[2020-12-18] MEDS: DULoxetine 30 MG CAP 60 MG PO (08:37)
[2020-12-18] MEDS: Aspirin E.C. 81 MG TABEC PO (08:37)
[2020-12-18] MEDS: Apixaban 5 MG TAB PO (08:37)
[2020-12-18 10:07] LABS: COVID-19 PCR Negative (Negative)
--- NOTE | 2020-12-18 15:44 | PDOC.EEG_ITS ---
Neurology EEG EEG: [facility] Department of Neurology INPATIENT EEG REPORT Date of Recordin12/18/20 Interpreting Physician: Dr. Marnie Schreiber Reason for study: Mr. Katz is a 70year man with recent empyema who was admitted after an episode of LOC concerning for syncope vs seizure. Current Medications: Current Medications Acetaminophen (Acetaminophen 500 Mg Tab) 1,000 mg PO TID PRN PRN Last Admin: 12/18/20 01:15 Dose: 1,000 mg Documented by: Amoxicillin/Clavulanate Potassium (Amoxicillin 875/Clav. 125 Tab) 1 tab PO BID [facility] Last Admin: 12/18/20 08:37 Dose: 1 tab Documented by: Apixaban (Apixaban 5 Mg Tab) 5 mg PO BID [facility] Last Admin: 12/18/20 08:37 Dose: 5 mg Documented by: Aspirin (Aspirin E.C. 81 Mg Tabec) 81 mg PO DAILY [facility] Last Admin: 12/18/20 08:37 Dose: 81 mg Documented by: Atorvastatin Calcium (Atorvastatin 40 Mg Tab) 80 mg PO DAILY [facility] Last Admin: 12/18/20 08:37 Dose: 80 mg Documented by: Dimethicone/Zinc Oxide (Rei Protect Cream 142 Gm Tube) 0 gm TP PRN PRN Duloxetine HCl (Duloxetine 30 Mg Cap) 60 mg PO DAILY [facility] Last Admin: 12/18/20 08:37 Dose: 60 mg Documented by: Lisinopril (Lisinopril 5 Mg Tab) 5 mg PO DAILY [facility] Last Admin: 12/18/20 08:37 Dose: 5 mg Documented by: Melatonin (Melatonin 3 Mg Tab) 3 - 6 mg PO HS PRN PRN Last Admin: 12/18/20 01:15 Dose: 6 mg Documented by: Pramipexole Dihydrochloride (Pramipexole 0.5 Mg Tab) 0.2 mg PO HS [facility] METHODS: A 21 channel digitized electroencephalogram was performed in the [facility] Med/Surg Floor or ICU. The 10/20 international system of electrode placement was used and bipolar and referential electrode montages were recorded. In addition to EEG the patient was monitored for EKG and lateral/vertical eye movements. Activation procedures of photic stimulation and hyperventilation were performed if applicable. Video was used during activation procedures and during events where applicable. The duration of the recording was 30 minutes. DESCRIPTION OF EEG: The patient was noted to be awake and drowsy during the recording. During maximal wakefulness a 9-Hz posterior background rhythm was present which was well-modulated, symmetrical, reactive to eye opening, and of moderate voltage. With eye opening the background activity changed to a low voltage mixture of alpha, beta, and occasional theta range frequencies. Faster frequencies were present in the bilateral anterior head regions. There was a normal anterior- posterior voltage gradient. During drowsiness, there was attenuation of the posterior dominant background rhythm and vertex waves. No stage II sleep was recorded. Occasional F7/T3 sharps, but these are not considered epileptogenic. Activating Procedures: Photic stimulation was performed which produced a symmetrical posterior driving response at various flash frequencies. Hyperventilation was not performed. EKG: EKG revealed normal sinus rhythm. INTERPRETATION: This EEG is normal during the awake and drowsy states as well as during photic stimulation. PRIOR EEG: none CLINICAL CORRELATION: No focal regions of cerebral dysfunction or epileptiform activity was present. Epilepsy remains a clinical diagnosis and a normal EEG does not rule out epilepsy. Clinical correlation is advised. Marnie Schreiber MD
--- NOTE | 2020-12-18 16:51 | PDOC.CMIN ---
- If Service Date Differs Date of service: 12/18/20 Time of Service: 16:51 Care Management Initial Assess REASON FOR HOSPITALIZATION:: Syncope PAST MEDICAL HISTORY/PAST SURGICAL HISTORY:: Abdominal aortic aneurysm. [facility] [place]: 4.3 x 4.2 cm infra-renal AAA. AAA max. diam: 4.0cm ([facility] [place]). 10/2015: infra-renal AAA max.4.3cm: stable ([facility] [place]). mri : 3.5 cm. BPH without urinary obstruction. Carotid stenosis. Chronic pain disorder (04/15/12). CONTRACT / (urine:03/17). COPD (chronic obstructive pulmonary disease). Depressive disorder. Essential hypertension (06/01/13). echocardiogram normal . Femur fracture. GERD (gastroesophageal reflux disease). Helicobacter pylori gastritis (chronic gastritis) (11/23/14). positive gastroscopy : treated. Hypercholesterolemia. Left rotator cuff tear arthropathy. Lung blebs. Male sexual dysfunction. Mass of upper lobe of left lung. 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 Nasal bone fracture. Nonhealing nonsurgical wound. Due to injury. Right nicholson - Vascular wound. Obstructive sleep apnea (04/07/15). CPAP failure; : Adaptive sevo ventilation (ASV). :repeated study; mostly severe central sleep apnea without sign.hypoxemia/very frequent muscle fasciculations of ? etiology:consider Neuro.referral. Osteoarthritis of right knee. Peripheral artery insufficiency. [facility] [place]; 2011:left superficial femoral artery stent. [facility] [place] : left SFA in stent stenosis: angioplasty. Fup q 6 months on going. [facility] [place] progression of disease;right popliteal stent graft occluded; pain right calf post 50ft walk. Pneumothorax on right (09/23/16). 2000 first time. Right rotator cuff tear arthropathy. Right shoulder pain. Rotator cuff tear arthropathy of both shoulders. Tear of left rotator cuff (09/06/15). DOS: 09/22/18. Injection: 03/01/2019. Tear of right rotator cuff (09/06/15). Injection: 03/01/2019. Tibia fracture. Varicose veins of bilateral lower extremities with pain. Venous stasis ulcers. recurrent/ 2008. Viral hepatitis C. chronic/ Treatment Interferon:successfull/ [facility] [place]. EGD - MAC. femoral stent. X2 most recent 2016. History of left-sided carotid endarterectomy (04/02/18). [facility] [place] / in surgery bleeding from parotid gland: electrocautery/. open reduction tib/fib. ORIF femur. right chest tube placement under local (09/23/16). 1999. Spinal Fusion. 11/13/17 ANA LILIA HIGHTOWER GIOVANNI. Status post arthroscopy of left shoulder. DOS: 09/22/18. Injection: 03/01/2019. Repair of subscapularis with extensive debridement of superior cuff. Biceps tenotomy; acromioplasty. Dr. Webb. Status post lumbar discectomy. 2000 : right discectomy L5-S1 + L4-L5 decompression (right). 2013 : right L4-L5 decompression. L5-S1 facetectomy; PREVIOUS FUNCTIONAL STATUS/SOCIAL/FAMILY SUPPORTS:: Ernesto is a 70 yo male who lives with his , Mela in a 2 story home in [place]. 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 Independent with all ADLs and does not have any services in place. CURRENT FUNCTIONAL STATUS:: Ernesto is lying in bed in the ICU, pleasant in interaction. ADVANCE DIRECTIVES:: [facility] on file--, Mela is identified as agent. Has patient been provided with info about the portal/API?: Yes Did the patient sign up for the portal?: Yes (Previously) CODE STATUS:: Full Code INSURANCE COVERAGE / FINANCIAL ISSUES:: Medicare, BCBS CURRENT HOME/COMMUNITY SERVICES/EQUIPMENT:: Patient is independent with ADLs, does not use any assistive equipment for ambulation and does not have any services in place. Does use a CPAP device from [employer]. PRIMARY CARE PHYSICIAN:: Mando Rodriguez POTENTIAL DISCHARGE NEEDS:: Follow up appointments. PATIENT/FAMILY EDUCATION NEEDS:: Review discharge instructions, discuss Ask Me Three. ANTICIPATED BARRIERS TO DISCHARGE:: None identified. TRANSPORTATION:: Discharge home via private car with spouse at time of discharge. PLAN:: Ernesto will be discharged home when medically ready per provider. CM to continue to assess for discharge needs and disposition.
--- NOTE | 2020-12-18 18:10 | W.PM.DS.N ---
Date of service: 12/18/20 Time of Service: 18:10 DS: Diagnosis Discharge Diagnosis (1) Syncope: Status: Chronic Discharge Plan Disposition Patient Disposition: HOME Condition: Improving Discharge Details Reason For Visit: SYNCOPE Admit Date/Time: 12/17/20 22:56 Admit Provider: Trev Fox Attending Provider: Trev Fox Primary Care Provider: Mando Rodriguez [facility] Course Hospital Course: 70-year-old male recently discharged from [facility] following placement of a chest tube for pneumothorax that became complicated by empyema. Patient was discharged home with a pleural catheter left in place along with outpatient antibiotics presented to the hospital after a syncopal spell. This was witnessed by his which she was sitting at the table at supper and slumped over. His witnessed some shaking movement of his limbs but there was no biting of his tongue and no urinary or bladder incontinence. He has no known history of seizures. Apparently has had problems with orthostatic hypotension and his PCP had been adjusting his blood pressure medications. Work-up in the ER included routine labs EKG troponin levels and a CT scan of his head. CBC was remarkable for stable chronic anemia with a hemoglobin 9.8 g. White cell count was normal at 8700. CMP was remarkable for some mild prerenal azotemia with a BUN of 21 creatinine 1.6 with normal LFTs and normal troponin I levels. proBNP was mildly elevated at 425 but within his age-adjusted normal limits. TSH was mildly elevated at 4.27 with a normal free T4 0.85. Coagulation studies showed mildly elevated pro time 11.1 with a normal INR 1.1 and an activated PTT of 20.1. Urinalysis is remarkable for mild proteinuria with 30 mg/dL protein and 50 mg/dL ketones. CT showed a small lacunar infarct in left caudate measuring 3 mm as well as a 4 mm nonhemorrhagic lacunar infarct in the right supraventricular white matter. There is no hemorrhage and no acute infarct. Chest x-ray showed normal-sized heart with a large hiatal hernia. Patient underwent an MRI scan the next morning that showed multiple foci periventricular signal abnormality consistent with chronic small vessel ischemic sequela I but no evidence of intracranial hemorrhage and no acute territorial infarction. Possibility of occlusion of both internal carotid arteries is noted and recommend follow-up CT angiography of the head neck versus MRI was recommended. I reviewed these findings with both the patient's and the patient. Apparently he has known bilateral carotid artery disease and is followed by vascular surgeon at [facility]. The patient did well overnight with IV fluid hydration had no further orthostatic symptoms and no further syncopal spells. Cardiac monitoring overnight showed no arrhythmias. Patient was desiring to return home and as the patient was having no further symptoms of syncope or near syncope and no hypotension was felt that he could be discharged and closely managed by his primary care provider. It is recommended he get a follow-up MRA of the neck and brain looking for any new stenoses and that he follow-up with his vascular surgeon at [facility]. Furthermore it is recommended he have a outpatient desk monitor to rule out any arrhythmic cause for his syncope however it is fairly certain that his syncopal spells are related to his blood pressure. MRA of the cervical vessels and the brain were ordered however this may need to be preauthorized through your PCP. 30-day cardiac event recorder was also ordered. Home Meds and New Rx's Prescriptions: Continued atorvastatin 80 MG tablet 80 mg PO DAILY Qty: 90 RF: 4 aspirin [Aspir-81] 81 MG tablet,delayed release (DR/EC) 81 mg PO DAILY RF: 0 duloxetine [Cymbalta] 60 mg capsule,delayed release(DR/EC) 60 mg PO DAILY 90 Days Qty: 90 RF: 3 [place]-3 350 mg-235 mg- 90 mg-597 mg Capsule,Delayed Release(Dr/Ec) 1 tab PO DAILY RF: 0 ipratropium bromide 0.03 % [place],Non-Aerosol 2 spray INTRANASAL Q6H PRN PRNRF: 0 Eliquis 5 mg tablet 5 mg PO BID RF: 0 pramipexole 0.5 mg tablet 0.2 mg PO HS RF: 0 lisinopril 5 mg Tablet 5 mg PO DAILY RF: 0 amoxicillin-pot clavulanate [Augmentin] 875-125 mg Tablet 1 tab PO BID RF: 0 fluticasone propionate [Flonase Allergy Relief] 50 mcg/actuation [place],Suspension 2 spray Intranasal DAILY RF: 0 cholecalciferol (vitamin D3) [Vitamin D3] 5,000 unit Tablet 5,000 unit PO DAILY RF: 0 acetaminophen 500 mg capsule 1,000 mg PO TID RF: 0 Discharge Instructions Instructions: Syncope (DC), Hypotension (DC) Additional Instructions: Your goal for your blood pressure while sitting should be no lower than 140 mm systolic. Work w/ your PCP to adjust your bp meds to maintain reasonable blood pressure control. An acceptable range would be 140 to 160 mm. You do not want low blood pressure readings while standing or sitting. Monitor your blood pressure before your medications and take your blood pressure while lying and again after sitting for 2 minutes and again after standing for 2 minutes. You should avoid large drops in your blood pressure. A cardiac event recorder has been ordered to monitor your heart rhythm to see if any arrhythmias are occurring when you have syncope or near syncope spells. An MRA of the brain and neck vessels has been ordered. However, this may need prior authorization from your primary care provider. This is being ordered to follow up on the severity of your carotid stenosis. Bilateral carotid stenosis can reduce blood flow to the brain and sudden drops in blood pressure can lead to decrease blood flow to the brain leading to syncope (passing out). Avoid smoking. Continue your Eliquis and aspirin and atorvastatin. Make a follow up with your vascular surgeon to review your MRI/MRA studies. Stand Alone Forms: Nursing Discharge Form Referrals: Mando Rodriguez [Primary Care Provider] - (call the office for follow up within a week) Activity:: Activity as Tolerated Equipment/Supplies:: No Equipment Needed Diet:: Normal Diet Discharge Orders Discharge Orders: Discharge Order (Routine); Ordered 12/18/20 Ordered By: Merrick Arriola Other Ambulatory Orders: Cardiac Event Recorder (Routine) Timeframe: 1 Day Facility: [facility] - Location: Respiratory Therapy Ordered By: Merrick Arriola MR angio brain wo (Routine) Timeframe: 1 Week Facility: [facility] - Location: DIAGNOSTIC IMAGING DEPT Ordered By: Merrick Arriola MR angio neck wo (Routine) Timeframe: 1 Week Facility: [facility] - Location: DIAGNOSTIC IMAGING DEPT Ordered By: Merrick Arriola Discharge Data Discharge Date/Time-TO BE ENTERED AT DEPARTURE: 12/18/20 18:41 DS: Summary Time Spent with Patient providing and/or coordinating discharge services: Less than 30 minutes Status at Discharge Functional status at discharge: independent ambulation Overall status at discharge: patient is back to baseline Mental Status: mental status grossly normal Speech and Movement: speech and movement normal Mood: congruent mood Affect: normal affect Exam Narrative Exam Narrative: Patient sitting up at the bedside this afternoon dressed with his desk monitor off awaiting to be discharged. He is alert and oriented person place time circumstance. He has no dizziness and no symptoms. Psych Mental Status: mental status grossly normal Speech and Movement: speech and movement normal Mood: congruent mood Affect: normal affect DS: Data Vitals/I&O Vitals and I&O: Vital Signs Temperature 36.4 C L 12/18/20 15:21 Temperature Source Tympanic 12/18/20 15:21 Pulse 79 12/18/20 15:21 Pulse Rhythm Regular 12/18/20 09:44 Pulse 76 12/18/20 00:10 Respiratory Rate 16 12/18/20 15:21 Respiratory Effort Non-Labored 12/18/20 09:44 Respiratory Depth Normal 12/18/20 09:44 Respiratory Pattern Normal 12/18/20 09:44 Blood Pressure 187/78 H 12/18/20 15:21 Blood Pressure Mean 75 12/18/20 00:00 Blood Pressure Position Sitting 12/17/20 20:40 Pulse Oximetry 97 12/18/20 15:21 Oxygen Delivery Method Room Air 12/18/20 15:21 Oxygen Flow Rate 0 12/18/20 15:21 Pain Level 0 12/18/20 15:21 Comment 12/18/20 01:55 Intake & Output 12/17/20 12/18/20 12/18/20 23:59 11:59 23:59 Intake Total 500 / 500 740 / 990 250 / 990 Output Total 610 / 610 Balance 500 / 500 130 / 380 250 / 380 Weight 84.2 kg Intake: IV 500 / 500 Oral 740 / 990 250 / 990 Output: Drainage 10 / 10 Left Lateral 10 / 10 Urine 600 / 600 Other: Urine Color Yellow Urine Appearance Clear Voiding Methods Urinal Data Completed and Pending Labs on day of discharge: Labs from last 24 hours 12/18/20 12/18/20 12/17/20 07:07 01:27 23:25 WBC RBC Hgb Hct MCV MCH MCHC RDW Plt Count MPV Immature Gran % Neutrophils % Lymphocytes % Monocytes % Eosinophils % Basophils % Nucleated RBC % Absolute Neutrophils Absolute Lymphocytes Absolute Monocytes Absolute Eosinophils Absolute Basophils PT INR APTT Sodium Potassium Chloride Carbon Dioxide Anion Gap BUN Creatinine Estimated GFR/1.73 m2 Glucose Calcium Total Bilirubin AST ALT Alkaline Phosphatase Troponin I < 0.05 < 0.05 NT-Pro-B Natriuret Pep Total Protein Albumin TSH Free T4 Urine Color Urine Clarity Urine pH Ur Specific [place] Urine Protein Urine Ketones Urine Blood Urine Nitrite Urine Bilirubin Urine Urobilinogen Ur Leukocyte Esterase Urine RBC Urine WBC Ur Epithelial Cells Urine Crystals Urine Bacteria Urine Casts Urine Mucus Urine Other Ur Culture Indicated? Urine Glucose COVID-19 Source Nasal/nares SARS-CoV-2 (PCR) Negative 12/17/20 12/17/20 12/17/20 21:10 21:10 21:10 WBC 8.78 RBC 4.02 L Hgb 9.8 L Hct 32.2 L MCV 80.1 MCH 24.4 L MCHC 30.4 L RDW 20.9 H Plt Count 405 H MPV 8.3 Immature Gran % 0.8 Neutrophils % 78.1 Lymphocytes % 10.8 Monocytes % 8.2 Eosinophils % 1.6 Basophils % 0.5 Nucleated RBC % 0 Absolute Neutrophils 6.86 H Absolute Lymphocytes 0.95 L Absolute Monocytes 0.72 Absolute Eosinophils 0.14 Absolute Basophils 0.04 PT 11.1 H INR 1.1 APTT 28.1 H Sodium Potassium Chloride Carbon Dioxide Anion Gap BUN Creatinine Estimated GFR/1.73 m2 Glucose Calcium Total Bilirubin AST ALT Alkaline Phosphatase Troponin I NT-Pro-B Natriuret Pep Total Protein Albumin TSH Free T4 Urine Color Yellow Urine Clarity Sl cloudy Urine pH 6.0 Ur Specific [place] >= 1.030 H Urine Protein 30 H Urine Ketones 15 H Urine Blood Negative Urine Nitrite Negative Urine Bilirubin Negative Urine Urobilinogen 0.2 Ur Leukocyte Esterase Negative Urine RBC 3-5 H Urine WBC 0-2 Ur Epithelial Cells Negative Urine Crystals Rare calcium oxalate Urine Bacteria Few Urine Casts 10-20 hyaline Urine Mucus Negative Urine Other Rare transitional Ur Culture Indicated? No Urine Glucose Negative COVID-19 Source SARS-CoV-2 (PCR) 12/17/20 12/17/20 21:10 21:10 WBC RBC Hgb Hct MCV MCH MCHC RDW Plt Count MPV Immature Gran % Neutrophils % Lymphocytes % Monocytes % Eosinophils % Basophils % Nucleated RBC % Absolute Neutrophils Absolute Lymphocytes Absolute Monocytes Absolute Eosinophils Absolute Basophils PT INR APTT Sodium 139 Potassium 4.2 Chloride 103 Carbon Dioxide 24.5 Anion Gap 11.5 H BUN 21 H Creatinine 1.6 H Estimated GFR/1.73 m2 42.95 Glucose 101 Calcium 9.8 Total Bilirubin 0.3 AST 38 H ALT 39 Alkaline Phosphatase 123 H Troponin I < 0.05 NT-Pro-B Natriuret Pep 425 H Total Protein 8.5 H Albumin 3.5 TSH 4.27 H Free T4 0.85 Urine Color Urine Clarity Urine pH Ur Specific [place] Urine Protein Urine Ketones Urine Blood Urine Nitrite Urine Bilirubin Urine Urobilinogen Ur Leukocyte Esterase Urine RBC Urine WBC Ur Epithelial Cells Urine Crystals Urine Bacteria Urine Casts Urine Mucus Urine Other Ur Culture Indicated? Urine Glucose COVID-19 Source SARS-CoV-2 (PCR) [facility] Medical History (Updated 12/18/20 @ 17:59 by Merrick Arriola) Abdominal aortic aneurysm [facility]: 4.3 x 4.2 cm infra-renal AAA AAA max. diam: 4.0cm ([facility]) 10/2015: infra-renal AAA max.4.3cm: stable ([facility]) mri : 3.5 cm BPH without urinary obstruction Carotid stenosis Chronic pain disorder (04/15/12) CONTRACT / (urine:03/17) COPD (chronic obstructive pulmonary disease) Depressive disorder Essential hypertension (06/01/13) echocardiogram normal Femur fracture GERD (gastroesophageal reflux disease) Helicobacter pylori gastritis (chronic gastritis) (11/23/14) positive gastroscopy : treated Hypercholesterolemia Left rotator cuff tear arthropathy Lung blebs Male sexual dysfunction 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 etiology:consider Neuro.referral Osteoarthritis of right knee Peripheral artery insufficiency [facility]; 2011:left superficial femoral artery stent [facility] : left SFA in stent stenosis: angioplasty Fup q 6 months on going [facility] progression of disease;right popliteal stent graft occluded; pain right calf post 50ft walk Pneumothorax on right (09/23/16) 2000 first time Right rotator cuff tear arthropathy Right shoulder pain Rotator cuff tear arthropathy of both shoulders Tear of left rotator cuff (09/06/15) DOS: 09/22/18 Injection: 03/01/2019 Tear of right rotator cuff (09/06/15) Injection: 03/01/2019 Tibia fracture Varicose veins of bilateral lower extremities with pain Venous stasis ulcers recurrent/ 2008 - 2011 Viral hepatitis C chronic/ Treatment Interferon:successfull/ [facility] Surgical History EGD - MAC femoral stent X2 most recent 2016 History of left-sided carotid endarterectomy (04/02/18) [facility] / in surgery bleeding from parotid gland: electrocautery/ open reduction tib/fib ORIF femur right chest tube placement under local (09/23/16) 1999 Spinal Fusion 11/13/17 ANA LILIA HIGHTOWER DAY Status post arthroscopy of left shoulder DOS: 09/22/18 Injection: 03/01/2019 Repair of subscapularis with extensive debridement of superior cuff Biceps tenotomy; acromioplasty Dr. Webb Status post lumbar discectomy 2000 : right discectomy L5-S1 + L4-L5 decompression (right) 2013 : right L4-L5 decompression -2017 L5-S1 facetectomy; Family History Mother Diabetes Essential hypertension Depression Heart disease Neoplasm BREAST Father Neoplasm HODGKINS DISEASE Sister No problems noted. Sister Neoplasm BREAST Stroke Sister Neoplasm LUNG Brother Neoplasm LUNG Grandfather Diabetes Essential hypertension Heart disease Hyperlipidemia Stroke Grandfather No problems noted. Grandmother No problems noted. Grandmother No problems noted. Social History Smoking/Tobacco Use Status: Never Smoking risk assessment performed?: Yes Alcohol Intake: current Alcohol Intake frequency: a few times a week Alcohol type: beer Drug use: Never Substance use type: does not use Current gender identity: male Do you feel safe at home: Yes Do you feel safe in your relationship?: Yes
--- NOTE | 2021-01-18 08:42 | W.CARDEVENT ---
Date of service: 01/18/21 Time of Service: 08:42 Cardiac Event Recorder Referring Provider:: Yuni Indications:: Syncope Cardiac Event Note: This is a 30-day event recorder order for indication of syncope. ?The patient was in normal sinus rhythm for the majority of the recording with an average heart rate of 86 bpm. ?There was 1 episode of NSVT lasting 4 beats. This was asymptomatic. ?There were 3 patient triggered events all associated with sinus rhythm. ?There are no episodes of atrial fibrillation, no pauses greater than 3 seconds no evidence of high degree heart block.
== END 2020-12-18 18:41 | disposition home or self-care (01) ==
LOC: ER 23:37 → MS 12-18 00:35
PROVIDERS: Admitting Provider General Practice; Emergency Provider Student in an Organized Health Care Education/Training Program; PCP Family Medicine; Visit Provider General Practice
DX: R55 Syncope and collapse (principal); I65.29 Occlusion and stenosis of unspecified carotid artery; Z20.822 Contact with and (suspected) exposure to COVID-19; N40.0 Benign prostatic hyperplasia without lower urinary tract symptoms; G89.29 Other chronic pain; F32.9 Major depressive disorder, single episode, unspecified; I10 Essential (primary) hypertension; K21.9 Gastro-esophageal reflux disease without esophagitis; E78.00 Pure hypercholesterolemia, unspecified; F11.20 Opioid dependence, uncomplicated; G47.33 Obstructive sleep apnea (adult) (pediatric); M17.11 Unilateral primary osteoarthritis, right knee; I73.89 Other specified peripheral vascular diseases; Z86.19 Personal history of other infectious and parasitic diseases; I83.813 Varicose veins of bilateral lower extremities with pain
CPT/HCPCS: 36415; 80053; 87635; 93005; 93270; 96360; 99222; 99238; 99285; 70450; 70551; 71045; 81003; 81015; 83880; 84439; 84443; 84484; 85025; 85610; 85730; 93010; 95816; 99217; 99219

== ENCOUNTER 2020-12-25 16:01 | Outpatient (REF) | payer BC, SELFPAY ==
[2020-12-25 17:14] LABS: ALT 28 U/L (16-63); AST 38 U/L (15-37); Albumin 3.8 g/dL (3.4-5.0); Alkaline Phosphatase 150 U/L (46-116); Anion Gap 10.9 mmol/L (3-11); BUN 29 mg/dL (7-18); Bilirubin, Total 0.5 mg/dL (0.2-1.0); CO2 25.1 mmol/L (21.0-32.0); CREATININE 1.1 mg/dL (0.70-1.30); Calcium 9.9 mg/dL (8.5-10.1); Chloride 105 mmol/L (98-107); Glucose 88 mg/dL (74-106); Potassium 4.8 mmol/L (3.5-5.1); Sodium 141 mmol/L (136-145); Total Protein 7.7 g/dL (6.4-8.2)
== END 2020-12-25 16:02 | disposition home or self-care (01) ==
LOC: NCHCN 16:01
PROVIDERS: PCP Family Medicine; Visit Provider Family Medicine
DX: N28.9 Disorder of kidney and ureter, unspecified (principal)
CPT/HCPCS: 80053

== ENCOUNTER 2020-12-29 03:59 | Outpatient (CLI) | payer BC, SELFPAY ==
--- NOTE | 2020-12-29 13:01 | DI.RAD_ITS ---
Exam(s) XR LUMBAR SPINE COMPLETE EXAM: XR LUMBAR SPINE COMPLETE CLINICAL HISTORY: BILAT LEG WEAKNESS,R29.898. TECHNIQUE: 2D digital imaging was performed. COMPARISON: No exams were available for comparison FINDINGS: There are 5 lumbar type vertebral bodies. No spondylolysis or spondylolisthesis. At all levels of t he lumbar spine there is disc space narrowing, subchondral sclerosis and osteophytes. Facet arthropa thy is present throughout the lumbar spine. No acute fractures or subluxations. There is a distal a bdominal aortic aneurysm at least 5.5 cm in diameter. This appears to have increased in size compare d to the CT scan of the abdomen and pelvis from 12/24/2017. Abdominal ultrasound or CT scan should be considered for further evaluation. L5-S1 spinal surgery is noted. IMPRESSION: 1. Marked degenerative changes in the lumbar spine. 2. Interval increase in size of the abdominal aortic aneurysm which now measures at least 5.5 cm. DATA REPOSITORY: RADIATION DOSE DELIVERED:
== END 2020-12-29 04:19 ==
PROVIDERS: PCP Family Medicine; Visit Provider Physician Assistant
DX: R29.898 Other symptoms and signs involving the musculoskeletal system (principal); M51.16 Intervertebral disc disorders with radiculopathy, lumbar region; I71.4 Abdominal aortic aneurysm, without rupture
CPT/HCPCS: 72110

== ENCOUNTER 2021-03-19 11:41 | Emergency (ER) | payer BC, SELFPAY ==
[2021-03-19] VITALS (33 sets, daily range): BP systolic 161–232; BP diastolic 68–119; PULSE 80–97; RESP 11–25; TEMP 36.4–36.6; O2SAT 95–99
--- NOTE | 2021-03-19 12:15 | RT.EKG_ITS ---
APPROVED REPORT Exam: Resting ECG Reason for Exam: chest pain, back pain Patient Location: E HR:84 bpm ECG Measurements Heart Rate 84 AXIS NM 160 P 29 QRSd 100 QRS 8 QT 373 T 34 QTc 441 Conclusion Sinus rhythm...normal P axis, V-rate 60- 99 Probable left atrial enlargement...P >50mS, <-0.10mV V1 Left ventricular hypertrophy...multiple LVH criteria ST elevation, consider anterior injury...ST >0.15mV, V1-V5 I have reviewed and interpreted ECG and agree with software generated interpretation.
[2021-03-19 13:00] LABS: Abs Immature Grans 0.01 10^3/uL (0.0-0.06); Absolute Basophil Count 0.02 10^3/uL (0.0-0.2); Absolute Eosinophil Count 0.21 10^3/uL (0.0-0.7); Absolute Lymphocyte Count 1.38 10^3/uL (1.2-3.4); Absolute Monocyte Count 0.75 10^3/uL (0.1-0.8); Absolute Neutrophil Count 4.49 10^3/uL (1.2-6.7); Basophils % 0.3; Eosinophils % 3.1; HCT 41.9 % (40.0-50.0); HGB 13.9 g/dL (13.5-17.5); Immature Grans % 0.1; Lymphocytes % 20.1; MCH 29.8 pg (27.0-33.0); MCHC 33.2 % (32.0-36.0); MCV 89.9 fL (80-95); MPV 8.8 fL (8.0-11.0); Monocytes % 10.9; Neutrophils % 65.5; Nucleated RBC 0 %; Platelet Count 316 10^3/uL (130-400); RBC 4.66 10^6/uL (4.36-5.78); RDW 16.9 % (11.8-14.1); WBC 6.86 10^3/uL (4.4-10.8)
--- NOTE | 2021-03-19 13:00 | DI.CT_ITS ---
Exam(s) CT CHEST/ABD/PEL W EXAM: CT CHEST/ABD/PEL W CLINICAL HISTORY: thorax pain post fall on eliquis. TECHNIQUE: Imaging Protocol: Axial computed tomography images with coronal and sagittal reformatted images were created and reviewed CONTRAST MATERIAL: Intravenous: Omnipaque 350 Contrast volume:100 ml Oral: None COMPARISON: CT ABD PELVIS WITH CONTRAST from 12/24/2017 CR XR PORTABLE CHEST AP from 03/19/2021 CR XR PORTABLE CHEST AP from 03/19/2021 FINDINGS: CHEST: LUNGS: There is infiltrates extending from the left suprahilar region out to pleural surface. No oth er significant left lung findings. No pleural effusions. No pneumothorax in this patient who has bi lateral rib fractures. Large hiatal hernia noted. In the opposite-right lung there is a calcified granuloma in the anterior some scarring laterally in the right middle lobe. No significant right lower lobe findings. No pleural effusions. No pneumoth orax. Segment of the right upper lobe evident. MEDIASTINUM: There are calcified lymph nodes in both hilar regions as well is in the subcarinal regio n. Also in the pre tracheal region and visualized thyroid unremarkable. CARDIAC: Heart size is normal. There is no pericardial effusion.Huge retrocardiac hiatal hernia. In deed, most the stomach is in the chest the exception of pyloric canal. Caliber of the thoracic aorta is within normal limits. No dissection. OSSEOUS: There is a healed fracture of the right 6th and 7th and 8th ribs. Fracture line still evide nt in the right 9th rib although with some healing. In the opposite-left rib cage there is a a subac jorge appearing 8th rib fracture posteriorly. And 9th rib fracture posteriorly healed fracture of the right 11th rib.. ABDOMEN: There is no ascites. LIVER: There is a benign cyst in the left hepatic lobe which measures 1.4 by 1.2 cm. This is unchang ed from the prior study of 12/24/2017. No new focal hepatic findings. No evidence of a patent nor s plenic laceration. No renal trauma evident GALLBLADDER/BILIARY: No obvious gallbladder pathology. CBD is not dilated. PANCREAS: No evidence of pancreatic mass nor dilatation of the pancreatic duct. SPLEEN: Spleen is not enlarged. There are no intrasplenic lesions. Splenic and portal veins are ruelas nt. ADRENALS: There are no significant adrenal masses. KIDNEYS: There is a benign exophytic 2.3 centimeter diameter cyst off the lateral cortex of the left kidney. No other focal left kidney findings. There is cyst on the anterior aspect of the right kidn ey measuring 1.3 cm, previous present. No new solid lesions in the kidneys. No calculi nor hydronep hrosis. Para ABDOMINAL AORTA: Abdominal aorta is heavily calcified and there is infrarenal aneurysm with maximum d iameter 5.4 cm. No leak at this time. Common iliac arteries are heavily calcified but not significa ntly dilated. LYMPH NODES: There is no retroperitoneal nor paraaortic adenopathy. ABDOMINAL WALL: No evidence of significant anterior abdominal wall hernia. There is no inguinal rolf ia. GI: Colon is collapsed at and distal to the splenic flexure and difficult to evaluate. There is no e vidence of small-bowel obstruction. PELVIS: LYMPH NODES: There is no intrapelvic nor inguinal adenopathy. GI: No evidence of appendicitis.No evidence of sigmoid diverticulitis.Indeed, the sigmoid appears juan ewhat tubelike with absent haustra. URINARY BLADDER: No calculi nor masses evident REPRODUCTIVE: Calcifications are noted in the central prostate. The prostate size is upper normal. OSSEOUS: In lateral left-sided fusion hardware left-sided intra pedicular screw is noted 2 successive levels L5 and S1. No lytic osseous lesions identified. IMPRESSION: 1. Left upper lobe infiltrate extending from the hilum out to the pleural surface. Possible neoplasm . No acute lung contusion evident and no pleural effusions. 2. Bilateral rib fractures, those on the right side having nonacute on the left side there are more a cute appearing fractures of the 8th and 9th ribs. There is no pneumothorax. No pleural effusion. 3. No significant trauma in the abdomen and pelvis. No ascites. 4. No obvious fractures RADIATION DOSE DELIVERED: Total DLP DATA REPOSITORY: All CT scans at this facility are submitted to the National Radiology Data Registry (NRDR) Dose Index Registry (DIR) with the [employer] (A[employer]). RADIATION OPTIMIZATION: All CT scans at this facility use at least one of these dose optimization te chniques: automated exposure control; mA and/or kV adjustment per patient size (includes targeted exa ms where dose is matched to clinical indication); or iterative reconstruction.
--- NOTE | 2021-03-19 13:05 | DI.RAD_ITS ---
Exam(s) XR PORTABLE CHEST AP EXAM: XR PORTABLE CHEST AP CLINICAL HISTORY: chest pain, recent fall, shortness of breath, pneu. TECHNIQUE: 2D digital imaging was performed. COMPARISON: CR,XR XR CHEST 1V IN DI DEPT from 12/17/2020 FINDINGS: Heart size is unchanged. The mediastinum is unchanged. Large retrocardiac hiatal hernia is again no rama. Scoliosis in the thoracolumbar spine again noted. There are multiple healed right-sided rib fracture s again noted. No new right lung findings. Previously present pigtail drainage catheter in the left pleural space is been removed. There is juan e blunting left costophrenic angle indicating small left pleural effusion remaining. There is no pne umothorax. IMPRESSION: Pleural drainage catheter is been removed. Size of left pleural effusion is decreased but not comple tely resolved. Large hiatal hernia again noted. DATA REPOSITORY: RADIATION DOSE DELIVERED: All CT scans at this facility use at least one of these dose optimization techniques: automated exposure control; mA and/or kV adjustment per patient size (includes targeted e xams where dose is matched to clinical indication); or iterative reconstruction.
[2021-03-19 13:09] LABS: Lipase 112 U/L (73-393)
--- NOTE | 2021-03-19 13:10 | DI.CT_ITS ---
Exam(s) CT THORACIC SPINE RECONS EXAM: CT THORACIC SPINE RECONS CLINICAL HISTORY: fall with back pain. TECHNIQUE: Imaging Protocol: Axial computed tomography images with coronal and sagittal reformatted images were created and reviewed. CONTRAST MATERIAL: Intravenous: Omnipaque 350 Contrast volume:structured data in ml Contrast route:I V - Oral: yes / no COMPARISON: CT ABD PELVIS WITH CONTRAST from 12/24/2017 FINDINGS: Osseous: No acute fractures evident. Multilevel degenerative changes. No listhesis. No acute compr omise of the spinal canal. Mild bidirectional scoliosis noted.. IMPRESSION: Chronic degenerative changes but no obvious acute fracture nor acute compromise of the thoracic spina l canal. RADIATION DOSE DELIVERED: Total DLP DATA REPOSITORY: All CT scans at this facility are submitted to the National Radiology Data Registry (NRDR) Dose Index Registry (DIR) with the [employer] (A[employer]). RADIATION OPTIMIZATION: All CT scans at this facility use at least one of these dose optimization te chniques: automated exposure control; mA and/or kV adjustment per patient size (includes targeted exa ms where dose is matched to clinical indication); or iterative reconstruction.
[2021-03-19 13:17] LABS: ALT 36 U/L (16-63); AST 32 U/L (15-37); Albumin 3.9 g/dL (3.4-5.0); Alkaline Phosphatase 228 U/L (46-116); Anion Gap 7.9 mmol/L (3-11); BUN 25 mg/dL (7-18); Bilirubin, Total 0.3 mg/dL (0.2-1.0); CO2 28.1 mmol/L (21.0-32.0); Calcium 9.9 mg/dL (8.5-10.1); Chloride 106 mmol/L (98-107); Glucose 112 mg/dL (74-106); Magnesium 2.4 mg/dL (1.8-2.4); Potassium 4.2 mmol/L (3.5-5.1); Sodium 142 mmol/L (136-145); Total Protein 8.3 g/dL (6.4-8.2); Troponin I < 0.05 ng/mL (<0.06)
--- NOTE | 2021-03-19 13:47 | ED.GENADUL_ITS ---
Discharge Plan Disposition Patient Disposition: HOME Condition: Stable Discharge Details Clinical Impression: Essential hypertension, Fracture of rib, Lung mass Primary Care Provider: Mando Rodriguez ED Provider: Windy Meraz Home Meds and New Rx's Prescriptions: New doxycycline hyclate 100 mg tablet 100 mg PO BID Qty: 14 RF: 0 oxycodone-acetaminophen [Percocet] 5-325 mg tablet 1 tab PO Q8H PRNQty: 7 RF: 0 lidocaine [Lidoderm] 5 % adhesive patch,medicated 1 patch topical DAILY Qty: 15 RF: 0 lisinopril 5 mg tablet 5 mg PO DAILY Qty: 14 RF: 0 Continued atorvastatin 80 MG tablet 80 mg PO DAILY Qty: 90 RF: 4 aspirin [Aspir-81] 81 MG tablet,delayed release (DR/EC) 81 mg PO DAILY RF: 0 duloxetine [Cymbalta] 60 mg capsule,delayed release(DR/EC) 60 mg PO DAILY 90 Days Qty: 90 RF: 3 [place]-3 350 mg-235 mg- 90 mg-597 mg Capsule,Delayed Release(Dr/Ec) 1 tab PO DAILY RF: 0 Eliquis 5 mg tablet 5 mg PO BID RF: 0 fluticasone propionate [Flonase Allergy Relief] 50 mcg/actuation [place],Suspension 2 spray Intranasal DAILY RF: 0 cholecalciferol (vitamin D3) [Vitamin D3] 5,000 unit Tablet 5,000 unit PO DAILY RF: 0 acetaminophen 500 mg capsule 1,000 mg PO TID RF: 0 Discharge Instructions Instructions: Rib Fracture (ED), Hypertension (ED) Additional Instructions: Please follow-up with your primary care physician at your scheduled appointment Should you have worsening shortness of breath, chest pain, fever, please return to the emergency room Take a deep breath in and out at least 8 times daily though to be sure to expand your lungs completely Start your lisinopril medication and keep an eye on your blood pressure, once a day Take Tylenol as needed for pain,, do not take more than 3 g of Tylenol in 1 day, the Percocet has 325 mg though I recommend only taking 325 mg of Tylenol if you choose to take a tablet of Percocet Do not drive for 3 months after taking this medication, and, you should only t chika it for pain uncontrolled with Tylenol Discharge Data Discharge Date/Time-TO BE ENTERED AT DEPARTURE: 03/19/21 16:50 Medical Decision Making Patient has been quite hypertensive throughout this evaluation, it sounds like patient's manager managing, Dr. Burgos at [facility] attempted to keep patient's blood pressure elevated secondary to significant carotid artery disease and patient is not reportedly a surgical candidate Typically his blood pressure is 180/100 per patient, his blood pressure medication removed several months ago reportedly Patient denies any anterior chest pain and states his pain has been persistent and unchanged since the traumatic event occurring 2 weeks ago He denies any new pain today He has a negative troponin but his EKG does have some change morphology in leads V1 through V5, I did consult with cardiology, Cass Singh nurse practitioner at [facility] she also discussed and reviewed the EKG with the thermal molder at [facility] and there is no evidence of ST elevation MT, there is no evidence of unstable angina, again patient without change findings Blood pressure was noted to be 200/100 during this visit, patient does not have any signs or symptoms related to hypertensive emergency at this time I did consult with Dr. Capellan, patient primary care physician and we will reinitiate his lisinopril [address] a call to Dr. Burgos, cardiology at [facility] and [place], however unfortunately did not return the phone call Dr. Díaz will see the patient on the and he is encouraged to return immediately should he have new or worsening complaints I also consulted with trauma surgery, Dr. Moyer and she reviewed CT images, she had a low suspicion that the reported infiltrate is actually infectious symptoms but more likely a mass, I did Dr. Schneider as well, we will empirically place patient on doxycycline and Dr. Qureshi will follow up regarding this Patient have a known abdominal aortic aneurysm, there is no evidence of leak on the CT scan, Dr. Schneider and Dr. Tejeda made aware, patient appears well and nontoxic Aside from his blood pressure, he is not hypoxic, he is not tachypneic He is alert and oriented throughout this evaluation and CT head and neck were ordered as the event occurred approximately 2 weeks ago Patient is alert, oriented, of decisional capacity, request discharge home this comfortable for discharge home, he is ambulatory with steady gait He signed out to Berenice (pending repeat troponin, his EKG was reviewed with my attending physician without acute change from his initial on presentation Patient is appropriately anticoagulated on Eliquis with suspicion for pulmonary embolism Medical Records Medical records reviewed: Yes I reviewed the patient's medical records. Lab Data Lab results reviewed: Yes I reviewed the patient's lab results. HPI General Mode of arrival: ambulatory . Date/Time Provider Initiated Documentation: 03/19/21 11:48 . Limitations to Documentation: no limitations . Information obtained by: patient . HPI Narrative: This 70-year-old gentleman with history of cerebrovascular disease, carotid stenosis, COPD, spontaneous p neumothorax, factor V Leiden on Eliquis, lung blood, DVT presents with report of posterior thorax pain persistent since a trip and fall 2 weeks prior to arrival. Patient states he fell directly backward and remembers hitting his head. He states that he developed pain in 24 to 48 hours after the event. He states is been constant since onset. It radiates across the scapular region. He denies known worsening symptoms. He denies any anterior chest wall pain or significant change in his shortness of breath. He denies any calf pain or swelling. He denies any abdominal pain. He denies any strength or sensation changes distally. Patient denies any fever or chills. He denies cough. He states the pain has not improved with leaning forward. Denies any recent flights, surgeries, long drives. Has not been evaluated status post fall. Related Data Home Medications Medication Instructions Recorded Confirmed atorvastatin 80 mg PO DAILY #90 tab-cap 09/12/16 03/19/21 aspirin [Aspir-81] 81 mg PO DAILY 07/04/17 03/19/21 duloxetine [Cymbalta] 60 mg PO DAILY 90 Days #90 tab-cap 09/14/18 03/19/21 [place]une-3 1 tab PO DAILY 09/15/18 03/19/21 cholecalciferol (vitamin D3) 5,000 unit PO DAILY 11/22/18 03/19/21 [Vitamin D3] fluticasone propionate [Flonase 2 spray INTRANASAL DAILY 11/22/18 03/19/21 Allergy Relief] Eliquis 5 mg PO BID 06/27/20 03/19/21 acetaminophen 1,000 mg PO TID 11/29/20 03/19/21 doxycycline hyclate 100 mg PO BID #14 tab 03/19/21 lidocaine [Lidoderm] 1 patch TOPICAL DAILY #15 ea 03/19/21 lisinopril 5 mg PO DAILY #14 tab 03/19/21 oxycodone-acetaminophen [Percocet] 1 tab PO Q8H PRN #7 tab 03/19/21 Previous Rx's Medication Instructions Recorded duloxetine [Cymbalta] 60 mg PO DAILY 90 Days #90 tab-cap 09/14/18 doxycycline hyclate 100 mg PO BID #14 tab 03/19/21 lidocaine [Lidoderm] 1 patch TOPICAL DAILY #15 ea 03/19/21 lisinopril 5 mg PO DAILY #14 tab 03/19/21 oxycodone-acetaminophen [Percocet] 1 tab PO Q8H PRN #7 tab 03/19/21 Allergies Allergy/AdvReac Type Severity Reaction Status Date / Time No Known Allergies Allergy Unverified 03/19/21 12:06 General Stated Complaint: SOB KATIA: 2 Review of Systems All systems reviewed & are unremarkable except as noted in HPI and below PFS Medical History (Updated 03/19/21 @ 16:04 by ELAINE Aguayo) Abdominal aortic aneurysm [facility]: 4.3 x 4.2 cm infra-renal AAA AAA max. diam: 4.0cm ([facility]) 10/2015: infra-renal AAA max.4.3cm: stable ([facility]) mri : 3.5 cm Abscess of chest wall Actinic keratoses Alcohol use Anemia Benign prostatic hyperplasia with lower urinary tract symptoms BPH without urinary obstruction Carotid stenosis Chronic pain disorder (04/15/12) CONTRACT / (urine:03/17) COPD (chronic obstructive pulmonary disease) Degenerative disc disease, lumbar Depressive disorder Dermatitis Elevated liver enzymes Essential hypertension (06/01/13) echocardiogram normal Fatigue Femur fracture GERD (gastroesophageal reflux disease) Helicobacter pylori gastritis (chronic gastritis) (11/23/14) positive gastroscopy : treated Hx of hepatitis C Hx of pneumothorax Hypercholesterolemia Hypertension Insomnia Knee pain, right Lacunar infarction Left rotator cuff tear arthropathy Leukocytosis Lung blebs Major depression, chronic Male sexual dysfunction 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 etiology:consider Neuro.referral Orthostatic hypotension Osteoarthritis of right knee Osteoarthritis, hand Peripheral artery disease Peripheral artery insufficiency [facility]; 2011:left superficial femoral artery stent [facility] : left SFA in stent stenosis: angioplasty Fup q 6 months on going [facility] progression of disease;right popliteal stent graft occluded; pain right calf post 50ft walk Pneumothorax on right (09/23/16) 1999 first time Renal insufficiency Restless leg syndrome Rhinitis, chronic Right rotator cuff tear arthropathy Right shoulder pain Rotator cuff tear arthropathy of both shoulders Shoulder dislocation, recurrent Squamous cell carcinoma Tear of left rotator cuff (09/06/15) DOS: 09/22/18 Injection: 03/01/2019 Tear of right rotator cuff (09/06/15) Injection: 03/01/2019 Tibia fracture Varicose veins of bilateral lower extremities with pain Venous stasis ulcers recurrent/ 2008 - 2011 Viral hepatitis C chronic/ Treatment Interferon:successfull/ [facility] Surgical History EGD - MAC femoral stent X2 most recent 2016 History of left-sided carotid endarterectomy (04/02/18) [facility] / in surgery bleeding from parotid gland: electrocautery/ open reduction tib/fib ORIF femur right chest tube placement under local (09/23/16) 1999 Spinal Fusion 11/13/17 Status post arthroscopy of left shoulder DOS: 09/22/18 Injection: 03/01/2019 Repair of subscapularis with extensive debridement of superior cuff Biceps tenotomy; acromioplasty Dr. Webb Status post lumbar discectomy 2000 : right discectomy L5-S1 + L4-L5 decompression (right) 2013 : right L4-L5 decompression L5-S1 facetectomy; Family History Mother Diabetes Essential hypertension Depression Heart disease Neoplasm BREAST Father Neoplasm HODGKINS DISEASE Sister No problems noted. Sister Neoplasm BREAST Stroke Sister Neoplasm LUNG Brother Neoplasm LUNG Grandfather Diabetes Essential hypertension Heart disease Hyperlipidemia Stroke Grandfather No problems noted. Grandmother No problems noted. Grandmother No problems noted. Social History (Updated 01/02/21 @ 22:09 by Marnie Schreiber MD) Smoking/Tobacco Use Status: Never Smoking risk assessment performed?: Yes Alcohol Intake: current Alcohol Intake frequency: a few times a week Alcohol type: beer Drug use: Never Substance use type: does not use Household members: spouse Number of Children: 0 Current gender identity: male Do you feel safe at home: Yes Do you feel safe in your relationship?: Yes Exam Const General: cooperative, comfortable and no acute distress HENMT Other: no hemotympanum, no visible sign of trauma Eyes Pupils: PERRL Neck Other: no midline tenderness Chest Other: tenderness posteriorly , no crepitus Resp Effort & Inspection: normal respiratory effort Cardio Rate: regular rate Rhythm: regular rhythm GI Other: no cva tenderness no visible evidence of trauma no abdominal bruit or obvious pulsatile mass Skin General skin exam: no rashes or lesions noted Neuro General: patient alert and CN's II-XI intact bilaterally Other: ambulatory with steady gait GCS 15 Extrem Other: no visible evidence of trauma distal pulses intact Course Vital Signs Vital signs: Vital Signs Temperature 36.4 C L 03/19/21 12:02 Pulse 96 H 03/19/21 12:02 Respiratory Rate 16 03/19/21 12:02 Blood Pressure 161/96 H 03/19/21 12:02 Pulse Oximetry 99 03/19/21 12:02 Temperature 36.4 C L 03/19/21 12:02 Temperature Source Skin 03/19/21 12:02 Pulse 83 03/19/21 13:37 Pulse 91 H 03/19/21 13:40 Respiratory Rate 18 03/19/21 13:40 Respiratory Effort 03/19/21 12:24 Respiratory Depth Normal 03/19/21 12:24 Respiratory Pattern Normal 03/19/21 12:24 Blood Pressure 204/109 H 03/19/21 13:37 Blood Pressure Mean 133 03/19/21 13:37 Blood Pressure Position Sitting 03/19/21 12:02 Pulse Oximetry 99 03/19/21 13:40 Oxygen Delivery Method Room Air 03/19/21 12:02 Oxygen Flow Rate 0 03/19/21 12:02 Pain Level 8 03/19/21 12:02 Lab/Test Results Lab/Test Results: Laboratory Tests Range/Units 03/19/21 03/19/21 03/19/21 12:55 12:55 12:55 WBC (4.4-10.8) 10^3/uL 6.86 RBC (4.36-5.78) 10^6/uL 4.66 Hgb (13.5-17.5) g/dL 13.9 Hct (40.0-50.0) % 41.9 MCV (80-95) fL 89.9 MCH (27.0-33.0) pg 29.8 MCHC (32.0-36.0) % 33.2 RDW (11.8-14.1) % 16.9 H Plt Count (130-400) 10^3/uL 316 MPV (8.0-11.0) fL 8.8 Immature Gran % 0.1 Neutrophils % 65.5 Lymphocytes % 20.1 Monocytes % 10.9 Eosinophils % 3.1 Basophils % 0.3 Nucleated RBC % % 0 Absolute Neutrophils (1.2-6.7) 10^3/uL 4.49 Absolute Lymphocytes (1.2-3.4) 10^3/uL 1.38 Absolute Monocytes (0.1-0.8) 10^3/uL 0.75 Absolute Eosinophils (0.0-0.7) 10^3/uL 0.21 Absolute Basophils (0.0-0.2) 10^3/uL 0.02 Sodium (136-145) mmol/L 142 Potassium (3.5-5.1) mmol/L 4.2 Chloride (98-107) mmol/L 106 Carbon Dioxide (21.0-32.0) mmol/L 28.1 Anion Gap (3-11) mmol/L 7.9 BUN (7-18) mg/dL 25 H Creatinine (0.70-1.30) mg/dL 1.0 Estimated GFR/1.73 m2 (mL/min/1.73m2) >= 60.00 Glucose (74-106) mg/dL 112 H Calcium (8.5-10.1) mg/dL 9.9 Magnesium (1.8-2.4) mg/dL 2.4 Total Bilirubin (0.2-1.0) mg/dL 0.3 AST (15-37) U/L 32 ALT (16-63) U/L 36 Alkaline Phosphatase (46-116) U/L 228 H Troponin I (<0.06) ng/mL < 0.05 Total Protein (6.4-8.2) g/dL 8.3 H Albumin (3.4-5.0) g/dL 3.9 Lipase (73-393) U/L 112
[2021-03-19] MEDS: oxyCODONE 5 mg/Acetaminophen 325 mg TAB 1 TAB PO (13:48)
[2021-03-19] MEDS: Omnipaque 350 MG/ML 100 ML BTL IV (14:20)
[2021-03-19] MEDS: Normal Saline - Diluent 50 ML VIAL IV (14:21)
--- NOTE | 2021-03-19 15:15 | RT.EKG_ITS ---
APPROVED REPORT Exam: Resting ECG Reason for Exam: sob Patient Location: E HR:81 bpm ECG Measurements Heart Rate 81 AXIS WA 161 P -3 QRSd 100 QRS 5 QT 388 T 30 QTc 450 Conclusion Sinus rhythm...normal P axis, V-rate 60- 99 Left ventricular hypertrophy...multiple voltage criteria ST elevation, consider anterior injury...ST >0.15mV, V1-V5 I have reviewed and interpreted ECG and agree with software generated interpretation.
[2021-03-19 16:10] LABS: Troponin I < 0.05 ng/mL (<0.06)
== END 2021-03-19 16:50 | disposition home or self-care (01) ==
PROVIDERS: Emergency Provider Physician Assistant; PCP Family Medicine
DX: I10 Essential (primary) hypertension (principal); R91.8 Other nonspecific abnormal finding of lung field; R07.9 Chest pain, unspecified; S22.43XA Multiple fractures of ribs, bilateral, initial encounter for closed fracture; W01.0XXA Fall on same level from slipping, tripping and stumbling without subsequent striking against object, initial encounter
CPT/HCPCS: 36415; 74177; 80053; 83690; 93005; 99285; 71045; 71260; 83735; 84484; 85025; 93010; 99284; J3490

== ENCOUNTER 2021-06-28 18:36 | Outpatient (REF) | payer BC, SELFPAY ==
[2021-06-28 15:57] LABS: Anion Gap 9.2 mmol/L (3-11); BUN 24 mg/dL (7-18); CO2 27.8 mmol/L (21.0-32.0); CREATININE 1.3 mg/dL (0.70-1.30); Calcium 9.2 mg/dL (8.5-10.1); Chloride 106 mmol/L (98-107); Estimated GFR 54.42 (mL/min/1.73m2); Glucose 93 mg/dL (74-106); Potassium 5.2 mmol/L (3.5-5.1); Sodium 143 mmol/L (136-145); TSH (W/Ref FT4) 1.41 uIU/mL (0.36-3.74)
== END 2021-06-28 18:37 | disposition home or self-care (01) ==
LOC: LBN 18:36
PROVIDERS: PCP Family Medicine; Visit Provider Family Medicine
DX: I10 Essential (primary) hypertension (principal)
CPT/HCPCS: 80048; 84443

== ENCOUNTER 2021-07-19 11:58 | Outpatient (REF) | payer BC, SELFPAY ==
--- NOTE | 2021-07-19 10:40 | SKI_PTH ---
PATIENT: Ernesto Katz LOC: [facility] U#:[id number] AGE/SX: 71/M ROOM: RE07/19/[address]: Mando Rodriguez : 1950 BED: DIS: 07/19/2021 SPEC #: [id number] RECD: 07/19/21 18:21 STATUS: GUCCI REGlenna #: [id number] YOKO: 07/19/21 10:[address]: Mando Rodriguez DEPT: Surgical Specimen RECD BY: Windy Aguirre Tissues: 1 - SKIN BIOPSY(SHAVE/PUNCH) Procedures: SKIN LEVEL 4 Comments: [id number]
== END 2021-07-19 11:59 | disposition home or self-care (01) ==
LOC: NCHCN 11:58
PROVIDERS: PCP Family Medicine; Visit Provider Family Medicine
DX: C44.519 Basal cell carcinoma of skin of other part of trunk (principal)
CPT/HCPCS: 88305

== ENCOUNTER 2021-09-05 15:20 | Outpatient (REF) | payer BC, SELFPAY ==
[2021-09-05 15:16] LABS: Anion Gap 8.3 mmol/L (3-11); BUN 26 mg/dL (7-18); CO2 28.7 mmol/L (21.0-32.0); CREATININE 1.2 mg/dL (0.70-1.30); Calcium 9.4 mg/dL (8.5-10.1); Chloride 103 mmol/L (98-107); Estimated GFR 59.68 (mL/min/1.73m2); Glucose 103 mg/dL (74-106); Potassium 4.9 mmol/L (3.5-5.1); Sodium 140 mmol/L (136-145)
== END 2021-09-05 15:21 | disposition home or self-care (01) ==
LOC: NCHCN 15:20
PROVIDERS: PCP Family Medicine; Visit Provider Family Medicine
DX: I10 Essential (primary) hypertension (principal)
CPT/HCPCS: 80048

== ENCOUNTER 2021-12-24 12:28 | Inpatient (IN) | payer BC, MEDICARE, SELFPAY ==
[2021-12-24] VITALS (74 sets, daily range): BP systolic 113–179; BP diastolic 59–103; PULSE 87–110; RESP 12–28; TEMP 36.6–36.8; O2SAT 92–98
--- NOTE | 2021-12-24 13:00 | RT.EKG_ITS ---
APPROVED REPORT Exam: Resting ECG Reason for Exam: weakness Patient Location: E HR:97 bpm ECG Measurements Heart Rate 97 AXIS PA 170 P -4 QRSd 94 QRS 8 QT 354 T 27 QTc 450 Conclusion Sinus rhythm...normal P axis, V-rate 60- 99
--- NOTE | 2021-12-24 13:04 | W.ED.GENAD ---
Discharge Plan Disposition Patient Disposition: STILL A PATIENT Discharge Details Primary Care Provider: Mando Rodriguez ED Provider: Ovidio Morales Home Meds and New Rx's Prescriptions: No Action atorvastatin 80 MG tablet 80 mg PO DAILY Qty: 90 4RF Rx Instructions: increased dose / take one tablet daily aspirin [Aspir-81] 81 MG tablet,delayed release (DR/EC) 81 mg PO DAILY 0RF duloxetine [Cymbalta] 60 mg capsule,delayed release(DR/EC) 60 mg PO DAILY 90 Days Qty: 90 3RF [place]-3 350 mg-235 mg- 90 mg-597 mg Capsule,Delayed Release(Dr/Ec) 1 tab PO DAILY 0RF Eliquis 5 mg tablet 5 mg PO BID 0RF lisinopril 5 mg tablet 10 mg PO DAILY 0RF mupirocin 2 % ointment TOPICAL 0RF Label Comments: APPLY TO AFFECTED AREA THREE TIMES A DAY FOR 10 DAYS amoxicillin-pot clavulanate 875-125 mg tablet 1 tab PO BID 0RF Label Comments: TAKE ONE TABLET BY MOUTH TWICE A DAY FOR 14 DAYS amlodipine 5 mg tablet 2.5 mg PO DAILY 0RF Label Comments: Take 1/2 tablet by mouth once a day mirtazapine 7.5 mg tablet 7.5 mg PO DAILY 0RF Label Comments: Take 1 tablet by mouth at bedtime fluticasone propionate [Flonase Allergy Relief] 50 mcg/actuation [place],Suspension 2 spray Intranasal DAILY 0RF cholecalciferol (vitamin D3) [Vitamin D3] 5,000 unit Tablet 5,000 unit PO DAILY 0RF acetaminophen 500 mg capsule 1,000 mg PO TID 0RF doxycycline hyclate 100 mg tablet 100 mg PO BID Qty: 14 0RF oxycodone-acetaminophen [Percocet] 5-325 mg tablet 1 tab PO Q8H PRNQty: 7 0RF lidocaine [Lidoderm] 5 % adhesive patch,medicated 1 patch topical DAILY Qty: 15 0RF Rx Instructions: leave on most painful area for up to 12 hrs Medical Decision Making <ELAINE Kovacs - Last Filed: 12/24/21 15:13> This is a 71-year-old gentleman, past medical history that includes lung CA, CVA, carotid stenosis, COPD, factor V Leiden mutation, GERD, hypertension, chronic anticoagulation, presenting to the ER reporting generalized weakness, concern for dehydration. Clinically he appears well, nontoxic, does have black stool. Concern for GI bleed, anemia, infectious process, dehydration, electrolyte abnormality, etc. Plan is to obtain IV access, give IV fluid, and obtain screening laboratory values. Laboratory values reveal mild nonspecific leukocytosis of 12.67. Hemoglobin 6.1, hematocrit 19.8, platelet count 630. Given his age and age, discussed findings with patient and family, consent obtained to provide blood products. Will obtain coagulations, type and screen, initiate 1 unit of packed red blood cells. Denies history of varices. Will provide IV Protonix and Pepcid. Sodium 135, BUN 32, creatinine 59.68, glucose 128, troponin less than 50 Blood type O+ Upon reassessment I was able to speak with the patient and his in greater detail. Did report AAA repair last June and they were told that he had a small leak. In the setting of his symptomatic anemia, we do not have thoracic surgery here, prior to discussing admission to our facility I feel as though obtaining CTA of chest, abdomen, pelvis for further evaluation is reasonable. Patient remained hemodynamically stable. Medical Records Medical records reviewed: Yes I reviewed the patient's medical records. Lab Data Lab results reviewed: Yes I reviewed the patient's lab results. Labs: Laboratory Tests Range/Units 12/24/21 12/24/21 12/24/21 13:05 13:05 13:58 WBC (4.4-10.8) 10^3/uL 12.67 H RBC (4.36-5.78) 10^6/uL 2.41 L Hgb (13.5-17.5) g/dL 6.1 L* Hct (40.0-50.0) % 19.8 L* MCV (80-95) fL 82.2 MCH (27.0-33.0) pg 25.3 L MCHC (32.0-36.0) % 30.8 L RDW (11.8-14.1) % 17.5 H Plt Count (130-400) 10^3/uL 630 H MPV (8.0-11.0) fL 9.5 Immature Gran % 1.3 Neutrophils % 81.6 Lymphocytes % 9.7 Monocytes % 6.3 Eosinophils % 0.9 Basophils % 0.2 Nucleated RBC % (0.0-0.3) % 0.0 Absolute Neutrophils (1.2-6.7) 10^3/uL 10.34 H Absolute Lymphocytes (1.2-3.4) 10^3/uL 1.23 Absolute Monocytes (0.1-0.8) 10^3/uL 0.80 Absolute Eosinophils (0.0-0.7) 10^3/uL 0.11 Absolute Basophils (0.0-0.2) 10^3/uL 0.03 PT (9.3-11.0) sec 12.1 H INR (0.9-1.1) 1.2 H APTT (21.0-27.5) sec 27.9 H Sodium (136-145) mmol/L 135 L Potassium (3.5-5.1) mmol/L 4.4 Chloride (98-107) mmol/L 103 Carbon Dioxide (21.0-32.0) mmol/L 24.0 Anion Gap (3-11) mmol/L 8.0 BUN (7-18) mg/dL 32 H Creatinine (0.70-1.30) mg/dL 1.2 Estimated GFR/1.73 m2 (mL/min/1.73m2) 59.68 Glucose (74-106) mg/dL 128 H Calcium (8.5-10.1) mg/dL 9.0 Magnesium (1.8-2.4) mg/dL 2.4 Total Bilirubin (0.2-1.0) mg/dL 0.3 AST (15-37) U/L 91 H ALT (16-63) U/L 90 H Alkaline Phosphatase (46-116) U/L 107 Troponin I (<or=60) ng/L < 50 Total Protein (6.4-8.2) g/dL 7.9 Albumin (3.4-5.0) g/dL 2.3 L Patient ABO/Rh Antibody Screen Crossmatch Range/Units 12/24/21 13:58 WBC (4.4-10.8) 10^3/uL RBC (4.36-5.78) 10^6/uL Hgb (13.5-17.5) g/dL Hct (40.0-50.0) % MCV (80-95) fL MCH (27.0-33.0) pg MCHC (32.0-36.0) % RDW (11.8-14.1) % Plt Count (130-400) 10^3/uL MPV (8.0-11.0) fL Immature Gran % Neutrophils % Lymphocytes % Monocytes % Eosinophils % Basophils % Nucleated RBC % (0.0-0.3) % Absolute Neutrophils (1.2-6.7) 10^3/uL Absolute Lymphocytes (1.2-3.4) 10^3/uL Absolute Monocytes (0.1-0.8) 10^3/uL Absolute Eosinophils (0.0-0.7) 10^3/uL Absolute Basophils (0.0-0.2) 10^3/uL PT (9.3-11.0) sec INR (0.9-1.1) APTT (21.0-27.5) sec Sodium (136-145) mmol/L Potassium (3.5-5.1) mmol/L Chloride (98-107) mmol/L Carbon Dioxide (21.0-32.0) mmol/L Anion Gap (3-11) mmol/L BUN (7-18) mg/dL Creatinine (0.70-1.30) mg/dL Estimated GFR/1.73 m2 (mL/min/1.73m2) Glucose (74-106) mg/dL Calcium (8.5-10.1) mg/dL Magnesium (1.8-2.4) mg/dL Total Bilirubin (0.2-1.0) mg/dL AST (15-37) U/L ALT (16-63) U/L Alkaline Phosphatase (46-116) U/L Troponin I (<or=60) ng/L Total Protein (6.4-8.2) g/dL Albumin (3.4-5.0) g/dL Patient ABO/Rh O Positive Antibody Screen NEGATIVE Crossmatch See Detail ECG Data Attestation: I personally reviewed and interpreted this ECG (s) as follows: Interpretation: Please see official report by Dr. No. Sinus rhythm, ventricular rate of 97, no HPI <ELAINE Kovacs - Last Filed: 12/24/21 15:13> General Mode of arrival: ambulatory. Date/Time Provider Initiated Documentation: 12/24/21 12:38. Limitations to Documentation: no limitations. Information obtained by: patient and family. HPI Narrative: This is a 71-year-old male, past medical history of carotid stenosis, COPD, GERD, hypertension, chronic anticoagulation, abdominal aortic aneurysm, anemia, renal insufficiency, presenting to the ER for generalized weakness status post lung surgery where they removed a small wedge of lung tissue in the right lower lobe roughly 3 weeks ago secondary to lung CVA. Since that time reports acute on chronic weakness which has been worsening over the past year. Reports decreased appetite, concern for dehydration. Denies recent illness or trauma, headache, neck pain, visual changes, chest pain, shortness of breath, abdominal pain, nausea, vomiting, dysuria, bright red blood in the stools, skin rash. Patient reports that approximately 1 year ago he had a similar procedure to the left lung and it did take quite some time to regain his strength and get back to baseline. I was able to speak with the patient's , she reports black tarry stools for the past couple weeks or so. Related Data Home Medications Medication Instructions Recorded Confirmed atorvastatin 80 mg tablet 80 mg PO DAILY #90 tab-cap 09/12/16 12/24/21 aspirin 81 mg tablet,delayed 81 mg PO DAILY 07/04/17 12/24/21 release (Aspir-) duloxetine 60 mg capsule,delayed 60 mg PO DAILY 90 Days #90 tab-cap 09/14/18 12/24/21 release (Cymbalta) omega 3 350 mg-dha 235 mg-epa 90 1 tab PO DAILY 09/15/18 03/19/21 mg-fish oil 597 mg capsule,delay rel ([place]-3) cholecalciferol (vitamin D3) 125 5,000 unit PO DAILY 11/22/18 03/19/21 mcg (5,000 unit) tablet (Vitamin D3) fluticasone propionate 50 2 spray INTRANASAL DAILY 11/22/18 03/19/21 mcg/actuation nasal spray,suspension (Flonase Allergy Relief) apixaban 5 mg tablet (Eliquis) 5 mg PO BID 06/27/20 12/24/21 acetaminophen 500 mg capsule 1,000 mg PO TID 11/29/20 03/19/21 doxycycline hyclate 100 mg tablet 100 mg PO BID #14 tab 03/19/21 lidocaine 5 % topical patch 1 patch TOPICAL DAILY #15 ea 03/19/21 (Lidoderm) oxycodone-acetaminophen 5 mg-325 1 tab PO Q8H PRN #7 tab 03/19/21 mg tablet (Percocet) amlodipine 5 mg tablet 2.5 mg PO DAILY 12/24/21 12/24/21 amoxicillin 875 mg-potassium 1 tab PO BID 12/24/21 12/24/21 clavulanate 125 mg tablet lisinopril 5 mg tablet 10 mg PO DAILY 12/24/21 12/24/21 mirtazapine 7.5 mg tablet 7.5 mg PO DAILY 12/24/21 12/24/21 mupirocin 2 % topical ointment applic TOPICAL 12/24/21 12/24/21 Previous Rx's Medication Instructions Recorded duloxetine 60 mg capsule,delayed 60 mg PO DAILY 90 Days #90 tab-cap 09/14/18 release (Cymbalta) doxycycline hyclate 100 mg tablet 100 mg PO BID #14 tab 03/19/21 lidocaine 5 % topical patch 1 patch TOPICAL DAILY #15 ea 03/19/21 (Lidoderm) oxycodone-acetaminophen 5 mg-325 1 tab PO Q8H PRN #7 tab 03/19/21 mg tablet (Percocet) Allergies Allergy/AdvReac Type Severity Reaction Status Date / Time No Known Allergies Allergy Unverified 03/19/21 12:06 General Stated Complaint: GenMedical KATIA: 3 Review of Systems <ELAINE Kovacs - Last Filed: 12/24/21 15:13> Constitutional Constitutional: Reports fatigue, Denies fever(s) and Reports weakness Eyes Eyes: Denies change in vision ENT Ears, Nose, Mouth, and Throat: Denies neck pain Cardiovascular Cardiovascular: Denies chest pain and Denies dyspnea Respiratory Respiratory: Denies cough and Denies dyspnea Gastrointestinal Gastrointestinal: Denies abdominal pain, Denies nausea and Denies vomiting Musculoskeletal Musculoskeletal: Denies back pain, Denies neck pain and Denies numbness Integumentary/Breasts Skin/Breast: Denies rash Neurologic Neurologic: Denies numbness and Reports weakness Endocrine Endocrine: Reports fatigue Hematologic/Lymphatic Hematologic/Lymphatic: Reports easy bleeding and Reports easy bruising PFSH <ELAINE Kovacs - Last Filed: 12/24/21 15:13> All Active Problems Fracture of rib (Acute) Lung mass (Acute) Spell of abnormal behavior (Acute) Cerebrovascular disease (Acute) Carotid stenosis (Acute) Laceration of left ring finger (Acute) Empyema, thoracic (Acute) Syncope (Chronic) Lymphedema of right upper extremity (Acute) Fracture of coracoid process of right scapula (Acute 07/28/20) COPD (chronic obstructive pulmonary disease) (Chronic) Lung blebs (Acute) Persistent air leak (Acute) Mass of upper lobe of left lung (Acute) Factor 5 Leiden mutation, heterozygous (Acute) GERD (gastroesophageal reflux disease) (Acute) Essential hypertension (Acute 06/01/13) echocardiogram normal Chronic anticoagulation (Acute) Syncope (Acute) Spontaneous pneumothorax (Acute) right Medical History Abdominal aortic aneurysm [facility] [place]: 4.3 x 4.2 cm infra-renal AAA AAA max. diam: 4.0cm ([facility] [place]) 10/2015: infra-renal AAA max.4.3cm: stable ([facility] [place]) mri : 3.5 cm Abscess of chest wall Actinic keratoses Alcohol use Anemia Benign prostatic hyperplasia with lower urinary tract symptoms BPH without urinary obstruction Chronic pain disorder (04/15/12) CONTRACT / (urine:03/17) Degenerative disc disease, lumbar Depressive disorder Dermatitis Elevated liver enzymes Fatigue Femur fracture Helicobacter pylori gastritis (chronic gastritis) (11/23/14) positive gastroscopy : treated Hx of hepatitis C Hx of pneumothorax Hypercholesterolemia Hypertension Insomnia Knee pain, right Lacunar infarction Left rotator cuff tear arthropathy Leukocytosis Major depression, chronic Male sexual dysfunction 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 etiology:consider Neuro.referral Orthostatic hypotension Osteoarthritis of right knee Osteoarthritis, hand Peripheral artery disease Peripheral artery insufficiency [facility] [place]; 2011:left superficial femoral artery stent [facility] [place] : left SFA in stent stenosis: angioplasty Fup q 6 months on going [facility] [place] progression of disease;right popliteal stent graft occluded; pain right calf post 50ft walk Pneumothorax on right (09/23/16) 1999 first time Renal insufficiency Restless leg syndrome Rhinitis, chronic Right rotator cuff tear arthropathy Right shoulder pain Rotator cuff tear arthropathy of both shoulders Shoulder dislocation, recurrent Squamous cell carcinoma Tear of left rotator cuff (09/06/15) DOS: 09/22/18 Injection: 03/01/2019 Tear of right rotator cuff (09/06/15) Injection: 03/01/2019 Tibia fracture Varicose veins of bilateral lower extremities with pain Venous stasis ulcers recurrent/ 2008 - 2011 Viral hepatitis C chronic/ Treatment Interferon:successfull/ [facility] [place] Surgical History EGD - MAC femoral stent X2 most recent 2016 History of left-sided carotid endarterectomy (04/02/18) [facility] [place] / in surgery bleeding from parotid gland: electrocautery/ open reduction tib/fib ORIF femur right chest tube placement under local (09/23/16) 1999 Spinal Fusion 11/13/17 ANA LILIA HIGHTOWER DAY Status post arthroscopy of left shoulder DOS: 09/22/18 Injection: 03/01/2019 Repair of subscapularis with extensive debridement of superior cuff Biceps tenotomy; acromioplasty Dr. Webb Status post lumbar discectomy 2000 : right discectomy L5-S1 + L4-L5 decompression (right) 2013 : right L4-L5 decompression L5-S1 facetectomy; Family History Mother Diabetes Essential hypertension Depression Heart disease Neoplasm BREAST Father Neoplasm HODGKINS DISEASE Sister No problems noted. Sister Neoplasm BREAST Stroke Sister Neoplasm LUNG Brother Neoplasm LUNG Grandfather Diabetes Essential hypertension Heart disease Hyperlipidemia Stroke Grandfather No problems noted. Grandmother No problems noted. Grandmother No problems noted. Social History Smoking/Tobacco Use Status: Never Smoking risk assessment performed?: Yes Alcohol Intake: current Alcohol Intake frequency: a few times a week Alcohol type: beer Drug use: Never Substance use type: does not use Household members: spouse Number of Children: 0 Current gender identity: male Do you feel safe at home: Yes Do you feel safe in your relationship?: Yes Exam <ELAINE Kovacs - Last Filed: 12/24/21 15:13> Const General: cooperative, healthy appearing, comfortable and no acute distress Orientation: alert, awake and oriented x3 HENMT Head: normal to inspection, normocephalic and atraumatic Face and sinus: normal facial exam Mouth: moist mucous membranes Eyes General: appearance normal, both eyes and all related structures Conjunctivae: conjunctivae normal Neck Neck: normal visual inspection, full ROM, no meningeal signs, trachea midline, supple and nontender Resp Effort & Inspection: normal respiratory effort and able to speak in complete sentences Auscultation: diminished lung sounds bilaterally in the lower lung dixon Cardio Rate: regular rate Rhythm: regular rhythm GI Palpation: soft, not firm, no guarding, no pulsatile masses and nontender Auscultation: normal bowel sounds Rectal Exam: visual inspection normal, normal sphincter tone, abnormal stool black and heme positive stool Back/Spine/Pelvis Back: No back tenderness Skin General skin exam: no rashes or lesions noted Neuro General: patient alert, patient awake, patient oriented x3, moves all extremities and no focal motor deficits Cranial Nerves: CN's II-XI intact bilaterally Cognition: normal cognition Speech: speech normal Motor: muscle tone normal throughout and strength 5/5 throughout Sensory Exam: no sensory deficits noted Extrem General: normal to inspection, full ROM, capillary refill normal, no pedal edema and no calf tenderness Psych Appearance: grossly normal Mental Status: mental status grossly normal Course <ELAINE Kovacs - Last Filed: 12/24/21 15:13> Vital Signs Vital signs: Vital Signs Temperature 36.8 C 12/24/21 12:30 Pulse 98 H 12/24/21 12:30 Respiratory Rate 18 12/24/21 12:30 Blood Pressure 148/65 H 12/24/21 12:30 Temperature 36.8 C 12/24/21 12:30 Temperature Source Tympanic 12/24/21 12:30 Pulse 95 H 12/24/21 12:47 Pulse 98 H 12/24/21 13:00 Respiratory Rate 26 H 12/24/21 13:00 Respiratory Effort Non-Labored 12/24/21 12:51 Respiratory Pattern Normal 12/24/21 12:51 Blood Pressure 125/71 12/24/21 12:47 Blood Pressure Mean 84 12/24/21 12:47 Pulse Oximetry 96 12/24/21 13:00 Critical Care Time <ELAINE Kovacs - Last Filed: 12/24/21 15:13> Critical Care Time Critical Care Time: Yes Total Critical Care Time: 35 Attestation: Upon my evaluation, this patient had a high probability of clinically significant, life-threatening deterioration due to their current medical conditions, which required my direct attention, intervention, and personal management. I have personally provided greater than 30 minutes of critical care time exclusive of the time spend on separately billable procedures. Time includes obtaining a history, examining the patient, pulse oximetry, review of laboratory data, radiology results, discussion with consultants, arranging urgent treatment with development of a management plan, evaluation of patient's response to treatment, and monitoring for potential decompensation. Interventions were performed as documented above. Sign Out <ELAINE Kovacs - Last Filed: 12/24/21 15:13> Sign Out Data: Sign Out Comment: Receiving 1 unit packed red cells secondary to anemia and GI bleed. Presented for generalized weakness. Awaiting CTA of his chest, abdomen, pelvis and if unremarkable then likely admission. Patient will likely benefit from another unit of red cells as well as serial H&H, surgical consultation, endoscopy and/or colonoscopy. Last updated by Merrick Porter PA at 12/24/21 15:13
[2021-12-24] MEDS: Normal Saline 1,000 ML 1000 ML IV (13:16)
[2021-12-24 13:17] LABS: Abs Immature Grans 0.17 10^3/uL (0.0-0.06); Absolute Basophil Count 0.03 10^3/uL (0.0-0.2); Absolute Lymphocyte Count 1.23 10^3/uL (1.2-3.4); Basophils % 0.2; Eosinophils % 0.9; Immature Grans % 1.3; Lymphocytes % 9.7; MCH 25.3 pg (27.0-33.0); MCHC 30.8 % (32.0-36.0); MCV 82.2 fL (80-95); MPV 9.5 fL (8.0-11.0); Monocytes % 6.3; Neutrophils % 81.6; Platelet Count 630 10^3/uL (130-400); RBC 2.41 10^6/uL (4.36-5.78); RDW 17.5 % (11.8-14.1); RDW-SD 52.5 fL; WBC 12.67 10^3/uL (4.4-10.8)
[2021-12-24 13:22] LABS: Absolute Eosinophil Count 0.11 10^3/uL (0.0-0.7)
[2021-12-24 13:25] LABS: Absolute Neutrophil Count 10.34 10^3/uL (1.2-6.7); HCT 19.8 % (40.0-50.0); HGB 6.1 g/dL (13.5-17.5)
[2021-12-24 13:48] LABS: ALT 90 U/L (16-63); AST 91 U/L (15-37); Albumin 2.3 g/dL (3.4-5.0); Alkaline Phosphatase 107 U/L (46-116); BUN 32 mg/dL (7-18); Bilirubin, Total 0.3 mg/dL (0.2-1.0); CREATININE 1.2 mg/dL (0.70-1.30); Chloride 103 mmol/L (98-107); Estimated GFR 59.68 (mL/min/1.73m2); Glucose 128 mg/dL (74-106); Magnesium 2.4 mg/dL (1.8-2.4); Potassium 4.4 mmol/L (3.5-5.1); Sodium 135 mmol/L (136-145); Total Protein 7.9 g/dL (6.4-8.2); Troponin I < 50 ng/L (<or=60)
[2021-12-24 14:20] LABS: INR 1.2 (0.9-1.1); PTT Activated 27.9 sec (21.0-27.5); Prothrombin Time 12.1 sec (9.3-11.0)
[2021-12-24] MEDS: FAMOTIDINE 20 MG in Normal Saline 100 ML 400 MG IVPB (14:22)
--- NOTE | 2021-12-24 14:43 | DI.RAD_ITS ---
Exam(s) XR CHEST 2V PA LATERAL EXAM: XR CHEST 2V PA LATERAL CLINICAL HISTORY: weakness TECHNIQUE: 2D digital imaging was performed of the chest. Two images were obtained. PA and lateral views were obtained. COMPARISON: CR,XR XR CHEST 2V PA LATERAL from 07/28/2020 CR,XR XR CHEST 1V IN DI DEPT from 12/17/2020 CR XR PORTABLE CHEST AP from 03/19/2021 FINDINGS: MEDIASTINUM: There is again seen a large hiatal hernia. HEART: Normal. PULMONARY VASCULATURE: Normal. LUNGS: There is an infiltrate in the right lung base. PLEURAL SPACE: No pleural effusion or pneumothorax. BONE:Within normal limits for the patient's age. The patient has a right shoulder replacement. OTHER FINDINGS:An abdominal aortic stent is in place. IMPRESSION: Right basilar infiltrate. DATA REPOSITORY: RADIATION DOSE DELIVERED:
--- NOTE | 2021-12-24 14:51 | DI.CT_ITS ---
Exam(s) CT THORAX ABD/PEL CTA EXAM: CT THORAX ABD/PEL CTA CLINICAL HISTORY: hx of aaa repair, anemia. TECHNIQUE: Imaging Protocol: Axial CT angiography was performed with multi-slice acquisition and m ulti-planar and/or 3D reconstructions. CONTRAST MATERIAL: Intravenous: Omnipaque 350 Contrast volume:100 mL Oral: No COMPARISON: CT CT CHEST/ABD/PEL W from 03/19/2021 FINDINGS: CHEST: Tracheobronchial tree: Patent where visualized. Pulmonary parenchyma: There is an airspace infiltrate in the superior aspect of the right lower lobe concerning for pneumonia. There is scarring in the left upper lobe and focal bronchiectasis. The fi ndings may reflect prior surgery. Please correlate clinically. There is a loculated fluid collectio n in the right lung base with adjacent infiltrate which may represent atelectasis or pneumonia. Emph ysematous changes are present in the lungs. Pulmonary Arteries: No evidence of filling defect to suggest pulmonary emboli. Mediastinum and Charlene: There are calcified lymph nodes in the mediastinum suggesting prior granulomato us disease. There is a large hiatal hernia. Visualized thyroid: Unremarkable. Pleura: No pneumothorax. No left pleural effusion. Please see the above discussion. Heart: The heart is not dilated. Coronary artery calcifications are present. No pericardial effusion . Aorta: Thoracic aorta non-dilated. Atherosclerosis. No evidence of dissection. Soft Tissues: Unremarkable. Bones: Degenerative changes in the spine. Findings of a prior right shoulder replacement. Old bilat eral rib fractures. ABDOMEN AND PELVIS: Abdomen: Celiac axis/mesenteric arteries: No evidence of occlusion or significant stenosis. Atherosclerotic p laque is seen at the origins of both the celiac axis and the superior mesenteric artery. The ANTWAN has been occluded secondary to the aneurysm stent. Renal Arteries: There is atherosclerosis at the origin of both renal arteries. The left renal artery is small but patent. There is stenosis of the right renal artery. There is a single renal artery p erfusing each kidney. Aorta: There is an aorto bi-iliac stent within a abdominal aortic aneurysm. The aneurysm measures 5 cm. Pelvis: Iliac Arteries: No evidence of occlusion or significant stenosis. Atherosclerosis. Common Femoral Arteries: No evidence of occlusion. Moderate stenosis of the distal visualized commo n femoral arteries is noted. Atherosclerosis. ABDOMEN: Liver: Normal density. There is a stable cyst in the left lobe of the liver. Portal, Superior Mesenteric, and Splenic Veins: Unremarkable. Gallbladder and Biliary Tract: No radiodense calculus or dilation. Pancreas: Normal density, no abnormal calcifications or inflammatory process. Spleen: Normal. Adrenals: No masses seen. Kidneys: Normal size, contour and axis. No radiodense stones or obstructive uropathy. There are stabl e bilateral renal cysts. Bowel: No obstruction or bowel wall thickening. Appendix is unremarkable. Peritoneal Cavity: No ascites, collection or mesenteric inflammatory response. No free air. Lymph Nodes: Within normal limits. Bones: Degenerative and postsurgical changes are seen in the lumbar spine. Soft Tissues: Small fat containing right inguinal hernia. PELVIS: Bladder: Symmetric distention, no gross wall thickening. Reproductive Organs: Unremarkable as visualized. Lymph Nodes: Within normal limits. Bones: Degenerative and postsurgical changes are seen in the lumbar spine. IMPRESSION: 1. Endo graft repair of the patient's abdominal aortic aneurysm with an aorto bi-iliac graft. The gr aft appears patent. 2. Atherosclerotic disease involving the femoral arteries. 3. No acute abdominal or pelvic process. 4. No evidence of a pulmonary embolism, thoracic aortic dissection or aneurysm. 5. Loculated fluid collection in the right lower lobe. An empyema cannot be excluded in the appropri ate clinical setting. 6. Infiltrate in the right lower lobe which may represent pneumonia. RADIATION DOSE DELIVERED: 1,846.43mGy.cm Total DLP DATA REPOSITORY: All CT scans at this facility are submitted to the National Radiology Data Registry (NRDR) Dose Index Registry (DIR) with the [employer] ([employer]). RADIATION OPTIMIZATION: All CT scans at this facility use at least one of these dose optimization te chniques: automated exposure control; mA and/or kV adjustment per patient size (includes targeted exa ms where dose is matched to clinical indication); or iterative reconstruction.
[2021-12-24] MEDS: PANTOPRAZOLE 80 MG in Normal Saline 100 ML 10 MG IV (15:05)
[2021-12-24 15:53] LABS: Source Nasal/Nares
[2021-12-24 16:31] LABS: COVID-19 PCR Negative (Negative)
[2021-12-24] MEDS: Omnipaque 350 MG/ML 100 ML BTL IJ (17:53)
--- NOTE | 2021-12-24 18:04 | ED.PROG_ITS ---
Date of service: 12/24/21 Time of Service: 15:45 Medical Decision Making Patient signed out to me pending CTA for evaluation of abdominal aortic aneurysm that has had repair but was reported by family to be possibly leaky. Patient otherwise in stable condition receiving 1 unit of blood and standard medications for suspicion of GI bleed. Please see previous documentation for HPI, review of systems, physical exam, and plan of care. Review of CT imaging shows stable Endograft repair with no obvious leak. H ospitalist was paged for admission for further blood products, monitoring, and studies as needed. Patient did have Hemoccult performed by previous provider which was positive. Patient is stable and is agreeable to admission. Imaging Data Radiologic Study: Imaging: CT Scan Radiologist's impression: IMPRESSION: 1. Endograft repair of a prior abdominal aortic aneurysm with a aorto bi-iliac graft. The graft itself is completely patent and without hemodynamically significant stenosis. I do not see any discrete evidence for large graft endoleaks at this time, however please note that the study is limited for evaluation of endoleaks as this is not a stent protocol CTA. The excluded aneurysmal sac appears unremarkable and there is no evidence of rupture. 2. There is severe atherosclerotic disease in the visualized segments of the bilateral superficial femoral arteries, with the most distal segments demonstrating near complete occlusion (as detailed above). 3. No other acute abdominopelvic pathology is otherwise identified. 4. Multiple incidental and chronic findings as detailed above. Sign Out Sign Out Data: Sign Out Comment: Receiving 1 unit packed red cells secondary to anemia and GI bleed. Presented for generalized weakness. Awaiting CTA of his chest, abdomen, pelvis and if unremarkable then likely admission. Patient will likely benefit from another unit of red cells as well as serial H&H, surgical consultation, endoscopy and/or colonoscopy. Last updated by Merrick Porter PA at 12/24/21 15:13 Discharge Plan Disposition Patient Disposition: [facility] INPATIENT Condition: Fair Discharge Details Clinical Impression: Acute GI bleeding Admit Date/Time: 12/24/21 19:42 Admit Provider: Trev Fox Attending Provider: Trev Fox Primary Care Provider: Mando Rodriguez ED Provider: Ovidio Morales Discharge Data Discharge Date/Time-TO BE ENTERED AT DEPARTURE: 12/24/21 20:49
[2021-12-24 18:25] LABS: Bilirubin Negative (Negative); Blood Negative (Negative); Clarity Clear (Clear); Glucose Negative (Negative); Ketones Negative (Negative); Leukocyte Esterase Negative (Negative); Nitrite Negative (Negative); Urobilinogen 0.2 EU/dL (Up TO 0.2); pH 6.5 (5-8)
--- NOTE | 2021-12-24 18:37 | DI.VRAD_ITS ---
PROCEDURE INFORMATION: Exam: CTA Chest With Contrast Exam date and time: 12/24/2021 4:53 PM Age: 71 years old Clinical indication: Condition or disease; Other: Aaa repair; Arterial aneurysm; Without rupture; Abdominal; Prior surgery TECHNIQUE: Imaging protocol: Computed tomographic angiography of the chest with contrast. 3D rendering (Not supervised by radiologist): MIP and/or 3D reconstructed images were created by the technologist. Contrast material: OMNIPAQUE 350; Contrast volume: 100 ml; Contrast route: INTRAVENOUS (IV); COMPARISON: CT CHEST/ABD/PEL W 03/19/2021 2:21 PM FINDINGS: Normal thyroid gland. Thoracic aorta is normal in course and caliber with moderate calcific atherosclerotic disease present. No acute aortic pathology noted. Pulmonary arteries normal in course and caliber. No evidence for acute pulmonary emboli. Normal heart size and atrial ventricular concordance. Normal pericardium. Calcific disease in the aortic valve. Moderate coronary artery calcifications. Stable mildly prominent mediastinal lymph nodes are most probably of chronic etiology and related to chronic cardiovascular disease. No concerning hilar, supraclavicular, or axillary adenopathy by CT size criteria. There is a moderately sized hiatal hernia which appears essentially stable as compared to the reference examination. Several scattered calcified granulomas are seen throughout the mediastinum and bilateral mario, which are of no clinical concern and stable. No discrete mediastinal masses are seen. There is a moderately sized loculated right pleural effusion which demonstrates the double pleura sign (with enhancing pleura). There is nodular scarring/atelectasis in the right lower lobe with associated surgical sutures (images 38-47 series 4). There is compressive and dependent atelectasis appreciated throughout the right lung. No left pleural effusions are identified. There is no pneumothorax. Chronic linear scarring with traction bronchiectasis in the left upper lobe. There is platelike atelectasis and scarring in the right lower lobe as well. Ground-glass airspace consolidations are seen in the superior segments of the right lower lobe. Scattered calcified granulomas seen throughout the lungs are of no clinical concern. The airways remain grossly patent. Right shoulder arthroplasty without discrete complications. Multilevel old/healed bilateral rib fractures. Severe multilevel degenerative changes of the spine are present. No acute skeletal pathology is seen. IMPRESSION: 1. Loculated moderately sized right pleural effusion with additional findings concerning for an empyema in the appropriate clinical setting. There is associated compressive atelectasis in the right lower lobe with possible superimposed pneumonia in the superior segments of the right lower lobe. There appears to have been surgery in the right lower lobe with an area of nodular atelectasis/scarring and associated surgical sutures. Consider correlation with surgical history. 2. No other acute thoracic pathology is identified and the examination appears otherwise stable as compared to 03/19/2021. PROCEDURE INFORMATION: Exam: CTA Abdomen and Pelvis With Contrast Exam date and time: 12/24/2021 4:53 PM Age: 71 years old Clinical indication: Condition or disease; Other: Aaa repair; Arterial aneurysm; Without rupture; Abdominal; Prior surgery TECHNIQUE: Imaging protocol: Computed tomographic angiography of the abdomen and pelvis with contrast material. 3D rendering (Not supervised by radiologist): MIP and/or 3D reconstructed images were created by the technologist. Contrast material: OMNIPAQUE 350; Contrast volume: 100 ml; Contrast route: INTRAVENOUS (IV); COMPARISON: CT CHEST/ABD/PEL W 03/19/2021 2:21 PM FINDINGS: Interval endograft repair of a prior abdominal aortic aneurysm with a aorto bi-iliac graft. Unfortunately, the study was performed only in the arterial phase of enhancement and evaluation for endoleaks is limited. However, I do not see any large contrast blushing in the excluded aneurysmal sac to suggest a large endoleak. The excluded aneurysmal sac measures 5 cm by 5 cm in largest diameters and there is no evidence of sac rupture. The endograft itself is completely patent. [place] suprarenal aorta there is severe calcific atherosclerotic disease, however without hemodynamically significant stenosis. The celiac artery and SMA have moderate calcific atherosclerotic disease at the ostia, however without hemodynamically significant stenosis at this time. There is moderate atherosclerotic disease at the ostia of the bilateral renal arteries, causing at least 50% luminal stenosis at the ostium of the right renal artery. There is no hemodynamically significant stenosis noted in the left renal artery. The ANTWAN has been chronically occluded status post repair. The visualized bilateral iliac arteries remain patent. There is severe calcific atherosclerotic disease noted at the visualized segments of the bilateral superficial femoral arteries, with atherosclerotic plaque causing near complete luminal occlusion in the visualized distal segments (image 88 series 7 on the right and image 84 series 7 on the left). Stable 1.2 cm fluid density lesion in the left hepatic lobe, compatible with a cyst or hemangioma. There is mild diffuse hepatic steatosis. The liver appears otherwise unremarkable. Punctate splenic calcifications are of no clinical concern. Spleen is otherwise unremarkable. Bilateral simple renal cysts are again identified. The kidneys are otherwise unremarkable. The gallbladder, biliary system, pancreas, and adrenal glands are unremarkable. The ureters are normal. The urinary bladder is normal. The reproductive organs appear unremarkable as visualized. No bowel obstruction or significant bowel wall thickening. Moderate to severe constipation. Normal appendix. No free fluid, fluid collections, or pneumoperitoneum. No concerning abdominopelvic adenopathy is appreciated. Small fat and bowel containing umbilical hernia which does not demonstrate any evidence of obstruction or strangulation. Postsurgical changes in the bilateral inguinal regions, likely related to prior vascular surgery or catheterization. No other acute body wall soft tissue findings are appreciated. Prior sacral fixation hardware without discrete complications. Screw tract in the right femur is noted. No acute skeletal pathology. Severe multilevel degenerative changes of the spine, as manifested by multilevel anterior osteophytes and multilevel decrease in intervertebral disc space. IMPRESSION: 1. Endograft repair of a prior abdominal aortic aneurysm with a aorto bi-iliac graft. The graft itself is completely patent and without hemodynamically significant stenosis. I do not see any discrete evidence for large graft endoleaks at this time, however please note that the study is limited for evaluation of endoleaks as this is not a stent protocol CTA. The excluded aneurysmal sac appears unremarkable and there is no evidence of rupture. 2. There is severe atherosclerotic disease in the visualized segments of the bilateral superficial femoral arteries, with the most distal segments demonstrating near complete occlusion (as detailed above). 3. No other acute abdominopelvic pathology is otherwise identified. 4. Multiple incidental and chronic findings as detailed above. Dictated and Authenticated by: Selwyn Moss MD. Ordering:FARZAD Sin MD
--- NOTE | 2021-12-24 19:25 | HPE_ITS ---
Date of service: 12/24/21 Time of Service: 19:25 Assessment and Plan Assessment and plan (1) UGI bleed: Status: Acute Assessment and plan: GI bleed, the melena indicates upper, in the context of antiplatelet agent (ASA) and DOAC. Hemodynamics satisfactory at present. Given level of Hct will plan on transfusing at least 2 more units, will continue PPI and hold ASA and DOAC. Will consult surgery for EGD. expresses concern about holding DOAC in setting of PVD and graft. I advise that in setting of active GI bleeding the risk of continuing this (at the moment) unequivocally exceeds any benefit. She expresses an understanding but has left a message for patient's surgeon in [place] to review the situation. Reviewed ADs, requests Full Code. History of Present Illness History of Present Illness Chief Complaint: weakness Narrative: 71 male with h/o PVD, factor V Leiden positive, s/p RLE by pass graft for which he is on chronic Eliquis, and also on ASA for primary prevention --here with approx 2 weeks of generalized weakness and 1-2 weeks of melanotic stools. No abdominal pain, nausea or vomiting. In ER initial findings of note for heme + stool and Hct 19 ( most recent 41, 03/21). Given Protonix, Pepcid and transfused 1 unit pRBC. Given h/o leaking AAA had CTA abdomen which was negative. I was asked to evaluate for admission. Patient denies abd pain or hematemesis. No other NSAIDs beside daily ASA. EtOH minimal, few beers a week. Recent history of further note for wedge resection RLL for lung cancer, complicated by unspecified infection (?empyema), for which he had chest tube and remains on antibiotics. Review of Systems Narrative: per HPI PFSH All Active Problems (Updated 12/24/21 @ 19:35 by Trev Fox MD) UGI bleed (Acute) Acute GI bleeding (Acute) Fracture of rib (Acute) Lung mass (Acute) Spell of abnormal behavior (Acute) Cerebrovascular disease (Acute) Carotid stenosis (Acute) Laceration of left ring finger (Acute) Empyema, thoracic (Acute) Syncope (Chronic) Lymphedema of right upper extremity (Acute) Fracture of coracoid process of right scapula (Acute 07/28/20) COPD (chronic obstructive pulmonary disease) (Chronic) Lung blebs (Acute) Persistent air leak (Acute) Mass of upper lobe of left lung (Acute) Factor 5 Leiden mutation, heterozygous (Acute) GERD (gastroesophageal reflux disease) (Acute) Essential hypertension (Acute 06/01/13) echocardiogram normal Chronic anticoagulation (Acute) Syncope (Acute) Spontaneous pneumothorax (Acute) right Medical History [place] [facility] [place].3 [place] 4.2 cm infra-renal AAA AAA max. [place]: [place] [place] infra-renal AAA max.4.3cm: [place] [place] : 3.5 cm Abscess of chest wall Actinic keratoses Alcohol use Anemia Benign prostatic hyperplasia with lower urinary tract symptoms BPH without urinary obstruction Chronic pain disorder (04/15/12) CONTRACT / (urine:03/17) Degenerative disc disease, lumbar Depressive disorder Dermatitis Elevated liver enzymes Fatigue Femur fracture Helicobacter pylori gastritis (chronic gastritis) (11/23/14) positive gastroscopy : treated Hx of hepatitis C Hx of pneumothorax Hypercholesterolemia Hypertension Insomnia Knee pain, right Lacunar infarction Left rotator cuff tear arthropathy Leukocytosis Major depression, chronic Male sexual dysfunction 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 etiology:consider Neuro.referral Orthostatic hypotension Osteoarthritis of right knee Osteoarthritis, hand Peripheral artery disease Peripheral artery insufficiency [facility] [place] superficial [place] artery [place] [facility] [place] SFA in stent stenosis: angioplasty Fup q 6 months on [place] [facility] [place] of disease;right popliteal stent graft occluded; pain right calf post 50ft walk Pneumothorax on right (09/23/16) 1999 first time Renal insufficiency Restless leg syndrome Rhinitis, chronic Right rotator cuff tear arthropathy Right shoulder pain Rotator cuff tear arthropathy of both shoulders Shoulder dislocation, recurrent Squamous cell carcinoma Tear of left rotator cuff (09/06/15) DOS: 09/22/18 Injection: 03/01/2019 Tear of right rotator cuff (09/06/15) Injection: 03/01/2019 Tibia fracture Varicose veins of bilateral lower extremities with pain Venous stasis ulcers / 2008 - 2011 Viral hepatitis C chronic/ Treatment [place] [facility] [place] EGD - MAC femoral stent X2 most recent 2016 History of left-sided carotid endarterectomy (04/02/18[place] [facility] [place] bleeding from parotid gland: electrocautery/ open reduction tib/fib ORIF femur right chest tube placement under local (09/23/16) 1999 Spinal Fusion 11/13/17 Status post arthroscopy of left shoulder DOS: 09/22/18 Injection: 03/01/2019 Repair of subscapularis with extensive debridement of superior cuff Biceps tenotomy; acromioplasty Dr. Webb Status post lumbar discectomy 2000 : right discectomy L5-S1 + L4-L5 decompression (right) 2013 : right L4-L5 decompression -2017 L5-S1 facetectomy; Family History Mother Diabetes Essential hypertension Depression Heart disease Neoplasm BREAST Father Neoplasm HODGKINS DISEASE Sister No problems noted. Sister Neoplasm BREAST Stroke Sister Neoplasm LUNG Brother Neoplasm LUNG Grandfather Diabetes Essential hypertension Heart disease Hyperlipidemia Stroke Grandfather No problems noted. Grandmother No problems noted. Grandmother No problems noted. Social History Smoking/Tobacco Use Status: Never Smoking risk assessment performed?: Yes Alcohol Intake: current Alcohol Intake frequency: a few times a week Alcohol type: beer Drug use: Never Substance use type: does not use Household members: spouse Number of Children: 0 Current gender identity: male Do you feel safe at home: Yes Do you feel safe in your relationship?: Yes Meds Allergies and Home Medications Allergies Allergy/AdvReac Type Severity Reaction Status Date / Time No Known Allergies Allergy Unverified 03/19/21 12:06 Home Medications Medication Instructions Recorded Confirmed Type atorvastatin 80 mg tablet 80 mg PO DAILY #90 tab-cap 09/12/16 12/24/21 History aspirin 81 mg tablet,delayed 81 mg PO DAILY 07/04/17 12/24/21 History release (Aspir-) duloxetine 60 mg capsule,delayed 60 mg PO DAILY 90 Days #90 tab-cap 09/14/18 12/24/21 Rx release (Cymbalta) omega 3 350 mg-dha 235 mg-epa 90 1 tab PO DAILY 09/15/18 03/19/21 History mg-fish oil 597 mg capsule,delay rel ([place]-3) cholecalciferol (vitamin D3) 125 5,000 unit PO DAILY 11/22/18 03/19/21 History mcg (5,000 unit) tablet (Vitamin D3) fluticasone propionate 50 2 spray INTRANASAL DAILY 11/22/18 03/19/21 History mcg/actuation nasal spray,suspension (Flonase Allergy Relief) apixaban 5 mg tablet (Eliquis) 5 mg PO BID 06/27/20 12/24/21 History acetaminophen 500 mg capsule 1,000 mg PO TID 11/29/20 03/19/21 History doxycycline hyclate 100 mg tablet 100 mg PO BID #14 tab 03/19/21 Rx lidocaine 5 % topical patch 1 patch TOPICAL DAILY #15 ea 03/19/21 Rx (Lidoderm) oxycodone-acetaminophen 5 mg-325 1 tab PO Q8H PRN #7 tab 03/19/21 Rx mg tablet (Percocet) amlodipine 5 mg tablet 2.5 mg PO DAILY 12/24/21 12/24/21 History amoxicillin 875 mg-potassium 1 tab PO BID 12/24/21 12/24/21 History clavulanate 125 mg tablet lisinopril 5 mg tablet 10 mg PO DAILY 12/24/21 12/24/21 History mirtazapine 7.5 mg tablet 7.5 mg PO DAILY 12/24/21 12/24/21 History mupirocin 2 % topical ointment applic TOPICAL 12/24/21 12/24/21 History Exam Narrative Exam Narrative: 134/103, 90, 36.6, 19, 98% RA. HEENT atraumatic; neck supple; lungs grossly clear, chest tube site minimal erythema w/o d/c; heart RRR; abdomen soft and NT; rectal (per ER) heme positive; extremities w/o edema, pedal pulses not palpable (baseline per patient); neuro Ox3, lucid, moves all 4s Results Labs Result diagrams: 12/24/21 13:05 12/24/21 13:05 Labs: Laboratory Results - last 24 hr 12/24/21 12/24/21 12/24/21 13:05 13:05 13:58 WBC 12.67 H RBC 2.41 L Hgb 6.1 L* Hct 19.8 L* MCV 82.2 MCH 25.3 L MCHC 30.8 L RDW 17.5 H Plt Count 630 H MPV 9.5 Immature Gran % 1.3 Neutrophils % 81.6 Lymphocytes % 9.7 Monocytes % 6.3 Eosinophils % 0.9 Basophils % 0.2 Nucleated RBC % 0.0 Absolute Neutrophils 10.34 H Absolute Lymphocytes 1.23 Absolute Monocytes 0.80 Absolute Eosinophils 0.11 Absolute Basophils 0.03 PT 12.1 H INR 1.2 H APTT 27.9 H Sodium 135 L Potassium 4.4 Chloride 103 Carbon Dioxide 24.0 Anion Gap 8.0 BUN 32 H Creatinine 1.2 Estimated GFR/1.73 m2 59.68 Glucose 128 H Calcium 9.0 Magnesium 2.4 Total Bilirubin 0.3 AST 91 H ALT 90 H Alkaline Phosphatase 107 Troponin I < 50 Total Protein 7.9 Albumin 2.3 L Urine Color Urine Clarity Urine pH Ur Specific [place] Urine Protein Urine Ketones Urine Blood Urine Nitrite Urine Bilirubin Urine Urobilinogen Ur Leukocyte Esterase Urine Glucose COVID-19 Source SARS-CoV-2 (PCR) Patient ABO/Rh Antibody Screen Crossmatch 12/24/21 12/24/21 12/24/21 13:58 15:50 17:50 WBC RBC Hgb Hct MCV MCH MCHC RDW Plt Count MPV Immature Gran % Neutrophils % Lymphocytes % Monocytes % Eosinophils % Basophils % Nucleated RBC % Absolute Neutrophils Absolute Lymphocytes Absolute Monocytes Absolute Eosinophils Absolute Basophils PT INR APTT Sodium Potassium Chloride Carbon Dioxide Anion Gap BUN Creatinine Estimated GFR/1.73 m2 Glucose Calcium Magnesium Total Bilirubin AST ALT Alkaline Phosphatase Troponin I Total Protein Albumin Urine Color Yellow Urine Clarity Clear Urine pH 6.5 Ur Specific [place] 1.020 Urine Protein Negative Urine Ketones Negative Urine Blood Negative Urine Nitrite Negative Urine Bilirubin Negative Urine Urobilinogen 0.2 Ur Leukocyte Esterase Negative Urine Glucose Negative COVID-19 Source Nasal/Nares SARS-CoV-2 (PCR) Negative Patient ABO/Rh O Positive Antibody Screen NEGATIVE Crossmatch See Detail Last Vital Signs Temp 36.6 C 12/24/21 17:18 Pulse 90 12/24/21 18:31 Resp 20 12/24/21 18:40 BP 157/63 H 12/24/21 18:31 Pulse Ox 95 12/24/21 18:40
[2021-12-24] MEDS: Mirtazapine 15 MG TAB 7.5 MG PO (22:10)
[2021-12-24] MEDS: Amoxicillin 875/Clav. 125 TAB PO (22:11)
[2021-12-24] MEDS: Lactated Ringers 1,000 ML 125 ML IV (22:21)
[2021-12-25] VITALS (16 sets, daily range): BP systolic 99–195; BP diastolic 64–87; PULSE 77–94; RESP 16–20; TEMP 35.8–36.7; O2SAT 92–96
[2021-12-25] MEDS: oxyCODONE 5 mg/Acetaminophen 325 mg TAB 1 TAB PO (02:54)
[2021-12-25 06:25] LABS: MCH 26.4 pg (27.0-33.0); MCHC 31.7 % (32.0-36.0); MCV 83.2 fL (80-95); MPV 9.1 fL (8.0-11.0); Platelet Count 474 10^3/uL (130-400); RDW 16.7 % (11.8-14.1); RDW-SD 50.2 fL; WBC 8.33 10^3/uL (4.4-10.8)
[2021-12-25 06:29] LABS: Anion Gap 6.8 mmol/L (3-11); BUN 25 mg/dL (7-18); CO2 23.2 mmol/L (21.0-32.0); CREATININE 1.2 mg/dL (0.70-1.30); Calcium 8.3 mg/dL (8.5-10.1); Chloride 105 mmol/L (98-107); Estimated GFR 59.68 (mL/min/1.73m2); Glucose 93 mg/dL (74-106); Potassium 3.9 mmol/L (3.5-5.1); Sodium 135 mmol/L (136-145)
[2021-12-25 06:38] LABS: HCT 20.8 % (40.0-50.0); HGB 6.6 g/dL (13.5-17.5)
[2021-12-25] MEDS: Acetaminophen 325 MG TAB 650 MG PO ×2 (07:57→22:13)
[2021-12-25] MEDS: Amoxicillin 875/Clav. 125 TAB PO ×2 (07:57→19:32)
[2021-12-25] MEDS: DULoxetine 30 MG CAP 60 MG PO (07:57)
--- NOTE | 2021-12-25 09:09 | INITIAL_ITS ---
- If Service Date Differs Date of service: 12/25/21 Time of Service: 09:09 Care Management Initial Assess REASON FOR HOSPITALIZATION:: UGI Bleed PAST MEDICAL HISTORY/PAST SURGICAL HISTORY:: Medical History . Abdominal aortic aneurysm. [facility]: 4.3 x 4.2 cm infra-renal AAA. AAA max. diam: 4.0cm ([facility]). 10/2015: infra- renal AAA max.4.3cm: stable ([facility]). mri : 3.5 cm. Abscess of chest wall. Actinic keratoses. Alcohol use. Anemia. Benign prostatic hyperplasia with lower urinary tract symptoms. BPH without urinary obstruction. Chronic pain disorder (04/15/12). CONTRACT / (urine:03/17). Degenerative disc disease, lumbar. Depressive disorder. Dermatitis. Elevated liver enzymes. Fatigue. Femur fracture. Helicobacter pylori gastritis (chronic gastritis) (11/23/14). positive gastroscopy : treated. Hx of hepatitis C. Hx of pneumothorax. Hypercholesterolemia. Hypertension. Insomnia. Knee pain, right. Lacunar infarction. Left rotator cuff tear arthropathy. Leukocytosis. Major depression, chronic. Male sexual dysfunction. 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 Nasal bone fracture. Nonhealing nonsurgical wound. Due to injury. Right nicholson - Vascular wound. Obstructive sleep apnea (04/07/15). CPAP failure; : Adaptive sevo ventilation (ASV). :repeated study; mostly severe central sleep apnea without sign.hypoxemia/very frequent muscle fasciculations of ? etiology:consider Neuro.referral. Orthostatic hypotension. Osteoarthritis of right knee. Osteoarthritis, hand. Peripheral artery disease. Peripheral artery insufficiency. [facility]; 2011:left superficial femoral artery stent. [facility] : left SFA in stent stenosis: angioplasty. Fup q 6 months on going. [facility] progression of disease;right popliteal stent graft occluded; pain right calf post 50ft walk. Pneumothorax on right (09/23/16). 2000 first time. Renal insufficiency. Restless leg syndrome. Rhinitis, chronic. Right rotator cuff tear arthropathy. Right shoulder pain. Rotator cuff tear arthropathy of both shoulders. Shoulder dislocation, recurrent. Squamous cell carcinoma. Tear of left rotator cuff (09/06/15). DOS: 09/22/18. Injection: 03/01/2019. Tear of right rotator cuff (09/06/15). Injection: 03/01/2019. Tibia fracture. Varicose veins of bilateral lower extremities with pain. Venous stasis ulcers. recurrent/ 2008 - 2011. Viral hepatitis C. chronic/ Treatment Interferon:[facility]/ [facility]. Surgical History . EGD - MAC. femoral stent. X2 most recent 2016. History of left-sided carotid endarterectomy (04/02/18). [facility] / in surgery bleeding from parotid gland: electrocautery/. open reduction tib/fib. ORIF femur. right chest tube placement under local (09/23/16). 1999. Spinal Fusion. 11/13/17 ANA LILIA DAVILA. Status post arthroscopy of left shoulder. DOS: 09/22/18. Injection: 03/01/2019. Repair of subscapularis with extensive debridement of superior cuff. Biceps tenotomy; acromioplasty. Dr. Webb. Status post lumbar discectomy. 2000 : right discectomy L5-S1 + L4-L5 decompression (right). 2013 : right L4-L5 decompression. L5-S1 facetectomy; PREVIOUS FUNCTIONAL STATUS/SOCIAL/FAMILY SUPPORTS:: Ernesto is a 71 yo male who lives with his , Mela in a 2 story home in [place]. The couple does not have any children. 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 His is a legal biller and has worked for [employer] for 44 years. Ernesto is independent with all ADLs. He does have home health RN visits weekly for wound care. CURRENT FUNCTIONAL STATUS:: Ernesto was sitting up in bed when CM met with him. He engaged easily with CM and was agreeable to conversation. Ernesto informed CM that he is feeling much, much better than when he first presented to the hospital. His hematocrit and hemoglobin were quite low and he has been transfused with 3 units of blood so far. A repeat H&H at 11 am indicated that his hgb has gone from 6.6 to 8.7. Ernesto explained that he has had a lot of health issues in the past 2 years. He had an abdominal aortic aneurysm resected at [facility], a collapsed lung and shoulder surgery. ADVANCE DIRECTIVES:: [facility] on file--, Mela is identified as agent. Has patient been provided with info about the portal/API?: Yes Did the patient sign up for the portal?: Yes (previously) CODE STATUS:: Full Code INSURANCE COVERAGE / FINANCIAL ISSUES:: Medicare. BCBS CURRENT HOME/COMMUNITY SERVICES/EQUIPMENT:: Ernesto uses a CPAP device from [facility] and receives HH RN visits weekly for wound care. PRIMARY CARE PHYSICIAN:: Mando Rodriguez POTENTIAL DISCHARGE NEEDS:: Follow up with PCP and plan of care PATIENT/FAMILY EDUCATION NEEDS:: Review discharge instructions, medications, activity, follow up plam, limitations and Ask Me Three TRANSPORTATION:: via private vehicle with PLAN:: Ernesto will likely be discharged home with a resumption of home health nursing services. He will follow up with his PCP and plan of care and transport with his . CM will continue to support Ernesto and his discharge planning needs.
[2021-12-25] MEDS: Lisinopril 10 MG TAB PO (10:26)
[2021-12-25] MEDS: amLODIPine 5 MG TAB 2.5 MG PO (10:26)
[2021-12-25] MEDS: Furosemide 40 MG/4 ML VIAL IVP (10:37)
[2021-12-25 11:15] LABS: HCT 26.8 % (40.0-50.0); HGB 8.7 g/dL (13.5-17.5)
--- NOTE | 2021-12-25 11:43 | SCONE_ITS ---
Date of service: 12/25/21 Time of Service: 11:43 Assessment and Plan Assessment and plan (1) UGI bleed: Status: Acute Assessment and plan: Pt is 3 weeks postOp from R wedge resection of lung cancer at [facility] (October 2021). Pt states he got an infection post OP- but from what he describes, I think this was only of the incision and not the organ space. There is some fluid on CT, But I think this is just postOp change and not empyema. He has not been having fever/WBC. I would not purse drainage. However, I do not feel he is a good candidate for EGD. Repeat Hgb after 3 units is 8.7. He has not had any melena since he has been in the hospital. He has no N/V or abdominal pain. I would continue to treat him w/ maximal medical therapy and see how his hgb responds. He is not a candidate for anesthesia at this time. (2) Acute GI bleeding: Status: Acute (3) Lung mass: Status: Acute (4) Spell of abnormal behavior: Status: Acute (5) Cerebrovascular disease: Status: Acute (6) Carotid stenosis: Status: Acute (7) Factor 5 Leiden mutation, heterozygous: Status: Acute (8) GERD (gastroesophageal reflux disease): Status: Acute Qualifiers: Esophagitis presence: without esophagitis Qualified Code(s): K21.9 - Gastro-esophageal reflux disease without esophagitis (9) Essential hypertension: Status: Acute (10) Chronic anticoagulation: Status: Acute (11) Spontaneous pneumothorax: Status: Acute (12) Lung cancer: Status: Chronic History of Present Illness Narrative: Patient came into the ED yesterday complaining of feeling weak and dizzy and tired. He he has been having melena at home. Patient's not sure how long its been going on for. 3 weeks ago he had a right wedge resection of his lung for lung cancer. I have no information on this. He then developed an infection and 10 days ago went back for follow-up and they drained it . He did not go into the OR to have this done, and they did not stick a needle into him, so I am assuming that this is just a localized skin/incision infection. Looking on CT he does have fluid around the surg site in the R chest. But he has not been having fever/chills. He has been taking ibuprofen daily for postOp pain control. He is not on a PPI or H2. He denies any abdominal pain H/I, pain or difficulty swallowing. He states he has not had much of an appetite lately. He has not been sleeping well. He has felt very week/tired. Last week he was having some indigestion, but this week he feels better. He's not vomited any blood. He's not had any bleeding/drainage from his incision. He doesn't feel any more short of breathe than usual. He's not coughing up any productive sputum or blood. He does have a hx of GERD. He did receive x3 units of PRBC's last night Review of Systems All systems reviewed & are unremarkable except as noted in HPI and below PFSH All Active Problems Lung cancer (Chronic) type and stage unknown. Pt had Thoroscopy and wedge resection 3wks ago (October 2021) @ [facility] UGI bleed (Acute) Acute GI bleeding (Acute) Fracture of rib (Acute) Lung mass (Acute) Spell of abnormal behavior (Acute) Cerebrovascular disease (Acute) Carotid stenosis (Acute) Laceration of left ring finger (Acute) Empyema, thoracic (Acute) Syncope (Chronic) Lymphedema of right upper extremity (Acute) Fracture of coracoid process of right scapula (Acute 07/28/20) COPD (chronic obstructive pulmonary disease) (Chronic) Lung blebs (Acute) Persistent air leak (Acute) Mass of upper lobe of left lung (Acute) Factor 5 Leiden mutation, heterozygous (Acute) GERD (gastroesophageal reflux disease) (Acute) Essential hypertension (Acute 06/01/13) echocardiogram normal Chronic anticoagulation (Acute) Syncope (Acute) Spontaneous pneumothorax (Acute) right Medical History Abdominal aortic aneurysm [facility]: 4.3 x 4.2 cm infra-renal AAA AAA max. diam: 4.0cm ([facility]) 10/2015: infra-renal AAA max.4.3cm: stable ([facility]) mri : 3.5 cm Abscess of chest wall Actinic keratoses Alcohol use Anemia Benign prostatic hyperplasia with lower urinary tract symptoms BPH without urinary obstruction Chronic pain disorder (04/15/12) CONTRACT -2015/ (urine:03/17) Degenerative disc disease, lumbar Depressive disorder Dermatitis Elevated liver enzymes Fatigue Femur fracture Helicobacter pylori gastritis (chronic gastritis) (11/23/14) positive gastroscopy : treated Hx of hepatitis C Hx of pneumothorax Hypercholesterolemia Hypertension Insomnia Knee pain, right Lacunar infarction Left rotator cuff tear arthropathy Leukocytosis Major depression, chronic Male sexual dysfunction Methadone dependence (01/14/18) Nasal bone fracture Nonhealing nonsurgical wound Due to injury Right nicholson - Vascular wound Obstructive sleep apnea (04/07/15) CPAP failure; : Adaptive sevo ventilation (ASV) :repeated study; mostly severe central sleep apnea without s ign.hypoxemia/very frequent muscle fasciculations of ? etiology:consider Neuro.referral Orthostatic hypotension Osteoarthritis of right knee Osteoarthritis, hand Peripheral artery disease Peripheral artery insufficiency [facility]; 2011:left superficial femoral artery stent [facility] : left SFA in stent stenosis: angioplasty Fup q 6 months on going [facility] progression of disease;right popliteal stent graft occluded; pain right calf post 50ft walk Pneumothorax on right (09/23/16) 1999 first time Renal insufficiency Restless leg syndrome Rhinitis, chronic Right rotator cuff tear arthropathy Right shoulder pain Rotator cuff tear arthropathy of both shoulders Shoulder dislocation, recurrent Squamous cell carcinoma Tear of left rotator cuff (09/06/15) DOS: 09/22/18 Injection: 03/01/2019 Tear of right rotator cuff (09/06/15) Injection: 03/01/2019 Tibia fracture Varicose veins of bilateral lower extremities with pain Venous stasis ulcers recurrent/ 2008 - 2011 Viral hepatitis C chronic/ Treatment Interferon:successfull/ [facility] Surgical History EGD - MAC femoral stent X2 most recent 2016 History of left-sided carotid endarterectomy (04/02/18) [facility] / in surgery bleeding from parotid gland: electrocautery/ open reduction tib/fib ORIF femur right chest tube placement under local (09/23/16) 1999 Spinal Fusion 11/13/17 ANA LILIA DAVILA Status post arthroscopy of left shoulder DOS: 09/22/18 Injection: 03/01/2019 Repair of subscapularis with extensive debridement of superior cuff Biceps tenotomy; acromioplasty Dr. Webb Status post lumbar discectomy 2000 : right discectomy L5-S1 + L4-L5 decompression (right) 2013 : right L4-L5 decompression L5-S1 facetectomy; Family History Mother Diabetes Essential hypertension Depression Heart disease Neoplasm BREAST Father Neoplasm HODGKINS DISEASE Sister No problems noted. Sister Neoplasm BREAST Stroke Sister Neoplasm LUNG Brother Neoplasm LUNG Grandfather Diabetes Essential hypertension Heart disease Hyperlipidemia Stroke Grandfather No problems noted. Grandmother No problems noted. Grandmother No problems noted. Social History Smoking/Tobacco Use Status: Never Smoking risk assessment performed?: Yes Alcohol Intake: current Alcohol Intake frequency: a few times a week Alcohol type: beer Drug use: Never Substance use type: does not use Household members: spouse Number of Children: 0 Current gender identity: male Do you feel safe at home: Yes Do you feel safe in your relationship?: Yes Exam HENMT Head: normal to inspection Ears: hearing grossly normal bilaterally General nose exam: external nose normal Teeth and gingiva: poor dentition Chest Chest: no crepitus (no crepitus of chest wall) Other: laparoscopy incisions- yellowish membrane- but nothing that requires debridment. there is no redness/drainage/swelling he also had skin cancer removed from [facility] recently. The incision is c/d/i. Resp Effort & Inspection: normal respiratory effort Auscultation: wheezes scattered wheezes Cardio Rate: regular rate Rhythm: regular rhythm GI Palpation: soft, nontender and No ascites Auscultation: normal bowel sounds Extrem General: no pedal edema, clubbing and muscle atrophy Results Last Vital Signs Temp 36.1 C L 12/25/21 10:34 Pulse 77 12/25/21 10:34 Resp 18 12/25/21 10:34 BP 156/77 H 12/25/21 10:34 Pulse Ox 95 12/25/21 10:34 Labs Result diagrams: 12/25/21 11:10 12/25/21 05:42 Labs: Laboratory Results - last 24 hr 12/24/21 12/24/21 12/24/21 13:05 13:05 13:58 WBC 12.67 H RBC 2.41 L Hgb 6.1 L* Hct 19.8 L* MCV 82.2 MCH 25.3 L MCHC 30.8 L RDW 17.5 H Plt Count 630 H MPV 9.5 Immature Gran % 1.3 Neutrophils % 81.6 Lymphocytes % 9.7 Monocytes % 6.3 Eosinophils % 0.9 Basophils % 0.2 Nucleated RBC % 0.0 Absolute Neutrophils 10.34 H Absolute Lymphocytes 1.23 Absolute Monocytes 0.80 Absolute Eosinophils 0.11 Absolute Basophils 0.03 PT 12.1 H INR 1.2 H APTT 27.9 H Sodium 135 L Potassium 4.4 Chloride 103 Carbon Dioxide 24.0 Anion Gap 8.0 BUN 32 H Creatinine 1.2 Estimated GFR/1.73 m2 59.68 Glucose 128 H Calcium 9.0 Magnesium 2.4 Total Bilirubin 0.3 AST 91 H ALT 90 H Alkaline Phosphatase 107 Troponin I < 50 Total Protein 7.9 Albumin 2.3 L Urine Color Urine Clarity Urine pH Ur Specific Logan Urine Protein Urine Ketones Urine Blood Urine Nitrite Urine Bilirubin Urine Urobilinogen Ur Leukocyte Esterase Urine Glucose COVID-19 Source SARS-CoV-2 (PCR) Patient ABO/Rh Antibody Screen Crossmatch 12/24/21 12/24/21 12/24/21 13:58 15:50 17:50 WBC RBC Hgb Hct MCV MCH MCHC RDW Plt Count MPV Immature Gran % Neutrophils % Lymphocytes % Monocytes % Eosinophils % Basophils % Nucleated RBC % Absolute Neutrophils Absolute Lymphocytes Absolute Monocytes Absolute Eosinophils Absolute Basophils PT INR APTT Sodium Potassium Chloride Carbon Dioxide Anion Gap BUN Creatinine Estimated GFR/1.73 m2 Glucose Calcium Magnesium Total Bilirubin AST ALT Alkaline Phosphatase Troponin I Total Protein Albumin Urine Color Yellow Urine Clarity Clear Urine pH 6.5 Ur Specific Logan 1.020 Urine Protein Negative Urine Ketones Negative Urine Blood Negative Urine Nitrite Negative Urine Bilirubin Negative Urine Urobilinogen 0.2 Ur Leukocyte Esterase Negative Urine Glucose Negative COVID-19 Source Nasal/Nares SARS-CoV-2 (PCR) Negative Patient ABO/Rh O Positive Antibody Screen NEGATIVE Crossmatch See Detail 12/25/21 12/25/21 12/25/21 05:42 05:42 11:10 WBC 8.33 D RBC 2.50 L Hgb 6.6 L* 8.7 L D Hct 20.8 L* 26.8 L D MCV 83.2 MCH 26.4 L MCHC 31.7 L RDW 16.7 H Plt Count 474 H MPV 9.1 Immature Gran % Neutrophils % Lymphocytes % Monocytes % Eosinophils % Basophils % Nucleated RBC % Absolute Neutrophils Absolute Lymphocytes Absolute Monocytes Absolute Eosinophils Absolute Basophils PT INR APTT Sodium 135 L Potassium 3.9 Chloride 105 Carbon Dioxide 23.2 Anion Gap 6.8 BUN 25 H Creatinine 1.2 Estimated GFR/1.73 m2 59.68 Glucose 93 Calcium 8.3 L Magnesium Total Bilirubin AST ALT Alkaline Phosphatase Troponin I Total Protein Albumin Urine Color Urine Clarity Urine pH Ur Specific Logan Urine Protein Urine Ketones Urine Blood Urine Nitrite Urine Bilirubin Urine Urobilinogen Ur Leukocyte Esterase Urine Glucose COVID-19 Source SARS-CoV-2 (PCR) Patient ABO/Rh Antibody Screen Crossmatch
[2021-12-25 11:45] LABS: Lab Add On Test DONE
[2021-12-25] MEDS: Sucralfate 1 GM TAB PO ×3 (11:46→22:13)
[2021-12-25 11:58] LABS: LDH 177 U/L (85-227)
[2021-12-25] MEDS: PANTOPRAZOLE 80 MG in Normal Saline 100 ML 10 MG IV (12:09)
--- NOTE | 2021-12-25 12:54 | DI.US_ITS ---
APPROVED REPORT EXAM: Comprehensive 2D, Doppler, and color-flow Echocardiogram Patient Location: In-Patient Room/Bed: [facility] Assistant: Elsa Dunlap RDCS (AE) Indications: GI Bleed, Vasculopathy, AAA Other Information Study Quality: Adequate Conclusion Normal left ventricular wall thickness and chamber size. Estimated ejection fraction is 55 to 60%. Wall motion is normal Normal right ventricular size and systolic function The left atrium is borderline dilated. Right atrium is normal size The aortic valve is sclerotic and trileaflet without stenosis or regurgitation Mild mitral annular calcification with trace regurgitation Normal tricuspid valve with trace regurgitation. Estimated right ventricular systolic pressure is 33 mmHg Mildly dilated ascending aorta measuring 3.58 cm Wall motion Left Ventricle The left ventricle is normal size. The left ventricular systolic function is normal. The left ventric ular ejection fraction is within the normal range. There is normal left ventricular wall thickness. T here is normal LV segmental wall motion. There is no ventricular septal defect visualized. LVEF is 57 %. Right Ventricle The right ventricle is normal size. The right ventricular systolic function is normal. The RVSP is 33 .1 mmHg. Atria Left atrium is borderline dilated. The right atrium size is normal. The interatrial septum is intact with no evidence for an atrial septal defect. Aortic Valve The Aortic valve is sclerotic. There is no aortic valvular stenosis. No aortic regurgitation is prese nt. Mitral Valve Mild mitral annular calcification. No evidence of mitral valve stenosis. Trace mitral regurgitation. Tricuspid Valve The tricuspid valve is normal in structure. There is no tricuspid valve stenosis. Trace tricuspid reg urgitation. Pulmonic Valve The pulmonary valve is normal in structure. There is no pulmonic valvular stenosis. There is no pulmo polo valvular regurgitation. Great Vessels The aortic root is normal in size. The ascending aorta is mildly dilated. IVC is normal in size and c ollapses >50% with inspiration. Pericardium There is no pericardial effusion. 2D Dimensions IVSD d PLAX 0.95 cm M: 0.6-1.2 LV Vol A2C d MOD 123.4 mL LVPW d PLAX 0.95 cm M: 0.6 - 1.2 LV Vol A4C d MOD 105.5 mL LVID d PLAX 4.67 cm M: 4.2 - 5.8 LA vol/ BSA A2C s A-L 31.5 mL/m2 LVDs 3.25 cm M: 2.5 - 4.0 LA vol/ BSA A4C s A-L 43.1 mL/m2 Ao Root d 3.38 cm M: 3.1 - 3.7 LA Vol/ BSA Biplane s A-L 40.0 mL/m2 RA Area A4C 15.07 cm2 LA Area A4C s MOD 25.78 cm2 RA Vol/ BSA A4C s A-L 20.2 mL/m2 LA Area A2C s MOD 20.31 cm2 Ao Asc Diam d 3.58 cm M: 2.6 - 3.4 LV EF A4C MOD 55.8 % LV EF Teichholz 56.3 % LV EF A2C MOD 57.1 % LVEF (Baker's) 56.51 % M: 52 - 72 LV EF Biplane MOD 56.5 % LV Volume 90.09 mL M: 62 - 150 SV 67.62 mL LV Volume Index 45.73 mL/m2 M: 34 - 74 SV Index 34.20 mL/m2 LV Vol Biplane MOD 119.7 mL FS 29.40 % M-Mode TAPSE 3.12 cm (M/F) >1.7 LV Diastology MV E' medial 0.061 (>0.07 m/s) E/A Ratio 0.8 LV E/e MED 9.85 (<14) MV E Vmax 0.60 (0.4-1.3 m/s) MV E' lateral 0.082 (>0.1 m/s) MV A Vmax 0.80 (0.4-1.3 m/s) LV E/e LAT 7.30 (<14) MV E/A Ratio 0.74 MV E/E' medial 9.89 MV E/E' lateral 7.30 Aortic Valve LVOT Area 3.69 cm2 AoV Area Vmax 2.65 cm2 LVOT Vmax 0.98 m/s AoV Area/ BSA (Vmax) 1.34 cm2/m2 LVOT Mean Anthony. 0.61 m/s STEPHANIE Mean Anthony. 2.43 cm2 LVOT Peak Grad 3.8 mmHg STEPHANIE Mean Anthony. Index 1.23 cm2/m2 LVOT Mean Grad 1.8 mmHg LVOT VTI 0.166 m LVOT Diam s 2.15 cm AoV Vmax 1.36 m/s Velocity Ratio 0.72 AoV Mean Anthony. 0.93 m/s AoV Peak Grad 7.4 mmHg LVOT SV 61.13 mL AoV Mean Grad 3.9 mmHg AoV VTI 0.228 m AoV Area VTI 2.68 cm2 AoV Area/ BSA (VTI) 1.35 cm/m2 Mitral Valve MV DT 222 (160-240 msec) MV PHT 64 msec MV Area PHT 3.42 cm2 MV VTI 0.195 m MV Area VTI 3.14 (4.0-6.0 cm2) Pulmonary Valve PV Vmax 1.18 (0.5-1.5 m/s) RVOT Peak Gr. 3.52 mmHg PV Peak Grad 5.6 mmHg RVOT Mean Gr. 1.55 mmHg PV Mean Grad 2.9 mmHg RVOT VTI 0.095 m PV VTI 0.186 m RVOT Vmax 0.94 m/s Tricuspid Valve TR Peak Grad 30.1 mmHg TR Vmax 2.74 m/s RA Pressure 3.00 mmHg RVSP (TR) 33.1 mmHg
--- NOTE | 2021-12-25 13:58 | PGE_ITS ---
Date of Service Date of service: 12/25/21 Time of Service: 13:59 Assessment and Plan Assessment and plan (1) UGI bleed: Status: Acute Assessment and plan: GI bleed, the melena indicates upper, in the context of antiplatelet agent (ASA) and DOAC. s/p transfusion of RBCs; Hgb improved to 8.7. No melenaotic stools since admission. Gen surg recommends medical tx; no EGD at this time. PPI and hold ASA and DOAC. Carafate. LIkely restart Eliquis tomorrow if no evidence of any further active bleeding. Reviewed ADs, requests Full Code. (2) Lung mass: Status: Acute Assessment and plan: Lung Cancer; s/p resection. (3) COPD (chronic obstructive pulmonary disease): Status: Chronic (4) Factor 5 Leiden mutation, heterozygous: Status: Acute Assessment and plan: Stable w/o acute exacerbation. Not on any routine medications/inhalers (5) Abdominal aortic aneurysm: Assessment and plan: No evidence of aneurysmal bleeding on CT chest. (6) Peripheral artery disease: Assessment and plan: H/O SFA stent with subsequent angioplasty. (7) Essential hypertension: Status: Acute Assessment and plan: Cont amlodipine and lisinopril. BP has been running benjamin. Monitor. Subjective Subjective Patient reports: no new complaints, feels better and afebrile; denies nausea, vomiting or shortness of breath Exam Const General: cooperative and no acute distress Orientation: alert and oriented x3 Eyes General: appearance normal, both eyes and all related structures Sclera: sclerae normal Neck Neck: no JVD Resp Effort & Inspection: normal respiratory effort Auscultation: clear to auscultation bilaterally Cardio Rate: regular rate Rhythm: regular rhythm Heart Sounds: S1 normal and S2 normal GI Inspection: non-distended Palpation: soft and nontender Extrem General: no pedal edema and no calf tenderness Psych Appearance: grossly normal Speech and Movement: speech and movement normal Affect: normal affect Objective Last Vital Signs Temp 36.1 C L 12/25/21 10:34 Pulse 77 12/25/21 10:34 Resp 18 12/25/21 10:34 BP 156/77 H 12/25/21 10:34 Pulse Ox 95 12/25/21 10:34 Laboratory Results - last 24 hr 12/24/21 12/24/21 12/24/21 13:58 13:58 15:50 WBC RBC Hgb Hct MCV MCH MCHC RDW Plt Count MPV PT 12.1 H INR 1.2 H APTT 27.9 H Sodium Potassium Chloride Carbon Dioxide Anion Gap BUN Creatinine Estimated GFR/1.73 m2 Glucose Calcium Lactate Dehydrogenase Urine Color Urine Clarity Urine pH Ur Specific [place] Urine Protein Urine Ketones Urine Blood Urine Nitrite Urine Bilirubin Urine Urobilinogen Ur Leukocyte Esterase Urine Glucose COVID-19 Source Nasal/Nares SARS-CoV-2 (PCR) Negative Add-On Test Request Patient ABO/Rh O Positive Antibody Screen NEGATIVE Crossmatch See Detail 12/24/21 12/25/21 12/25/21 17:50 05:42 05:42 WBC 8.33 D RBC 2.50 L Hgb 6.6 L* Hct 20.8 L* MCV 83.2 MCH 26.4 L MCHC 31.7 L RDW 16.7 H Plt Count 474 H MPV 9.1 PT INR APTT Sodium 135 L Potassium 3.9 Chloride 105 Carbon Dioxide 23.2 Anion Gap 6.8 BUN 25 H Creatinine 1.2 Estimated GFR/1.73 m2 59.68 Glucose 93 Calcium 8.3 L Lactate Dehydrogenase Urine Color Yellow Urine Clarity Clear Urine pH 6.5 Ur Specific [place] 1.020 Urine Protein Negative Urine Ketones Negative Urine Blood Negative Urine Nitrite Negative Urine Bilirubin Negative Urine Urobilinogen 0.2 Ur Leukocyte Esterase Negative Urine Glucose Negative COVID-19 Source SARS-CoV-2 (PCR) Add-On Test Request Patient ABO/Rh Antibody Screen Crossmatch 12/25/21 12/25/21 12/25/21 05:42 05:42 11:10 WBC RBC Hgb 8.7 L D Hct 26.8 L D MCV MCH MCHC RDW Plt Count MPV PT INR APTT Sodium Potassium Chloride Carbon Dioxide Anion Gap BUN Creatinine Estimated GFR/1.73 m2 Glucose Calcium Lactate Dehydrogenase 177 Urine Color Urine Clarity Urine pH Ur Specific [place] Urine Protein Urine Ketones Urine Blood Urine Nitrite Urine Bilirubin Urine Urobilinogen Ur Leukocyte Esterase Urine Glucose COVID-19 Source SARS-CoV-2 (PCR) Add-On Test Request DONE Patient ABO/Rh Antibody Screen Crossmatch
[2021-12-25 15:09] LABS: Procalcitonin < 0.1 ng/mL
[2021-12-25] MEDS: Atorvastatin 40 MG TAB 80 MG PO (19:32)
[2021-12-25] MEDS: Lidocaine 5% Patch 1 PATCH TP (20:30)
[2021-12-25] MEDS: traMADol 50 MG TAB PO (20:30)
[2021-12-25] MEDS: Mirtazapine 15 MG TAB 7.5 MG PO (22:13)
[2021-12-25] MEDS: Melatonin 3 MG TAB 6 MG PO (22:14)
[2021-12-26 06:32] LABS: Absolute Basophil Count 0.02 10^3/uL (0.0-0.2); Absolute Eosinophil Count 0.36 10^3/uL (0.0-0.7); Absolute Lymphocyte Count 1.07 10^3/uL (1.2-3.4); Absolute Monocyte Count 0.71 10^3/uL (0.1-0.8); Absolute Neutrophil Count 5.41 10^3/uL (1.2-6.7); Basophils % 0.3; Eosinophils % 4.7; HGB 8.5 g/dL (13.5-17.5); Immature Grans % 1.3; MCH 26.5 pg (27.0-33.0); MCHC 32.7 % (32.0-36.0); MPV 8.7 fL (8.0-11.0); Monocytes % 9.3; Neutrophils % 70.4; Platelet Count 514 10^3/uL (130-400); RBC 3.21 10^6/uL (4.36-5.78); RDW 16.8 % (11.8-14.1); RDW-SD 48.9 fL; WBC 7.67 10^3/uL (4.4-10.8)
[2021-12-26 06:46] LABS: Anion Gap 6.6 mmol/L (3-11); BUN 20 mg/dL (7-18); CO2 26.4 mmol/L (21.0-32.0); CREATININE 1.3 mg/dL (0.70-1.30); Calcium 8.8 mg/dL (8.5-10.1); Chloride 102 mmol/L (98-107); Estimated GFR 54.42 (mL/min/1.73m2); Glucose 100 mg/dL (74-106); Potassium 4.1 mmol/L (3.5-5.1); Sodium 135 mmol/L (136-145)
[2021-12-26 07:18] VITALS: BP 142/66; PULSE 83; RESP 16; TEMP 36.3; O2SAT 95
[2021-12-26] MEDS: Sucralfate 1 GM TAB PO ×4 (08:12→20:49)
[2021-12-26] MEDS: amLODIPine 5 MG TAB 2.5 MG PO (08:12)
[2021-12-26] MEDS: Apixaban 5 MG TAB PO ×2 (08:12→20:49)
[2021-12-26] MEDS: Lisinopril 10 MG TAB PO (08:12)
[2021-12-26] MEDS: Amoxicillin 875/Clav. 125 TAB PO ×2 (08:12→20:49)
[2021-12-26] MEDS: DULoxetine 30 MG CAP 60 MG PO (08:12)
--- NOTE | 2021-12-26 08:22 | PDOC.CMPRO ---
- If Service Date Differs Date of service: 12/26/21 Time of Service: 08:22 Care Management Progress Note S/O:Ernesto was sitting up in bed when CM met with him. He was in good spirits and engaged readily with CM. Ernesto stated that he is feeling really good today but that he has not been out of bed much. CM suggested that he might want to walk around his room a bit today since he will likely be discharged tomorrow. Ernesto's hematocrit and hemoglobin have remained relatively stable since his transfusions. This morning they were 26.0 and 8.5 respectively. A: Ernesto is a 71 year old man admitted with a GI Bleed on 12/24/21 P:Ernesto will likely be discharged home with a resumption of home health nursing services. He will follow up with his PCP and plan of care and transport with his . CM will continue to support Ernesto and his discharge planning needs.
[2021-12-26] MEDS: Patch Removal 1 EACH TP (08:56)
[2021-12-26] MEDS: Pantoprazole 40 MG TABCR PO ×2 (11:57→20:49)
--- NOTE | 2021-12-26 14:36 | W.PM.PROGNOT ---
Date of Service Date of service: 12/26/21 Time of Service: 14:36 Assessment and Plan Assessment and plan (1) UGI bleed: Status: Acute Assessment and plan: Pt is 3 weeks post-op from R wedge resection of lung cancer at [facility] (October 2021). He has not been having fever/WBC. He has not had any melena since he has been in the hospital. He has no N/V or abdominal pain. He ate lunch today. I would continue to treat him w/ maximal medical therapy and see how his hgb responds. Hgb today is 8.5. (2) Lung mass: Status: Acute Assessment and plan: Lung Cancer; s/p resection. (3) Factor 5 Leiden mutation, heterozygous: Status: Acute Assessment and plan: Stable w/o acute exacerbation. Not on any routine medications/inhalers (4) GERD (gastroesophageal reflux disease): Status: Acute Assessment and plan: Continuing pantoprazole 40 mg BID Qualifiers: Esophagitis presence: without esophagitis Qualified Code(s): K21.9 - Gastro-esophageal reflux disease without esophagitis (5) Chronic anticoagulation: Status: Acute Assessment and plan: Continuing Apixaban 2.5 mg PO BID (6) Lung cancer: Status: Chronic Assessment and plan: being followed in [place] Subjective Subjective Patient reports: no new complaints, feels better and afebrile; denies nausea, vomiting or shortness of breath Interval history since last seen: Patient reports: no new complaints, feels better, denies nausea, vomiting or shortness of breath, denies tarry or black stools. Exam Narrative Exam Narrative: 134/103, 90, 36.6, 19, 98% RA. HEENT atraumatic; neck supple; lungs grossly clear, chest tube site minimal erythema w/o d/c; heart RRR; abdomen soft and NT; rectal (per ER) heme positive; extremities w/o edema, pedal pulses not palpable (baseline per patient); neuro Ox3, lucid, moves all 4s Const General: cooperative, healthy appearing, comfortable and no acute distress Orientation: alert, awake and oriented x3 HENMT Head: normal to inspection, normocephalic and atraumatic Ears: hearing grossly normal bilaterally General nose exam: external nose normal Face and sinus: normal facial exam Mouth: moist mucous membranes Teeth and gingiva: poor dentition Eyes General: appearance normal, both eyes and all related structures Conjunctivae: conjunctivae normal Sclera: sclerae normal Neck Neck: normal visual inspection, full ROM, no meningeal signs, trachea midline, supple, nontender and no JVD Chest Chest: no crepitus (no crepitus of chest wall) Resp Effort & Inspection: normal respiratory effort and able to speak in complete sentences Auscultation: clear to auscultation bilaterally, diminished lung sounds bilaterally in the lower lung dixon and wheezes scattered wheezes Cardio Rate: regular rate Rhythm: regular rhythm Heart Sounds: S1 normal and S2 normal GI Inspection: non-distended Palpation: soft, not firm, no guarding, no pulsatile masses, nontender and No ascites Auscultation: normal bowel sounds Rectal Exam: visual inspection normal, normal sphincter tone, abnormal stool black and heme positive stool Back/Spine/Pelvis Back: No back tenderness Skin General skin exam: no rashes or lesions noted Neuro General: patient alert, patient awake, patient oriented x3, moves all extremities and no focal motor deficits Cranial Nerves: CN's II-XI intact bilaterally Cognition: normal cognition Speech: speech normal Motor: muscle tone normal throughout and strength 5/5 throughout Sensory Exam: no sensory deficits noted Extrem General: normal to inspection, full ROM, capillary refill normal, no pedal edema, no calf tenderness, clubbing and muscle atrophy Psych Appearance: grossly normal Mental Status: mental status grossly normal Speech and Movement: speech and movement normal Affect: normal affect Objective Last Vital Signs Temp 36.3 C L 12/26/21 07:18 Pulse 83 12/26/21 07:18 Resp 16 12/26/21 07:18 BP 142/66 H 12/26/21 07:18 Pulse Ox 95 12/26/21 07:18 Laboratory Results - last 24 hr 12/25/21 12/26/21 12/26/21 05:42 06:25 06:25 WBC 7.67 RBC 3.21 L Hgb 8.5 L Hct 26.0 L MCV 81.0 MCH 26.5 L MCHC 32.7 RDW 16.8 H Plt Count 514 H MPV 8.7 Immature Gran % 1.3 Neutrophils % 70.4 Lymphocytes % 14.0 Monocytes % 9.3 Eosinophils % 4.7 Basophils % 0.3 Nucleated RBC % 0.0 Absolute Neutrophils 5.41 Absolute Lymphocytes 1.07 L Absolute Monocytes 0.71 Absolute Eosinophils 0.36 Absolute Basophils 0.02 Sodium 135 L Potassium 4.1 Chloride 102 Carbon Dioxide 26.4 Anion Gap 6.6 BUN 20 H Creatinine 1.3 Estimated GFR/1.73 m2 54.42 Glucose 100 Calcium 8.8 Procalcitonin < 0.1 Reviewed Pertinent PMH: Yes
[2021-12-26 15:51] VITALS: BP 142/80; PULSE 93; RESP 16; TEMP 36.7; O2SAT 95
[2021-12-26] MEDS: Atorvastatin 40 MG TAB 80 MG PO (20:49)
[2021-12-26] MEDS: Mirtazapine 15 MG TAB 7.5 MG PO (20:49)
[2021-12-26] MEDS: Melatonin 3 MG TAB 6 MG PO (22:47)
[2021-12-26 23:07] VITALS: BP 142/63; PULSE 91; RESP 18; TEMP 37; O2SAT 94
[2021-12-27 06:57] LABS: HCT 28.6 % (40.0-50.0); MCH 25.7 pg (27.0-33.0); MCHC 31.5 % (32.0-36.0); MCV 81.7 fL (80-95); Platelet Count 635 10^3/uL (130-400); RDW 16.9 % (11.8-14.1); RDW-SD 49.9 fL; WBC 8.17 10^3/uL (4.4-10.8)
[2021-12-27 07:32] VITALS: BP 128/81; PULSE 88; RESP 16; TEMP 35.9; O2SAT 92
[2021-12-27] MEDS: Lisinopril 10 MG TAB PO (08:25)
[2021-12-27] MEDS: Pantoprazole 40 MG TABCR PO (08:25)
[2021-12-27] MEDS: Amoxicillin 875/Clav. 125 TAB PO (08:25)
[2021-12-27] MEDS: Patch Removal 1 EACH TP (08:25)
[2021-12-27] MEDS: Sucralfate 1 GM TAB PO ×2 (08:25→11:12)
[2021-12-27] MEDS: DULoxetine 30 MG CAP 60 MG PO (08:25)
[2021-12-27] MEDS: Apixaban 5 MG TAB PO (08:25)
[2021-12-27] MEDS: amLODIPine 5 MG TAB 2.5 MG PO (08:25)
--- NOTE | 2021-12-27 09:38 | W.PM.DS.N ---
Date of service: 12/27/21 Time of Service: 09:53 DS: Diagnosis Discharge Diagnosis (1) UGI bleed: Status: Acute (2) Lung mass: Status: Acute (3) Factor 5 Leiden mutation, heterozygous: Status: Acute (4) GERD (gastroesophageal reflux disease): Status: Acute (5) Chronic anticoagulation: Status: Acute (6) Lung cancer: Status: Chronic Discharge Plan Disposition Patient Disposition: HOME Condition: Fair Discharge Details Reason For Visit: UGI Bleed Admit Date/Time: 12/24/21 19:42 Admit Provider: Trev Fox Attending Provider: Trev Fox [facility]: 71 male with h/o PVD, factor V Leiden positive, s/p RLE by pass graft for which he is on chronic Eliquis, and also on ASA for primary prevention --here with approx 2 weeks of generalized weakness and 1-2 weeks of melanotic stools. No abdominal pain, nausea or vomiting. In ER initial findings of note for heme + stool and Hct 19 ( most recent 41, 03/21). Given Protonix, Pepcid and transfused 1 unit pRBC. Given h/o leaking AAA had CTA abdomen which was negative. Of note; Recent history of wedge resection RLL for lung cancer, complicated by unspecified infection (?empyema), for which he had chest tube (discontinued prior to admission) and remains on antibiotics. His H&H have improved, he denies lightheadedness. He has multiple appts the second week of December in [place] for FU related to respiratory and cardiac issues. Home Meds and New Rx's Prescriptions: New sucralfate 1 gram Tablet 1 g PO AC & HS Qty: 120 0RF pantoprazole 40 mg Tablet,Delayed Release (Dr/Ec) 40 mg PO BID@07,1999 Qty: 60 0RF Continued atorvastatin 80 MG tablet 80 mg PO DAILY Qty: 90 4RF Rx Instructions: increased dose / take one tablet daily duloxetine [Cymbalta] 60 mg capsule,delayed release(DR/EC) 60 mg PO DAILY 90 Days Qty: 90 3RF [place]-3 350 mg-235 mg- 90 mg-597 mg Capsule,Delayed Release(Dr/Ec) 1 tab PO DAILY 0RF Label Comments: patient did not verify he is taking these medications Eliquis 5 mg tablet 5 mg PO BID 0RF lisinopril 5 mg tablet 10 mg PO DAILY 0RF mupirocin 2 % ointment TOPICAL 0RF Label Comments: APPLY TO AFFECTED AREA THREE TIMES A DAY FOR 10 DAYS amoxicillin-pot clavulanate 875-125 mg tablet 1 tab PO BID 0RF Label Comments: TAKE ONE TABLET BY MOUTH TWICE A DAY FOR 14 DAYS amlodipine 5 mg tablet 2.5 mg PO DAILY 0RF Label Comments: Take 1/2 tablet by mouth once a day mirtazapine 7.5 mg tablet 7.5 mg PO DAILY 0RF Label Comments: Take 1 tablet by mouth at bedtime fluticasone propionate [Flonase Allergy Relief] 50 mcg/actuation Blessing,Suspension 2 spray Intranasal DAILY 0RF cholecalciferol (vitamin D3) [Vitamin D3] 5,000 unit Tablet 5,000 unit PO DAILY 0RF oxycodone-acetaminophen [Percocet] 5-325 mg tablet 1 tab PO Q8H PRNQty: 7 0RF lidocaine [Lidoderm] 5 % adhesive patch,medicated 1 patch topical DAILY Qty: 15 0RF Rx Instructions: leave on most painful area for up to 12 hrs Discontinued aspirin [Aspir-81] 81 MG tablet,delayed release (DR/EC) 81 mg PO DAILY 0RF No Action acetaminophen 500 mg capsule 1,000 mg PO TID 0RF doxycycline hyclate 100 mg tablet 100 mg PO BID Qty: 14 0RF Discharge Instructions Instructions: Gastrointestinal Bleeding (DC) Additional Instructions: Continue carafate and pantoprazole; FU as planned in [place] with Oncology, Cardiology, Cardiothoracic surgery. Resume Home Health Services Stand Alone Forms: Nursing Discharge Form Referrals: Mando Rodriguez [Primary Care Provider] - 01/08/22 11:20 am Activity:: Activity as Tolerated Equipment/Supplies:: No Equipment Needed Diet:: Low Sodium Discharge Orders Discharge Orders: Discharge Order (Routine); Ordered 12/27/21 Ordered By: Vianca Samaniego DS: Summary Time Spent with Patient providing and/or coordinating discharge services: Less than 30 minutes Status at Discharge Functional status at discharge: independent ambulation Overall status at discharge: patient is progressing back to baseline Mental Status: mental status grossly normal Speech and Movement: speech and movement normal Mood: congruent mood (Pleasant) Affect: normal affect Exam Narrative Exam Narrative: 134/103, 90, 36.6, 19, 98% RA. HEENT atraumatic; neck supple; lungs grossly clear, chest tube site minimal erythema w/o d/c; heart RRR; abdomen soft and NT; rectal (per ER) heme positive; extremities w/o edema, pedal pulses not palpable (baseline per patient); neuro Ox3, lucid, moves all 4s Const General: cooperative, healthy appearing, comfortable and no acute distress Orientation: alert, awake and oriented x3 [facility] Head: normal to inspection, normocephalic and atraumatic Ears: hearing grossly normal bilaterally General nose exam: external nose normal Face and sinus: normal facial exam Mouth: moist mucous membranes Teeth and gingiva: poor dentition Eyes General: appearance normal, both eyes and all related structures Conjunctivae: conjunctivae normal Sclera: sclerae normal Neck Neck: normal visual inspection, full ROM, no meningeal signs, trachea midline, supple, nontender and no JVD Chest Chest: no crepitus (no crepitus of chest wall) Resp Effort & Inspection: normal respiratory effort and able to speak in complete sentences Auscultation: clear to auscultation bilaterally, diminished lung sounds bilaterally in the lower lung dixon and wheezes scattered wheezes Cardio Rate: regular rate Rhythm: regular rhythm Heart Sounds: S1 normal and S2 normal GI Inspection: non-distended Palpation: soft, not firm, no guarding, no pulsatile masses, nontender and No ascites Auscultation: normal bowel sounds Rectal Exam: visual inspection normal, normal sphincter tone, abnormal stool black and heme positive stool Back/Spine/Pelvis Back: No back tenderness Skin General skin exam: no rashes or lesions noted Neuro General: patient alert, patient awake, patient oriented x3, moves all extremities and no focal motor deficits Cranial Nerves: CN's II-XI intact bilaterally Cognition: normal cognition Speech: speech normal Motor: muscle tone normal throughout and strength 5/5 throughout Sensory Exam: no sensory deficits noted Extrem General: normal to inspection, full ROM, capillary refill normal, no pedal edema, no calf tenderness, clubbing and muscle atrophy Psych Appearance: grossly normal Mental Status: mental status grossly normal Speech and Movement: speech and movement normal Mood: congruent mood (Pleasant) Affect: normal affect DS: Data Vitals/I&O Vitals and I&O: Vital Signs Temperature 35.9 C L 12/27/21 07:32 Temperature Source Tympanic 12/27/21 07:32 Pulse 88 12/27/21 07:32 Pulse Rhythm Regular 12/27/21 09:34 Pulse 93 H 12/24/21 20:40 Respiratory Rate 16 12/27/21 07:32 Respiratory Effort Non-Labored 12/27/21 09:34 Respiratory Depth Normal 12/27/21 09:34 Respiratory Pattern Normal 12/27/21 09:34 Blood Pressure 128/81 12/27/21 07:32 Blood Pressure Mean 91 12/24/21 20:31 Pulse Oximetry 92 12/27/21 07:32 Oxygen Delivery Method Room Air 12/27/21 07:32 Oxygen Flow Rate 0 12/27/21 07:32 Pain Level 0 12/27/21 07:32 Comment 12/25/21 08:39 Intake & Output 12/26/21 12/26/21 12/27/21 11:59 23:59 11:59 Intake Total 460 / 460 Output Total 525 / 1100 575 / 1100 200 / 200 Balance -65 / -640 -575 / -640 -200 / -200 Intake: Oral 460 / 460 Output: Urine 525 / 1100 575 / 1100 200 / 200 Other: Urine Color Yellow Light Cathryn Yellow Urine Appearance Clear Clear Clear Urine Odor Normal Stool Size Moderate Stool Characteristics Formed Brown Voiding Methods Urinal Toilet Urinal Data Completed and Pending Completed studies during hospitalization [Text1]: CXR: MEDIASTINUM: There is again seen a large hiatal hernia. ? HEART: Normal. PULMONARY VASCULATURE: Normal. LUNGS: There is an infiltrate in the right lung base. ? PLEURAL SPACE: No pleural effusion or pneumothorax. BONE:Within normal limits for the patient's age.? The patient has a right shoulder replacement. OTHER FINDINGS:An abdominal aortic stent is in place. ? CT Chest/Abd/Pelvis 1. Endo graft repair of the patient's abdominal aortic aneurysm with an aorto bi-iliac graft.? The graft appears patent. 2. Atherosclerotic disease involving the femoral arteries. 3. No acute abdominal or pelvic process. 4. No evidence of a pulmonary embolism, thoracic aortic dissection or aneurysm. 5. Loculated fluid collection in the right lower lobe.? An empyema cannot be excluded in the appropriate clinical setting. 6. Infiltrate in the right lower lobe which may represent pneumonia. ? CT CHEST/ABD/PEL W 03/19/2021 2:21 PM FINDINGS: ?Normal thyroid gland. Thoracic aorta is normal in course and caliber with moderate calcific atherosclerotic disease present. No acute aortic pathology noted. Pulmonary arteries normal in course and caliber. No evidence for acute pulmonary emboli. Normal heart size and atrial ventricular concordance. Normal pericardium. Calcific disease in the aortic valve. Moderate coronary artery calcifications. ?Stable mildly prominent mediastinal lymph nodes are most probably of chronic etiology and related to chronic cardiovascular disease. No concerning hilar, supraclavicular, or axillary adenopathy by CT size criteria. There is a moderately sized hiatal hernia which appears essentially stable as compared to the reference examination. Several scattered calcified granulomas are seen throughout the mediastinum and bilateral mario, which are of no clinical concern and stable. No discrete mediastinal masses are seen. ?There is a moderately sized loculated right pleural effusion which demonstrates the double pleura sign (with enhancing pleura). There is nodular scarring/atelectasis in the right lower lobe with associated surgical sutures (images 38-47 series 4). There is compressive and dependent atelectasis appreciated throughout the right lung. No left pleural effusions are identified. There is no pneumothorax. Chronic linear scarring with traction bronchiectasis in the left upper lobe. There is platelike atelectasis and scarring in the right lower lobe as well. Ground-glass airspace consolidations are seen in the superior segments of the right lower lobe. Scattered calcified granulomas seen throughout the lungs are of no clinical concern. The airways remain grossly patent. ?Right shoulder arthroplasty without discrete complications. Multilevel old/healed bilateral rib fractures. Severe multilevel degenerative changes of the spine are present. No acute skeletal pathology is seen. IMPRESSION: 1. Loculated moderately sized right pleural effusion with additional findings concerning for an empyema in the appropriate clinical setting. There is associated compressive atelectasis in the right lower lobe with possible superimposed pneumonia in the superior segments of the right lower lobe. There appears to have been surgery in the right lower lobe with an area of nodular atelectasis/scarring and associated surgical sutures. Consider correlation with surgical history. 2. No other acute thoracic pathology is identified and the examination appears otherwise stable as compared to 03/19/2021. Echo: Normal left ventricular wall thickness and chamber size.? Estimated ejection fraction is 55 to 60%.? Wall motion is normal Normal right ventricular size and systolic function The left atrium is borderline dilated.? Right atrium is normal size The aortic valve is sclerotic and trileaflet without stenosis or regurgitation Mild mitral annular calcification with trace regurgitation Normal tricuspid valve with trace regurgitation.? Estimated right ventricular systolic pressure is 33 mmHg Mildly dilated ascending aorta measuring 3.58 cm Pending studies at discharge: None Labs on day of discharge: Labs from last 24 hours 12/27/21 06:18 WBC 8.17 RBC 3.50 L Hgb 9.0 L Hct 28.6 L MCV 81.7 MCH 25.7 L MCHC 31.5 L RDW 16.9 H Plt Count 635 H MPV 9.0 PFSH All Active Problems Lung cancer (Chronic) type and stage unknown. Pt had Thoroscopy and wedge resection 3wks ago (October 2021) @ [facility] UGI bleed (Acute) Acute GI bleeding (Acute) Fracture of rib (Acute) Lung mass (Acute) Spell of abnormal behavior (Acute) Cerebrovascular disease (Acute) Carotid stenosis (Acute) Laceration of left ring finger (Acute) Empyema, thoracic (Acute) Syncope (Chronic) Lymphedema of right upper extremity (Acute) Fracture of coracoid process of right scapula (Acute 07/28/20) COPD (chronic obstructive pulmonary disease) (Chronic) Lung blebs (Acute) Persistent air leak (Acute) Mass of upper lobe of left lung (Acute) Factor 5 Leiden mutation, heterozygous (Acute) GERD (gastroesophageal reflux disease) (Acute) Essential hypertension (Acute 06/01/13) echocardiogram normal Chronic anticoagulation (Acute) Syncope (Acute) Spontaneous pneumothorax (Acute) right Medical History Abdominal aortic aneurysm [facility]: 4.3 x 4.2 cm infra-renal AAA AAA max. diam: 4.0cm ([facility]) 10/2015: infra-renal AAA max.4.3cm: stable ([facility]) mri : 3.5 cm Abscess of chest wall Actinic keratoses Alcohol use Anemia Benign prostatic hyperplasia with lower urinary tract symptoms BPH without urinary obstruction Chronic pain disorder (04/15/12) CONTRACT / (urine:07/17) Degenerative disc disease, lumbar Depressive disorder Dermatitis Elevated liver enzymes Fatigue Femur fracture Helicobacter pylori gastritis (chronic gastritis) (11/23/14) positive gastroscopy : treated Hx of hepatitis C Hx of pneumothorax Hypercholesterolemia Hypertension Insomnia Knee pain, right Lacunar infarction Left rotator cuff tear arthropathy Leukocytosis Major depression, chronic Male sexual dysfunction 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 etiology:consider Neuro.referral Orthostatic hypotension Osteoarthritis of right knee Osteoarthritis, hand Peripheral artery disease Peripheral artery insufficiency [facility]; 2011:left superficial femoral artery stent [facility] : left SFA in stent stenosis: angioplasty Fup q 6 months on going [facility] progression of disease;right popliteal stent graft occluded; pain right calf post 50ft walk Pneumothorax on right (09/23/16) 1999 first time Renal insufficiency Restless leg syndrome Rhinitis, chronic Right rotator cuff tear arthropathy Right shoulder pain Rotator cuff tear arthropathy of both shoulders Shoulder dislocation, recurrent Squamous cell carcinoma Tear of left rotator cuff (09/06/15) DOS: 09/22/18 Injection: 03/01/2019 Tear of right rotator cuff (09/06/15) Injection: 03/01/2019 Tibia fracture Varicose veins of bilateral lower extremities with pain Venous stasis ulcers recurrent/ 2008 - 2011 Viral hepatitis C chronic/ Treatment Interferon:successfull/ [facility] Surgical History EGD - MAC femoral stent X2 most recent 2016 History of left-sided carotid endarterectomy (04/02/18) [facility] / in surgery bleeding from parotid gland: electrocautery/ open reduction tib/fib ORIF femur right chest tube placement under local (09/23/16) 1999 Spinal Fusion 11/13/17 ANA LILIA DAVILA Status post arthroscopy of left shoulder DOS: 09/22/18 Injection: 03/01/2019 Repair of subscapularis with extensive debridement of superior cuff Biceps tenotomy; acromioplasty Dr. Webb Status post lumbar discectomy 2000 : right discectomy L5-S1 + L4-L5 decompression (right) 2013 : right L4-L5 decompression L5-S1 facetectomy; Family History Mother Diabetes Essential hypertension Depression Heart disease Neoplasm BREAST Father Neoplasm HODGKINS DISEASE Sister No problems noted. Sister Neoplasm BREAST Stroke Sister Neoplasm LUNG Brother Neoplasm LUNG Grandfather Diabetes Essential hypertension Heart disease Hyperlipidemia Stroke Grandfather No problems noted. Grandmother No problems noted. Grandmother No problems noted. Social History Smoking/Tobacco Use Status: Never Smoking risk assessment performed?: Yes Alcohol Intake: current Alcohol Intake frequency: a few times a week Alcohol type: beer Drug use: Never Substance use type: does not use Household members: spouse Number of Children: 0 Current gender identity: male Do you feel safe at home: Yes Do you feel safe in your relationship?: Yes
== END 2021-12-27 11:40 | disposition home or self-care (01) | DRG 378 ==
LOC: ER 20:04 → MS 20:55
PROVIDERS: Family Medicine; Physician Assistant; Admitting Provider General Practice; Emergency Provider Nurse Practitioner Family; PCP Family Medicine; Visit Provider General Practice
DX: K92.1 Melena (principal); D68.51 Activated protein C resistance; C34.31 Malignant neoplasm of lower lobe, right bronchus or lung; F11.20 Opioid dependence, uncomplicated; T81.49XA Infection following a procedure, other surgical site, initial encounter; R53.1 Weakness; Z86.73 Personal history of transient ischemic attack (TIA), and cerebral infarction without residual deficits; I65.29 Occlusion and stenosis of unspecified carotid artery; J44.9 Chronic obstructive pulmonary disease, unspecified; K21.9 Gastro-esophageal reflux disease without esophagitis; I10 Essential (primary) hypertension; Z79.01 Long term (current) use of anticoagulants; E86.0 Dehydration; D64.9 Anemia, unspecified; I67.9 Cerebrovascular disease, unspecified; I73.9 Peripheral vascular disease, unspecified; Z79.82 Long term (current) use of aspirin; M51.36 Other intervertebral disc degeneration, lumbar region; G89.29 Other chronic pain; E78.00 Pure hypercholesterolemia, unspecified; G47.00 Insomnia, unspecified; F32.9 Major depressive disorder, single episode, unspecified; G47.33 Obstructive sleep apnea (adult) (pediatric); I95.1 Orthostatic hypotension; G25.81 Restless legs syndrome; I83.813 Varicose veins of bilateral lower extremities with pain
CPT/HCPCS: 36415; 36430; 74177; 80048; 80053; 84145; 85027; 86850; 86900; 86901; 86920; 87635; 93005; 93306; 96361; 96365; 96366; 96367; 99291; 71046; 81003; 83615; 83735; 84484; 85014; 85018; 85025; 85610; 85730; 93010; 99222; 99233; J1940; J3490; P9016

== ENCOUNTER 2022-01-02 19:02 | Outpatient (REF) | payer BC, MEDICARE, SELFPAY ==
[2022-01-02 22:19] LABS: HCT 33.4 % (40.0-50.0); HGB 10.3 g/dL (13.5-17.5); MCH 26.3 pg (27.0-33.0); MCHC 30.8 % (32.0-36.0); MCV 85 fL (80-95); MPV 9.5 fL (8.0-11.0); Platelet Count 667 10^3/uL (130-400); RBC 3.91 10^6/uL (4.36-5.78); RDW 16.6 % (11.8-14.1); RDW-SD 51.6 fL; WBC 7.28 10^3/uL (4.4-10.8)
[2022-01-02 22:43] LABS: Iron 32 ug/dL (65-175); Total Iron Binding Capacity 304 ug/dL (250-450); Transferrin Sat 11 % (20-55)
== END 2022-01-02 19:03 | disposition home or self-care (01) ==
LOC: NCHCN 19:02
PROVIDERS: PCP Family Medicine; Visit Provider Family Medicine
DX: D50.0 Iron deficiency anemia secondary to blood loss (chronic) (principal); K92.2 Gastrointestinal hemorrhage, unspecified
CPT/HCPCS: 85027; 83540; 83550

== ENCOUNTER → 2022-03-14 13:55 | Outpatient (CLI) | payer BC, MEDICARE, SELFPAY ==
--- NOTE | 2022-03-14 13:55 | DI.RAD_ITS ---
Exam(s) XR SHOULDER RT COMPLETE 2+V EXAM: XR SHOULDER RT COMPLETE 2+V CLINICAL HISTORY: PAIN, M25.511, DECREASED ROM, S/P REVERSE TOTAL SHOULDER IN 08/2022. TECHNIQUE: 2D digital imaging was performed. Five images were obtained. AP, Y, axillary and Grashey views were obtained. COMPARISON: CR XR SHOULDER RT COMPLETE 2+V from 12/05/2020 FINDINGS: BONES: There are stable post operative changes present. No fracture or dislocation. Old healed right rib fractures are present. JOINTS: The orthopedic hardware is in good position. Degenerative changes are seen at the acromiocla vicular joint. SOFT TISSUE: Normal. IMPRESSION: Stable postoperative changes. DATA REPOSITORY: RADIATION DOSE DELIVERED:
== END ==
PROVIDERS: PCP Family Medicine; Visit Provider Physician Assistant Medical
DX: M25.511 Pain in right shoulder (principal); Z96.611 Presence of right artificial shoulder joint; G89.18 Other acute postprocedural pain
CPT/HCPCS: 73030

== ENCOUNTER 2022-03-15 13:46 | Outpatient (CLI) | payer BC, SELFPAY ==
[2022-03-15 13:57] LABS: Abs Immature Grans 0.01 10^3/uL (0.0-0.06); Absolute Basophil Count 0.03 10^3/uL (0.0-0.2); Absolute Eosinophil Count 0.19 10^3/uL (0.0-0.7); Absolute Lymphocyte Count 1.37 10^3/uL (1.2-3.4); Absolute Monocyte Count 0.55 10^3/uL (0.1-0.8); Absolute Neutrophil Count 4.77 10^3/uL (1.2-6.7); Basophils % 0.4; Eosinophils % 2.7; HGB 12.3 g/dL (13.5-17.5); Immature Grans % 0.1; Lymphocytes % 19.8; MCH 26.7 pg (27.0-33.0); MCHC 31.5 % (32.0-36.0); MCV 85 fL (80-95); MPV 9.3 fL (8.0-11.0); Monocytes % 7.9; Neutrophils % 69.1; Platelet Count 223 10^3/uL (130-400); RDW 18.2 % (11.8-14.1); WBC 6.92 10^3/uL (4.4-10.8)
[2022-03-15 14:16] LABS: Anion Gap 9.5 mmol/L (3-11); BUN 28 mg/dL (7-18); CO2 24.5 mmol/L (21.0-32.0); CREATININE 1.6 mg/dL (0.70-1.30); Calcium 9.4 mg/dL (8.5-10.1); Chloride 104 mmol/L (98-107); Estimated GFR 42.82 (mL/min/1.73m2); Glucose 134 mg/dL (74-106); Potassium 4.2 mmol/L (3.5-5.1); Sodium 138 mmol/L (136-145)
[2022-03-15 14:36] LABS: ESR 42 mm/hr (0-20)
== END 2022-03-15 13:47 | disposition home or self-care (01) ==
LOC: LBO 13:50
PROVIDERS: PCP Family Medicine; Visit Provider Physician Assistant Medical
DX: M25.511 Pain in right shoulder (principal); G89.4 Chronic pain syndrome
CPT/HCPCS: 36415; 80048; 85652; 85025; 86140

== ENCOUNTER 2022-03-15 16:38 | Outpatient (REF) | payer BC, SELFPAY | END 2022-03-15 16:39 | disposition home or self-care (01) | LOC: LBN 16:38 | PROVIDERS: PCP Family Medicine; Visit Provider Physician Assistant Medical ==

== ENCOUNTER 2022-03-20 10:49 | Outpatient (CLI) | payer BC, SELFPAY ==
--- NOTE | 2022-03-20 10:30 | DI.RAD_ITS ---
Exam(s) XR SHOULDER RT COMPLETE 2+V EXAM: XR SHOULDER RT COMPLETE 2+V CLINICAL HISTORY: RIGHT SHOULDER PAIN. TECHNIQUE: 2D digital imaging was performed. Five views. COMPARISON: CR XR SHOULDER RT COMPLETE 2+V from 03/14/2022 FINDINGS: BONES: Stable appearance of reverse shoulder prosthesis. No acute fracture is present. No bony destr uctive lesion is seen. Old right rib fractures. Degenerative changes in the thoracic spine. JOINTS: No dislocation present. SOFT TISSUE: Suture material right lung apex. IMPRESSION: Stable appearance of shoulder prosthesis. DATA REPOSITORY: RADIATION DOSE DELIVERED:
== END 2022-03-20 10:50 | disposition home or self-care (01) ==
LOC: DIORS 10:49
PROVIDERS: PCP Family Medicine; Referring Provider Family Medicine; Visit Provider Student in an Organized Health Care Education/Training Program
DX: M25.511 Pain in right shoulder (principal)
CPT/HCPCS: 73030

== ENCOUNTER 2022-05-28 19:35 | Outpatient (REF) | payer BC, SELFPAY ==
[2022-05-28 21:29] LABS: HCT 36.8 % (40.0-50.0); HGB 12.1 g/dL (13.5-17.5); MCH 27.8 pg (27.0-33.0); MCHC 32.9 % (32.0-36.0); MCV 85 fL (80-95); MPV 9.9 fL (8.0-11.0); Platelet Count 261 10^3/uL (130-400); RBC 4.35 10^6/uL (4.36-5.78); RDW 16.2 % (11.8-14.1); RDW-SD 50.3 fL; WBC 4.86 10^3/uL (4.4-10.8)
[2022-05-28 21:42] LABS: Iron 44 ug/dL (65-175); Total Iron Binding Capacity 260 ug/dL (250-450); Transferrin Sat 17 % (20-55)
[2022-05-28 22:18] LABS: ALT 54 U/L (16-63); AST 51 U/L (15-37); Albumin 3.7 g/dL (3.4-5.0); Alkaline Phosphatase 203 U/L (46-116); Anion Gap 9.7 mmol/L (3-11); BUN 26 mg/dL (7-18); Bilirubin, Total 0.3 mg/dL (0.2-1.0); CO2 26.3 mmol/L (21.0-32.0); CREATININE 1.4 mg/dL (0.70-1.30); Calcium 9.1 mg/dL (8.5-10.1); Chloride 102 mmol/L (98-107); Estimated GFR 53.74 (mL/min/1.73m2); Glucose 106 mg/dL (74-106); Potassium 4.6 mmol/L (3.5-5.1); Sodium 138 mmol/L (136-145); Total Protein 7.4 g/dL (6.4-8.2)
== END 2022-05-28 19:36 | disposition home or self-care (01) ==
LOC: NCHCN 19:35
PROVIDERS: PCP Family Medicine; Visit Provider Family Medicine
DX: D50.0 Iron deficiency anemia secondary to blood loss (chronic) (principal); R74.8 Abnormal levels of other serum enzymes
CPT/HCPCS: 80053; 85027; 83540; 83550

== ENCOUNTER 2022-09-18 02:59 | Outpatient (CLI) | payer BC, SELFPAY ==
[2022-09-18 13:24] LABS: Abs Immature Grans 0.02 10^3/uL (0.0-0.06); Absolute Basophil Count 0.05 10^3/uL (0.0-0.2); Absolute Eosinophil Count 0.16 10^3/uL (0.0-0.7); Absolute Lymphocyte Count 1.37 10^3/uL (1.2-3.4); Absolute Monocyte Count 0.51 10^3/uL (0.1-0.8); Basophils % 0.6; HCT 43.8 % (40.0-50.0); HGB 14.8 g/dL (13.5-17.5); Immature Grans % 0.3; Lymphocytes % 17.5; MCH 30.1 pg (27.0-33.0); MCHC 33.8 % (32.0-36.0); MCV 89 fL (80-95); MPV 8.9 fL (8.0-11.0); Monocytes % 6.5; Neutrophils % 73.1; Platelet Count 264 10^3/uL (130-400); RBC 4.91 10^6/uL (4.36-5.78); RDW-SD 45.3 fL; WBC 7.81 10^3/uL (4.4-10.8)
[2022-09-18 14:37] LABS: ALT 25 U/L (16-63); AST 37 U/L (15-37); Albumin 3.9 g/dL (3.4-5.0); Alkaline Phosphatase 261 U/L (46-116); Anion Gap 6.9 mmol/L (3-11); BUN 28 mg/dL (7-18); Bilirubin, Total 0.6 mg/dL (0.2-1.0); CO2 26.1 mmol/L (21.0-32.0); CREATININE 1.4 mg/dL (0.70-1.30); Calcium 9.6 mg/dL (8.5-10.1); Chloride 101 mmol/L (98-107); Glucose 149 mg/dL (74-106); Potassium 3.9 mmol/L (3.5-5.1); Sodium 134 mmol/L (136-145)
== END 2022-09-18 03:00 | disposition home or self-care (01) ==
PROVIDERS: PCP Family Medicine; Visit Provider Internal Medicine Pulmonary Disease
DX: Z01.818 Encounter for other preprocedural examination (principal)
CPT/HCPCS: 36415; 80053; 85025

== ENCOUNTER 2022-10-01 01:13 | Outpatient (CLI) | payer BC, SELFPAY ==
--- NOTE | 2022-10-01 | DI.RAD_ITS ---
Exam(s) XR CHEST 2V PA LATERAL EXAM: XR CHEST 2V PA LATERAL CLINICAL HISTORY: LYMPHADENOPATHY, R59.1 TECHNIQUE: 2D digital imaging was performed of the chest. Two images were obtained. PA and lateral views were obtained. COMPARISON: CR XR PORTABLE CHEST AP from 03/19/2021 CR XR CHEST 2V PA LATERAL from 12/24/[address] THORAX ABD/PEL CTA from 12/24/2021 FINDINGS: MEDIASTINUM: The mediastinal configuration is unchanged. HEART: Normal. PULMONARY VASCULATURE: Normal. LUNGS: No focal consolidating infiltrates. The lungs appear hyperinflated with flattened diaphragms suggesting underlying COPD. PLEURAL SPACE: No pleural effusion or pneumothorax. BONE:Within normal limits for the patient's age. There are old healed right rib fractures. The brittany ent has a right reverse total shoulder replacement. OTHER FINDINGS:There is a hiatal hernia. IMPRESSION: No acute pulmonary findings. DATA REPOSITORY: RADIATION DOSE DELIVERED:
== END 2022-10-01 01:33 ==
LOC: DI 01:15
PROVIDERS: PCP Family Medicine; Visit Provider Surgery
DX: R59.1 Generalized enlarged lymph nodes (principal); J98.6 Disorders of diaphragm
CPT/HCPCS: 71046

== ENCOUNTER 2022-12-23 01:15 | Outpatient (RCR) | payer BC, SELFPAY ==
[2022-12-09] MEDS: Normal Saline Flush 10 ML SYR IVP (08:40)
[2022-12-09 08:43] LABS: Abs Immature Grans 0.01 10^3/uL (0.0-0.06); Absolute Basophil Count 0.04 10^3/uL (0.0-0.2); Absolute Eosinophil Count 0.43 10^3/uL (0.0-0.7); Absolute Lymphocyte Count 1.77 10^3/uL (1.2-3.4); Basophils % 0.6; Eosinophils % 6.6; HCT 38.6 % (40.0-50.0); HGB 12.8 g/dL (13.5-17.5); Immature Grans % 0.2; MCH 30.5 pg (27.0-33.0); MCHC 33.2 % (32.0-36.0); MCV 92 fL (80-95); MPV 8.9 fL (8.0-11.0); Monocytes % 9.2; Neutrophils % 56.4; Platelet Count 219 10^3/uL (130-400); RDW 14.3 % (11.8-14.1); WBC 6.55 10^3/uL (4.4-10.8)
[2022-12-09 09:03] LABS: ALT 28 U/L (16-63); AST 49 U/L (15-37); Albumin 3.5 g/dL (3.4-5.0); Alkaline Phosphatase 156 U/L (46-116); Anion Gap 8.6 mmol/L (3-11); BUN 34 mg/dL (7-18); Bilirubin, Total 0.5 mg/dL (0.2-1.0); CO2 26.4 mmol/L (21.0-32.0); CREATININE 1.5 mg/dL (0.70-1.30); Calcium 9.3 mg/dL (8.5-10.1); Chloride 103 mmol/L (98-107); Estimated GFR 49.16 (mL/min/1.73m2); Glucose 111 mg/dL (74-106); Potassium 3.9 mmol/L (3.5-5.1); Sodium 138 mmol/L (136-145); Total Protein 7.6 g/dL (6.4-8.2)
[2022-12-16 08:55] LABS: Abs Immature Grans 0.03 10^3/uL (0.0-0.06); Absolute Basophil Count 0.03 10^3/uL (0.0-0.2); Absolute Eosinophil Count 0.18 10^3/uL (0.0-0.7); Absolute Lymphocyte Count 0.78 10^3/uL (1.2-3.4); Absolute Monocyte Count 0.48 10^3/uL (0.1-0.8); Absolute Neutrophil Count 2.66 10^3/uL (1.2-6.7); Basophils % 0.7; Eosinophils % 4.3; HGB 11.7 g/dL (13.5-17.5); Immature Grans % 0.7; Lymphocytes % 18.8; MCH 30.6 pg (27.0-33.0); MCHC 33.4 % (32.0-36.0); MCV 92 fL (80-95); Monocytes % 11.5; Platelet Count 177 10^3/uL (130-400); RBC 3.82 10^6/uL (4.36-5.78); RDW 13.8 % (11.8-14.1); RDW-SD 46.1 fL; WBC 4.16 10^3/uL (4.4-10.8)
[2022-12-16] MEDS: Normal Saline Flush 10 ML SYR IVP (08:56)
[2022-12-16 09:11] LABS: ALT 25 U/L (16-63); AST 26 U/L (15-37); Albumin 3.3 g/dL (3.4-5.0); Alkaline Phosphatase 142 U/L (46-116); Anion Gap 6.9 mmol/L (3-11); BUN 31 mg/dL (7-18); Bilirubin, Total 0.7 mg/dL (0.2-1.0); CO2 28.1 mmol/L (21.0-32.0); CREATININE 1.5 mg/dL (0.70-1.30); Calcium 8.8 mg/dL (8.5-10.1); Chloride 103 mmol/L (98-107); Estimated GFR 49.16 (mL/min/1.73m2); Glucose 88 mg/dL (74-106); Potassium 4.4 mmol/L (3.5-5.1); Sodium 138 mmol/L (136-145); Total Protein 7.3 g/dL (6.4-8.2)
[2022-12-23] MEDS: Normal Saline Flush 10 ML SYR IVP (08:29)
[2022-12-23 08:35] LABS: Abs Immature Grans 0.01 10^3/uL (0.0-0.06); Absolute Basophil Count 0.02 10^3/uL (0.0-0.2); Absolute Eosinophil Count 0.03 10^3/uL (0.0-0.7); Absolute Lymphocyte Count 0.52 10^3/uL (1.2-3.4); Absolute Monocyte Count 0.24 10^3/uL (0.1-0.8); Absolute Neutrophil Count 1.39 10^3/uL (1.2-6.7); Basophils % 0.9; Eosinophils % 1.4; HCT 35.5 % (40.0-50.0); Immature Grans % 0.5; Lymphocytes % 23.5; MCH 30.8 pg (27.0-33.0); MCHC 33.8 % (32.0-36.0); MCV 91 fL (80-95); MPV 9.2 fL (8.0-11.0); Monocytes % 10.9; Neutrophils % 62.8; Platelet Count 158 10^3/uL (130-400); RBC 3.89 10^6/uL (4.36-5.78); RDW 13.2 % (11.8-14.1); RDW-SD 43.4 fL; WBC 2.21 10^3/uL (4.4-10.8)
[2022-12-23 08:50] LABS: ALT 25 U/L (16-63); AST 26 U/L (15-37); Albumin 3.4 g/dL (3.4-5.0); Alkaline Phosphatase 131 U/L (46-116); Anion Gap 7.5 mmol/L (3-11); BUN 20 mg/dL (7-18); Bilirubin, Total 0.6 mg/dL (0.2-1.0); CO2 26.5 mmol/L (21.0-32.0); CREATININE 1.5 mg/dL (0.70-1.30); Calcium 9.2 mg/dL (8.5-10.1); Chloride 103 mmol/L (98-107); Estimated GFR 49.16 (mL/min/1.73m2); Glucose 134 mg/dL (74-106); Potassium 3.8 mmol/L (3.5-5.1); Sodium 137 mmol/L (136-145); Total Protein 7.5 g/dL (6.4-8.2)
== END 2022-12-29 23:59 | disposition home or self-care (01) ==
LOC: INF 01:15
PROVIDERS: PCP Family Medicine; Visit Provider Internal Medicine Medical Oncology
DX: C34.31 Malignant neoplasm of lower lobe, right bronchus or lung (principal); Z45.2 Encounter for adjustment and management of vascular access device
CPT/HCPCS: 36591; 80053; 85025

== ENCOUNTER 2023-01-29 03:18 | Outpatient (RCR) | payer BC, SELFPAY ==
[2022-12-30] MEDS: Normal Saline Flush 10 ML SYR IVP (08:38)
[2022-12-30 09:09] LABS: Abs Immature Grans 0.01 10^3/uL (0.0-0.06); HCT 36.4 % (40.0-50.0); HGB 12.4 g/dL (13.5-17.5); MCH 30.8 pg (27.0-33.0); MCHC 34.1 % (32.0-36.0); MCV 91 fL (80-95); MPV 9.3 fL (8.0-11.0); Platelet Count 139 10^3/uL (130-400); RBC 4.02 10^6/uL (4.36-5.78); RDW 13.2 % (11.8-14.1); RDW-SD 42.8 fL
[2022-12-30 09:27] LABS: WBC 1.66 10^3/uL (4.4-10.8)
[2022-12-30 09:28] LABS: Absolute Basophil Count 0.03 10^3/uL (0.0-0.2); Absolute Monocyte Count 0.08 10^3/uL (0.1-0.8); Absolute Neutrophil Count 1.05 10^3/uL (1.2-6.7); Atypical Lymphocytes % 1
[2022-12-30 09:29] LABS: Diff Comment Manual Differential; Polychromasia Present
[2022-12-30 09:37] LABS: ALT 25 U/L (16-63); AST 26 U/L (15-37); Albumin 3.1 g/dL (3.4-5.0); Alkaline Phosphatase 110 U/L (46-116); Anion Gap 8.2 mmol/L (3-11); BUN 21 mg/dL (7-18); Bilirubin, Total 0.5 mg/dL (0.2-1.0); CO2 23.8 mmol/L (21.0-32.0); CREATININE 1.2 mg/dL (0.70-1.30); Calcium 8.6 mg/dL (8.5-10.1); Chloride 110 mmol/L (98-107); Estimated GFR 64.25 (mL/min/1.73m2); FREE T4 0.95 ng/dL (0.76-1.46); Glucose 103 mg/dL (74-106); Potassium 3.5 mmol/L (3.5-5.1); Sodium 142 mmol/L (136-145)
[2023-01-06] MEDS: Normal Saline Flush 10 ML SYR IVP (08:40)
[2023-01-06 09:05] LABS: Absolute Eosinophil Count 0.01 10^3/uL (0.0-0.7); HCT 33.6 % (40.0-50.0); HGB 11.4 g/dL (13.5-17.5); MCH 30.8 pg (27.0-33.0); MCHC 33.9 % (32.0-36.0); MCV 91 fL (80-95); MPV 9.6 fL (8.0-11.0); RDW 13.2 % (11.8-14.1); RDW-SD 42.2 fL
[2023-01-06 09:45] LABS: ALT 27 U/L (16-63); AST 26 U/L (15-37); Albumin 3.4 g/dL (3.4-5.0); Alkaline Phosphatase 118 U/L (46-116); Anion Gap 9.8 mmol/L (3-11); BUN 28 mg/dL (7-18); Bilirubin, Total 0.5 mg/dL (0.2-1.0); CO2 25.2 mmol/L (21.0-32.0); CREATININE 1.4 mg/dL (0.70-1.30); Calcium 9.1 mg/dL (8.5-10.1); Chloride 104 mmol/L (98-107); Glucose 120 mg/dL (74-106); Sodium 139 mmol/L (136-145); TSH 1.76 uIU/mL (0.36-3.74); Total Protein 7.4 g/dL (6.4-8.2)
[2023-01-06 09:50] LABS: Absolute Neutrophil Count 0.91 10^3/uL (1.2-6.7); Platelet Count 62 10^3/uL (130-400)
[2023-01-06 09:51] LABS: Absolute Lymphocyte Count 0.31 10^3/uL (1.2-3.4); Absolute Monocyte Count 0.05 10^3/uL (0.1-0.8); Diff Comment Manual Differential; RBC Morphology Normal
[2023-01-06 09:55] LABS: WBC 1.28 10^3/uL (4.4-10.8)
[2023-01-13] MEDS: Normal Saline Flush 10 ML SYR IVP (08:09)
[2023-01-13 08:15] LABS: Absolute Basophil Count 0.01 10^3/uL (0.0-0.2); Absolute Eosinophil Count 0.02 10^3/uL (0.0-0.7); Absolute Lymphocyte Count 0.52 10^3/uL (1.2-3.4); Basophils % 0.8; Eosinophils % 1.5; HCT 31.9 % (40.0-50.0); Lymphocytes % 39.7; MCH 31.8 pg (27.0-33.0); MCHC 34.5 % (32.0-36.0); MCV 92 fL (80-95); MPV 9.6 fL (8.0-11.0); Monocytes % 22.9; Neutrophils % 35.1; RBC 3.46 10^6/uL (4.36-5.78); RDW-SD 42.9 fL
[2023-01-13 08:37] LABS: Platelet Count 90 10^3/uL (130-400); WBC 1.31 10^3/uL (4.4-10.8)
[2023-01-13 08:38] LABS: Absolute Neutrophil Count 0.46 10^3/uL (1.2-6.7); Diff Comment Agrees w/ Instrument; Polychromasia Present
[2023-01-13 08:46] LABS: ALT 29 U/L (16-63); AST 24 U/L (15-37); Albumin 3.3 g/dL (3.4-5.0); Alkaline Phosphatase 134 U/L (46-116); BUN 20 mg/dL (7-18); Bilirubin, Total 0.5 mg/dL (0.2-1.0); CREATININE 1.4 mg/dL (0.70-1.30); Calcium 9.2 mg/dL (8.5-10.1); Chloride 105 mmol/L (98-107); FREE T4 1.02 ng/dL (0.76-1.46); Glucose 89 mg/dL (74-106); Potassium 3.8 mmol/L (3.5-5.1); Sodium 140 mmol/L (136-145); TSH 1.84 uIU/mL (0.36-3.74); Total Protein 7.3 g/dL (6.4-8.2)
[2023-01-20] MEDS: Normal Saline Flush 10 ML SYR IVP (10:37)
[2023-01-20] MEDS: Heparin 500 UNITS/5 ML SYRINGE IV (10:37)
[2023-01-21] MEDS: Normal Saline Flush 10 ML SYR IVP (12:58)
[2023-01-21] MEDS: Heparin 500 UNITS/5 ML SYRINGE IV (12:59)
[2023-01-21 13:05] LABS: Abs Immature Grans 0.01 10^3/uL (0.0-0.06); Absolute Basophil Count 0.01 10^3/uL (0.0-0.2); Absolute Eosinophil Count 0.03 10^3/uL (0.0-0.7); Absolute Lymphocyte Count 0.35 10^3/uL (1.2-3.4); Absolute Monocyte Count 0.57 10^3/uL (0.1-0.8); Basophils % 0.4; Eosinophils % 1.2; HCT 31.9 % (40.0-50.0); HGB 10.7 g/dL (13.5-17.5); Immature Grans % 0.4; Lymphocytes % 14.2; MCH 31.5 pg (27.0-33.0); MCHC 33.5 % (32.0-36.0); MCV 94 fL (80-95); MPV 9.1 fL (8.0-11.0); Monocytes % 23.1; Neutrophils % 60.7; Platelet Count 177 10^3/uL (130-400); RDW 15.9 % (11.8-14.1); RDW-SD 51.3 fL; WBC 2.47 10^3/uL (4.4-10.8)
[2023-01-21 13:27] LABS: ALT 27 U/L (16-63); AST 30 U/L (15-37); Albumin 3.4 g/dL (3.4-5.0); Alkaline Phosphatase 131 U/L (46-116); Anion Gap 9.1 mmol/L (3-11); BUN 25 mg/dL (7-18); Bilirubin, Total 0.4 mg/dL (0.2-1.0); CO2 25.9 mmol/L (21.0-32.0); CREATININE 1.4 mg/dL (0.70-1.30); Calcium 9.1 mg/dL (8.5-10.1); Chloride 104 mmol/L (98-107); FREE T4 0.88 ng/dL (0.76-1.46); Glucose 120 mg/dL (74-106); Potassium 4.1 mmol/L (3.5-5.1); Sodium 139 mmol/L (136-145); TSH 1.68 uIU/mL (0.36-3.74); Total Protein 7.2 g/dL (6.4-8.2)
[2023-01-29 11:39] LABS: Abs Immature Grans 0.02 10^3/uL (0.0-0.06); Absolute Basophil Count 0.01 10^3/uL (0.0-0.2); Absolute Eosinophil Count 0.02 10^3/uL (0.0-0.7); Absolute Lymphocyte Count 0.29 10^3/uL (1.2-3.4); Absolute Monocyte Count 0.62 10^3/uL (0.1-0.8); Absolute Neutrophil Count 2.01 10^3/uL (1.2-6.7); Basophils % 0.3; Eosinophils % 0.7; HCT 32.4 % (40.0-50.0); HGB 11.2 g/dL (13.5-17.5); Immature Grans % 0.7; Lymphocytes % 9.8; MCH 32.5 pg (27.0-33.0); MCHC 34.6 % (32.0-36.0); MCV 94 fL (80-95); MPV 8.9 fL (8.0-11.0); Monocytes % 20.9; Neutrophils % 67.6; Platelet Count 228 10^3/uL (130-400); RBC 3.45 10^6/uL (4.36-5.78); RDW-SD 57.1 fL; WBC 2.97 10^3/uL (4.4-10.8)
[2023-01-29] MEDS: Normal Saline Flush 10 ML SYR IVP (11:49)
[2023-01-29 12:04] LABS: ALT 28 U/L (16-63); AST 28 U/L (15-37); Albumin 3.5 g/dL (3.4-5.0); Alkaline Phosphatase 133 U/L (46-116); Anion Gap 9.5 mmol/L (3-11); BUN 20 mg/dL (7-18); Bilirubin, Total 0.6 mg/dL (0.2-1.0); CO2 26.5 mmol/L (21.0-32.0); CREATININE 1.3 mg/dL (0.70-1.30); Calcium 9.2 mg/dL (8.5-10.1); Chloride 105 mmol/L (98-107); Estimated GFR 58.37 (mL/min/1.73m2); FREE T4 0.87 ng/dL (0.76-1.46); Glucose 139 mg/dL (74-106); Magnesium 2.1 mg/dL (1.8-2.4); Potassium 4.2 mmol/L (3.5-5.1); Sodium 141 mmol/L (136-145); Total Protein 7.5 g/dL (6.4-8.2)
== END 2023-01-29 23:59 | disposition home or self-care (01) ==
LOC: INF 03:18
PROVIDERS: PCP Family Medicine; Visit Provider Internal Medicine Medical Oncology
DX: Z45.2 Encounter for adjustment and management of vascular access device (principal); C34.31 Malignant neoplasm of lower lobe, right bronchus or lung; Z79.899 Other long term (current) drug therapy
CPT/HCPCS: 36591; 80053; 96523; 83735; 84439; 84443; 85025

== ENCOUNTER 2023-02-06 03:32 | Outpatient (CLI) | payer BC, SELFPAY ==
[2023-02-06] MEDS: Albuterol HFA 18 GM 200 PUFF INH IH (11:24)
[2023-02-06] MEDS: Inhaler, Assist Device 1 EACH MC (11:24)
--- NOTE | 2023-02-14 14:22 | W.PFT ---
Date of service: 02/06/23 Time of Service: 10:09 Pulmonary Function Test Result Indications: RLL neoplasm Interpretation Spirometry: There is no airflow limitation. There is no significant bronchodilator response. Lung Volumes: Normal lung volumes. Diffusion Capacity: There is a decreased diffusion. Airway Pressure: Normal airways resistance. Impression No airflow limitation but there is a decreased diffusion. This can be seen in emphysema, ILD or pulmonary vascular disease. Clinical Correlation therefore is recommended.
== END 2023-02-06 03:33 | disposition home or self-care (01) ==
LOC: RT 03:32
PROVIDERS: PCP Family Medicine; Visit Provider Internal Medicine Medical Oncology
DX: C34.31 Malignant neoplasm of lower lobe, right bronchus or lung (principal)
CPT/HCPCS: 94060; 94726; 94729

== ENCOUNTER 2023-02-24 02:52 | Outpatient (RCR) | payer BC, SELFPAY ==
[2023-02-24 08:01] LABS: Abs Immature Grans 0.05 10^3/uL (0.0-0.06); Absolute Basophil Count 0.04 10^3/uL (0.0-0.2); Absolute Eosinophil Count 0.37 10^3/uL (0.0-0.7); Absolute Lymphocyte Count 0.53 10^3/uL (1.2-3.4); Absolute Monocyte Count 0.96 10^3/uL (0.1-0.8); Absolute Neutrophil Count 5.01 10^3/uL (1.2-6.7); Basophils % 0.6; Eosinophils % 5.3; HCT 32.2 % (40.0-50.0); HGB 11.1 g/dL (13.5-17.5); Immature Grans % 0.7; Lymphocytes % 7.6; MCH 32.8 pg (27.0-33.0); MCHC 34.5 % (32.0-36.0); MCV 95 fL (80-95); MPV 8.8 fL (8.0-11.0); Monocytes % 13.8; Platelet Count 180 10^3/uL (130-400); RBC 3.38 10^6/uL (4.36-5.78); RDW 14.8 % (11.8-14.1); RDW-SD 51.8 fL; WBC 6.96 10^3/uL (4.4-10.8)
[2023-02-24] MEDS: Normal Saline Flush 10 ML SYR IVP (08:18)
[2023-02-24 08:27] LABS: ALT 23 U/L (16-63); AST 25 U/L (15-37); Albumin 3.4 g/dL (3.4-5.0); Alkaline Phosphatase 130 U/L (46-116); Anion Gap 11.5 mmol/L (3-11); BUN 30 mg/dL (7-18); Bilirubin, Total 0.7 mg/dL (0.2-1.0); CO2 25.5 mmol/L (21.0-32.0); CREATININE 1.6 mg/dL (0.70-1.30); Calcium 9.1 mg/dL (8.5-10.1); Chloride 101 mmol/L (98-107); Glucose 118 mg/dL (74-106); Potassium 3.9 mmol/L (3.5-5.1); Sodium 138 mmol/L (136-145); Total Protein 7.5 g/dL (6.4-8.2)
== END 2023-02-28 23:59 | disposition home or self-care (01) ==
LOC: INF 02:52
PROVIDERS: PCP Family Medicine; Visit Provider Internal Medicine Medical Oncology
DX: C34.31 Malignant neoplasm of lower lobe, right bronchus or lung (principal); Z45.2 Encounter for adjustment and management of vascular access device
CPT/HCPCS: 36591; 80053; 85025

== ENCOUNTER 2023-03-02 12:31 | Inpatient (IN) | payer BC, MEDICARE, SELFPAY ==
[2023-03-02] VITALS (43 sets, daily range): BP systolic 93–165; BP diastolic 46–108; PULSE 79–122; RESP 8–27; TEMP 36.4–36.7; O2SAT 86–99
--- NOTE | 2023-03-02 13:00 | DI.CT_ITS ---
Exam(s) CT CHEST PE CTA EXAM: CT CHEST PE CTA CLINICAL HISTORY: hx of coagulopathy, dyspnea, hypoxia. TECHNIQUE: Imaging Protocol: Axial CT angiography was performed with multi-slice acquisition and mu lti-planar and/or 3D reconstructions. CONTRAST MATERIAL: Intravenous: Omnipaque 350 contrast volume:100 mL COMPARISON: CT CT CHEST/ABD/PEL W from 03/19/[address] CHEST W from 01/20/2023 FINDINGS: The examination is limited due to patient motion artifact. Tracheobronchial tree: Patent where visualized. Pulmonary parenchyma: There are ground-glass opacities in the right upper lobe, right middle lobe and the lower lobes bilaterally. Scarring is seen in the left upper lobe and right lower lobe. Pulmonary Arteries: Segmental and subsegmental pulmonary artery evaluation is suboptimal due to patie nt motion artifact. No central pulmonary embolus is seen. Mediastinum and Charlene: No dominant adenopathy or fluid collection. The esophagus is unremarkable. Th ere is a large hiatal hernia. Visualized thyroid gland: Unremarkable. Pleura: There is right pleural thickening or small pleural effusion. No left pleural effusion. No p neumothorax. Heart: The heart is not dilated. Coronary artery calcification is present. No pericardial effusion. Aorta: Thoracic aorta non-dilated. No evidence of dissection. Atherosclerosis. Upper abdomen: There is a cyst seen again in the left lobe of the liver. Tubes, Catheters, and Lines: There is a right internal jugular port in place. Soft tissues: Unremarkable. Bones: Within normal limits for the patient's age.There is a right total shoulder replacement. There are old bilateral rib fracture deformities. IMPRESSION: 1. No evidence of a pulmonary embolus to the segmental level. 2. No evidence of a thoracic aortic aneurysm or dissection. 3. Diffuse ground-glass opacities suspicious for multifocal pneumonia. 4. Small right pleural effusion or atelectasis. RADIATION DOSE DELIVERED: 354.8mGy.cm Total DLP DATA REPOSITORY: All CT scans at this facility are submitted to the National Radiology Data Registry (NRDR) Dose Index Registry (DIR) with the [employer] (A[employer]). RADIATION OPTIMIZATION: All CT scans at this facility use at least one of these dose optimization te chniques: automated exposure control; mA and/or kV adjustment per patient size (includes targeted exa ms where dose is matched to clinical indication); or iterative reconstruction.
--- NOTE | 2023-03-02 13:00 | RT.EKG_ITS ---
APPROVED REPORT Exam: Resting ECG Reason for Exam: weakness Patient Location: E HR:105 bpm ECG Measurements Heart Rate 105 AXIS WI 165 P 45 QRSd 92 QRS 13 QT 356 T 42 QTc 472 Conclusion Sinus tachycardia...rate> 99 poor quality ecg with artifact in II, III, AVf. No st changes CW ischemia. Recommended repeat.
[2023-03-02] MEDS: Lactated Ringers 500 ML IV ×2 (13:30→16:00)
--- NOTE | 2023-03-02 13:30 | DI.CT_ITS ---
Exam(s) CT HEAD WO EXAM: CT HEAD WO CLINICAL HISTORY: weakness, hx of cancer,. TECHNIQUE: Imaging Protocol: Axial computed tomography images with coronal and sagittal reformatted images were created and reviewed COMPARISON: CT CT HEAD WO from 12/17/2020 FINDINGS: Ventricles and Extra axial spaces: Normal in size and morphology for the patient's age. Hemorrhage: None. Cerebral parenchyma: There are new areas of decreased attenuation in the anterior right parietal lobe in the posterior right parietal lobe. These may reflect ischemic changes which are new compared to November 2020. There is no significant mass effect suggesting these are not acute. There is an old lac unar infarct in the left caudate lobe. Midline shift: None. Brainstem/Cerebellum: Normal. Calvarium: Normal. Visualized Paranasal sinuses/Mastoids: Clear. Note is made of debris in both external auditory canals which may represent cerumen. Soft Tissues: Unremarkable. IMPRESSION: 1. No acute intracranial process. 2. Areas of prior ischemia/infarct in the anterior right parietal in the posterior right parietal lob e. These areas have occurred since the most recent CT scan of the brain of 12/17/2020. RADIATION DOSE DELIVERED: 756.62mGy.cm Total DLP DATA REPOSITORY: All CT scans at this facility are submitted to the National Radiology Data Registry (NRDR) Dose Index Registry (DIR) with the [employer] (ACR). RADIATION OPTIMIZATION: All CT scans at this facility use at least one of these dose optimization te chniques: automated exposure control; mA and/or kV adjustment per patient size (includes targeted exa ms where dose is matched to clinical indication); or iterative reconstruction.
[2023-03-02 13:41] LABS: BE (Venous) 2 mmol/L (-2-3); HCO3 (Venous) 27 mmol/L (23-28); O2 Sat (Venous) 56 %; TCO2 (Venous) 25 mmol/L (24-29); pCO2 (Venous) 45 mmHg (41-51); pH (Venous) 7.38 (7.31-7.41); pO2 (Venous) 31 mmHg
[2023-03-02 13:43] LABS: Lactate 1.3 mmol/L (0.6-1.4)
[2023-03-02 13:44] LABS: Abs Immature Grans 0.04 10^3/uL (0.0-0.06); Absolute Basophil Count 0.02 10^3/uL (0.0-0.2); Absolute Eosinophil Count 0.25 10^3/uL (0.0-0.7); Absolute Lymphocyte Count 0.26 10^3/uL (1.2-3.4); Absolute Monocyte Count 0.71 10^3/uL (0.1-0.8); Absolute Neutrophil Count 6.75 10^3/uL (1.2-6.7); Basophils % 0.2; Eosinophils % 3.1; HCT 32.9 % (40.0-50.0); HGB 11.3 g/dL (13.5-17.5); Immature Grans % 0.5; Lymphocytes % 3.2; MCH 31.8 pg (27.0-33.0); MCHC 34.3 % (32.0-36.0); MCV 93 fL (80-95); MPV 8.9 fL (8.0-11.0); Monocytes % 8.8; Neutrophils % 84.2; Platelet Count 206 10^3/uL (130-400); RBC 3.55 10^6/uL (4.36-5.78); RDW 14.1 % (11.8-14.1); RDW-SD 48.1 fL; WBC 8.03 10^3/uL (4.4-10.8)
[2023-03-02 13:57] LABS: Source Nasal/Nares
[2023-03-02 14:07] LABS: ALT 25 U/L (16-63); AST 38 U/L (15-37); Albumin 3.2 g/dL (3.4-5.0); Alkaline Phosphatase 120 U/L (46-116); Anion Gap 10.6 mmol/L (3-11); BUN 19 mg/dL (7-18); Bilirubin, Total 0.9 mg/dL (0.2-1.0); CO2 26.4 mmol/L (21.0-32.0); CREATININE 1.4 mg/dL (0.70-1.30); Calcium 9.5 mg/dL (8.5-10.1); Chloride 101 mmol/L (98-107); Glucose 124 mg/dL (74-106); NT-proBNP 706 pg/mL (<300); Potassium 4.1 mmol/L (3.5-5.1); Sodium 138 mmol/L (136-145); Total Protein 8.2 g/dL (6.4-8.2); Troponin I < 50 ng/L (<or=60)
--- NOTE | 2023-03-02 14:15 | DI.RAD_ITS ---
Exam(s) XR CHEST 1V IN DI DEPT EXAM: XR CHEST 1V IN DI DEPT CLINICAL HISTORY: port eval TECHNIQUE: 2D digital imaging was performed of the chest. One image was obtained. An AP view was ob tained. COMPARISON: CR,XR XR CHEST 1V IN DI DEPT from 12/17/2020 CR XR CHEST 2V PA LATERAL from 10/01/2022 FINDINGS: MEDIASTINUM: There is a hiatal hernia present. HEART: Normal. PULMONARY VASCULATURE: Normal. LUNGS: There is a right perihilar infiltrate present. PLEURAL SPACE: No pleural effusion or pneumothorax. BONE:Within normal limits for the patient's age. The patient has a right total reverse shoulder repla cement. OTHER FINDINGS:There is a right-sided port. The tip is in good position near the cavoatrial junction . IMPRESSION: 1. The right port tip is in good position near the cavoatrial junction. 2. Right perihilar infiltrate suspicious for pneumonia. DATA REPOSITORY: RADIATION DOSE DELIVERED:
[2023-03-02 14:17] LABS: Procalcitonin < 0.1 ng/mL
[2023-03-02] MEDS: Omnipaque 350 MG/ML 100 ML BTL IJ (14:33)
[2023-03-02] MEDS: Normal Saline - Diluent 50 ML VIAL IJ (14:33)
[2023-03-02] MEDS: Normal Saline Flush 10 ML SYR IVP (14:33)
[2023-03-02 14:41] LABS: COVID-19 PCR Negative (Negative)
--- NOTE | 2023-03-02 14:56 | DI.VRAD_ITS ---
PROCEDURE INFORMATION: Exam: XR Chest Exam date and time: 03/02/2023 2:23 PM Age: 72 years old Clinical indication: Other: Port eval; Prior surgery; Surgery date: 6+ months; Surgery type: Port placed TECHNIQUE: Imaging protocol: Radiologic exam of the chest. Views: 1 view. COMPARISON: CT CHEST W 20/01/2023 10:53 FINDINGS: Tubes, catheters and devices: Port-A-Cath in place with the tip in the superior vena cava. Lungs: Patchy infiltrate right perihilar region, right mid lung, right lower lobe. Pleural spaces: Biapical pleural thickening. Biapical pleural thickening. Heart/Mediastinum: Retrocardiac gastric hernia. Vasculature: Atherosclerotic disease. Bones/joints: Right shoulder prosthesis. Degenerative changes of the left shoulder. Degenerative changes of the spine. Multilevel degenerative changes of the spine. IMPRESSION: 1. Right IJ PICC line in place. 2. Patchy infiltrate right mid lung, right lower lung, and right perihilar region. 3. Retrocardiac gastric hernia. Dictated and Authenticated by: Chasity Tyler MD. Ordering:KAUSHAL Temple MD
--- NOTE | 2023-03-02 15:12 | DI.VRAD_ITS ---
PROCEDURE INFORMATION: Exam: CTA Chest With Contrast Exam date and time: 03/02/2023 2:44 PM Age: 72 years old Clinical indication: Dyspnea; Additional info: HX of coagulopathy, dyspnea, hypoxia TECHNIQUE: Imaging protocol: Computed tomographic angiography of the chest with contrast. Exam focused on the arteries. 3D rendering (Not supervised by radiologist): MIP and/or 3D reconstructed images were created by the technologist. COMPARISON: CT THORAX ABD/PEL CTA 12/24/2021 4:53 PM FINDINGS: Tubes, catheters and devices: MediPort terminates in the superior vena cava Pulmonary arteries: No evidence of pulmonary embolus to the segmental level. Aorta: No aneurysm of the aorta. No dissection of the aorta. Renal arteries: Stenosis at the origin of the celiac artery and SMA and right renal artery a Lungs: Diffuse ground-glass opacities in the right hemithorax may represent multifocal pneumonia.. Pleural spaces: Small right pleural effusion. Heart: Unremarkable. No cardiomegaly. No pericardial effusion. Lymph nodes: Unremarkable. No enlarged lymph nodes. Diaphragm: Large hiatal hernia. All of the stomach is herniated into the chest.. Liver: 14 mm simple cyst left lobe of the liver Bones/joints: Right total shoulder replacement Soft tissues: Unremarkable. IMPRESSION: 1. No evidence of pulmonary embolus to the segmental level. 2. No aneurysm of the aorta. 3. No dissection of the aorta. 4. Diffuse ground-glass opacities in the right hemithorax may represent multifocal pneumonia.. 5. Large hiatal hernia. All of the stomach is herniated into the chest.. 6 small right pleural effusion Dictated and Authenticated by: Sushil Tam MD. Ordering:KAUSHAL Temple MD
--- NOTE | 2023-03-02 15:25 | DI.VRAD_ITS ---
PROCEDURE INFORMATION: Exam: CT Head Without Contrast Exam date and time: 03/02/2023 2:35 PM Age: 72 years old Clinical indication: Other: Weakness, HX of cancer TECHNIQUE: Imaging protocol: Computed tomography of the head without contrast. Radiation optimization: All CT scans at this facility use at least one of these dose optimization techniques: automated exposure control; mA and/or kV adjustment per patient size (includes targeted exams where dose is matched to clinical indication); or iterative reconstruction. COMPARISON: MR BRAIN WO 18/12/2020 10:36 FINDINGS: Brain: No intracranial hemorrhage. No mass effect. New right anterior parietal and posterior parietal ischemic changes compared with prior CT November 2020, the exact age of the ischemic changes is uncertain, however there is no significant mass effect. Stable prominent cortical sulci. Partial volume mean of the cortical sulci in the left frontal lobe. Stable hypodensity in the brainstem similar to prior study likely representing artifact as it was not appreciated on the MR of 2020. Again noted is the lacunar infarct in the right parietal supra ventricular region similar to prior study. Again noted is the lacunar infarct in the left caudate similar to prior study. Cerebral ventricles: Stable ventricular size. Paranasal sinuses: Visualized sinuses are unremarkable. No fluid levels. Mastoid air cells: Visualized mastoid air cells are well aerated. Auditory system: Progressive debris occludes both the right and left external auditory canals. Dental: Multifocal dental decay. Bones/joints: Unremarkable. No acute fracture. Soft tissues: Unremarkable. Vasculature: Atherosclerotic disease. IMPRESSION: 1. Age indeterminate, but new compared with prior study November 2020, right anterior parietal and right posterior parietal ischemic changes. 2. Increased debris completely occludes the right and left external auditory canals. Patient could benefit from removal of the debris for improved hearing and balance. Dictated and Authenticated by: Chasity Tlyer MD. Ordering:KAUSHAL Temple MD
[2023-03-02] MEDS: cefTRIAXone 2 GM/50 ML BAG IVPB (15:49)
--- NOTE | 2023-03-02 15:50 | ED.GENADUL_ITS ---
Discharge Plan Disposition Patient Disposition: Admit to [facility] Condition: Serious Discharge Details Clinical Impression: Pneumonia, Lung cancer, Respiratory failure Admit Date/Time: 03/02/23 15:55 Admit Provider: Merrick Arriola Attending Provider: Merrick Arriola Primary Care Provider: Mando Rodriguez ED Provider: Windy Meraz Discharge Data Discharge Date/Time-TO BE ENTERED AT DEPARTURE: 03/02/23 17:07 Medical Decision Making 72-year-old male with multiple comorbidities presenting with encephalopathy likely in the presence of current illness of pneumonia which was confirmed on CT chest, did order CTA chest as patient has factor V Leiden and is at risk for PE and is presenting with hypoxia and tachypnea Tolerating 2 L of oxygen well with facemask No leukocytosis, tachycardia noted, lactate and procalcitonin within normal limits, however patient did just receive immunotherapy We will treat with ceftriaxone and doxycycline for suspected pneumonia which is confirmed on patient's chest CT There is no hypotension Patient received 1 L of LR He also had conversation with palliative care as is talking about possible transition to hospice, patient has confirmed that he would like to be DNR/DNI status secondary to his age and comorbidities, this is a change from full CODE STATUS and he is competent to make this decision at time of my assessment, is in the room during this conversation, there is a long conversation also with Dr. Chahal, please see her documentation CT head does not show evidence of acute abnormality per radiology interpretation my review BMP is ordered secondary to dyspnea, looks like his prior was 300 and hours at 700, he does not appear to be overtly volume overloaded, his troponin is negative He will need admission to the hospital secondary to acute respiratory failure in the presence of pneumonia, case was discussed with Dr. Carnes who is agreeable to admitting this patient at this time He will need telemetry monitoring, 2 lines were placed CODE STATUS updated Medical Records Medical records reviewed: Yes I reviewed the patient's medical records. Lab Data Lab results reviewed: Yes I reviewed the patient's lab results. HPI General Date/Time Provider Initiated Documentation: 03/02/23 12:41 . HPI Narrative: This 72-year-old male with history of lung cancer with immunotherapy 1 week prior to arrival, CVA, carotid stenosis with carotid endarterectomy, factor V Leiden mutation, COPD, chronic anticoagulation on Eliquis presents with reports of confusion, dyspnea on exertion, weakness for the past several days. History of lung cancer with immunotherapy on Friday of last week, symptoms began 4 days later. Denies any falls or known injuries. She denies chest pain. Feels intermittently short of breath for patient. Denies known fever. Denies any c hest discomfort. Denies any calf pain or swelling has been taking Eliquis as prescribed. Related Data Home Medications Medication Instructions Recorded Confirmed atorvastatin 80 mg tablet 80 mg PO DAILY #90 tab-caps 09/12/16 03/02/23 duloxetine 60 mg capsule,delayed 60 mg PO DAILY 90 days #90 tab-caps 09/14/18 03/02/23 release (Cymbalta) fluticasone propionate 50 2 spray intranasal DAILY PRN 11/22/18 03/02/23 mcg/actuation nasal spray,suspension (Flonase Allergy Relief) apixaban 5 mg tablet (Eliquis) 5 mg PO BID 06/27/20 03/02/23 lisinopril 5 mg tablet 10 mg PO DAILY 12/24/21 03/02/23 mirtazapine 7.5 mg tablet 7.5 mg PO HS 12/24/21 03/02/23 ferrous gluconate 324 mg (37.5 mg 324 mg PO DAILY 03/19/22 03/02/23 iron) tablet sennosides 8.6 mg tablet (senna) 8.6 mg PO BID PRN constipation #60 11/11/22 03/02/23 tabs oxycodone myristate 18 mg capsule 18 mg PO Q12H #60 caps 02/04/23 03/02/23 sprinkle extended release 12hr(DON'T CRUSH) amlodipine 2.5 mg tablet 2.5 mg PO DAILY 03/02/23 03/02/23 oxycodone 10 mg tablet 10 mg PO Q6H PRN PRN 03/03/23 Previous Rx's Medication Instructions Recorded duloxetine 60 mg capsule,delayed 60 mg PO DAILY 90 days #90 tab-caps 09/14/18 release (Cymbalta) sennosides 8.6 mg tablet (senna) 8.6 mg PO BID PRN constipation #60 11/11/22 tabs oxycodone myristate 18 mg capsule 18 mg PO Q12H #60 caps 02/04/23 sprinkle extended release 12hr(DON'T CRUSH) Allergies Allergy/AdvReac Type Severity Reaction Status Date / Time No Known Allergies Allergy Unverified 03/02/23 13:28 General Stated Complaint: [facility] KATIA: 3 PFSH All Active Problems (Updated 03/03/23 @ 13:25 by Shanae Clifford MD) DVT prophylaxis (Acute) Discharge planning issues (Acute) Acute CVA (cerebrovascular accident) (Acute) Goals of care, counseling/discussion (Acute) Urinary incontinence (Acute) Hallucinations (Acute) Pneumonia (Acute) Constipation due to opioid therapy (Acute) Leg weakness (Acute) Shoulder pain, bilateral (Acute) Dyspnea on exertion (Acute) Full code status (Acute) Nail dystrophy (Acute) Palliative care encounter (Acute) Lung cancer (Chronic) followed by Marvin Solomon and Ophelia [facility] Fracture of rib (Acute) Lung mass (Acute) Cerebrovascular disease (Acute) Carotid stenosis (Acute) Laceration of left ring finger (Acute) Empyema, thoracic (Acute) Syncope (Chronic) Lymphedema of right upper extremity (Acute) Fracture of coracoid process of right scapula (Acute 07/28/20) COPD (chronic obstructive pulmonary disease) (Chronic) Lung blebs (Acute) Persistent air leak (Acute) Mass of upper lobe of left lung (Acute) Factor 5 Leiden mutation, heterozygous (Acute) GERD (gastroesophageal reflux disease) (Acute) Essential hypertension (Acute 06/01/13) echocardiogram normal Chronic anticoagulation (Acute) Syncope (Acute) Medical History Abdominal aortic aneurysm [facility] [place]: 4.3 x 4.2 cm infra-renal AAA AAA max. diam: 4.0cm ([facility]) 10/2015: infra-renal AAA max.4.3cm: stable ([facility] [place]) mri : 3.5 cm Abscess of chest wall Actinic keratoses Alcohol use Anemia Benign prostatic hyperplasia with lower urinary tract symptoms BPH without urinary obstruction Chronic pain disorder (04/15/12) CONTRACT / (urine:03/17) Degenerative disc disease, lumbar Depressive disorder Dermatitis Elevated liver enzymes Fatigue Femur fracture Helicobacter pylori gastritis (chronic gastritis) (11/23/14) positive gastroscopy : treated Hx of hepatitis C Hx of pneumothorax Hypercholesterolemia Hypertension Insomnia Knee pain, right Lacunar infarction Left rotator cuff tear arthropathy Leukocytosis Major depression, chronic Male sexual dysfunction 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 etiology:consider Neuro.referral Orthostatic hypotension Osteoarthritis of right knee Osteoarthritis, hand Peripheral artery disease Peripheral artery insufficiency [facility] [place]; 2011:left superficial femoral artery stent [facility] [place] : left SFA in stent stenosis: angioplasty Fup q 6 months on going [facility] [place] progression of disease;right popliteal stent graft occluded; pain right calf post 50ft walk Pneumothorax on right (09/23/16) 1999 first time Renal insufficiency Restless leg syndrome Rhinitis, chronic Right rotator cuff tear arthropathy Right shoulder pain Rotator cuff tear arthropathy of both shoulders Shoulder dislocation, recurrent Squamous cell carcinoma Tear of left rotator cuff (09/06/15) DOS: 09/22/18 Injection: 03/01/2019 Tear of right rotator cuff (09/06/15) Injection: 03/01/2019 Tibia fracture Varicose veins of bilateral lower extremities with pain Venous stasis ulcers recurrent/ 2008 - 2011 Viral hepatitis C chronic/ Treatment Interferon:successfull/ [facility] [place] Surgical History EGD - MAC femoral stent X2 most recent 2016 History of left-sided carotid endarterectomy (04/02/18) [facility] [place] / in surgery bleeding from parotid gland: electrocautery/ open reduction tib/fib ORIF femur right chest tube placement under local (09/23/16) 1999 Spinal Fusion 11/13/17 Status post arthroscopy of left shoulder DOS: 09/22/18 Injection: 03/01/2019 Repair of subscapularis with extensive debridement of superior cuff Biceps tenotomy; acromioplasty Dr. Webb Status post lumbar discectomy 2000 : right discectomy L5-S1 + L4-L5 decompression (right) 2013 : right L4-L5 decompression L5-S1 facetectomy; Family History Mother Diabetes Essential hypertension Depression Heart disease Neoplasm BREAST Father Neoplasm HODGKINS DISEASE Sister No problems noted. Sister Neoplasm BREAST Stroke Sister Neoplasm LUNG Brother Neoplasm LUNG Grandfather Diabetes Essential hypertension Heart disease Hyperlipidemia Stroke Grandfather No problems noted. Grandmother No problems noted. Grandmother No problems noted. 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[email or web address]) Current gender identity: male What is your relationship status?: Panel score (0-1 are the most socially isolated patients): 1 What type of physical activity do you participate in: sedentary lifestyle Frequency: does not exercise Do you feel safe at home: Yes Do you feel safe in your relationship?: Yes Additional Social history: Lives with Mela and goddaughter/niece Dorothy, age 36, who helps out Exam Const General: cooperative, disheveled and ill appearing Nutritional Appearance: cachectic Orientation: alert and oriented x3 HENMT Mouth: oral mucosae normal Eyes Pupils: PERRL Resp Other: Coarse lung sounds right lung dixon, mild tachypnea, no intercostal retractions, Cardio Rate: regular rate Rhythm: regular rhythm Skin General skin exam: no rashes or lesions noted Neuro General: patient alert and oriented (person and place ) Cranial Nerves: PERRL and tongue midline Other: Able to follow basic commands Extrem General: normal to inspection Other: distal pulses intact Course Vital Signs Vital signs: Vital Signs Temperature 36.6 C 03/02/23 12:32 Pulse 103 H 03/02/23 12:32 Respiratory Rate 16 03/02/23 12:32 Blood Pressure 152/83 H 03/02/23 12:32 Pulse Oximetry 96 03/02/23 12:32 Temperature 36.6 C 03/02/23 12:32 Temperature Source Tympanic 03/02/23 12:32 Pulse 90 03/02/23 15:01 Pulse 94 H 03/02/23 15:01 Respiratory Rate 21 03/02/23 15:01 Respiratory Effort Short of Breath 03/02/23 12:48 Respiratory Depth Normal 03/02/23 12:48 Respiratory Pattern Normal 03/02/23 12:48 Blood Pressure 126/61 03/02/23 15:01 Blood Pressure Mean 76 03/02/23 15:01 Blood Pressure Position Supine 03/02/23 12:32 Pulse Oximetry 91 L 03/02/23 15:01 Oxygen Delivery Method Nasal Cannula 03/02/23 12:32 Oxygen Flow Rate 1 03/02/23 12:32 Pain Level 5 03/02/23 12:32 Comment states he has generalized pain 03/02/23 12:32 Lab/Test Results Lab/Test Results: 03/02/23 14:10 Blood Blood Culture - Pending 03/02/23 13:30 Blood Blood Culture - Pending Laboratory Tests Range/Units 03/02/23 03/02/23 03/02/23 13:05 13:30 13:30 WBC (4.4-10.8) 10^3/uL RBC (4.36-5.78) 10^6/uL Hgb (13.5-17.5) g/dL Hct (40.0-50.0) % MCV (80-95) fL MCH (27.0-33.0) pg MCHC (32.0-36.0) % RDW (11.8-14.1) % Plt Count (130-400) 10^3/uL MPV (8.0-11.0) fL Immature Gran % Neutrophils % Lymphocytes % Monocytes % Eosinophils % Basophils % Nucleated RBC % (0.0-0.3) % Absolute Neutrophils (1.2-6.7) 10^3/uL Absolute Lymphocytes (1.2-3.4) 10^3/uL Absolute Monocytes (0.1-0.8) 10^3/uL Absolute Eosinophils (0.0-0.7) 10^3/uL Absolute Basophils (0.0-0.2) 10^3/uL VBG pH (7.31-7.41) VBG pCO2 (41-51) mmHg VBG pO2 mmHg VBG HCO3 (23-28) mmol/L VBG Total CO2 (24-29) mmol/L VBG O2 Saturation % VBG Base Excess (-2-3) mmol/L VBG Lactate (0.6-1.4) mmol/L 1.3 Sodium (136-145) mmol/L 138 Potassium (3.5-5.1) mmol/L 4.1 Chloride (98-107) mmol/L 101 Carbon Dioxide (21.0-32.0) mmol/L 26.4 Anion Gap (3-11) mmol/L 10.6 BUN (7-18) mg/dL 19 H Creatinine (0.70-1.30) mg/dL 1.4 H Est GFR (CKD-EPI 2020) (mL/min/1.73m2) 53.40 Glucose (74-106) mg/dL 124 H Calcium (8.5-10.1) mg/dL 9.5 Magnesium (1.8-2.4) mg/dL 2.0 Total Bilirubin (0.2-1.0) mg/dL 0.9 AST (15-37) U/L 38 H ALT (16-63) U/L 25 Alkaline Phosphatase (46-116) U/L 120 H Troponin I (<or=60) ng/L < 50 NT-Pro-B Natriuret Pep (<300) pg/mL 706 H Total Protein (6.4-8.2) g/dL 8.2 Albumin (3.4-5.0) g/dL 3.2 L Procalcitonin ng/mL < 0.1 COVID-19 Source Nasal/Nares SARS-CoV-2 (PCR) (Negative) Negative Patient ABO/Rh Range/Units 03/02/23 03/02/23 03/02/23 13:30 13:30 14:16 WBC (4.4-10.8) 10^3/uL 8.03 RBC (4.36-5.78) 10^6/uL 3.55 L Hgb (13.5-17.5) g/dL 11.3 L Hct (40.0-50.0) % 32.9 L MCV (80-95) fL 93 MCH (27.0-33.0) pg 31.8 MCHC (32.0-36.0) % 34.3 RDW (11.8-14.1) % 14.1 Plt Count (130-400) 10^3/uL 206 MPV (8.0-11.0) fL 8.9 Immature Gran % 0.5 Neutrophils % 84.2 Lymphocytes % 3.2 Monocytes % 8.8 Eosinophils % 3.1 Basophils % 0.2 Nucleated RBC % (0.0-0.3) % 0.0 Absolute Neutrophils (1.2-6.7) 10^3/uL 6.75 H Absolute Lymphocytes (1.2-3.4) 10^3/uL 0.26 L Absolute Monocytes (0.1-0.8) 10^3/uL 0.71 Absolute Eosinophils (0.0-0.7) 10^3/uL 0.25 Absolute Basophils (0.0-0.2) 10^3/uL 0.02 VBG pH (7.31-7.41) 7.38 VBG pCO2 (41-51) mmHg 45 VBG pO2 mmHg 31 VBG HCO3 (23-28) mmol/L 27 VBG Total CO2 (24-29) mmol/L 25 VBG O2 Saturation % 56 VBG Base Excess (-2-3) mmol/L 2 VBG Lactate (0.6-1.4) mmol/L Sodium (136-145) mmol/L Potassium (3.5-5.1) mmol/L Chloride (98-107) mmol/L Carbon Dioxide (21.0-32.0) mmol/L Anion Gap (3-11) mmol/L BUN (7-18) mg/dL Creatinine (0.70-1.30) mg/dL Est GFR (CKD-EPI 2020) (mL/min/1.73m2) Glucose (74-106) mg/dL Calcium (8.5-10.1) mg/dL Magnesium (1.8-2.4) mg/dL Total Bilirubin (0.2-1.0) mg/dL AST (15-37) U/L ALT (16-63) U/L Alkaline Phosphatase (46-116) U/L Troponin I (<or=60) ng/L NT-Pro-B Natriuret Pep (<300) pg/mL Total Protein (6.4-8.2) g/dL Albumin (3.4-5.0) g/dL Procalcitonin ng/mL COVID-19 Source SARS-CoV-2 (PCR) (Negative) Patient ABO/Rh Cancelled Critical Care Time Critical Care Time Critical Care Time: Yes Total Critical Care Time: 45 Attestation: X-ray 45 minutes of critical care time secondary to acute hypoxic respiratory failure, oxygen dependency, pneumonia requiring intravenous antibiotics and admission to this hospital in the presence of respiratory failure Telemetry monitoring, CT interpretation and review, diagnostic lab interpretation and review, consultation with the hospitalist
--- NOTE | 2023-03-02 15:58 | HPE_ITS ---
Date of service: 03/02/23 Time of Service: 15:58 Assessment and Plan Assessment and plan (1) Pneumonia: Status: Acute Assessment and plan: blood cultures pending. started on ceftriaxone and doxycycline day 1 pulmonary toilet, scheduled duonebs, prn albuterol mucinex (2) Lung mass: Status: Acute Assessment and plan: Lung Cancer; s/p resection. received keytruda 5 days ago (3) Factor 5 Leiden mutation, heterozygous: Status: Acute Assessment and plan: Stable w/o acute exacerbation. Not on any routine medications/inhalers (4) GERD (gastroesophageal reflux disease): Status: Acute Assessment and plan: Continuing pantoprazole 40 mg BID Qualifiers: Esophagitis presence: without esophagitis Qualified Code(s): K21.9 - Gastro-esophageal reflux disease without esophagitis (5) Chronic anticoagulation: Status: Acute Assessment and plan: Continuing Apixaban 5 mg PO BID discussed with DR Arriola History of Present Illness History of Present Illness Chief Complaint: shortness of breath Narrative: this is a 72 year old male with history of factor 5 leiden mutation on chronic anticoagulation, lung cancer followed by [facility], copd, who presented the ED with c/o shortness of breath. he is a poor historian but denies fever, cough or increased sputum production. Lactate, procal and white count all normal but findings on CT scan were concerning for pneumonia so ceftriaxone and doxycycline initiated in the ED. it is possible that these findings are secondary to his lung cancer progression but as he just received immunotherapy, it is reasonable to continue until cultures finalized. Palliative care was also consulted in the ED to discuss goals of care as verbalized questions about whether it was reasonable to continue with treatment and noted that patient did not want to even come in for evaluation. He has had decline at home and she wonders if its time to transition to hospice. Hospitalist services was contacted and will admit to med/surg Review of Systems All systems reviewed & are unremarkable except as noted in HPI and below PFSH All Active Problems (Updated 03/03/23 @ 13:25 by Shanae Clifford MD) DVT prophylaxis (Acute) Discharge planning issues (Acute) Acute CVA (cerebrovascular accident) (Acute) Goals of care, counseling/discussion (Acute) Urinary incontinence (Acute) Hallucinations (Acute) Pneumonia (Acute) Constipation due to opioid therapy (Acute) Leg weakness (Acute) Shoulder pain, bilateral (Acute) Dyspnea on exertion (Acute) Full code status (Acute) Nail dystrophy (Acute) Palliative care encounter (Acute) Lung cancer (Chronic) followed by Marvni Solomon and Ophelia [facility] Fracture of rib (Acute) Lung mass (Acute) Cerebrovascular disease (Acute) Carotid stenosis (Acute) Laceration of left ring finger (Acute) Empyema, thoracic (Acute) Syncope (Chronic) Lymphedema of right upper extremity (Acute) Fracture of coracoid process of right scapula (Acute 07/28/20) COPD (chronic obstructive pulmonary disease) (Chronic) Lung blebs (Acute) Persistent air leak (Acute) Mass of upper lobe of left lung (Acute) Factor 5 Leiden mutation, heterozygous (Acute) GERD (gastroesophageal reflux disease) (Acute) Essential hypertension (Acute 06/01/13) echocardiogram normal Chronic anticoagulation (Acute) Syncope (Acute) Medical History Abdominal aortic aneurysm [facility]: 4.3 x 4.2 cm infra-renal AAA AAA max. diam: 4.0cm ([facility]) 10/2015: infra-renal AAA max.4.3cm: stable ([facility]) mri : 3.5 cm Abscess of chest wall Actinic keratoses Alcohol use Anemia Benign prostatic hyperplasia with lower urinary tract symptoms BPH without urinary obstruction Chronic pain disorder (04/15/12) CONTRACT / (urine:03/17) Degenerative disc disease, lumbar Depressive disorder Dermatitis Elevated liver enzymes Fatigue Femur fracture Helicobacter pylori gastritis (chronic gastritis) (11/23/14) positive gastroscopy : treated Hx of hepatitis C Hx of pneumothorax Hypercholesterolemia Hypertension Insomnia Knee pain, right Lacunar infarction Left rotator cuff tear arthropathy Leukocytosis Major depression, chronic Male sexual dysfunction 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 etiology:consider Neuro.referral Orthostatic hypotension Osteoarthritis of right knee Osteoarthritis, hand Peripheral artery disease Peripheral artery insufficiency [facility]; 2011:left superficial femoral artery stent [facility] : left SFA in stent stenosis: angioplasty Fup q 6 months on going [facility] progression of disease;right popliteal stent graft occluded; pain right calf post 50ft walk Pneumothorax on right (09/23/16) 1999 first time Renal insufficiency Restless leg syndrome Rhinitis, chronic Right rotator cuff tear arthropathy Right shoulder pain Rotator cuff tear arthropathy of both shoulders Shoulder dislocation, recurrent Squamous cell carcinoma Tear of left rotator cuff (09/06/15) DOS: 09/22/18 Injection: 03/01/2019 Tear of right rotator cuff (09/06/15) Injection: 03/01/2019 Tibia fracture Varicose veins of bilateral lower extremities with pain Venous stasis ulcers recurrent/ 2008 - 2011 Viral hepatitis C chronic/ Treatment Interferon:successfull/ [facility] Surgical History EGD - MAC femoral stent X2 most recent 2015 History of left-sided carotid endarterectomy (04/02/18) [facility] / in surgery bleeding from parotid gland: electrocautery/ open reduction tib/fib ORIF femur right chest tube placement under local (09/23/16) 1999 Spinal Fusion 11/13/17 Status post arthroscopy of left shoulder DOS: 09/22/18 Injection: 03/01/2019 Repair of subscapularis with extensive debridement of superior cuff Biceps tenotomy; acromioplasty Dr. Webb Status post lumbar discectomy 2000 : right discectomy L5-S1 + L4-L5 decompression (right) 2013 : right L4-L5 decompression L5-S1 facetectomy; Family History Mother Diabetes Essential hypertension Depression Heart disease Neoplasm BREAST Father Neoplasm HODGKINS DISEASE Sister No problems noted. Sister Neoplasm BREAST Stroke Sister Neoplasm LUNG Brother Neoplasm LUNG Grandfather Diabetes Essential hypertension Heart disease Hyperlipidemia Stroke Grandfather No problems noted. Grandmother No problems noted. Grandmother No problems noted. 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[employer]) Current gender identity: male What is your relationship status?: Panel score (0-1 are the most socially isolated patients): 1 What type of physical activity do you participate in: sedentary lifestyle Frequency: does not exercise Do you feel safe at home: Yes Do you feel safe in your relationship?: Yes Additional Social history: Lives with Mela and goddaughter/niece Dorothy, age 36, who helps out Meds Allergies and Home Medications Allergies Allergy/AdvReac Type Severity Reaction Status Date / Time No Known Allergies Allergy Unverified 03/02/23 13:28 Home Medications Medication Instructions Recorded Confirmed Type atorvastatin 80 mg tablet 80 mg PO DAILY #90 tab-caps 09/12/16 03/02/23 History duloxetine 60 mg capsule,delayed 60 mg PO DAILY 90 days #90 tab-caps 09/14/18 03/02/23 Rx release (Cymbalta) fluticasone propionate 50 2 spray intranasal DAILY PRN 11/22/18 03/02/23 History mcg/actuation nasal spray,suspension (Flonase Allergy Relief) apixaban 5 mg tablet (Eliquis) 5 mg PO BID 06/27/20 03/02/23 History lisinopril 5 mg tablet 10 mg PO DAILY 12/24/21 03/02/23 History mirtazapine 7.5 mg tablet 7.5 mg PO HS 12/24/21 03/02/23 History ferrous gluconate 324 mg (37.5 mg 324 mg PO DAILY 03/19/22 03/02/23 History iron) tablet sennosides 8.6 mg tablet (senna) 8.6 mg PO BID PRN constipation #60 11/11/22 03/02/23 Rx tabs oxycodone myristate 18 mg capsule 18 mg PO Q12H #60 caps 02/04/23 03/02/23 Rx sprinkle extended release 12hr(DON'T CRUSH) amlodipine 2.5 mg tablet 2.5 mg PO DAILY 03/02/23 03/02/23 History oxycodone 10 mg tablet 10 mg PO Q6H PRN PRN 03/03/23 History Exam Const General: no acute distress and ill appearing chronically Orientation: alert, awake, oriented to person and oriented to place (poor historian) HENMT Head: normal to inspection, normocephalic and atraumatic Mouth: moist mucous membranes abnormal Chest Chest: normal inspection of the chest Resp Effort & Inspection: normal respiratory effort Auscultation: diminished lung sounds Cardio Rate: regular rate Rhythm: regular rhythm Results Labs 03/03/23 12:28 03/03/23 12:28 Labs: Laboratory Results - last 24 hr 03/02/23 03/02/23 03/02/23 13:05 13:30 13:30 WBC RBC Hgb Hct MCV MCH MCHC RDW Plt Count MPV Immature Gran % Neutrophils % Lymphocytes % Monocytes % Eosinophils % Basophils % Nucleated RBC % Absolute Neutrophils Absolute Lymphocytes Absolute Monocytes Absolute Eosinophils Absolute Basophils VBG pH VBG pCO2 VBG pO2 VBG HCO3 VBG Total CO2 VBG O2 Saturation VBG Base Excess VBG Lactate 1.3 Sodium 138 Potassium 4.1 Chloride 101 Carbon Dioxide 26.4 Anion Gap 10.6 BUN 19 H Creatinine 1.4 H Est GFR (CKD-EPI 2020) 53.40 Glucose 124 H Calcium 9.5 Magnesium 2.0 Total Bilirubin 0.9 AST 38 H ALT 25 Alkaline Phosphatase 120 H Troponin I < 50 NT-Pro-B Natriuret Pep 706 H Total Protein 8.2 Albumin 3.2 L Procalcitonin < 0.1 COVID-19 Source Nasal/Nares SARS-CoV-2 (PCR) Negative Patient ABO/Rh 03/02/23 03/02/23 03/02/23 13:30 13:30 14:16 WBC 8.03 RBC 3.55 L Hgb 11.3 L Hct 32.9 L MCV 93 MCH 31.8 MCHC 34.3 RDW 14.1 Plt Count 206 MPV 8.9 Immature Gran % 0.5 Neutrophils % 84.2 Lymphocytes % 3.2 Monocytes % 8.8 Eosinophils % 3.1 Basophils % 0.2 Nucleated RBC % 0.0 Absolute Neutrophils 6.75 H Absolute Lymphocytes 0.26 L Absolute Monocytes 0.71 Absolute Eosinophils 0.25 Absolute Basophils 0.02 VBG pH 7.38 VBG pCO2 45 VBG pO2 31 VBG HCO3 27 VBG Total CO2 25 VBG O2 Saturation 56 VBG Base Excess 2 VBG Lactate Sodium Potassium Chloride Carbon Dioxide Anion Gap BUN Creatinine Est GFR (CKD-EPI 2020) Glucose Calcium Magnesium Total Bilirubin AST ALT Alkaline Phosphatase Troponin I NT-Pro-B Natriuret Pep Total Protein Albumin Procalcitonin COVID-19 Source SARS-CoV-2 (PCR) Patient ABO/Rh Cancelled Last Vital Signs Temp 36.6 C 03/02/23 12:32 Pulse 90 03/02/23 15:01 Resp 21 03/02/23 15:01 BP 126/61 03/02/23 15:01 Pulse Ox 91 L 03/02/23 15:01 Time Spent Time spent with Patient: 40-54 minutes Time was spent: preparing to see the patient(eg.review tests), obtaining and/or reviewing separately otained hiistory, ordering medications,tests, procedures, referring, communicating with other health point of care specialist, indepentently interpreting results, counseling the patient and care coordination
[2023-03-02] MEDS: methylPREDNISolone SUCC 125 MG VIAL 80 MG IVP (16:04)
[2023-03-02] MEDS: Albuterol 2.5 MG/3 ML INH SOLN VIAL UPD (16:04)
[2023-03-02] MEDS: DOXYCYCLINE 100 MG in Normal Saline 100 ML IVPB (16:40)
[2023-03-02 17:24] LABS: Bilirubin Negative (Negative); Blood Negative (Negative); Clarity Clear (Clear); Glucose Negative (Negative); Ketones Negative (Negative); Leukocyte Esterase Negative (Negative); Nitrite Negative (Negative)
--- NOTE | 2023-03-02 17:30 | W.PALLCONSUL ---
Date of service: 03/02/23 Time of Service: 13:30 History of Present Illness History of Present Illness Chief Complaint: goals of care in setting of pneumonia, advanced lung cancer Narrative: Ernesto's Mela called hospice this morning, wondering if it was time to admit her for hospice/comfort care. He had been rapidly declining over the weekend while refusing to go to the ER for further evaluation and treatment. Marleny Hay from hospice informed me of this discussion. Given his previous preferences for aggressive treatment, a decision was made to instead have him go to the ER for a work up and I was able to see him in the ER prior to his admission. He has been rapidly failing since he saw his usual palliative care provider, Brandy Merino NP, who started seeing him in April 2022 for his lung cancer and last saw him about one month ago. His next appointment with her is scheduled for 03/10/23. Ernesto was unable to give me a reliable history. His history comes from review of his chart and my conversation with his , Mela. Mela reports that Ernesto has been rapidly declining over the last 4-5 days. He's been very short of breath, weak, confused, newly incontinent and hallucinating. She has never seen Ernesto like this before. He was unable to follow commands with both ER staff and myself. His answers to my questions were inconsistent. He was very vague. His January Palliative Care note indicated that he wanted to still have aggressive measures, including continuing his FULL CODE status. He sees Dr Solomon for medical oncology and Dr Jacinto for radiation oncology. Ernesto's December [address] showed marked improvement in the right lower lobe tumor. He has had 2 recent doses of immunotherapy. His next appointment with Dr Solomon is scheduled for March 24. Given his degree of confusion and new neurological symptoms, he had a head CT today that did not show any metastases. His chest CT showed multifocal pneumonia. Results of these tests came back after I had finished my exam. I did speak with Ernesto and Mela by phone to determine Ernesto's preferences for treatment. He sounded clearer than he had been (after rehydration) and he said he did want to be admitted to the hospital and treated with antibiotics, which is in keeping with his previous preferences. I explained that I would discuss his recent medical changes with Brandy Merino NP. Consults Consult date: 03/02/23 Requesting physician: Windy Meraz Assessment and Plan Assessment and plan (1) Pneumonia: Status: Acute Assessment and plan: I called back and spoke to Ernesto on speaker phone with his by his side. We discussed both the option of his not being admitted to the hospital and going back to his home with hospice services and oral antibiotics and the option of his being admitted to the hospital and receiving IV antibiotics. He said he would rather be admitted and get IV antibiotics. He wants to continue getting cancer-directed treatment for his lung cancer. (2) Constipation due to opioid therapy: Status: Acute Assessment and plan: Continue usual regimen. (3) Leg weakness: Status: Acute Assessment and plan: Ernesto has been very weak with his multifocal pneumonia. Unable to stand on his own. May need to have a short rehab stay before being discharged home. Will see how he does with his treatment. (4) Shoulder pain, bilateral: Status: Acute Assessment and plan: Ongoing x years. Has had multiple surgeries. [place] ortho [place] of [place]. (5) Dyspnea on exertion: Status: Acute Assessment and plan: Was hypoxic at rest to the 80s when he first came into the ER. Likely large contributor to his confusion. May need to have oxygen at home in near future. Will see how he does with treatment. (6) Palliative care encounter: Status: Acute Assessment and plan: Usually followed by Brandy Merino NP. Emergent need for palliative care consult in terms of decision making. Note that I did not discuss code status with him, but I saw that his code status was listed as DNR/DNI as I was writing this note. (7) Lung cancer: Status: Chronic Assessment and plan: He has had 2 lung surgeries, chemo, radiation and now immunotherapy. Last imaging in December 2022 showed improvement in his RLL cancer. As long as he is responding to cancer-directed therapies, he wants to continue treatment. (8) Cerebrovascular disease: Status: Acute Assessment and plan: Head CT showed new area of ischemia since head last imaged. Has know carotid artery disease. High risk for further strokes. (9) COPD (chronic obstructive pulmonary disease): Status: Chronic Assessment and plan: Saw Dr Orlando recently for lung testing. No response to albuterol inhalers. See her report. (10) Goals of care, counseling/discussion: Status: Acute Assessment and plan: To be continued. This acute severe illness required more focused decision making than in the past. Mela, Ernesto's , is preparing herself for his ongoing decline. Ernestois not there yet. (11) Urinary incontinence: Status: Acute Assessment and plan: Part of his acute illness, I think. Unclear. (12) Hallucinations: Status: Acute Assessment and plan: Visual hallucinations at home the night before his admission. Part of the reason for his head CT today. None noted during my exam. Review of Systems Constitutional Constitutional: Reports fatigue, Denies headache(s), Reports lethargy, Reports poor appetite, Reports weakness and Reports weight loss Eyes Eyes: Reports change in vision and Reports other (preference to look to his right) ENT Ears, Nose, Mouth, and Throat: Reports dizziness, Reports dry mouth, Denies headache(s), Reports hearing loss and Reports disequilibrium Cardiovascular Cardiovascular: Reports lightheadedness, Reports dyspnea and Reports dyspnea on exertion Respiratory Respiratory: Denies hemoptysis, Reports dyspnea, Reports dyspnea on exertion and Reports other (hypoxic on room air; doesn't have oxygen at home) Gastrointestinal Gastrointestinal: Reports early satiety Genitourinary Genitourinary: Reports urinary incontinence (new as of January 2023) Musculoskeletal Musculoskeletal: Reports back pain, Reports arthralgias, Reports muscle weakness and Reports stiffness Integumentary/Breasts Skin/Breast: Reports dry skin Neurologic Neurologic: Reports confusion, Reports dizziness, Denies headache(s), Reports other visual disturbances, Reports disequilibrium and Reports weakness Psychiatric Psychiatric: Reports confusion, Reports difficulty concentrating and Reports visual hallucinations Endocrine Endocrine: Reports fatigue Hematologic/Lymphatic Hematologic/Lymphatic: Reports easy bruising PFSH All Active Problems (Updated 03/02/23 @ 18:18 by Chyna Martino MD) Goals of care, counseling/discussion (Acute) Urinary incontinence (Acute) Hallucinations (Acute) Pneumonia (Acute) Constipation due to opioid therapy (Acute) Leg weakness (Acute) Shoulder pain, bilateral (Acute) Dyspnea on exertion (Acute) Full code status (Acute) Nail dystrophy (Acute) Palliative care encounter (Acute) Lung cancer (Chronic) [place] by Marvin Solomon and [place]hel[place] [facility] [place]racture of rib (Acute) Lung mass (Acute) Cerebrovascular disease (Acute) Carotid stenosis (Acute) Laceration of left ring finger (Acute) Empyema, thoracic (Acute) Syncope (Chronic) Lymphedema of right upper extremity (Acute) Fracture of coracoid process of right scapula (Acute 07/28/20) COPD (chronic obstructive pulmonary disease) (Chronic) Lung blebs (Acute) Persistent air leak (Acute) Mass of upper lobe of left lung (Acute) Factor 5 Leiden mutation, heterozygous (Acute) GERD (gastroesophageal reflux disease) (Acute) Essential hypertension (Acute 06/01/13) echocardiogram normal Chronic anticoagulation (Acute) Syncope (Acute) Medical History Abdominal aortic aneurysm [facility] [place] 4.3 x 4.2 cm infra-renal AAA AAA max. diam: 4.0cm [place] [place] 10[place]: infra-renal AAA max.4.3cm: stable [place] [place] mri : 3.5 cm Abscess of chest wall Actinic keratoses Alcohol use Anemia Benign prostatic hyperplasia with lower urinary tract symptoms BPH without urinary obstruction Chronic pain disorder (04/15/12) CONTRACT / (urine:03/17) Degenerative disc disease, lumbar Depressive disorder Dermatitis Elevated liver enzymes Fatigue Femur fracture Helicobacter pylori gastritis (chronic gastritis) (11/23/14) positive gastroscopy : treated Hx of hepatitis C Hx of pneumothorax Hypercholesterolemia Hypertension Insomnia Knee pain, right Lacunar infarction Left rotator cuff tear arthropathy Leukocytosis Major depression, chronic Male sexual dysfunction 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 etiology:consider Neuro.referral Orthostatic hypotension Osteoarthritis of right knee Osteoarthritis, hand Peripheral artery disease Peripheral artery insufficiency [facility] [place]:left superficial femoral artery stent [facility] [place] left SFA in stent stenosis: angioplasty Fup q 6 months on going [facility] [place] progression of disease;right popliteal stent graft occluded; pain right calf post 50ft walk Pneumothorax on right (09/23/16) 2000 first time Renal insufficiency Restless leg syndrome Rhinitis, chronic Right rotator cuff tear arthropathy Right shoulder pain Rotator cuff tear arthropathy of both shoulders Shoulder dislocation, recurrent Squamous cell carcinoma Tear of left rotator cuff (09/06/15) DOS: 09/22/18 Injection: 03/01/2019 Tear of right rotator cuff (09/06/15) Injection: 03/01/2019 Tibia fracture Varicose veins of bilateral lower extremities with pain Venous stasis ulcers recurrent/ 2008 - 2011 Viral hepatitis C chronic/ Treatment Interferon:successfull/ [facility] [place] History EGD - MAC femoral stent X2 most recent 2016 History of left-sided carotid endarterectomy (04/02/18) [facility] [place] bleeding from parotid gland: electrocautery/ open reduction tib/fib ORIF femur right chest tube placement under local (09/23/16) 1999 Spinal Fusion 11/13/17 Status post arthroscopy of left shoulder DOS: 09/22/18 Injection: 03/01/2019 Repair of subscapularis with extensive debridement of superior cuff Biceps tenotomy; acromioplasty Dr. Webb Status post lumbar discectomy 2000 : right discectomy L5-S1 + L4-L5 decompression (right) 2013 : right L4-L5 decompression -2017 L5-S1 facetectomy; Family History Mother Diabetes Essential hypertension Depression Heart disease Neoplasm BREAST Father Neoplasm HODGKINS DISEASE Sister No problems noted. Sister Neoplasm BREAST Stroke Sister Neoplasm LUNG Brother Neoplasm LUNG Grandfather Diabetes Essential hypertension Heart disease Hyperlipidemia Stroke Grandfather No problems noted. Grandmother No problems noted. Grandmother No problems noted. 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) Current gender identity: male What is your relationship status?: Panel score (0-1 are the most socially isolated patients): 1 What type of physical activity do you participate in: sedentary lifestyle Frequency: does not exercise Do you feel safe at home: Yes Do you feel safe in your relationship?: Yes Additional Social history: Lives with Mela and goddaughter/niece Dorothy, age 36, who helps out Exam Narrative Exam Narrative: Appears older than stated age, confused, frail,on stretcher in ER VS hr 102, O2 sat on 2L 97%, was 88% on RA; RR 23 eyes cannot follow my finger for EOMI exam, anicteric heent hearing is reduced, mm are dry but not parched, no oral lesions neck no lad or jvd, well healed scar lungs reduced air movement throughout, no increased wob, no cough during my exam, crackles rll, cv fast, regular, no murmur appreciated abd normal weight, soft, no masses noted ext reduced dp and pt pulses bilaterally, no cyanosis, no edema neuro oriented to self only, unsure of place and time, unreliable historian, could not answer questions or follow commonds skin warm but not diaphoretic psych no active hallucinations during my exam gu no donahue in place Results Last Vital Signs Temp 97.9 F 03/02/23 12:32 Pulse 109 H 03/02/23 17:19 Resp 19 03/02/23 16:55 BP 138/46 L 03/02/23 16:55 Pulse Ox 94 03/02/23 16:55 Labs 03/02/23 13:30 03/02/23 13:30 Labs: Laboratory Results - last 24 hr 03/02/23 03/02/23 03/02/23 13:05 13:30 13:30 WBC RBC Hgb Hct MCV MCH MCHC RDW Plt Count MPV Immature Gran % Neutrophils % Lymphocytes % Monocytes % Eosinophils % Basophils % Nucleated RBC % Absolute Neutrophils Absolute Lymphocytes Absolute Monocytes Absolute Eosinophils Absolute Basophils VBG pH VBG pCO2 VBG pO2 VBG HCO3 VBG Total CO2 VBG O2 Saturation VBG Base Excess VBG Lactate 1.3 Sodium 138 Potassium 4.1 Chloride 101 Carbon Dioxide 26.4 Anion Gap 10.6 BUN 19 H Creatinine 1.4 H Est GFR (CKD-EPI 2020) 53.40 Glucose 124 H Calcium 9.5 Magnesium 2.0 Total Bilirubin 0.9 AST 38 H ALT 25 Alkaline Phosphatase 120 H Troponin I < 50 NT-Pro-B Natriuret Pep 706 H Total Protein 8.2 Albumin 3.2 L Procalcitonin < 0.1 Urine Color Urine Clarity Urine pH Ur Specific [place] Urine Protein Urine Ketones Urine Blood Urine Nitrite Urine Bilirubin Urine Urobilinogen Ur Leukocyte Esterase Urine Glucose COVID-19 Source Nasal/Nares SARS-CoV-2 (PCR) Negative Patient ABO/Rh 03/02/23 03/02/23 03/02/23 13:30 13:30 14:16 WBC 8.03 RBC 3.55 L Hgb 11.3 L Hct 32.9 L MCV 93 MCH 31.8 MCHC 34.3 RDW 14.1 Plt Count 206 MPV 8.9 Immature Gran % 0.5 Neutrophils % 84.2 Lymphocytes % 3.2 Monocytes % 8.8 Eosinophils % 3.1 Basophils % 0.2 Nucleated RBC % 0.0 Absolute Neutrophils 6.75 H Absolute Lymphocytes 0.26 L Absolute Monocytes 0.71 Absolute Eosinophils 0.25 Absolute Basophils 0.02 VBG pH 7.38 VBG pCO2 45 VBG pO2 31 VBG HCO3 27 VBG Total CO2 25 VBG O2 Saturation 56 VBG Base Excess 2 VBG Lactate Sodium Potassium Chloride Carbon Dioxide Anion Gap BUN Creatinine Est GFR (CKD-EPI 2020) Glucose Calcium Magnesium Total Bilirubin AST ALT Alkaline Phosphatase Troponin I NT-Pro-B Natriuret Pep Total Protein Albumin Procalcitonin Urine Color Urine Clarity Urine pH Ur Specific [place] Urine Protein Urine Ketones Urine Blood Urine Nitrite Urine Bilirubin Urine Urobilinogen Ur Leukocyte Esterase Urine Glucose COVID-19 Source SARS-CoV-2 (PCR) Patient ABO/Rh Cancelled 03/02/23 16:52 WBC RBC Hgb Hct MCV MCH MCHC RDW Plt Count MPV Immature Gran % Neutrophils % Lymphocytes % Monocytes % Eosinophils % Basophils % Nucleated RBC % Absolute Neutrophils Absolute Lymphocytes Absolute Monocytes Absolute Eosinophils Absolute Basophils VBG pH VBG pCO2 VBG pO2 VBG HCO3 VBG Total CO2 VBG O2 Saturation VBG Base Excess VBG Lactate Sodium Potassium Chloride Carbon Dioxide Anion Gap BUN Creatinine Est GFR (CKD-EPI 2020) Glucose Calcium Magnesium Total Bilirubin AST ALT Alkaline Phosphatase Troponin I NT-Pro-B Natriuret Pep Total Protein Albumin Procalcitonin Urine Color Yellow Urine Clarity Clear Urine pH 7.0 Ur Specific [place] 1.010 Urine Protein Trace H Urine Ketones Negative Urine Blood Negative Urine Nitrite Negative Urine Bilirubin Negative Urine Urobilinogen 1.0 H Ur Leukocyte Esterase Negative Urine Glucose Negative COVID-19 Source SARS-CoV-2 (PCR) Patient ABO/Rh Imaging Chest x-ray: report reviewed CT scan - chest: report reviewed Additional studies: ct head--reviewed
[2023-03-02 17:35] LABS: Bacteria Rare HPF (Negative); C & S Indicated? No; Casts Negative LPF (Negative); Crystals Negative HPF (Negative); Epithelial Cells Rare HPF (Negative); Mucus Trace (Negative); RBC 0-2 HPF (0-2); WBC 0-2 HPF (0-5)
[2023-03-02] MEDS: oxyCODONE 10 MG TAB 30 MG PO (18:41)
[2023-03-02] MEDS: Atorvastatin 40 MG TAB 80 MG PO (21:29)
[2023-03-02] MEDS: Albuterol/Ipratropium 3 ML UPD VIAL UPD (21:29)
[2023-03-02] MEDS: Mirtazapine 15 MG TAB 7.5 MG PO (21:29)
[2023-03-02] MEDS: Apixaban 5 MG TAB PO (21:29)
[2023-03-02] MEDS: guaiFENesin 600 MG TABCR PO (21:29)
[2023-03-02 22:16] LABS: Troponin I < 50 ng/L (<or=60)
[2023-03-03] VITALS (11 sets, daily range): BP systolic 124–198; BP diastolic 63–100; PULSE 79–126; RESP 1–18; TEMP 35.3–36.6; O2SAT 89–98
--- NOTE | 2023-03-03 | DI.MRI_ITS ---
Exam(s) MR BRAIN WO/W EXAM: MR BRAIN WO/W CLINICAL HISTORY: acute CVA. TECHNIQUE: Multiplanar multisequence MRI of the brain was performed. CONTRAST MATERIAL: IV Contrast: 16 ML of Dotarem contrast administered. COMPARISON: MR MR ANGIO BRAIN WO from 03/03/2023 FINDINGS: VENTRICLES AND EXTRA AXIAL SPACES: Normal in size and morphology for the patient's age. HEMORRHAGE: None. CEREBRAL PARENCHYMA: Multiple areas of abnormal restricted diffusion, large areas in the right fronta l and parietal lobes as well as right occipital lobe and high left parietal region.. Smaller foci se en in right temporal, left occipital lobe and right parietal lobe. Small foci seen anterior left fro ntal lobe. No space-occupying lesion identified. Atrophy. MIDLINE SHIFT: None. BRAINSTEM/CEREBELLUM: Small bilateral areas of restricted diffusion, left greater than right, consist ent with acute infarcts. CALVARIUM: Normal. ENHANCEMENT: A single T1 axial post gadolinium sequences performed which show severe motion. Enhance ment cannot be assessed. The no further imaging could be obtained. VISUALIZED PARANASAL SINUSES/MASTOIDS: Clear. OTHER FINDINGS: Lack of flow voids in the distal internal carotid arteries. Flow voids visible in ci [id number] vasculature and branches. IMPRESSION: Multiple bilateral areas of acute infarct, right greater than left. DATA REPOSITORY:
--- NOTE | 2023-03-03 | DI.MRI_ITS ---
Exam(s) MR ANGIO BRAIN WO CLINICAL HISTORY: acute CVA. TECHNIQUE: 3D [id number] study was performed without contrast. COMPARISON: MRA of the neck 03 March 2023 FINDINGS: Carotid Arteries: Not seen, occluded. Middle Cerebral Arteries: Supplied via [id number]. Right: No aneurysm or significant stenosis. Left: No aneurysm or significant stenosis. Anterior Cerebral Arteries: Supplied via [id number]. Right: No aneurysm or significant stenosis. Left: No aneurysm or significant stenosis. Posterior cerebral arteries: Right: No aneurysm or significant stenosis Left: No aneurysm or significant stenosis Vertebral Arteries: Right: Diminutive Left: Prominent. No aneurysm or significant stenosis. No dissection.. Basilar Artery: No aneurysm or significant stenosis. Small Vessels: No evidence of beading. IMPRESSION: Occlusion of the internal carotid arteries. The left vertebral is prominent and appears to be the only supplying vessel to the brain. DATA REPOSITORY:
--- NOTE | 2023-03-03 | DI.MRI_ITS ---
Exam(s) MR ANGIO NECK WO EXAM: MR ANGIO NECK WO CLINICAL HISTORY: acute CVA. TECHNIQUE: 2D and 3D [id number] MRA of the Neck was performed. COMPARISON: Head CT 03 March 2023 FINDINGS: Common Carotid: Right: Visualized proximally occluded distally. Left: Not visualized, consistent with occlusion. Occlusion. External Carotid: Right: Visualized proximally. Left: Not visualized, consistent with occlusion. Internal Carotid: Right: Not visualized, consistent with occlusion.. Left: Not visualized, consistent with occlusion. Vertebral Artery: Right: Not visualized. Left: Prominent forms the basilar artery and both posterior cerebral arteries. Multiple superficial collateral vessels are noted. IMPRESSION: Occlusion of the left common, internal and external carotid arteries. Occlusion of the distal common carotid and right internal carotid arteries. The right vertebral artery is not visualized, also presumed occluded. DATA REPOSITORY:
[2023-03-03] MEDS: DOXYCYCLINE 100 MG in Normal Saline 100 ML IVPB (05:55)
[2023-03-03] MEDS: Albuterol/Ipratropium 3 ML UPD VIAL UPD ×2 (08:11→12:33)
[2023-03-03] MEDS: Normal Saline Flush 10 ML SYR IVP ×8 (08:43→23:41)
[2023-03-03] MEDS: DULoxetine 30 MG CAP 60 MG PO (08:44)
[2023-03-03] MEDS: guaiFENesin 600 MG TABCR PO (08:45)
[2023-03-03] MEDS: amLODIPine 2.5 MG TAB PO (08:45)
[2023-03-03] MEDS: Ferrous Gluconate 324 MG TAB PO (08:45)
[2023-03-03] MEDS: Apixaban 5 MG TAB PO (08:45)
[2023-03-03] MEDS: Lisinopril 5 MG TAB 10 MG PO (08:45)
--- NOTE | 2023-03-03 09:00 | DI.CT_ITS ---
Exam(s) CT HEAD WO EXAM: CT HEAD WO CLINICAL HISTORY: vision loss, new weakness to L side. TECHNIQUE: Imaging Protocol: Axial computed tomography images with coronal and sagittal reformatted images were created and reviewed COMPARISON: CT CT HEAD WO from 12/17/[address] HEAD WO from 03/02/2023 FINDINGS: Ventricles and Extra axial spaces: Normal in size and morphology for the patient's age. Hemorrhage: None. Cerebral parenchyma: Interval increasing size of previously noted areas of decreased attenuation in t he right frontal and parietal lobes area of edema also seen in the right occipital lobe. Question of additional area of low attenuation in the high left parietal lobe. No significant mass effect. Midline shift: None. Brainstem/Cerebellum: Normal. Calvarium: Normal. Visualized Paranasal sinuses/Mastoids: Clear. Cerumen in both external auditory canals. Soft Tissues: Unremarkable. IMPRESSION: Interval worsening of right frontal and parietal infarcts. Infarcts also seen in right occipital and left high parietal regions. No hemorrhage or significant mass effect. RADIATION DOSE DELIVERED: 894.11mGy.cm Total DLP DATA REPOSITORY: All CT scans at this facility are submitted to the National Radiology Data Registry (NRDR) Dose Index Registry (DIR) with the [employer] (A[employer]). RADIATION OPTIMIZATION: All CT scans at this facility use at least one of these dose optimization te chniques: automated exposure control; mA and/or kV adjustment per patient size (includes targeted exa ms where dose is matched to clinical indication); or iterative reconstruction.
[2023-03-03] MEDS: Aspirin E.C. 325 MG TABEC PO (09:56)
[2023-03-03] MEDS: HYDROmorphone 2 MG/ML SYR 1 MG IVP ×2 (11:58→15:22)
[2023-03-03] MEDS: Normal Saline 500 ML 100 ML IV (12:23)
[2023-03-03] MEDS: cefTRIAXone 2 GM/50 ML BAG IVPB (12:24)
[2023-03-03 12:48] LABS: Abs Immature Grans 0.08 10^3/uL (0.0-0.06); Absolute Basophil Count 0.02 10^3/uL (0.0-0.2); Absolute Lymphocyte Count 0.27 10^3/uL (1.2-3.4); Absolute Monocyte Count 1.03 10^3/uL (0.1-0.8); Absolute Neutrophil Count 15.22 10^3/uL (1.2-6.7); Basophils % 0.1; HCT 30.2 % (40.0-50.0); HGB 10.4 g/dL (13.5-17.5); Immature Grans % 0.5; Lymphocytes % 1.6; MCHC 34.4 % (32.0-36.0); MCV 93 fL (80-95); MPV 8.7 fL (8.0-11.0); Monocytes % 6.2; Neutrophils % 91.6; Platelet Count 202 10^3/uL (130-400); RBC 3.25 10^6/uL (4.36-5.78); RDW 14.1 % (11.8-14.1); RDW-SD 48.1 fL; WBC 16.62 10^3/uL (4.4-10.8)
--- NOTE | 2023-03-03 13:05 | PGE_ITS ---
Date of Service Date of service: 03/03/23 Time of Service: 09:00 Assessment and Plan Assessment and plan (1) Acute CVA (cerebrovascular accident): Status: Acute Assessment and plan: Based on the distribution of infarcts, the etiology is likely embolic and possibly cardioembolic. Await MRI/MRA and echo. No neurology consult is available in house until 03/05/23. [place] [facility] [place] [facility] [place]. Will switch apixaban to enoxaparin, discuss the case with [facility] [place] once we have a better idea of what the echo/MRI say. Received aspirin today, but it may not be useful in a cardioembolic scenario. C/s PT, OT, speech. Await neurology consult on 03/05. MOnitor neurochecks. Palliative care consult. (2) Pneumonia: Status: Acute Assessment and plan: Await blood cultures. Continue doxycycline/cecftriaxone. Encourage pulmonary toilet. (3) Lung mass: Status: Acute Assessment and plan: Lung Cancer; s/p resection/XRT, on keytruda. Per my discussion with neurology, could be related to the acute CVA. Await echocardiogram. Will discuss with [facility] [place]. (4) Factor 5 Leiden mutation, heterozygous: Status: Acute Assessment and plan: Will upgrade anticoagulation to enoxaparin (from apixaban). (5) Chronic anticoagulation: Status: Acute Assessment and plan: As above (6) DVT prophylaxis: Status: Acute Assessment and plan: As above - transitioning to full dose enoxaparin. (7) Discharge planning issues: Status: Acute Assessment and plan: DNR/DNi Palliative care consulted. Total Critical Care Time 60 minutes. Subjective Subjective Interval history since last seen: I got asked to emergently come to evaluate the patient at about 0900, when the nursing felt the patient was not at his baseline and was complaining of blurred vision, not double vision. was at bedside having just arrived. The patient was noted by nursing not to track a finger with his eyes and to stare off to the side, but to have BUE/BLE movement. His BP was 190/100. His blood sugar was 173. NIH score 11. Onset of symptoms is not clear. Per , he was already staring off to the side yesterday when he was brought to the hospital and she is not sure exactly when it started, but he thinks the patient was still able to track at that time. She did state his speech was different yesterday. He was not interactive, though would answer to questions appropriately. She noticed changes starting sometime between last Friday (5 days ago) and Friday (3 days ago). He had received keytruda on Friday, [address] head was emergently obtained and showed new areas of infarction (R occipital and L high parietal) in addition to worsening of the areas of ischemia in R frontal and R parietal lobes. The case was discussed with [facility] [place]: Dr Interiano recommended MRI/MRA (vs CTA) and an echo: could this be endocarditis related to malignancy with embolization? The patient is already on anticoagulation with apixaban. He recommended switching this to lovenox and discusing the case with oncology. Exam Narrative Exam Narrative: General: Pleasant elderly male who appears to have some degree of bilateral neglect, having to turn his head to look at us, otherwise no facial asymmetry, 5/5 strength in R hand, but not able to elevate it for evaluation of pronator drip (possibly didn't understand command), 3/5 strenght L hand clinical resource nurse (did elevate it with difficulty; with drift), 5/5 strength in LLE, 1-2/5 strength in RLE. NIH score 11, full neurologic exam made difficult due to patient's difficulty following commands/understanding (?receptive aphasia). A&Ox1. HEENT: Unable to track/bilateral gaze palsy, MMM Heart: RRR, no m/r/g Lungs: CTAB Abdomen: soft, nontender, nondistended Extremities: no edema BLEs Objective Last Vital Signs Temp 36.6 C 03/03/23 10:15 Pulse 105 H 03/03/23 12:34 Resp 16 03/03/23 12:34 BP 159/69 H 03/03/23 10:15 Pulse Ox 98 03/03/23 12:34 Laboratory Results - last 24 hr 03/02/23 03/02/23 03/02/23 13:05 13:30 13:30 WBC RBC Hgb Hct MCV MCH MCHC RDW Plt Count MPV Immature Gran % Neutrophils % Band Neutrophils % Lymphocytes % Atypical Lymphs % Monocytes % Eosinophils % Basophils % Metamyelocytes % Myelocytes % Promyelocytes % Other Cells % Nucleated RBC % Absolute Neutrophils Absolute Lymphocytes Absolute Monocytes Absolute Eosinophils Absolute Basophils RBC Morphology Polychromasia Hypochromasia Poikilocytosis Basophilic Stippling Anisocytosis Microcytosis Macrocytosis Spherocytes Tear Drop Cells Ovalocytes Stomatocytes Shaikh-[place] Bodies [place] Cells/Echinocytes Acanthocytes (Spur) Schistocytes VBG pH VBG pCO2 VBG pO2 VBG HCO3 VBG Total CO2 VBG O2 Saturation VBG Base Excess VBG Lactate 1.3 Sodium 138 Potassium 4.1 Chloride 101 Carbon Dioxide 26.4 Anion Gap 10.6 BUN 19 H Creatinine 1.4 H Est GFR (CKD-EPI 2020) 53.40 Glucose 124 H Calcium 9.5 Magnesium 2.0 Total Bilirubin 0.9 AST 38 H ALT 25 Alkaline Phosphatase 120 H Troponin I < 50 NT-Pro-B Natriuret Pep 706 H Total Protein 8.2 Albumin 3.2 L Procalcitonin < 0.1 Urine Color Urine Clarity Urine pH Ur Specific [place] Urine Protein Urine Ketones Urine Blood Urine Nitrite Urine Bilirubin Urine Urobilinogen Ur Leukocyte Esterase Urine RBC Urine WBC Ur Epithelial Cells Urine Crystals Urine Bacteria Urine Casts Urine Mucus Ur Culture Indicated? Urine Glucose COVID-19 Source Nasal/Nares SARS-CoV-2 (PCR) Negative Patient ABO/Rh 03/02/23 03/02/23 03/02/23 13:30 13:30 14:16 WBC 8.03 RBC 3.55 L Hgb 11.3 L Hct 32.9 L MCV 93 MCH 31.8 MCHC 34.3 RDW 14.1 Plt Count 206 MPV 8.9 Immature Gran % 0.5 Neutrophils % 84.2 Band Neutrophils % Lymphocytes % 3.2 Atypical Lymphs % Monocytes % 8.8 Eosinophils % 3.1 Basophils % 0.2 Metamyelocytes % Myelocytes % Promyelocytes % Other Cells % Nucleated RBC % 0.0 Absolute Neutrophils 6.75 H Absolute Lymphocytes 0.26 L Absolute Monocytes 0.71 Absolute Eosinophils 0.25 Absolute Basophils 0.02 RBC Morphology Polychromasia Hypochromasia Poikilocytosis Basophilic Stippling Anisocytosis Microcytosis Macrocytosis Spherocytes Tear Drop Cells Ovalocytes Stomatocytes Shaikh[place] Bodies [place] Cells/Echinocytes Acanthocytes (Spur) Schistocytes VBG pH 7.38 VBG pCO2 45 VBG pO2 31 VBG HCO3 27 VBG Total CO2 25 VBG O2 Saturation 56 VBG Base Excess 2 VBG Lactate Sodium Cancelled Potassium Cancelled Chloride Cancelled Carbon Dioxide Cancelled Anion Gap Cancelled BUN Cancelled Creatinine Cancelled Est GFR (CKD-EPI 2020) Cancelled Glucose Cancelled Calcium Cancelled Magnesium Total Bilirubin Cancelled AST Cancelled ALT Cancelled Alkaline Phosphatase Cancelled Troponin I NT-Pro-B Natriuret Pep Total Protein Cancelled Albumin Cancelled Procalcitonin Urine Color Urine Clarity Urine pH Ur Specific [place] Urine Protein Urine Ketones Urine Blood Urine Nitrite Urine Bilirubin Urine Urobilinogen Ur Leukocyte Esterase Urine RBC Urine WBC Ur Epithelial Cells Urine Crystals Urine Bacteria Urine Casts Urine Mucus Ur Culture Indicated? Urine Glucose COVID-19 Source SARS-CoV-2 (PCR) Patient ABO/Rh 03/02/23 03/02/23 03/02/23 14:16 14:16 16:52 WBC Cancelled RBC Cancelled Hgb Cancelled Hct Cancelled MCV Cancelled MCH Cancelled MCHC Cancelled RDW Cancelled Plt Count Cancelled MPV Cancelled Immature Gran % Cancelled Neutrophils % Cancelled Band Neutrophils % Cancelled Lymphocytes % Cancelled Atypical Lymphs % Cancelled Monocytes % Cancelled Eosinophils % Cancelled Basophils % Cancelled Metamyelocytes % Cancelled Myelocytes % Cancelled Promyelocytes % Cancelled Other Cells % Cancelled Nucleated RBC % Cancelled Absolute Neutrophils Cancelled Absolute Lymphocytes Cancelled Absolute Monocytes Cancelled Absolute Eosinophils Cancelled Absolute Basophils Cancelled RBC Morphology Cancelled Polychromasia Cancelled Hypochromasia Cancelled Poikilocytosis Cancelled Basophilic Stippling Cancelled Anisocytosis Cancelled Microcytosis Cancelled Macrocytosis Cancelled Spherocytes Cancelled Tear Drop Cells Cancelled Ovalocytes Cancelled Stomatocytes Cancelled Shaikh[place] Bodies Cancelled [place] Cells/Echinocytes Cancelled Acanthocytes (Spur) Cancelled Schistocytes Cancelled VBG pH VBG pCO2 VBG pO2 VBG HCO3 VBG Total CO2 VBG O2 Saturation VBG Base Excess VBG Lactate Sodium Potassium Chloride Carbon Dioxide Anion Gap BUN Creatinine Est GFR (CKD-EPI 2020) Glucose Calcium Magnesium Total Bilirubin AST ALT Alkaline Phosphatase Troponin I NT-Pro-B Natriuret Pep Total Protein Albumin Procalcitonin Urine Color Yellow Urine Clarity Clear Urine pH 7.0 Ur Specific [place] 1.010 Urine Protein Trace H Urine Ketones Negative Urine Blood Negative Urine Nitrite Negative Urine Bilirubin Negative Urine Urobilinogen 1.0 H Ur Leukocyte Esterase Negative Urine RBC 0-2 Urine WBC 0-2 Ur Epithelial Cells Rare Urine Crystals Negative Urine Bacteria Rare Urine Casts Negative Urine Mucus Trace Ur Culture Indicated? No Urine Glucose Negative COVID-19 Source SARS-CoV-2 (PCR) Patient ABO/Rh Cancelled 03/02/23 03/03/23 21:50 12:28 WBC 16.62 H RBC 3.25 L Hgb 10.4 L Hct 30.2 L MCV 93 MCH 32.0 MCHC 34.4 RDW 14.1 Plt Count 202 MPV 8.7 Immature Gran % 0.5 Neutrophils % 91.6 Band Neutrophils % Lymphocytes % 1.6 Atypical Lymphs % Monocytes % 6.2 Eosinophils % 0.0 Basophils % 0.1 Metamyelocytes % Myelocytes % Promyelocytes % Other Cells % Nucleated RBC % 0.0 Absolute Neutrophils 15.22 H Absolute Lymphocytes 0.27 L Absolute Monocytes 1.03 H Absolute Eosinophils 0.00 Absolute Basophils 0.02 RBC Morphology Polychromasia Hypochromasia Poikilocytosis Basophilic Stippling Anisocytosis Microcytosis Macrocytosis Spherocytes Tear Drop Cells Ovalocytes Stomatocytes Sha[place] Bodies [place] Cells/Echinocytes Acanthocytes (Spur) Schistocytes VBG pH VBG pCO2 VBG pO2 VBG HCO3 VBG Total CO2 VBG O2 Saturation VBG Base Excess VBG Lactate Sodium Potassium Chloride Carbon Dioxide Anion Gap BUN Creatinine Est GFR (CKD-EPI 2020) Glucose Calcium Magnesium Total Bilirubin AST ALT Alkaline Phosphatase Troponin I < 50 NT-Pro-B Natriuret Pep Total Protein Albumin Procalcitonin Urine Color Urine Clarity Urine pH Ur Specific [place] Urine Protein Urine Ketones Urine Blood Urine Nitrite Urine Bilirubin Urine Urobilinogen Ur Leukocyte Esterase Urine RBC Urine WBC Ur Epithelial Cells Urine Crystals Urine Bacteria Urine Casts Urine Mucus Ur Culture Indicated? Urine Glucose COVID-19 Source SARS-CoV-2 (PCR) Patient ABO/Rh Objective Narrative Objective Narrative: CT head; Interval worsening of right frontal and parietal infarcts.? Infarcts also seen in right occipital and left high parietal regions.? No hemorrhage or significant mass effect. MRI/MRA brain, MRA neck pending. Echo pending. Time Spent with Patient Time Spent with Patient: >50 minutes Time was spent: preparing to see the patient(eg.review tests), obtaining and/or reviewing separately [facility] hiistory, ordering medications,tests, procedures, referring, communicating with other health geriatric care manager, indepentently interpreting results, counseling the patient and care coordination
[2023-03-03 13:11] LABS: BUN 21 mg/dL (7-18); CREATININE 1.2 mg/dL (0.70-1.30); Calcium 9.5 mg/dL (8.5-10.1); Chloride 104 mmol/L (98-107); Estimated GFR 64.25 (mL/min/1.73m2); Glucose 132 mg/dL (74-106); NT-proBNP 944 pg/mL (<300); Potassium 3.5 mmol/L (3.5-5.1); Sodium 139 mmol/L (136-145); Troponin I < 50 ng/L (<or=60)
--- NOTE | 2023-03-03 13:52 | DI.US_ITS ---
APPROVED REPORT EXAM: Comprehensive 2D, Doppler, and color-flow Echocardiogram Patient Location: In-Patient Room/Bed: 210 Complaint Clerk: Elsa Dunlap RDCS (AE) Indications: Acut CVA Echo Enhancing Agent Indication: Rule out Shunt Agent(s) / Amount(s) Used: Agitated Saline 30.0 cc Comments: Contrast study was performed with 3 IV injections of 10ccs of agitated normal saline, at [facility], with cough and post valsalva maneuver. Negative contrast study for shunt flow. Other Information Study Quality: Adequate. Technically limited study due to body habitus, inability to position patient exam done supine bedside. Conclusion Normal left ventricular wall thickness and chamber size. Ejection fraction is 60%. Wall motion is n ormal Normal right ventricular size and systolic function The left atrium is mildly dilated. Right atrial size is normal No intracardiac shunting is identified with injection of agitated saline Aortic valve is sclerotic without stenosis or regurgitation Estimated right ventricular systolic pressure is 36 mmHg Dilated ascending aorta, 3.52 cm Wall motion Left Ventricle The left ventricle is normal size. The left ventricular systolic function is normal. The left ventric ular ejection fraction is within the normal range. There is normal left ventricular wall thickness. T here is normal LV segmental wall motion. There is no ventricular septal defect visualized. LVEF is 60 %. Right Ventricle The right ventricle is normal size. The right ventricular systolic function is normal. The RVSP is 35 .8 mmHg. Atria The left atrium size is mildly dilated The right atrium size is normal. The interatrial septum is int act with no evidence for an atrial septal defect. Saline bubble contrast intravenous injection does n ot demonstrate PFO. Aortic Valve The Aortic valve is sclerotic. There is no aortic valvular stenosis. No aortic regurgitation is prese nt. Mitral Valve The mitral valve is normal in structure. No evidence of mitral valve stenosis. Trace mitral regurgita tion. Tricuspid Valve The tricuspid valve is normal in structure. There is no tricuspid valve stenosis. Mild tricuspid regu rgitation. Pulmonic Valve The pulmonary valve is normal in structure. There is no pulmonic valvular stenosis. There is no pulmo polo valvular regurgitation. Great Vessels The aortic root is normal in size. The ascending aorta is mildly dilated. Aortic arch is not well vis ualized. IVC is normal in size and collapses >50% with inspiration. Pericardium There is no pericardial effusion. 2D Dimensions IVSD d PLAX 0.95 cm M: 0.6-1.2 LV Vol A2C d MOD 98.2 mL LVPW d PLAX 0.96 cm M: 0.6 - 1.2 LV Vol A4C d MOD 96.4 mL LVID d PLAX 4.39 cm M: 4.2 - 5.8 LA vol/ BSA A2C s A-L 23.6 mL/m2 LVDs 3.20 cm M: 2.5 - 4.0 LA vol/ BSA A4C s A-L 49.3 mL/m2 Ao Root d 3.20 cm M: 3.1 - 3.7 LA Vol/ BSA Biplane s A-L 37.1 mL/m2 RA Area A4C 14.31 cm2 LA Area A4C s MOD 27.80 cm2 RA Vol/ BSA A4C s A-L 16.0 mL/m2 LA Area A2C s MOD 17.67 cm2 Ao Asc Diam d 3.52 cm M: 2.6 - 3.4 LV EF A4C MOD 54.1 % LV EF Teichholz 52.7 % LV EF A2C MOD 55.4 % LVEF (Abker's) 55.16 % M: 52 - 72 LV EF Biplane MOD 55.2 % LV Volume 74.38 mL M: 62 - 150 SV 54.58 mL LV Volume Index 37.37 mL/m2 M: 34 - 74 SV Index 27.48 mL/m2 LV Vol Biplane MOD 99.0 mL FS 26.85 % M-Mode TAPSE 3.18 cm (M/F) >1.7 LV Diastology MV E' medial 0.104 (>0.07 m/s) E/A Ratio 0.5 LV E/e MED 5.75 (<14) MV E Vmax 0.60 (0.4-1.3 m/s) MV E' lateral 0.108 (>0.1 m/s) MV A Vmax 1.20 (0.4-1.3 m/s) LV E/e LAT 5.55 (<14) MV E/A Ratio 0.49 MV E/E' medial 5.80 MV E/E' lateral 5.58 Aortic Valve LVOT Area 3.76 cm2 AoV Area Vmax 2.67 cm2 LVOT Vmax 1.39 m/s AoV Area/ BSA (Vmax) 1.34 cm2/m2 LVOT Mean Anthony. 0.95 m/s STEPHANIE Mean Anthony. 2.65 cm2 LVOT Peak Grad 7.8 mmHg STEPHANIE Mean Anthony. Index 1.33 cm2/m2 LVOT Mean Grad 4.0 mmHg LVOT VTI 0.251 m LVOT Diam s 2.15 cm AoV Vmax 1.97 m/s Velocity Ratio 0.71 AoV Mean Anthony. 1.34 m/s AoV Peak Grad 15.5 mmHg LVOT SV 94.44 mL AoV Mean Grad 8.1 mmHg AoV VTI 0.304 m AoV Area VTI 3.11 cm2 AoV Area/ BSA (VTI) 1.56 cm/m2 Mitral Valve MV DT 243 (160-240 msec) MV PHT 70 msec MV Area PHT 3.12 cm2 MV VTI 0.230 m MV Area VTI 4.11 (4.0-6.0 cm2) Pulmonary Valve PV Vmax 1.37 (0.5-1.5 m/s) RVOT Peak Gr. 4.45 mmHg PV Peak Grad 7.5 mmHg RVOT Mean Gr. 2.30 mmHg PV Mean Grad 4.3 mmHg RVOT VTI 0.136 m PV VTI 0.237 m RVOT Vmax 1.05 m/s Tricuspid Valve TR Peak Grad 32.8 mmHg TR Vmax 2.86 m/s RA Pressure 3.00 mmHg RVSP (TR) 35.8 mmHg
[2023-03-03] MEDS: oxyCODONE 10 MG TAB 30 MG PO (15:16)
[2023-03-03] MEDS: LORazepam 2 MG/ML VIAL 0.5 MG IVP ×5 (15:23→23:03)
[2023-03-03] MEDS: Gadoterate meglumine 20 ML SYRINGE 16 ML IVP (16:28)
--- NOTE | 2023-03-03 16:56 | RESPIRATORY ---
Joyce, the MS Charge Nurse, asked RT about providing patient w/a PAP device if was unable to bring in his own device. RT asked about history of Central sleep apnea listed in History & Physical examination note. stated patient has tried numerous device without success and is not currently not doing anything for this diagnosis.
--- NOTE | 2023-03-03 16:57 | NT_ITS ---
Date of service: 03/03/23 Time of Service: 16:57 PT Notes Visit Reasons: Pneumonia Hospice patient (DNR/DNI) admitted from home for pneumonia, generalized weakness, suspected stroke, and lung cancer who is currently at MRI testing having breathing difficulty (Lucio Olson respiration)/decreased alertness/unresponsiveness which Dr Clifford believes may have been an adverse reaction to sedation pre-testing. Will plan to re-assess for appropriateness for PT in a day or two and will att empt at working with patient/patient's family if agreeable to services.
--- NOTE | 2023-03-03 17:02 | PDOC.STREC ---
Date of service: 03/03/23 Time of Service: 17:03 Speech Therapy Recommendations Report ST Recommendations: Communication/Non-treatment Note Consult received. Chart reviewed. UNEMPLOYMENT [employer]EFITS CLAIMS TAKER attempting to contact patient for cognitive-communication and swallowing evaluation this afternoon/early evening, but patient was in process of getting MRI and not expected to return quickly enough to participate in evaluation with UNEMPLOYMENT BENEFITS CLAIMS TAKER. Per nursing, he appeared with some respiratory irregularity/pausing during MRI, but this resolved for the moment. UNEMPLOYMENT BENEFITS CLAIMS TAKER will attempt to re-contact patient for evaluation on 03/05/23 if this remains in line with his goals of care at that time. Coding
--- NOTE | 2023-03-03 19:31 | PDOC.CMIN ---
Date of service: 03/03/23 Time of Service: 19:31 Care Management Initial Assmt Initial Assessment REASON FOR HOSPITALIZATION:: pneumonia PREVIOUS FUNCTIONAL STATUS/SOCIAL/FAMILY SUPPORTS:: Ernesto is a 72 yo male who lives with his , Mela in a 2 story home in [place]. The couple does not have any children. 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 Ernesto is independent with all ADLs. CURRENT FUNCTIONAL STATUS:: CM was unable to meet with Ernesto in person today as he was off the unit for testing much of the day. He experienced new neurological symptoms this morning and had an emergent CT scan. It showed multiple cerebral infarcts. An MRI was ordered which confirmed the presence of the infarcts as well as the fact that his internal carotid arteries are occluded. Ernesto was diagnosed with lung cancer about a year ago and has been undergoing treatment which was apparently effective in reducing the size of his tumor. His plan was to continue treatment as long as it was effective. Given the events of today, the decision was made to transition him to comfort care. ADVANCE DIRECTIVES:: HCA/DPOA Mela Has patient been provided with info about the portal/API?: Yes Did the patient sign up for the portal?: Yes CODE STATUS:: DNR/DNI INSURANCE COVERAGE / FINANCIAL ISSUES:: Medicare BC/BS of [place] CURRENT HOME/COMMUNITY SERVICES/EQUIPMENT:: Ernesto uses a CPAP machine from [facility] PRIMARY CARE PHYSICIAN:: Mando Rodriguez POTENTIAL DISCHARGE NEEDS:: Follow up with PCP and plan of care PATIENT/FAMILY EDUCATION NEEDS:: Review discharge instructions, medications, activity, follow up plam, limitations and Ask Me Three TRANSPORTATION:: via private vehicle with PLAN:: Ernesto has been transitioned to comfort care given the extent of the cerebral infarcts he has sustained and the fact that his internal carotid arteries are blocked. He is awake at the moment and has a large number of family visiting. Tomorrow it is anticipated that he will be placed on a CADD pump and will likely remain at [facility] for end of life care. CM will continue to support Ernesto and his family during this difficult time. PFSH All Active Problems (Updated 03/03/23 @ 13:25 by Shanae Clifford MD) DVT prophylaxis (Acute) Discharge planning issues (Acute) Acute CVA (cerebrovascular accident) (Acute) Goals of care, counseling/discussion (Acute) Urinary incontinence (Acute) Hallucinations (Acute) Pneumonia (Acute) Constipation due to opioid therapy (Acute) Leg weakness (Acute) Shoulder pain, bilateral (Acute) Dyspnea on exertion (Acute) Full code status (Acute) Nail dystrophy (Acute) Palliative care encounter (Acute) Lung cancer (Chronic) followed by Marvin Solomon and Ophel[facility] Fracture of rib (Acute) Lung mass (Acute) Cerebrovascular disease (Acute) Carotid stenosis (Acute) Laceration of left ring finger (Acute) Empyema, thoracic (Acute) Syncope (Chronic) Lymphedema of right upper extremity (Acute) Fracture of coracoid process of right scapula (Acute 07/28/20) COPD (chronic obstructive pulmonary disease) (Chronic) Lung blebs (Acute) Persistent air leak (Acute) Mass of upper lobe of left lung (Acute) Factor 5 Leiden mutation, heterozygous (Acute) GERD (gastroesophageal reflux disease) (Acute) Essential hypertension (Acute 06/01/13) echocardiogram normal Chronic anticoagulation (Acute) Syncope (Acute) Medical History Abdominal aortic aneurysm [facility]: 4.3 x 4.2 cm infra-renal AAA AAA max. diam: 4.0cm ([facility]) 10/2015: infra-renal AAA max.4.3cm: stable ([facility]) mri : 3.5 cm Abscess of chest wall Actinic keratoses Alcohol use Anemia Benign prostatic hyperplasia with lower urinary tract symptoms BPH without urinary obstruction Chronic pain disorder (04/15/12) CONTRACT / (urine:03/17) Degenerative disc disease, lumbar Depressive disorder Dermatitis Elevated liver enzymes Fatigue Femur fracture Helicobacter pylori gastritis (chronic gastritis) (11/23/14) positive gastroscopy : treated Hx of hepatitis C Hx of pneumothorax Hypercholesterolemia Hypertension Insomnia Knee pain, right Lacunar infarction Left rotator cuff tear arthropathy Leukocytosis Major depression, chronic Male sexual dysfunction 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 etiology:consider Neuro.referral Orthostatic hypotension Osteoarthritis of right knee Osteoarthritis, hand Peripheral artery disease Peripheral artery insufficiency [facility]; 2011:left superficial femoral artery stent [facility] : left SFA in stent stenosis: angioplasty Fup q 6 months on going [facility] progression of disease;right popliteal stent graft occluded; pain right calf post 50ft walk Pneumothorax on right (09/23/16) 1999 first time Renal insufficiency Restless leg syndrome Rhinitis, chronic Right rotator cuff tear arthropathy Right shoulder pain Rotator cuff tear arthropathy of both shoulders Shoulder dislocation, recurrent Squamous cell carcinoma Tear of left rotator cuff (09/06/15) DOS: 09/22/18 Injection: 03/01/2019 Tear of right rotator cuff (09/06/15) Injection: 03/01/2019 Tibia fracture Varicose veins of bilateral lower extremities with pain Venous stasis ulcers recurrent/ 2008 - 2011 Viral hepatitis C chronic/ Treatment Interferon:successfull/ [facility] Surgical History EGD - MAC femoral stent X2 most recent 2016 History of left-sided carotid endarterectomy (04/02/18) [facility] / in surgery bleeding from parotid gland: electrocautery/ open reduction tib/fib ORIF femur right chest tube placement under local (09/23/16) 1999 Spinal Fusion 11/13/17 Status post arthroscopy of left shoulder DOS: 09/22/18 Injection: 03/01/2019 Repair of subscapularis with extensive debridement of superior cuff Biceps tenotomy; acromioplasty Dr. Webb Status post lumbar discectomy 2000 : right discectomy L5-S1 + L4-L5 decompression (right) 2013 : right L4-L5 decompression L5-S1 facetectomy; Family History Mother Diabetes Essential hypertension Depression Heart disease Neoplasm BREAST Father Neoplasm HODGKINS DISEASE Sister No problems noted. Sister Neoplasm BREAST Stroke Sister Neoplasm LUNG Brother Neoplasm LUNG Grandfather Diabetes Essential hypertension Heart disease Hyperlipidemia Stroke Grandfather No problems noted. Grandmother No problems noted. Grandmother No problems noted. 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
[2023-03-03] MEDS: HYDROmorphone 2 MG/ML SYR IVP ×2 (22:20→23:41)
[2023-03-03 22:34] LABS: Legionella Ag Detection Urine Negative (Negative)
[2023-03-04] MEDS: HYDROmorphone 2 MG/ML SYR IVP ×2 (05:56→09:54)
[2023-03-04] MEDS: LORazepam 2 MG/ML VIAL 0.5 MG IVP ×2 (05:56→23:08)
[2023-03-04] MEDS: Normal Saline Flush 10 ML SYR IVP ×3 (05:57→11:05)
[2023-03-04] MEDS: HYDROmorphone 100 MG in Normal Saline 240 ML IV (11:05)
--- NOTE | 2023-03-04 14:08 | CHAPLAIN ---
Ernesto was placed on comfort measures yesterday. He's been dealing with lung cancer and treatments for about a year. Yesterday he had an episode that changed the course of his care. I visited today. Several family members were in the room. They are in agreement that Ernesto is comfortable. I introduced myself, explained my role and offered support. I also let them know that power generation technician is available 24/03. I will continue to visit.
--- NOTE | 2023-03-04 16:18 | W.PM.PROGNOT ---
Date of Service Date of service: 03/04/23 Time of Service: 16:18 Assessment and Plan Assessment and plan (1) Acute CVA (cerebrovascular accident): Status: Acute Assessment and plan: Multiple bilateral areas of acute infarct, right greater than left, per MRI with evidence of occlusion of L common, internal, and external carotid arteries as well as distal common and right internal carotid arteries, as well as likely right vertebral occlusion. The patient and family have chosen to go with comfort measures. Continue comfort measures. (2) Pneumonia: Status: Acute Assessment and plan: Focusing on comfort measures. No longer receiving IV antibiotics. (3) Lung mass: Status: Acute Assessment and plan: Lung Cancer; s/p resection/XRT, on keytruda. As above- on comfort measures only. (4) Factor 5 Leiden mutation, heterozygous: Status: Acute Assessment and plan: No longer receiving anticoagulation on comfort measures (5) DVT prophylaxis: Status: Acute Assessment and plan: Not required in patients on comfort measures (6) Discharge planning issues: Status: Acute Assessment and plan: DNR/DNI. On comfort measures. Subjective Subjective Interval history since last seen: The patient was started on dilaudid drip this morning as he was quite uncomfortable this morning. Since then, he has been resting comfortably. I saw him from the doorway and chose not to wake him up. He has had quite a few family members and friends visiting. Exam Narrative Exam Narrative: General: Pelderly male who is resting comfortably in bed HEENT: eyes closed Heart: not auscultated Lungs: nonlabored breathing Abdomen: soft, nontender, nondistended Extremities: no edema BLEs Objective Last Vital Signs Temp 36.4 C L 03/03/23 15:02 Pulse 114 H 03/03/23 15:24 Resp 16 03/03/23 12:34 BP 190/70 H 03/03/23 15:12 Pulse Ox 92 03/03/23 15:02 Laboratory Results - last 24 hr 03/03/23 06:00 Urine Legionella Ag Negative Time Spent with Patient Time Spent with Patient: 25-34 minutes Time was spent: preparing to see the patient(eg.review tests), obtaining and/or reviewing separately otained hiistory, ordering medications,tests, procedures, referring, communicating with other health health care aide, indepentently interpreting results, counseling the patient and care coordination
[2023-03-05] MEDS: LORazepam 2 MG/ML VIAL 1 MG IVP ×8 (01:13→22:26)
[2023-03-05] MEDS: Normal Saline Flush 10 ML SYR IVP ×4 (01:16→15:54)
--- NOTE | 2023-03-05 09:09 | CMPROGNOTE_ITS ---
Date of service: 03/05/23 Time of Service: 09:09 Care Management Progress Note Progress Note Text Progress Note Text: S/O: Ernesto was lying in bed with his family surrounding him when CM met with them. Ernesto is on comfort measures, and will remain at [facility] for end of life care. CM spoke to his , Mela about final arrangements, and she has decided to use [facility] for his cremation, and they will have a celebration of life. Mela expressed gratitude for the care he has received at [facility], and stated that he appears comfortable. There is a food/beverage cart in the room, and family has been visiting consistently. CM will continue to f gabriel. A: Ernesto Katz is a 72 year old male admitted to [facility] on 03/02/23 with pneumonia. 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 He is awake at the moment and has a large number of family visiting. Tomorrow it is anticipated that he will be placed on a CADD pump and will likely remain at [facility] for end of life care. CM will continue to support Ernesto and his family during this difficult time.
--- NOTE | 2023-03-05 09:57 | PT.INNT ---
Date of service: 03/05/23 Time of Service: 09:57 PT Notes Visit Reasons: Pneumonia D/C PT order. Patient now on comfort measures.
--- NOTE | 2023-03-05 14:18 | CHAPLAIN ---
Ernesto is on comfort measures. There are several family members and friends in the room with him. I continue to check in. They agree that Ernesto continues to remain comfortable.
--- NOTE | 2023-03-05 14:25 | PCPN_ITS ---
Date of service: 03/05/23 Time of Service: 13:00 Assessment and Plan Assessment and plan (1) Acute CVA (cerebrovascular accident): Status: Acute (2) Lung cancer: Status: Chronic (3) Lucio-Olson breathing: Status: Acute (4) End of life care: Status: Acute Assessment and plan: cooling extremities, apnea observed for 10s period, scant urine, 1-2 days of non-responsiveness w/no oral intake; His pain is controlled currently w/Dilaudid, up titration as needed/indicated (5) Palliative care encounter: Status: Acute Assessment and plan: Ernesto appears comfortable during today's visit, no concerns at this time by family. They have been visited by senior infrastructure architect, feel comfortable with end-of-life process have no further questions regarding what to expect. life expectancy hours to days, less likely multiple days/week; All of the families questions were answered appropriately It was a pleasure providing Ernesto care during our time together. Subjective Subjective Interval history since last seen: Ernesto is lying comfortably in bed in hospital room at time of visit, Mela at bedside, several other family members also present in room, including goddaughter Bharati Orozco has not been awake for 1 or 2 days per report, he is remained comfortable, no distress, occasional episodes of apnea, no longer than 10 seconds; continues to make urine, this is reduced Plan to remain in hospital through end-of-life, andfamily feel comfortable with this plan Exam Narrative Exam Narrative: General: Older adult male, lying peacefully, non-responsive to light tough or speech HEENT: eyes closed Resp: nonlabored breathing, regular respiration rate w/one period of apnea ~10 sec during exam; no distress Extremities: no edema BLEs, radial pulse 2+ bilat; hands and feet cold to touch Objective Last Vital Signs Temp 97.5 F L 03/03/23 15:02 Pulse 114 H 03/03/23 15:24 Resp 16 03/03/23 12:34 BP 190/70 H 03/03/23 15:12 Pulse Ox 92 03/03/23 15:02
[2023-03-05] MEDS: Refresh PLUS Eye Drops 0.4ml 2 EACH OU (14:31)
--- NOTE | 2023-03-05 18:59 | PGE_ITS ---
Date of Service Date of service: 03/05/23 Time of Service: 10:00 Assessment and Plan Assessment and plan (1) Acute CVA (cerebrovascular accident): Status: Acute Assessment and plan: Multiple bilateral areas of acute infarct, right greater than left, per MRI with evidence of occlusion of L common, internal, and external carotid arteries as well as distal common and right internal carotid arteries, as well as likely right vertebral occlusion. The patient and family have chosen to go with comfort measures. Continue comfort measures. (2) Pneumonia: Status: Inactive Assessment and plan: Focusing on comfort measures. No longer receiving IV antibiotics. (3) Lung mass: Status: Inactive Assessment and plan: Lung Cancer; s/p resection/XRT, on keytruda. As above- on comfort measures only. (4) Factor 5 Leiden mutation, heterozygous: Status: Inactive Assessment and plan: No longer receiving anticoagulation on comfort measures (5) DVT prophylaxis: Status: Inactive Assessment and plan: Not required in patients on comfort measures (6) Discharge planning issues: Status: Acute Assessment and plan: DNR/DNI. On comfort measures. Subjective Subjective Interval history since last seen: Unresponsive, regular RR, appears comfortable, no furrowed brow Exam Narrative Exam Narrative: General: elderly male, supine, unresponsive HEENT: eyes closed Heart: not auscultated Lungs: nonlabored breathing, regular, episode of apnea ~ 40 secs during exam Abdomen: soft, nontender, nondistended Extremities: no edema BLEs, hands and feet are warm, no mottling noted Objective Last Vital Signs Temp 36.4 C L 03/03/23 15:02 Pulse 114 H 03/03/23 15:24 Resp 16 03/03/23 12:34 BP 190/70 H 03/03/23 15:12 Pulse Ox 92 03/03/23 15:02 Time Spent with Patient Time Spent with Patient: 25-34 minutes Time was spent: preparing to see the patient(eg.review tests), obtaining and/or reviewing separately otained hiistory, ordering medications,tests, procedures, referring, communicating with other health lawn care professional and indepentently interpreting results
[2023-03-05] MEDS: HYDROmorphone 100 MG in Normal Saline 240 ML 10 MG IV (21:10)
[2023-03-06] MEDS: LORazepam 2 MG/ML VIAL 1 MG IVP ×8 (03:01→22:52)
[2023-03-06] MEDS: Normal Saline Flush 10 ML SYR IVP ×5 (03:03→21:44)
--- NOTE | 2023-03-06 10:48 | PDOC.CMPRO ---
Date of service: 03/06/23 Time of Service: 10:48 Care Management Progress Note Progress Note Text Progress Note Text: Ernesto transitioned to comfort care and many members of his large family have been visiting. Anticipate he will be placed on a CADD pump and remain at [facility] for end of life care; [facility] is the family's choice for final arrangements. will continue to support Ernesto and his family during this difficult time.
--- NOTE | 2023-03-06 11:00 | W.PM.PROGNOT ---
Date of Service Date of service: 03/06/23 Time of Service: 11:00 Assessment and Plan Assessment and plan (1) Acute CVA (cerebrovascular accident): Status: Acute Assessment and plan: Continue comfort measures. He is unresponsive, no brow furrowing, regular respirations about 10 bpm with some apnea ~ 30 sec every 5 min or so (2) Pneumonia: Status: Inactive Assessment and plan: Focusing on comfort measures. No longer receiving IV antibiotics. (3) Lung mass: Status: Acute Assessment and plan: Lung Cancer; s/p resection/XRT, on keytruda. As above- on comfort measures only. (4) Factor 5 Leiden mutation, heterozygous: Status: Inactive Assessment and plan: No longer receiving anticoagulation on comfort measures (5) DVT prophylaxis: Status: Inactive Assessment and plan: Not required in patients on comfort measures (6) Discharge planning issues: Status: Acute Assessment and plan: DNR/DNI. On comfort measures. Hydromorphone drip @ 10 ml/h (4 mg/h) Discussed with Dr Clifford Subjective Subjective Interval history since last seen: Unresponsive, lots of family at the bedside, is doing ok Objective Last Vital Signs Temp 36.4 C L 03/03/23 15:02 Pulse 114 H 03/03/23 15:24 Resp 16 03/03/23 12:34 BP 190/70 H 03/03/23 15:12 Pulse Ox 92 03/03/23 15:02 Time Spent with Patient Time Spent with Patient: 35-49 minutes Time was spent: ordering medications,tests, procedures and care coordination
[2023-03-06] MEDS: Glycopyrrolate 0.2 MG/1 ML VIAL IVP ×2 (16:27→21:44)
[2023-03-06] MEDS: Scopolamine 1 MG/3 DAYS PATCH TD (16:47)
[2023-03-06 23:18] LABS: Streptococcus Pneumoniae Ag, U Negative (Negative)
[2023-03-07] MEDS: Glycopyrrolate 0.2 MG/1 ML VIAL IVP (01:01)
[2023-03-07] MEDS: LORazepam 2 MG/ML VIAL 1 MG IVP ×6 (01:02→19:56)
[2023-03-07] MEDS: Normal Saline Flush 10 ML SYR IVP ×3 (08:01→16:10)
--- NOTE | 2023-03-07 12:20 | W.PM.PROGNOT ---
Date of Service Date of service: 03/07/23 Time of Service: 12:20 Assessment and Plan Assessment and plan (1) Acute CVA (cerebrovascular accident): Status: Acute Assessment and plan: Continue comfort measures. He is unresponsive, no brow furrowing, regular slow resp 6-10 BPM between periods of ~ 45 sec of apnea. (2) Pneumonia: Status: Inactive Assessment and plan: Focusing on comfort measu (3) Lung mass: Status: Acute Assessment and plan: Lung Cancer; s/p resection/XRT, on keytruda. As above- on comfort measures only. (4) Factor 5 Leiden mutation, heterozygous: Status: Inactive Assessment and plan: No longer receiving anticoagulation on comfort measures (5) DVT prophylaxis: Status: Inactive Assessment and plan: Not required in patients on comfort measures (6) Discharge planning issues: Status: Acute Assessment and plan: DNR/DNI. On comfort measures. Hydromorphone drip @ 4 mg/h; 2 ml/h (concentration changed) Discussed with Dr Clifford Subjective Subjective Interval history since last seen: Unresponsive, family at bedside, hydromorphone drip, appears comfortable, no furrowed brow, easy shallow respirations. Family states they are very happy with the care Exam Narrative Exam Narrative: General: elderly male, supine, unresponsive HEENT: eyes closed Heart: not auscultated Lungs: nonlabored breathing, regular, episodes of apnea lasting ~45 secs, no secretions Abdomen: soft, nontender, nondistended Extremities: no edema BLEs, hands and feet are warm, no mottling noted continues to have pale yellow urine in donahue bag ~ 500 ml today Objective Last Vital Signs Temp 36.4 C L 03/03/23 15:02 Pulse 114 H 03/03/23 15:24 Resp 16 03/03/23 12:34 BP 190/70 H 03/03/23 15:12 Pulse Ox 92 03/03/23 15:02 Laboratory Results - last 24 hr 03/03/23 06:00 Ur Strep pneumoniae Ag Negative Time Spent with Patient Time Spent with Patient: 35-49 minutes Time was spent: preparing to see the patient(eg.review tests) and ordering medications,tests, procedures
--- NOTE | 2023-03-07 14:56 | CMPROGNOTE_ITS ---
Date of service: 03/07/23 Time of Service: 14:57 Care Management Progress Note Progress Note Text Progress Note Text: S/O: Ernesto remains on comfort measures, and appears comfortable to staff. Per report, he will likely pass in hours to days. His family has been surrounding him throughout this difficult process. CM will continue to follow. A: Ernesto Katz is a 72 year old male admitted to [facility] on 03/02/23 with pneumonia. 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 He is awake at the moment and has a large number of family visiting. Tomorrow it is anticipated that he will be placed on a CADD pump and will remain at [facility] for end of life care. His family has chosen [facility] for his final arrangements. CM will continue to support Ernesto and his family during this difficult time. ?
--- NOTE | 2023-03-07 15:20 | CHAPLAIN ---
I checked in with Ernesto's family today. There were several family members in the room. His said that Ernesto is doing this his way. She said he remains comfortable and the family appreciates the care and support that Ernesto has received, and them as well. The family knows that manager instrumentation support is available 24/03.
--- NOTE | 2023-03-07 19:20 | W.PM.PROGNOT ---
Date of Service Date of service: 03/07/23 Time of Service: 11:00 Assessment and Plan Assessment and plan (1) Acute CVA (cerebrovascular accident): Status: Acute Assessment and plan: Continue comfort measures. He is unresponsive, no brow furrowing, regular slow resp 6-10 BPM between periods of ~ 45 sec of apnea. Unchanged other than his feet are cold (2) Pneumonia: Status: Inactive Assessment and plan: Focusing on comfort measu (3) Lung mass: Status: Acute Assessment and plan: Lung Cancer; s/p resection/XRT, on keytruda. As above- on comfort measures only. (4) Factor 5 Leiden mutation, heterozygous: Status: Inactive Assessment and plan: No longer receiving anticoagulation on comfort measures (5) DVT prophylaxis: Status: Inactive Assessment and plan: Not required in patients on comfort measures (6) Discharge planning issues: Status: Acute Assessment and plan: DNR/DNI. On comfort measures. Hydromorphone drip @ 4 mg/h; 2 ml/h (concentration changed) Discussed with Dr Clifford Subjective Subjective Interval history since last seen: Unresponsive, comfortable, lots of family in Exam Narrative Exam Narrative: General: elderly male, supine, unresponsive HEENT: eyes closed Heart: not auscultated Lungs: nonlabored breathing, regular, episodes of apnea lasting ~45 secs, no secretions Abdomen: soft, nontender, nondistended Extremities: no edema BLEs, hands are warm, feeet are cold - no mottling noted continues to have pale yellow urine in donahue bag ~ 500 ml today Objective Last Vital Signs Temp 36.4 C L 03/03/23 15:02 Pulse 114 H 03/03/23 15:24 Resp 16 03/03/23 12:34 BP 190/70 H 03/03/23 15:12 Pulse Ox 92 03/03/23 15:02 Laboratory Results - last 24 hr 03/03/23 06:00 Ur Strep pneumoniae Ag Negative Time Spent with Patient Time Spent with Patient: 35-49 minutes Time was spent: preparing to see the patient(eg.review tests), ordering medications,tests, procedures and care coordination
[2023-03-08] MEDS: LORazepam 2 MG/ML VIAL 1 MG IVP ×5 (00:07→15:49)
[2023-03-08] MEDS: Normal Saline Flush 10 ML SYR IVP ×4 (08:43→15:49)
--- NOTE | 2023-03-08 11:18 | W.PM.PROGNOT ---
Date of Service Date of service: 03/08/23 Time of Service: 11:18 Assessment and Plan Assessment and plan (1) Acute CVA (cerebrovascular accident): Status: Acute Assessment and plan: Continue comfort measures. He is unresponsive, some brow furrowing, regular slow resp 6-10 BPM between periods of ~1min of apnea. Continues to have cool extremeties, warm core (2) Pneumonia: Status: Inactive Assessment and plan: Focusing on comfort measu (3) Lung mass: Status: Acute Assessment and plan: Lung Cancer; s/p resection/XRT, on keytruda. As above- on comfort measures only. (4) Factor 5 Leiden mutation, heterozygous: Status: Inactive Assessment and plan: No longer receiving anticoagulation on comfort measures (5) DVT prophylaxis: Status: Inactive Assessment and plan: Not required in patients on comfort measures (6) Discharge planning issues: Status: Acute Assessment and plan: DNR/DNI. On comfort measures. Hydromorphone drip @ 8mg/h; 4 ml/h w titration instructions Discussed with Dr Dunbar Subjective Subjective Patient reports: no new complaints Interval history since last seen: Patient is unresponsive with some irreg resp rate with apnea of up to 1 min - family at the bedside. Exam Narrative Exam Narrative: Patient with some furrowed brow and spouse reporting he is uncomfortable, nursing is titrating hydromorphone drip accordingly. Objective Last Vital Signs Temp 36.4 C L 03/03/23 15:02 Pulse 114 H 03/03/23 15:24 Resp 16 03/03/23 12:34 BP 190/70 H 03/03/23 15:12 Pulse Ox 92 03/03/23 15:02 Time Spent with Patient Time Spent with Patient: 25-34 minutes Time was spent: ordering medications,tests, procedures, referring, communicating with other health career services representative and care coordination
[2023-03-08] MEDS: Glycopyrrolate 0.2 MG/1 ML VIAL IVP (11:24)
--- NOTE | 2023-03-08 19:47 | NUR.NOTE ---
Nursing Note: CAD pump increased per request of WELDER [employer]ODUCTION [employer] GAS Danette from 4mg/hr to 8mg/her. pt stable at this time. wctm.
--- NOTE | 2023-03-08 20:09 | NUR.NOTE ---
Nursing Note: after increase of CAD drip FRINGE WEAVER had said that she expects he will pass tonight. FRINGE WEAVER also stated that had said patient was experiencing grimacing and looked uncomfortable, This RN did not observe this. Pt appeared comfortable to this RN. When asked about grimacing she said no not really hes just been this way for so long. This was run by FRINGE WEAVER and charge, increase in drip remains per FRINGE WEAVER decision. Pt is resting comfortably. wctm.
--- NOTE | 2023-03-08 21:36 | NUR.NOTE ---
Nursing Note: label on dilaudid bag ripped in half and not working- charge aware, she advised me to override when I was changing rate earlier.
[2023-03-09] MEDS: LORazepam 2 MG/ML VIAL 1 MG IVP ×5 (01:06→19:27)
[2023-03-09] MEDS: Normal Saline Flush 10 ML SYR IVP ×3 (08:29→15:39)
--- NOTE | 2023-03-09 10:26 | PGE_ITS ---
Date of Service Date of service: 03/09/23 Time of Service: 10:26 Assessment and Plan Assessment and plan (1) Acute CVA (cerebrovascular accident): Status: Acute Assessment and plan: Continue comfort measures. He is unresponsive, some brow furrowing and eye clenching, regular slow resp 6- 10 BPM between periods of ~30 sec to 1min of apnea. Continues to have cool extremities, warm core (2) Pneumonia: Status: Inactive Assessment and plan: Focusing on comfort measures (3) Lung mass: Status: Acute Assessment and plan: Lung Cancer; s/p resection/XRT, on keytruda. As above- on comfort measures only. (4) Factor 5 Leiden mutation, heterozygous: Status: Inactive Assessment and plan: No longer receiving anticoagulation on comfort measures (5) DVT prophylaxis: Status: Inactive Assessment and plan: Not required in patients on comfort measures (6) Discharge planning issues: Status: Acute Assessment and plan: DNR/DNI. On comfort measures. Hydromorphone drip @ 10mg/h; 6 ml/h w standard titration instructions Discussed with Dr Dunbar Subjective Subjective Patient reports: no new complaints, pain is less, voiding w/o difficulty (Cath eter - light faviola urine), no bowel movement, afebrile and other (unresponsive); denies shortness of breath Interval history since last seen: Less brow furrowing today, reg resp ~ 10 bpm, strong pulse @ 120's, jaw is now relaxed and not clenched. Lots of family in supporting Exam Narrative Exam Narrative: General: elderly male, supine, unresponsive, clenched jaw, furrowed brow HEENT: eyes closed, occasionally scrunched Heart: not auscultated Lungs: nonlabored breathing, regular, episodes of apnea lasting ~ 30-45 secs, no secretions Abdomen: soft, nontender, nondistended Extremities: no edema BLEs, hands are warm, feet are cold - no mottling noted urine in donahue bag ~ 600 ml today, is now darkening, faviola Objective Last Vital Signs Temp 36.4 C L 03/03/23 15:02 Pulse 114 H 03/03/23 15:24 Resp 16 03/03/23 12:34 BP 190/70 H 03/03/23 15:12 Pulse Ox 92 03/03/23 15:02 Time Spent with Patient Time Spent with Patient: 35-49 minutes Time was spent: referring, communicating with other health patient care coordinator and care coordination
[2023-03-09] MEDS: Scopolamine 1 MG/3 DAYS PATCH TD (15:39)
--- NOTE | 2023-03-09 21:39 | NUR.NOTE ---
Nursing Note: upon reviewing chart it was found that change in CAD pump amount from 8mg/hr to 10mg/hr was never charted on oct by day shift. was charted in CAD pump assessment however. Currently at 10mg/hr. charge made aware, no instruction given on how to fix. wctm.
[2023-03-10] MEDS: LORazepam 2 MG/ML VIAL 1 MG IVP ×9 (00:24→22:56)
--- NOTE | 2023-03-10 11:01 | PDOC.CMPRO ---
Date of service: 03/10/23 Time of Service: 11:02 Care Management Progress Note Progress Note Text Progress Note Text: S/O: Ernesto remains at [facility] for end of life care, and appears comfortable. His family has been with him consistently, and are very supportive. His , Mela, stated how happy she has been with his care at [facility]. CM will continue to follow. A: Ernesto Katz is a 72 year old male admitted to [facility] on 03/02/23 with pneumonia. 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 He is awake at the moment and has a large number of family visiting. Tomorrow it is anticipated that he will be placed on a CADD pump and will remain at [facility] for end of life care. His family has chosen [facility] for his final arrangements. will continue to support Ernesto and his family during this difficult time. ?
--- NOTE | 2023-03-10 12:06 | PGE_ITS ---
Date of Service Date of service: 03/10/23 Time of Service: 13:00 Assessment and Plan Assessment and plan (1) Acute CVA (cerebrovascular accident): Status: Acute Assessment and plan: Continue comfort measures. He is unresponsive, some brow furrowing and eye clenching, regular slow resp 6- 10 BPM between periods of ~30 sec to 1min of apnea. Continues to have cool extremities, warm core (2) Pneumonia: Status: Inactive Assessment and plan: Focusing on comfort measures (3) Lung mass: Status: Acute Assessment and plan: Lung Cancer; s/p resection/XRT, on keytruda. As above- on comfort measures only. (4) Factor 5 Leiden mutation, heterozygous: Status: Inactive Assessment and plan: No longer receiving anticoagulation on comfort measures (5) DVT prophylaxis: Status: Inactive Assessment and plan: Not required in patients on comfort measures (6) Discharge planning issues: Status: Acute Assessment and plan: DNR/DNI. On comfort measures. Hydromorphone drip @ 10mg/h; 6 ml/h w standard titration instructions Discussed with Dr Dunbar Subjective Subjective Patient reports: no new complaints Interval history since last seen: Unresponsive with occasional grimacing and clenched jaw, family in. at bedside 98% of the time Exam Narrative Exam Narrative: General: elderly male, supine, unresponsive, clenched jaw, furrowed brow during exam HEENT: eyes closed, occasionally scrunched Heart: not auscultated Lungs: nonlabored breathing, regular, episodes of apnea lasting ~ 30-45 secs, no secretions Abdomen: soft, nontender, nondistended Extremities: no edema BLEs, hands are warm, feet are cold - no mottling noted urine in donahue bag ~ 400 ml today, dark faviola Objective Last Vital Signs Temp 36.4 C L 03/03/23 15:02 Pulse 114 H 03/03/23 15:24 Resp 16 03/03/23 12:34 BP 190/70 H 03/03/23 15:12 Pulse Ox 92 03/03/23 15:02 Time Spent with Patient Time Spent with Patient: >50 minutes Time was spent: ordering medications,tests, procedures, counseling the patient and care coordination
[2023-03-10] MEDS: Normal Saline Flush 10 ML SYR IVP (18:44)
--- NOTE | 2023-03-10 19:41 | NUR.NOTE ---
Nursing Note: Pt asleep in bed resting on IV hydromorphone infusion at 5 mg/hr (10 ml/hr). at bedside. Declines VS, full assessment, and requests to keep disturbances to pt to minimum. Family requests that pt not be repositioned unless he shows s/s of distress. KAITY Coley at bedside. Requests for pt to have q1h PRN ativan to assist with labored breathing. Catheter in place draining minimal dark faviola urine. Instructed family to press call appiah for any needs or concerns.
[2023-03-10] MEDS: Glycopyrrolate 0.2 MG/1 ML VIAL IVP (20:06)
[2023-03-11] MEDS: LORazepam 2 MG/ML VIAL 1 MG IVP ×15 (00:06→23:15)
[2023-03-11] MEDS: Normal Saline Flush 10 ML SYR IVP ×2 (04:20→23:30)
--- NOTE | 2023-03-11 12:35 | NUR.NOTE ---
Nursing Note: pts in room at time of discussion this morning at 0730. pt appeared to have shorter gasps of breath and appeared uncomfortable at this time. hydromorphone was titrated up 1mg. medication has been titrated up 1mg every hour due to increases work of breathing and increased pulse thread. bolus has been given every 15-30 minutes due to appearance of pts discomfort as well. SEE MAR and WORKLIST for documentation. discussion with completed about protocols around the use of hydromorphone. states please just keep giving him more because he has a high tolerance and this is not how he would want to go this repairer typewriter reassured the pt's that the comfort care the pt was receiving during this shift was sufficient and that providers orders need to be followed. stated she appreciated the prompt reassessment of the pt's comfort. charge nurse aware of this conversation.
--- NOTE | 2023-03-11 12:38 | CMPROGNOTE_ITS ---
Date of service: 03/11/23 Time of Service: 12:38 Care Management Progress Note Progress Note Text Progress Note Text: S/O: Ernesto remains at [facility] for end of life care, his family has been with him consistently, and are very supportive. CM will continue to follow. A: Ernesto Katz is a 72 year old male admitted to [facility] on 03/02/23 with pneumonia. P: ?Ernesto has been transitioned to comfort care and his family has chosen [facility] for his final arrangements. CM will continue to support Ernesto and his family during this difficult time. ?
--- NOTE | 2023-03-11 16:10 | W.PM.PROGNOT ---
Date of Service Date of service: 03/11/23 Time of Service: 14:00 Assessment and Plan Assessment and plan (1) Acute CVA (cerebrovascular accident): Status: Acute Assessment and plan: Continue comfort measures. He is unresponsive, continues to have some brow furrowing and eye clenching, regular slow resp 4-20 BPM w some apnea. Continues to have cool extremities, warm core (2) Pneumonia: Status: Inactive Assessment and plan: Focusing on comfort measures (3) Lung mass: Status: Inactive Assessment and plan: Lung Cancer; s/p resection/XRT, on keytruda. As above- on comfort measures only. (4) Factor 5 Leiden mutation, heterozygous: Status: Inactive Assessment and plan: No longer receiving anticoagulation on comfort measures (5) DVT prophylaxis: Status: Inactive Assessment and plan: Not required in patients on comfort measures (6) Discharge planning issues: Status: Acute Assessment and plan: DNR/DNI. On comfort measures. Hydromorphone drip w standard titration instructions Discussed with Dr Dunbar Subjective Subjective Patient reports: no new complaints Interval history since last seen: Mostly unchanged, appears comfortable the majority of the time with nursing appropriately titrating drip at bedside and alot of family visits. Exam Narrative Exam Narrative: General: elderly male, supine, unresponsive, clenched jaw, furrowed brow during exam HEENT: eyes closed, occasionally scrunched Heart: not auscultated Lungs: nonlabored breathing, regular, episodes of apnea lasting ~ 30-45 secs, no secretions Abdomen: soft, nontender, nondistended Extremities: no edema BLEs, hands are warm, feet are cold - no mottling noted urine in donahue bag ~ 400 ml today, dark faviola Objective Last Vital Signs Temp 36.4 C L 03/03/23 15:02 Pulse 114 H 03/03/23 15:24 Resp 16 03/03/23 12:34 BP 190/70 H 03/03/23 15:12 Pulse Ox 92 03/03/23 15:02 Time Spent with Patient Time Spent with Patient: 25-34 minutes Time was spent: preparing to see the patient(eg.review tests), counseling the patient and care coordination
[2023-03-11] MEDS: Glycopyrrolate 0.2 MG/1 ML VIAL IVP ×2 (19:30→22:05)
--- NOTE | 2023-03-11 19:36 | NUR.NOTE ---
Nursing Note: Pt requests that pt receive medications but no additional disturbances during shift. Educated on current medications, protocols for administration, and plan of care. Declined any position changes and noted understanding of risk of skin breakdown. She states she wants to keep him comfortable and repositioning has increased his distress.
[2023-03-12] MEDS: LORazepam 2 MG/ML VIAL 1 MG IVP ×5 (00:05→08:35)
[2023-03-12] MEDS: Normal Saline Flush 10 ML SYR IVP ×3 (00:39→03:30)
--- NOTE | 2023-03-12 12:30 | CMPROGNOTE_ITS ---
Date of service: 03/12/23 Time of Service: 12:31 Care Management Progress Note Progress Note Text Progress Note Text: S/O: Ernesto remains on comfort measures, at [facility] for end of life care. Per report, his hydromorphone drip has been titrated up due to his need for increased boluses overnight. His family is consistently visiting, staying by his side. CM will continue to follow. A: Ernesto Katz is a 72 year old male admitted to [facility] on 03/02/23 with pneumo tram. P: ?Ernesto has been transitioned to comfort care and his family has chosen [facility] for his final arrangements. CM will continue to support Ernesto and his family during this difficult time. ?
--- NOTE | 2023-03-12 15:42 | PHA.REVIEW2 ---
Pharmacy Admission Review Admission Clinical Review Admission Pharmacy Review: (Updated 03/11/23 @ 21:12 by Vianca Samaniego NP) Lucio-Olson breathing (Acute) End of life care (Acute) Discharge planning issues (Acute) Acute CVA (cerebrovascular accident) (Acute) Goals of care, counseling/discussion (Acute) Urinary incontinence (Acute) Hallucinations (Acute) Constipation due to opioid therapy (Acute) Leg weakness (Acute) Shoulder pain, bilateral (Acute) Dyspnea on exertion (Acute) Palliative care encounter (Acute) Cerebrovascular disease (Acute) GERD (gastroesophageal reflux disease) (Acute) Chronic anticoagulation (Acute) No Known Allergies Allergy (Unverified 03/02/23 13:28) Resuscitation Status DNR/DNI Height 5 ft 10 in Weight 80.739 kg Pharmacy Admission Review Renal Dosing Medications needing adjustments: N/A (REVENUE AGENT) Anticoagulation DVT Prophylaxis: N/A (REVENUE AGENT) Opiate Usage Evaluate Pain Scale/Pains Meds: Reviewed (hydromorphone drip) Scheduled Bowel Reg ordered if on Opiates?: No (has PRN meds ordered) Relevant Labs Electrolytes, C-Reactive P, ESR: N/A (REVENUE AGENT) DM Control DM Control: N/A (REVENUE AGENT) Cardiac Review BP, HR, EF%: N/A (REVENUE AGENT) QTc Review QTc: N/A (REVENUE AGENT) Home Meds Home Med List reviewed: Reviewed Relevent Home Meds Not ordered & why?: most home meds not ordered as pt is now REVENUE AGENT Current Meds Current Medication Order Review: Reviewed
--- NOTE | 2023-03-12 16:05 | W.PM.PROGNOT ---
Date of Service Date of service: 03/12/23 Time of Service: 16:06 Assessment and Plan Assessment and plan (1) End of life care: Status: Acute Assessment and plan: remains on comfort measures, family at bedside continue to adjust medication as needed (2) Discharge planning issues: Status: Acute Assessment and plan: DNR/DNI. On comfort measures. Hydromorphone drip w standard titration instructions Discussed with Dr Dunbar Subjective Subjective Interval history since last seen: titrating pain medication for symptoms management Exam Const General: no acute distress Orientation: obtunded Objective Last Vital Signs Temp 36.4 C L 03/03/23 15:02 Pulse 114 H 03/03/23 15:24 Resp 16 03/03/23 12:34 BP 190/70 H 03/03/23 15:12 Pulse Ox 92 03/03/23 15:02 Time Spent with Patient Time Spent with Patient: <25 minutes Time was spent: preparing to see the patient(eg.review tests) and referring, communicating with other health hospice care consultant
--- NOTE | 2023-03-13 12:25 | CMPROGNOTE_ITS ---
Date of service: 03/13/23 Time of Service: 12:25 Care Management Progress Note Progress Note Text Progress Note Text: S/O: Ernesto was lying in bed when CM met with him. He remains unresponsive, on comfort measures, and he appears comfortable. His , Mela was by his side. She stated that she left today for a while, and she was wondering if he would pass when she wasn't there, as she considers what he may be holding on for. She stated that all of his family and friends have been able to visit him, and she feels at peace with his passing, although she expressed how difficult it is, even with being prepared. She stated that she is very happy with the care he is receiving at [facility]. CM will continue to follow. A: Ernesto Katz is a 72 year old male admitted to [facility] on 03/02/23 with pneumonia. P: ?Ernesto has been transitioned to comfort care and his family has chosen [facility] for his final arrangements. CM will continue to support Ernesto and his family during this difficult time.
--- NOTE | 2023-03-13 17:12 | W.PM.PROGNOT ---
Date of Service Date of service: 03/13/23 Time of Service: 17:12 Assessment and Plan Assessment and plan (1) End of life care: Status: Acute Assessment and plan: remains on comfort measures, family at bedside continue to adjust medication as needed (2) Discharge planning issues: Status: Acute Assessment and plan: DNR/DNI. On comfort measures. Hydromorphone drip w standard titration instructions Discussed with Dr Arriola Subjective Subjective Interval history since last seen: remains unresponsive and appears comfortable. Exam Const General: no acute distress Orientation: obtunded Objective Last Vital Signs Temp 36.4 C L 03/03/23 15:02 Pulse 114 H 03/03/23 15:24 Resp 16 03/03/23 12:34 BP 190/70 H 03/03/23 15:12 Pulse Ox 92 03/03/23 15:02 Time Spent with Patient Time Spent with Patient: <25 minutes Time was spent: preparing to see the patient(eg.review tests)
[2023-03-13] MEDS: Scopolamine 1 MG/3 DAYS PATCH TD (21:51)
[2023-03-13] MEDS: LORazepam 2 MG/ML VIAL 1 MG IVP (23:05)
[2023-03-13] MEDS: Normal Saline Flush 10 ML SYR IVP (23:06)
[2023-03-14] MEDS: Glycopyrrolate 0.2 MG/1 ML VIAL IVP ×2 (00:44→18:07)
--- NOTE | 2023-03-14 01:06 | NUR.NOTE ---
Nursing Note: Noted hydromorphone gtt rate changed at 15:16 per MANAGER LINE/CADD intervention in worklist, rate not changed in MAR. MAR displayed previous rate of 24mg/hr (12mL/hr), gtt received at 40mg/hr (20mL/hr) at 19:00. CC notified, gtt updated in OCT. Will continue to monitor.
[2023-03-14] MEDS: LORazepam 2 MG/ML VIAL 1 MG IVP (01:13)
[2023-03-14] MEDS: Normal Saline Flush 10 ML SYR IVP ×11 (01:14→23:36)
[2023-03-14] MEDS: LORazepam 2 MG/ML VIAL IVP ×13 (03:07→23:36)
--- NOTE | 2023-03-14 09:18 | PDOC.CMPRO ---
Date of service: 03/14/23 Time of Service: 09:18 Care Management Progress Note Progress Note Text Progress Note Text: S/O: Ernesto remains on comfort measures, and appears comfortable, lying in bed. CM visited with Mela, who has been consistently by his side throughout this process. CM assisted Mela to complete [facility] paperwork, as she has been providing support to Ernesto throughout this admission for end of life care. Mela stated that she would prefer [facility] for final arrangements; CM notified the CC and RN Clay Transporter of this change. CM will continue to follow. A: Ernesto Katz is a 72 year old male admitted to [facility] on 03/02/23 with pneumonia. P: ?Ernesto has been transitioned to comfort care and his family has chosen [facility] for his final arrangements. CM will continue to support Ernesto and his family during this difficult time.
--- NOTE | 2023-03-14 15:40 | CHAPLAIN ---
Some friends of Ilirs were leaving when I stopped in. Mela remains with Ernesto. She left for short time yesterday, and she said she thought maybe Ernesto was waiting until she wasn't there to , but that didn't happen. He remains unresponsive and comfortable, Mela said. She let's nursing know if he appears to have any discomfort. There has been a change in is breathing, according to Mela. Ernesto has been here for nearly two weeks, and on comfort measures for much of that time. Mela she can not think of any reason he would be hanging on as she believes everyone he would want to see has been here and they have all, including Mela, had conversations with Ernesto assuring him that they will be okay and letting him know they want him to be peaceful. Mela shared some personal history about Ernesto and their life together. She seems to be well supported by family and friends. I will continue to visit.
--- NOTE | 2023-03-14 16:18 | W.PM.PROGNOT ---
Date of Service Date of service: 03/14/23 Time of Service: 16:18 Assessment and Plan Assessment and plan (1) End of life care: Status: Acute Assessment and plan: remains on comfort measures, family at bedside continue to adjust medication as needed, escalating Dilaudid infusion with bolus (2) Discharge planning issues: Status: Acute Assessment and plan: will remain here for end of life care Discussed with Dr Arriola Subjective Subjective Interval history since last seen: patient remains unresponsive, irregular respirations, does not appear in any distress Exam Const General: no acute distress Orientation: obtunded (unresponsive) Resp Effort & Inspection: other (irregular, periods of apnea) Skin Lesions: lesion noted (ulcerations, ) Objective Last Vital Signs Temp 36.4 C L 03/03/23 15:02 Pulse 114 H 03/03/23 15:24 Resp 16 03/03/23 12:34 BP 190/70 H 03/03/23 15:12 Pulse Ox 92 03/03/23 15:02 Time Spent with Patient Time Spent with Patient: <25 minutes Time was spent: preparing to see the patient(eg.review tests) and ordering medications,tests, procedures
[2023-03-15] MEDS: Normal Saline Flush 10 ML SYR IVP ×8 (00:41→11:42)
[2023-03-15] MEDS: LORazepam 2 MG/ML VIAL IVP ×9 (00:41→11:42)
[2023-03-15] MEDS: PROPOFOL 1,000 MG/100 ML BTL 1 MG IVPB (10:31)
[2023-03-15] MEDS: Propofol 200 MG/20 ML VIAL 20 MG IVP (11:47)
--- NOTE | 2023-03-15 15:32 | NUR.NOTE ---
Nursing Note: Patient was found pulseless, breathing stopped, Seen by Charge nurse, verified by this screenplay writer, no heart beats felt, pronounced by MD at 15:18. Family remains at bedside.
--- NOTE | 2023-03-15 15:51 | NUR.NOTE ---
At 1520, this nurse was in the pt room and noticed the pt take a last breath. Evaluated for a pulse and no pulse found. Amanda Cunningham RN verified no pulse, no respirations on patient. in chair by patient at the time. [address] [employer], Sharon Villarreal, head of housekeeping notified. [facility] notified and body was rejected for hx of Hep C. All paperwork completed, family not requesting turret lathe set up operator services. This nurse giving family time in room.
--- NOTE | 2023-03-15 16:27 | W.PM.DDS ---
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 Lactate, procal and white count all normal but findings on CT scan were concerning for pneumonia so ceftriaxone and doxycycline initiated in the ED.? it was thought this finding was possibly are secondary to his lung cancer progression but as he just received immunotherapy, it is felt reasonable to continue until cultures finalized. Palliative care was also consulted in the ED to discuss goals of care as verbalized questions about whether it was reasonable to continue with treatment and noted that patient did not want to even come in for evaluation.? He has had decline at home and wonders if its time to transition to hospice. Hospitalist services was contacted he was admit to med/surg for further management. He continued to decline and was ultimately transitioned to comfort care only. he was started on dilaudid infusion with bolus for symptoms. he lingered for greater than one week. He remained unresponsive but started with frequent movements and requested more sedation as he was not responding to the ativan and high dose dilauded (greater than 40 mg per hour), she consented to palliative sedation and propofol was initiated which resolved his movements. He passed on March 15. discussed with DR Humphrey Discharge Data Discharge Date/Time-TO BE ENTERED AT DEPARTURE: 03/15/23 19:34 Discharge Sum: Prov Provider Consults: 03/02/23 13:25 Palliative Care Consult [CONS] Routine Consultation Status:: Contact made by Clarification:: One time opinion Reason for consult:: weakness Discharge Sum: Diag Contributing Factors (1) End of life care: (2) Discharge planning issues:
== END 2023-03-15 19:34 | disposition expired | DRG 64 ==
LOC: ER 16:17 → MS 17:11
PROVIDERS: Internal Medicine; Admitting Provider Internal Medicine; Emergency Provider Physician Assistant; PCP Family Medicine; Visit Provider Internal Medicine
DX: I63.133 Cerebral infarction due to embolism of bilateral carotid arteries (principal); J18.9 Pneumonia, unspecified organism; J96.00 Acute respiratory failure, unspecified whether with hypoxia or hypercapnia; J44.0 Chronic obstructive pulmonary disease with (acute) lower respiratory infection; D68.51 Activated protein C resistance; C34.31 Malignant neoplasm of lower lobe, right bronchus or lung; Z51.5 Encounter for palliative care; M25.511 Pain in right shoulder; M25.512 Pain in left shoulder; I67.9 Cerebrovascular disease, unspecified; T40.2X5A Adverse effect of other opioids, initial encounter; R32 Unspecified urinary incontinence; K59.03 Drug induced constipation; Z79.01 Long term (current) use of anticoagulants; K21.9 Gastro-esophageal reflux disease without esophagitis; R53.1 Weakness; Z79.899 Other long term (current) drug therapy; Z66 Do not resuscitate; Z86.73 Personal history of transient ischemic attack (TIA), and cerebral infarction without residual deficits; I10 Essential (primary) hypertension; D64.9 Anemia, unspecified; M51.36 Other intervertebral disc degeneration, lumbar region; E78.00 Pure hypercholesterolemia, unspecified; G47.00 Insomnia, unspecified; G47.33 Obstructive sleep apnea (adult) (pediatric); I95.1 Orthostatic hypotension; I73.9 Peripheral vascular disease, unspecified; F32.9 Major depressive disorder, single episode, unspecified; I83.813 Varicose veins of bilateral lower extremities with pain; Z98.1 Arthrodesis status; R44.1 Visual hallucinations; R29.711 NIHSS score 11
CPT/HCPCS: 70544; 70547; 70553; 71275; 80048; 80053; 82805; 84145; 86900; 86901; 87040; 87449; 87635; 93005; 70450; 71045; 81003; 81015; 83605; 83735; 83880; 84484; 85025; 87899; 93010; 93306; 94640; 94667; 94668; 94760; 99223; 99231; 99232; 99238; 99291; J1170; J2060; J2704; J2930; J3490; J7613; J7620